=== PATIENT | male | born 1950 | race African-American/Black ===

== ENCOUNTER 2023-02-20 11:59 | Emergency (ER) | payer MEDICARE, OTHER, SELFPAY ==
--- NOTE | ~2023-02-20 | XR_ITS ---
Examination: Chest and thoracic spine. CLINICAL HISTORY: Upper back pain and chest pain. COMPARISON: None. TECHNIQUE: Dorsal spine 3 views. Chest 2 views. FINDINGS: There is maintained thoracic kyphosis with mild dextroscoliosis. The vertebral heights and alignment is normal. There is moderate right mid and lower dorsal spine spondylosis. No aggressive lytic or sclerotic process. The paravertebral soft tissues are normal. CHEST: The lungs are well-expanded with patchy atelectatic changes in both lung bases and likely lingular segments. There is increase interstitial markings in both lungs likely chronic changes. The heart size is normal. Pulmonary vascularity is normal There is moderate left apical pleural thickening. XR/XR chest 2V IMPRESSION: Moderate dextroscoliosis with moderate right lateral mid and lower dorsal spine spondylosis. Bilateral chronic interstitial lung changes most prominent in the lingula and both lung bases. There is likely bibasilar atelectasis as well.
--- NOTE | ~2023-02-20 | XR_ITS ---
Examination: Chest and thoracic spine. CLINICAL HISTORY: Upper back pain and chest pain. COMPARISON: None. TECHNIQUE: Dorsal spine 3 views. Chest 2 views. FINDINGS: There is maintained thoracic kyphosis with mild dextroscoliosis. The vertebral heights and alignment is normal. There is moderate right mid and lower dorsal spine spondylosis. No aggressive lytic or sclerotic process. The paravertebral soft tissues are normal. CHEST: The lungs are well-expanded with patchy atelectatic changes in both lung bases and likely lingular segments. There is increase interstitial markings in both lungs likely chronic changes. The heart size is normal. Pulmonary vascularity is normal There is moderate left apical pleural thickening. XR/XR thoracic spine 3V IMPRESSION: Moderate dextroscoliosis with moderate right lateral mid and lower dorsal spine spondylosis. Bilateral chronic interstitial lung changes most prominent in the lingula and both lung bases. There is likely bibasilar atelectasis as well.
--- NOTE | ~2023-02-20 | CT_ITS ---
EXAMINATION: CT ANGIOGRAM OF THE CHEST WITH AND WITHOUT CONTRAST (CT PULMONARY ANGIOGRAM FOR PE) CLINICAL INFORMATION: Reason for Exam back pain/chest pain pleuritic, elevated d dimer COMPARISON: None available. TECHNIQUE: Prior to contrast administration, noncontrast localization images were obtained. Subsequently, multidetector volumetric imaging was performed from the thoracic inlet to below the diaphragms following the administration of 80 mL Omnipaque 350 intravenous contrast. No contrast reaction reported Sagittal, coronal, and MIP oblique sagittal reformatted images were obtained on the CT workstation, uploaded to PACS, and reviewed. This CT examination was performed using dose optimization techniques as appropriate, variously including the following: *Automated exposure control *Adjustment of mA and/or kV according to patient size (this includes techniques or standardized protocols for targeted exams where dose is matched to indication/reason for exam; i.e. extremities or head) *Use of iterative reconstruction technique Total exam dose-length product 363 mGy-cm FINDINGS: QUALITY OF STUDY/CONTRAST BOLUS: Satisfactory. PULMONARY ARTERIES: No central or segmental pulmonary emboli. THORACIC AORTA: No aneurysm or dissection. LUNG: The lungs are well-expanded with patchy probably normal opacities in both lower lobes subpleural base likely chronic interstitial lung changes. Similar findings are seen in both upper lobes. There is an ill-defined pleural-based opacity left upper lobe measuring 1.7 x 1.3 cm, axial image 21/5. There is a subpleural groundglass opacity right upper lobe as well axial image 21/5. PLEURA: There is a small left pleural effusion. There is no right-sided pleural effusion. There is no pleural thickening or calcification. MEDIASTINUM: The thyroid lobes are symmetric and normal. The central trachea and the bronchi widely patent. The heart size and the great vessels are normal caliber. There are small shotty lymph nodes in the left anterior mediastinum measuring 1.5 cm likely inflammatory. There is a small hiatal hernia. No pericardial effusion. No evidence of septal bowing or right heart strain. CORONARY ARTERY CALCIFICATION: None visualized on this study. CHEST WALL/AXILLA: No axillary or internal mammary lymphadenopathy. OSSEOUS STRUCTURES: There is moderate mid thoracic spondylosis. No aggressive lytic or sclerotic process seen. UPPER ABDOMEN: Visualized liver, spleen, pancreas and bilateral adrenal glands unremarkable. No reflux of contrast into the hepatic veins to suggest elevated right heart pressures. CT/CT angio chest PE protocol IMPRESSION: There are chronic interstitial lung changes bilaterally. There is a pleural-based ill-defined opacity left upper lobe and a groundglass opacity in the right upper lobe as definable above. There is small left pleural effusion. Small hiatal hernia. VTE: negative
--- NOTE | 2023-02-20 12:04 | ED.GENADULT ---
HPI - General Adult General Chief complaint: Chest Pain <LAITH Oneal Last Filed: 02/21/23 11:45> Stated complaint: Upper back pain/pain when breathing <LAITH Oneal Last Filed: 02/21/23 11:45> Time Seen by Provider: 02/20/23 14:25 <LAITH Oneal - Last Filed: 02/21/23 11:45> Source: patient and family (Family denies need for vice president of talent management and they are interpreting for the patient) <Jessa Galicia NP - Last Filed: 02/20/23 16:37> Mode of arrival: ambulatory <DURGA Mejía Last Filed: 02/20/23 16:37> Limitations: no limitations <DURGA Mejía Last Filed: 02/20/23 16:37> History of Present Illness HPI narrative: This is a 72-year-old male with history of hypertension and diabetes presents the ER with complaints of 2 months of upper back pain which is worsened since yesterday with no known injury or trauma. Patient reports he lives in [place] and was doing physical therapy there for this back pain but was having continued symptoms. He is visiting here from [place] and reports since yesterday his back pain has worsened and is radiating to the front of his chest and worsened with deep breathing and movement. No associated shortness of breath, dizziness, palpitations, cough or fever. No leg swelling or leg pain No history DVT or PE No anticoagulation use <DURGA Mejía Last Filed: 02/20/23 16:37> Related Data Home medications: Previous Rx's Medication Instructions Recorded doxycycline monohydrate 100 mg 100 mg PO BID #20 tabs 02/20/23 tablet lidocaine 5 % topical patch 1 patch topical DAILY #15 ea 02/20/23 (Lidoderm) <LAITH Oneal Last Filed: 02/21/23 11:45> Allergies/adverse reactions: Allergies Allergy/AdvReac Type Severity Reaction Status Date / Time No Known Allergies Allergy Verified 02/20/23 12:09 <LAITH Oneal Last Filed: 02/21/23 11:45> Review of Systems Review of Systems: Yes all other systems are reviewed and are negative <Jessa Galicia REFINING EQUIPMENT OPERATOR - Last Filed: 02/20/23 16:37> Constitutional: Constitutional: Reports no additional constitutional complaints, Denies body ache(s), Denies chills, Denies fever(s), Denies headache(s) and Denies weakness <Jessa Galicia REFINING EQUIPMENT OPERATOR - Last Filed: 02/20/23 16:37> Eyes: Eyes: Reports no additional eye complaints and Denies change in vision <Jessa Galicia REFINING EQUIPMENT OPERATOR - Last Filed: 02/20/23 16:37> ENT: Reports system reviewed and no additional complaints, except as documented, Denies dizziness, Denies headache(s), Denies nasal congestion, Denies nasal discharge and Denies neck pain <Jessa Galicia REFINING EQUIPMENT OPERATOR - Last Filed: 02/20/23 16:37> Cardiovascular: Cardiovascular: Reports no additional cardiovascular complaints, Reports chest pain, Denies leg edema and Denies dyspnea <Jessa Galicia REFINING EQUIPMENT OPERATOR - Last Filed: 02/20/23 16:37> Respiratory: Respiratory: Reports no additional respiratory complaints, Denies cough and Denies dyspnea <Jessa Galicia, REFINING EQUIPMENT OPERATOR - Last Filed: 02/20/23 16:37> Gastrointestinal: Gastrointestinal: Reports no additional gastrointestinal complaints, Denies abdominal pain, Denies diarrhea, Denies nausea and Denies vomiting <Jessa Galicia, REFINING EQUIPMENT OPERATOR - Last Filed: 02/20/23 16:37> Genitourinary: Genitourinary: Denies urinary incontinence <Jessa Galicia, REFINING EQUIPMENT OPERATOR - Last Filed: 02/20/23 16:37> Musculoskeletal: Musculoskeletal: Reports no additional musculoskeletal complaints, Reports back pain, Denies arthralgias, Denies joint swelling, Denies neck pain, Denies numbness and Denies tingling <Jessa Galicia REFINING EQUIPMENT OPERATOR - Last Filed: 02/20/23 16:37> Integumentary/Breasts: Skin/Breast: Reports system reviewed and no additional complaints, except as docu and Denies rash <Jessa Galicia REFINING EQUIPMENT OPERATOR - Last Filed: 02/20/23 16:37> Neurologic: Reports system reviewed and no additional complaints, except as documented, Denies dizziness, Denies headache(s), Denies numbness, Denies tingling and Denies weakness <Jessa Galicia NP - Last Filed: 02/20/23 16:37> [facility] Past Medical History Attestation statement: The following information was validated with the patient. <Jessa Galicia NP - Last Filed: 02/20/23 16:37> Source: old records reviewed and nursing notes reviewed <Jessa Galicia NP - Last Filed: 02/20/23 16:37> Social History Social History: Social History Alcohol intake: never Smoked in Last 30 Days: No Use of substances other than those prescribed or required for medical reasons: No Advance Directives: No Advance Directives Information Provided: No <LAITH Oneal - Last Filed: 02/21/23 11:45> Physical Exam ED Vital Signs: Vital Signs - 24 hr 02/20/23 12:06 02/20/23 14:13 02/20/23 15:49 Temperature 97.7 F 97.8 F Pulse Rate 104 H 89 88 Respiratory Rate 18 12 17 Blood Pressure 159/89 H 166/93 H 147/87 H Pulse Oximetry 96 96 95 Oxygen Delivery Method Room Air Room Air Room Air BMI result Body Mass Index 27.4 <LAITH Oneal - Last Filed: 02/21/23 11:45> Vital Signs - 24 hr 02/20/23 12:06 02/20/23 14:13 02/20/23 15:49 Temperature 97.7 F 97.8 F Pulse Rate 104 H 89 88 Respiratory Rate 18 12 17 Blood Pressure 159/89 H 166/93 H 147/87 H Pulse Oximetry 96 96 95 Oxygen Delivery Method Room Air Room Air Room Air BMI result Body Mass Index 27.4 <Jessa Galicia NP - Last Filed: 02/20/23 16:37> Const General: cooperative, healthy appearing, comfortable and no acute distress <Jessa Galicia NP - Last Filed: 02/20/23 16:37> Orientation/consciousness: patient oriented x3 <Jessa Galicia NP - Last Filed: 02/20/23 16:37> Limitations: no limitations <Jessa Glaicia, REFINING EQUIPMENT OPERATOR - Last Filed: 02/20/23 16:37> HENMT Head: Yes normal to inspection <Jessa Galicia REFINING EQUIPMENT OPERATOR - Last Filed: 02/20/23 16:37> Ears: hearing grossly normal bilaterally <Jessa Galicia REFINING EQUIPMENT OPERATOR - Last Filed: 02/20/23 16:37> General nose exam: Normal external nose present <Jessa Galicia REFINING EQUIPMENT OPERATOR - Last Filed: 02/20/23 16:37> Face and sinus: Yes normal facial exam <Jessa Galicia, REFINING EQUIPMENT OPERATOR - Last Filed: 02/20/23 16:37> Mouth: Normal oral and palatal mucosa present <Jessa Galicia, REFINING EQUIPMENT OPERATOR - Last Filed: 02/20/23 16:37> Throat: Yes posterior oropharynx normal, Yes tonsils normal and Yes uvula midline <Jessa Galicia, REFINING EQUIPMENT OPERATOR - Last Filed: 02/20/23 16:37> Eyes General: appearance normal, both eyes and all related structures <Jessa Galicia, REFINING EQUIPMENT OPERATOR - Last Filed: 02/20/23 16:37> Pupils: Equal, round and reactive pupils present <Jessa Galicia REFINING EQUIPMENT OPERATOR - Last Filed: 02/20/23 16:37> Neck Neck: Yes normal visual inspection, Yes full ROM, Yes no lymphadenopathy and Yes no meningeal signs <Jessa Galicia REFINING EQUIPMENT OPERATOR - Last Filed: 02/20/23 16:37> Chest Chest palpation & inspection: normal inspection of the chest <Jessa Galicia REFINING EQUIPMENT OPERATOR - Last Filed: 02/20/23 16:37> Resp Effort & Inspection: normal respiratory effort <Jessa Galicia REFINING EQUIPMENT OPERATOR - Last Filed: 02/20/23 16:37> Auscultation: clear to auscultation bilaterally <Jessa Galicia REFINING EQUIPMENT OPERATOR - Last Filed: 02/20/23 16:37> Cardio Rate: regular rate <Jessa Galicia REFINING EQUIPMENT OPERATOR - Last Filed: 02/20/23 16:37> Rhythm: regular rhythm <Jessa Galicia REFINING EQUIPMENT OPERATOR - Last Filed: 02/20/23 16:37> Peripheral pulses: Peripheral pulses 2+ throughout <Jessa Fergusonbertin REFINING EQUIPMENT OPERATOR - Last Filed: 02/20/23 16:37> GI Inspection: Yes normal to inspection <Jessa Fergusonbertin REFINING EQUIPMENT OPERATOR - Last Filed: 02/20/23 16:37> Palpation (GI): Soft to palpation and nontender <Jessa Samirjourdan, REFINING EQUIPMENT OPERATOR - Last Filed: 02/20/23 16:37> Back/Spine/Pelvis Other: Tenderness to the thoracic spine and soft tissue areas bilaterally with no step-offs or deformities <Jessa Samirjourdan, REFINING EQUIPMENT OPERATOR - Last Filed: 02/20/23 16:37> Skin General skin exam: no rashes or lesions noted <Jessaliliana Galicia REFINING EQUIPMENT OPERATOR - Last Filed: 02/20/23 16:37> Neuro General: patient oriented x3, moves all extremities and no meningeal signs <Jessaliliana Galicia, REFINING EQUIPMENT OPERATOR - Last Filed: 02/20/23 16:37> Cranial nerves: Yes Equal, round and reactive pupils present <Jessa Samirjourdan, REFINING EQUIPMENT OPERATOR - Last Filed: 02/20/23 16:37> Cognition (Neuro): normal cognition <Jessa Samirjourdan, REFINING EQUIPMENT OPERATOR - Last Filed: 02/20/23 16:37> Gait exam (Neuro): Normal gait present <Jessa Martybertin REFINING EQUIPMENT OPERATOR - Last Filed: 02/20/23 16:37> Motor exam (neuro): 5/5 motor strength present throughout <Jessaliliana Galicia REFINING EQUIPMENT OPERATOR - Last Filed: 02/20/23 16:37> Sensory Exam: Normal double simultaneous stimulation for sensation <Jessa Samirjourdan, REFINING EQUIPMENT OPERATOR - Last Filed: 02/20/23 16:37> Extrem General: Yes normal to inspection, Yes no pedal edema and Yes no calf tenderness <Jessaliliana Galicia REFINING EQUIPMENT OPERATOR - Last Filed: 02/20/23 16:37> Course Course Course Narrative: RME: 72 yold male presents to the ED for upper left sided back pain radiating to lef chest with pleurisy. Patient recent traveled from [facility] yesterday 4 hour flight. Exam positive for left CVA. no legs swelling or calf pain. No spine tenderness on palpation. NO ripping chest pain going to the back. labs and EKG ordered. Chest xray ordered. radha states chronic back pain but has worsened since flight. <LAITH Oneal - Last Filed: 02/21/23 11:45> Reevaluation(s) Reevaluation #1: 1450-initial labs show indeterminate troponin, elevated D-dimer. X-rays of the chest and thoracic spine showed no acute finding. EKG is nonischemic. Patient with recent travel with pleuritic back and chest pain consider PE. Will obtain CTA to rule out and repeat troponin <Jessa Galicia NP - Last Filed: 02/20/23 16:37> Reevaluation #2: 1630-CT shows chronic lung disease. There does appear to be two areas of upper lobe infiltrates. Patient has longstanding history of smoking tobacco. He may have pneumonia which may be contributing to his pain. However consider malignancy. I discussed this with the patient and his family at length and the room with the public speaking instructor. I will start the patient on antibiotics and recommend he have follow-up imaging and [place] when he returns. Reviewed worrisome signs and symptoms of when to return to the emergency room. Comfortable plan for discharge home. <Jessa Galicia NP - Last Filed: 02/20/23 16:37> Medications Administered Discontinued Medications Generic Name Dose Route Start Last Admin Trade Name Freq PRN Reason Stop Dose Admin Iohexol 100 ml 02/20/23 15:13 02/20/23 15:13 Iohexol 350 Mg/Ml 100 Ml Infus..Btl IV 02/20/23 15:14 65 ml ONCE ONE Administration <LAITH Oneal - Last Filed: 02/21/23 11:45> Medications Administered Discontinued Medications Generic Name Dose Route Start Last Admin Trade Name Freq PRN Reason Stop Dose Admin Iohexol 100 ml 02/20/23 15:13 02/20/23 15:13 Iohexol 350 Mg/Ml 100 Ml Infus..Btl IV 02/20/23 15:14 65 ml ONCE ONE Administration <Jessa Galicia NP - Last Filed: 02/20/23 16:37> Medical Decision Making Medical Decision Making MDM Narrative: This is a 72-year-old male who presents to the ER with acute on chronic back pain with radiation to the chest which is worsened with movement and deep breathing. Patient recently traveled from [place] Will obtain labs, EKG, chest x-ray, thoracic x-ray, COVID screen <Jessa Galicia NP - Last Filed: 02/20/23 16:37> Differential Diagnosis Differential Diagnoses: The differential diagnosis associated with the presentation includes <Jessa Galicia NP - Last Filed: 02/20/23 16:37> Less likely dissection with gradual onset, ACS, PE Musculoskeletal <Jessa Galicia NP - Last Filed: 02/20/23 16:37> Lab Data MDM Lab Attestation statement: I reviewed the patient's lab results. <Jessa Galicia NP - Last Filed: 02/20/23 16:37> Result Diagrams: 02/20/23 12:18 02/20/23 12:18 <LAITH Oneal - Last Filed: 02/21/23 11:45> Labs: Lab Results 02/20/23 02/20/23 02/20/23 Range/Units 12:18 12:18 12:18 WBC 13.5 H (4.8-10.8) X10*3/uL RBC 5.37 (4.60-5.80) X10*6/uL Hgb 16.1 (14.0-18.0) g/dl Hct 49.6 (42.0-52.0) % MCV 92.4 (80.0-98.0) fL MCH 30.0 (27.0-33.0) pg MCHC 32.5 (31.0-36.0) g/dl RDW 13.1 (11.0-16.0) % Plt Count 257 (160-400) X10*3/uL MPV 10.4 (9.4-12.4) fL Immature Gran % (Auto) 0.3 (0.0-0.4) % Neut % (Auto) 70.5 (45-73) % Lymph % (Auto) 18.2 L (20-40) % Taylor % (Auto) 7.0 (2-11) % Eos % (Auto) 3.6 (0-4) % Baso % (Auto) 0.4 (0-2) % Lymph # (Auto) 2.5 (1.2-4.9) X10*3/uL Taylor # (Auto) 1.0 (0.1-1.2) X10*3/uL Eos # (Auto) 0.5 H (0.0-0.4) X10*3/uL Baso # (Auto) 0.1 (0.0-0.2) X10*3/uL Abs Immat Gran (auto) 0.04 H (0.00-0.03) X10*3/uL Absolute Neuts (auto) 9.5 H (2.0-8.3) x10*3/uL Absolute Nucleated RBC 0.000 (0.0-0.012) X10*3/uL Nucleated RBC % (auto) 0.0 (0.0-0.2) /100WBC PT 11.6 (10.0-13.1) SEC INR 1.0 (0.9-1.1) APTT 31.2 (26.0-36.4) SEC D-Dimer High Sensitivty 458 NG/ML Sodium 141 (135-145) mmol/L Potassium 4.4 (3.3-5.1) mmol/L Chloride 105 (96-108) mmol/L Carbon Dioxide 26 (22-29) mmol/L Anion Gap 14 (12-20) BUN 21 H (9-16) mg/dL Creatinine 0.95 (0.5-1.4) mg/dL Estim Creat Clear Calc 73.7 Estimated GFR > 60 Random Glucose 192 H (60-115) mg/dL Calcium 9.7 (8.4-10.2) mg/dL Total Bilirubin 0.5 (0.0-1.0) mg/dL AST 26 (5-37) U/L ALT 34 (0-40) U/L Alkaline Phosphatase 86 (39-117) U/L Troponin I High Sens (<3.5-35.0) ng/L Total Protein 7.4 (6.5-8.0) g/dL Albumin 4.2 (3.5-5.0) g/dL Urine Color Urine Appearance Urine pH (5.0-9.0) Ur Specific [place] (1.005-1.025) Urine Protein (Neg-Trace) mg/dL Urine Glucose (UA) (Negative) mg/dL Urine Ketones (Negative) mg/dL Urine Blood (Negative) Urine Nitrite (Negative) Ur Leukocyte Esterase (Negative) Urine RBC (0-2) /HPF Urine WBC (0-5) /HPF Ur Squamous Epith Cells (0-2) /HPF Urine Bacteria (None Seen) Hyaline Casts (0-2) /LPF Influenza Type A (PCR) (Negative) Influenza Type B (PCR) (Negative) RSV RNA Qual (PCR) (Negative) SARS-CoV-2 RNA (RT-PCR) (Negative) 02/20/23 02/20/23 02/20/23 Range/Units 12:18 12:19 14:04 WBC (4.8-10.8) X10*3/uL RBC (4.60-5.80) X10*6/uL Hgb (14.0-18.0) g/dl Hct (42.0-52.0) % MCV (80.0-98.0) fL MCH (27.0-33.0) pg MCHC (31.0-36.0) g/dl RDW (11.0-16.0) % Plt Count (160-400) X10*3/uL MPV (9.4-12.4) fL Immature Gran % (Auto) (0.0-0.4) % Neut % (Auto) (45-73) % Lymph % (Auto) (20-40) % Taylor % (Auto) (2-11) % Eos % (Auto) (0-4) % Baso % (Auto) (0-2) % Lymph # (Auto) (1.2-4.9) X10*3/uL Taylor # (Auto) (0.1-1.2) X10*3/uL Eos # (Auto) (0.0-0.4) X10*3/uL Baso # (Auto) (0.0-0.2) X10*3/uL Abs Immat Gran (auto) (0.00-0.03) X10*3/uL Absolute Neuts (auto) (2.0-8.3) x10*3/uL Absolute Nucleated RBC (0.0-0.012) X10*3/uL Nucleated RBC % (auto) (0.0-0.2) /100WBC PT (10.0-13.1) SEC INR (0.9-1.1) APTT (26.0-36.4) SEC D-Dimer High Sensitivty NG/ML Sodium (135-145) mmol/L Potassium (3.3-5.1) mmol/L Chloride (96-108) mmol/L Carbon Dioxide (22-29) mmol/L Anion Gap (12-20) BUN (9-16) mg/dL Creatinine (0.5-1.4) mg/dL Estim Creat Clear Calc Estimated GFR Random Glucose (60-115) mg/dL Calcium (8.4-10.2) mg/dL Total Bilirubin (0.0-1.0) mg/dL AST (5-37) U/L ALT (0-40) U/L Alkaline Phosphatase (39-117) U/L Troponin I High Sens 37.6 H (<3.5-35.0) ng/L Total Protein (6.5-8.0) g/dL Albumin (3.5-5.0) g/dL Urine Color Yellow Urine Appearance Clear Urine pH 6.5 (5.0-9.0) Ur Specific [place] 1.020 (1.005-1.025) Urine Protein Trace (Neg-Trace) mg/dL Urine Glucose (UA) 500 H (Negative) mg/dL Urine Ketones Negative (Negative) mg/dL Urine Blood Negative (Negative) Urine Nitrite Negative (Negative) Ur Leukocyte Esterase Small (1+) H (Negative) Urine RBC 0-2 (0-2) /HPF Urine WBC 11-20 H (0-5) /HPF Ur Squamous Epith Cells 0-2 (0-2) /HPF Urine Bacteria None Seen (None Seen) Hyaline Casts 0-2 (0-2) /LPF Influenza Type A (PCR) NEGATIVE (Negative) Influenza Type B (PCR) NEGATIVE (Negative) RSV RNA Qual (PCR) NEGATIVE (Negative) SARS-CoV-2 RNA (RT-PCR) NEGATIVE (Negative) 02/20/23 Range/Units 14:58 WBC (4.8-10.8) X10*3/uL RBC (4.60-5.80) X10*6/uL Hgb (14.0-18.0) g/dl Hct (42.0-52.0) % MCV (80.0-98.0) fL MCH (27.0-33.0) pg MCHC (31.0-36.0) g/dl RDW (11.0-16.0) % Plt Count (160-400) X10*3/uL MPV (9.4-12.4) fL Immature Gran % (Auto) (0.0-0.4) % Neut % (Auto) (45-73) % Lymph % (Auto) (20-40) % Taylor % (Auto) (2-11) % Eos % (Auto) (0-4) % Baso % (Auto) (0-2) % Lymph # (Auto) (1.2-4.9) X10*3/uL Taylor # (Auto) (0.1-1.2) X10*3/uL Eos # (Auto) (0.0-0.4) X10*3/uL Baso # (Auto) (0.0-0.2) X10*3/uL Abs Immat Gran (auto) (0.00-0.03) X10*3/uL Absolute Neuts (auto) (2.0-8.3) x10*3/uL Absolute Nucleated RBC (0.0-0.012) X10*3/uL Nucleated RBC % (auto) (0.0-0.2) /100WBC PT (10.0-13.1) SEC INR (0.9-1.1) APTT (26.0-36.4) SEC D-Dimer High Sensitivty NG/ML Sodium (135-145) mmol/L Potassium (3.3-5.1) mmol/L Chloride (96-108) mmol/L Carbon Dioxide (22-29) mmol/L Anion Gap (12-20) BUN (9-16) mg/dL Creatinine (0.5-1.4) mg/dL Estim Creat Clear Calc Estimated GFR Random Glucose (60-115) mg/dL Calcium (8.4-10.2) mg/dL Total Bilirubin (0.0-1.0) mg/dL AST (5-37) U/L ALT (0-40) U/L Alkaline Phosphatase (39-117) U/L Troponin I High Sens 35.9 H (<3.5-35.0) ng/L Total Protein (6.5-8.0) g/dL Albumin (3.5-5.0) g/dL Urine Color Urine Appearance Urine pH (5.0-9.0) Ur Specific [place] (1.005-1.025) Urine Protein (Neg-Trace) mg/dL Urine Glucose (UA) (Negative) mg/dL Urine Ketones (Negative) mg/dL Urine Blood (Negative) Urine Nitrite (Negative) Ur Leukocyte Esterase (Negative) Urine RBC (0-2) /HPF Urine WBC (0-5) /HPF Ur Squamous Epith Cells (0-2) /HPF Urine Bacteria (None Seen) Hyaline Casts (0-2) /LPF Influenza Type A (PCR) (Negative) Influenza Type B (PCR) (Negative) RSV RNA Qual (PCR) (Negative) SARS-CoV-2 RNA (RT-PCR) (Negative) <LAITH Oneal - Last Filed: 02/21/23 11:45> Lab Results 02/20/23 02/20/23 02/20/23 Range/Units 12:18 12:18 12:18 WBC 13.5 H (4.8-10.8) X10*3/uL RBC 5.37 (4.60-5.80) X10*6/uL Hgb 16.1 (14.0-18.0) g/dl Hct 49.6 (42.0-52.0) % MCV 92.4 (80.0-98.0) fL MCH 30.0 (27.0-33.0) pg MCHC 32.5 (31.0-36.0) g/dl RDW 13.1 (11.0-16.0) % Plt Count 257 (160-400) X10*3/uL MPV 10.4 (9.4-12.4) fL Immature Gran % (Auto) 0.3 (0.0-0.4) % Neut % (Auto) 70.5 (45-73) % Lymph % (Auto) 18.2 L (20-40) % Taylor % (Auto) 7.0 (2-11) % Eos % (Auto) 3.6 (0-4) % Baso % (Auto) 0.4 (0-2) % Lymph # (Auto) 2.5 (1.2-4.9) X10*3/uL Taylor # (Auto) 1.0 (0.1-1.2) X10*3/uL Eos # (Auto) 0.5 H (0.0-0.4) X10*3/uL Baso # (Auto) 0.1 (0.0-0.2) X10*3/uL Abs Immat Gran (auto) 0.04 H (0.00-0.03) X10*3/uL Absolute Neuts (auto) 9.5 H (2.0-8.3) x10*3/uL Absolute Nucleated RBC 0.000 (0.0-0.012) X10*3/uL Nucleated RBC % (auto) 0.0 (0.0-0.2) /100WBC PT 11.6 (10.0-13.1) SEC INR 1.0 (0.9-1.1) APTT 31.2 (26.0-36.4) SEC D-Dimer High Sensitivty 458 NG/ML Sodium 141 (135-145) mmol/L Potassium 4.4 (3.3-5.1) mmol/L Chloride 105 (96-108) mmol/L Carbon Dioxide 26 (22-29) mmol/L Anion Gap 14 (12-20) BUN 21 H (9-16) mg/dL Creatinine 0.95 (0.5-1.4) mg/dL Estim Creat Clear Calc 73.7 Estimated GFR > 60 Random Glucose 192 H (60-115) mg/dL Calcium 9.7 (8.4-10.2) mg/dL Total Bilirubin 0.5 (0.0-1.0) mg/dL AST 26 (5-37) U/L ALT 34 (0-40) U/L Alkaline Phosphatase 86 (39-117) U/L Troponin I High Sens (<3.5-35.0) ng/L Total Protein 7.4 (6.5-8.0) g/dL Albumin 4.2 (3.5-5.0) g/dL Urine Color Urine Appearance Urine pH (5.0-9.0) Ur Specific [place] (1.005-1.025) Urine Protein (Neg-Trace) mg/dL Urine Glucose (UA) (Negative) mg/dL Urine Ketones (Negative) mg/dL Urine Blood (Negative) Urine Nitrite (Negative) Ur Leukocyte Esterase (Negative) Urine RBC (0-2) /HPF Urine WBC (0-5) /HPF Ur Squamous Epith Cells (0-2) /HPF Urine Bacteria (None Seen) Hyaline Casts (0-2) /LPF Influenza Type A (PCR) (Negative) Influenza Type B (PCR) (Negative) RSV RNA Qual (PCR) (Negative) SARS-CoV-2 RNA (RT-PCR) (Negative) 02/20/23 02/20/23 02/20/23 Range/Units 12:18 12:19 14:04 WBC (4.8-10.8) X10*3/uL RBC (4.60-5.80) X10*6/uL Hgb (14.0-18.0) g/dl Hct (42.0-52.0) % MCV (80.0-98.0) fL MCH (27.0-33.0) pg MCHC (31.0-36.0) g/dl RDW (11.0-16.0) % Plt Count (160-400) X10*3/uL MPV (9.4-12.4) fL Immature Gran % (Auto) (0.0-0.4) % Neut % (Auto) (45-73) % Lymph % (Auto) (20-40) % Taylor % (Auto) (2-11) % Eos % (Auto) (0-4) % Baso % (Auto) (0-2) % Lymph # (Auto) (1.2-4.9) X10*3/uL Taylor # (Auto) (0.1-1.2) X10*3/uL Eos # (Auto) (0.0-0.4) X10*3/uL Baso # (Auto) (0.0-0.2) X10*3/uL Abs Immat Gran (auto) (0.00-0.03) X10*3/uL Absolute Neuts (auto) (2.0-8.3) x10*3/uL Absolute Nucleated RBC (0.0-0.012) X10*3/uL Nucleated RBC % (auto) (0.0-0.2) /100WBC PT (10.0-13.1) SEC INR (0.9-1.1) APTT (26.0-36.4) SEC D-Dimer High Sensitivty NG/ML Sodium (135-145) mmol/L Potassium (3.3-5.1) mmol/L Chloride (96-108) mmol/L Carbon Dioxide (22-29) mmol/L Anion Gap (12-20) BUN (9-16) mg/dL Creatinine (0.5-1.4) mg/dL Estim Creat Clear Calc Estimated GFR Random Glucose (60-115) mg/dL Calcium (8.4-10.2) mg/dL Total Bilirubin (0.0-1.0) mg/dL AST (5-37) U/L ALT (0-40) U/L Alkaline Phosphatase (39-117) U/L Troponin I High Sens 37.6 H (<3.5-35.0) ng/L Total Protein (6.5-8.0) g/dL Albumin (3.5-5.0) g/dL Urine Color Yellow Urine Appearance Clear Urine pH 6.5 (5.0-9.0) Ur Specific [place] 1.020 (1.005-1.025) Urine Protein Trace (Neg-Trace) mg/dL Urine Glucose (UA) 500 H (Negative) mg/dL Urine Ketones Negative (Negative) mg/dL Urine Blood Negative (Negative) Urine Nitrite Negative (Negative) Ur Leukocyte Esterase Small (1+) H (Negative) Urine RBC 0-2 (0-2) /HPF Urine WBC 11-20 H (0-5) /HPF Ur Squamous Epith Cells 0-2 (0-2) /HPF Urine Bacteria None Seen (None Seen) Hyaline Casts 0-2 (0-2) /LPF Influenza Type A (PCR) NEGATIVE (Negative) Influenza Type B (PCR) NEGATIVE (Negative) RSV RNA Qual (PCR) NEGATIVE (Negative) SARS-CoV-2 RNA (RT-PCR) NEGATIVE (Negative) 02/20/23 Range/Units 14:58 WBC (4.8-10.8) X10*3/uL RBC (4.60-5.80) X10*6/uL Hgb (14.0-18.0) g/dl Hct (42.0-52.0) % MCV (80.0-98.0) fL MCH (27.0-33.0) pg MCHC (31.0-36.0) g/dl RDW (11.0-16.0) % Plt Count (160-400) X10*3/uL MPV (9.4-12.4) fL Immature Gran % (Auto) (0.0-0.4) % Neut % (Auto) (45-73) % Lymph % (Auto) (20-40) % [place] % (Auto) (2-11) % Eos % (Auto) (0-4) % Baso % (Auto) (0-2) % Lymph # (Auto) (1.2-4.9) X10*3/uL [place] # (Auto) (0.1-1.2) X10*3/uL Eos # (Auto) (0.0-0.4) X10*3/uL Baso # (Auto) (0.0-0.2) X10*3/uL Abs Immat Gran (auto) (0.00-0.03) X10*3/uL Absolute Neuts (auto) (2.0-8.3) x10*3/uL Absolute Nucleated RBC (0.0-0.012) X10*3/uL Nucleated RBC % (auto) (0.0-0.2) /100WBC PT (10.0-13.1) SEC INR (0.9-1.1) APTT (26.0-36.4) SEC D-Dimer High Sensitivty NG/ML Sodium (135-145) mmol/L Potassium (3.3-5.1) mmol/L Chloride (96-108) mmol/L Carbon Dioxide (22-29) mmol/L Anion Gap (12-20) BUN (9-16) mg/dL Creatinine (0.5-1.4) mg/dL Estim Creat Clear Calc Estimated GFR Random Glucose (60-115) mg/dL Calcium (8.4-10.2) mg/dL Total Bilirubin (0.0-1.0) mg/dL AST (5-37) U/L ALT (0-40) U/L Alkaline Phosphatase (39-117) U/L Troponin I High Sens 35.9 H (<3.5-35.0) ng/L Total Protein (6.5-8.0) g/dL Albumin (3.5-5.0) g/dL Urine Color Urine Appearance Urine pH (5.0-9.0) Ur Specific [place] (1.005-1.025) Urine Protein (Neg-Trace) mg/dL Urine Glucose (UA) (Negative) mg/dL Urine Ketones (Negative) mg/dL Urine Blood (Negative) Urine Nitrite (Negative) Ur Leukocyte Esterase (Negative) Urine RBC (0-2) /HPF Urine WBC (0-5) /HPF Ur Squamous Epith Cells (0-2) /HPF Urine Bacteria (None Seen) Hyaline Casts (0-2) /LPF Influenza Type A (PCR) (Negative) Influenza Type B (PCR) (Negative) RSV RNA Qual (PCR) (Negative) SARS-CoV-2 RNA (RT-PCR) (Negative) <Jessa Galicia NP - Last Filed: 02/20/23 16:37> Independent Interpretation I performed an independent interpretation of an: EKG, Plain X-Ray and CT Scan <Jessa Galicia NP - Last Filed: 02/20/23 16:37> Interpretation: I independently reviewed the EKG which shows sinus tachycardia with a rate of 101, normal NE, normal QRS, normal QT I independently reviewed the x-ray of the chest and thoracic spine agree with radiologist's report I independetely reviewed the CT of the chest and agree with radiologist's report <Jessa Galicia NP - Last Filed: 02/20/23 16:37> Radiology Impression Discussion of test interpretation with radiology: I have reviewed the radiologist's reading. <Jessa Galicia NP - Last Filed: 02/20/23 16:37> Discharge Plan Discharge Clinical Impression: Atypical chest pain, Pneumonia <LAITH Oneal - Last Filed: 02/21/23 11:45> Patient Disposition: Home, Self-Care <LAITH Oneal - Last Filed: 02/21/23 11:45> Instructions: Chest Pain (DC), Pneumonia (ED) <LAITH Oneal - Last Filed: 02/21/23 11:45> Additional Instructions: your CT scan shows no blood clots.? It does show that you have chronic lung disease and you may have a small area of pneumonia.? We are giving you an antibiotic which she should take as prescribed.? Please follow-up with your doctors in [place] when you return there. levi tomograf?a computarizada no muestra co?gulos de angie. Muestra que tiene mikel enfermedad pulmonar cr?kathya y que puede tener mikel froilan?a ?harriet de [place]um[place]?a. Le estamos dando un antibi?nemo que debe jenn seg?n lo prescrito. Por favor, michelle un seguimiento con david m?dicos en [place] cuando regrese all <LAITH Oneal - Last Filed: 02/21/23 11:45> Prescriptions: New doxycycline monohydrate 100 mg tablet 100 mg PO BID Qty: 20 0RF lidocaine [Lidoderm] 5 % adhesive patch,medicated 1 patch topical DAILY Qty: 15 0RF Rx Instructions: leave on most painful area for up to 12 hrs <LAITH Oneal - Last Filed: 02/21/23 11:45> Referrals: Physician,None [Primary Care Provider] - 1 week <LAITH Oneal - Last Filed: 02/21/23 11:45> Interventions: ED Discharge Assessment Last Done: 02/20/23 16:55 <LAITH Oneal - Last Filed: 02/21/23 11:45> Discharge Date/Time: 02/20/23 16:55 <LAITH Oneal - Last Filed: 02/21/23 11:45> Print Language: Icelandic <LAITH Oneal - Last Filed: 02/21/23 11:45>
[2023-02-20 12:06] VITALS: BP 159/89; PULSE 104; RESP 18; TEMP 36.5; O2SAT 96; BMI 27.4
--- NOTE | 2023-02-20 12:09 | ECG_ITS ---
Test Reason : CP Blood Pressure : / mmHG Vent. Rate : 101 BPM Atrial Rate : 101 BPM P-R Int : 144 ms QRS Dur : 100 ms QT Int : 336 ms P-R-T Axes : 037 027 043 degrees QTc Int : 435 ms Sinus tachycardia Otherwise normal ECG No previous ECGs available Referred By: Blaise Lai Electronically Signed By:ALIVIA BOWLES
[2023-02-20 12:24] LABS: MANUAL DIFF FLAG NO
[2023-02-20 12:26] LABS: Basophils Absolute Auto 0.1 X10*3/uL (0.0-0.2); Basophils Percent Auto 0.4 % (0-2); Eosinophils Absolute Auto 0.5 X10*3/uL (0.0-0.4); Eosinophils Percent Auto 3.6 % (0-4); Hematocrit 49.6 % (42.0-52.0); Hemoglobin 16.1 g/dl (14.0-18.0); Imm Gran Abs Auto 0.04 X10*3/uL (0.00-0.03); Imm Gran Pct Auto 0.3 % (0.0-0.4); Lymphocytes Absolute Auto 2.5 X10*3/uL (1.2-4.9); Lymphocytes Percent Auto 18.2 % (20-40); Mean Corpuscular HGB Conc 32.5 g/dl (31.0-36.0); Mean Corpuscular Volume 92.4 fL (80.0-98.0); Mean Platelet Volume 10.4 fL (9.4-12.4); Neutrophils Absolute Auto 9.5 x10*3/uL (2.0-8.3); Neutrophils Percent Auto 70.5 % (45-73); Platelet Count 257 X10*3/uL (160-400); Red Blood Count 5.37 X10*6/uL (4.60-5.80); Red Cell Distribution Width 13.1 % (11.0-16.0); White Blood Count 13.5 X10*3/uL (4.8-10.8)
[2023-02-20 12:32] LABS: Prothrombin Time 11.6 SEC (10.0-13.1)
[2023-02-20 12:34] LABS: D Dimer High Sensitivity 458 NG/ML
[2023-02-20 12:35] LABS: Partial Thromboplastin Time 31.2 SEC (26.0-36.4)
[2023-02-20 12:45] LABS: Alanine Aminotransferase 34 U/L (0-40); Albumin Level 4.2 g/dL (3.5-5.0); Alkaline Phosphatase 86 U/L (39-117); Anion Gap 14 (12-20); Aspartate Amino Transferase 26 U/L (5-37); Bilirubin Total 0.5 mg/dL (0.0-1.0); Blood Urea Nitrogen 21 mg/dL (9-16); Calcium 9.7 mg/dL (8.4-10.2); Carbon Dioxide 26 mmol/L (22-29); Chloride 105 mmol/L (96-108); Creatinine Clr Calc Pharmacy 73.7; Estimated Glomerular Filt Rate > 60; Glucose Random 192 mg/dL (60-115); Potassium 4.4 mmol/L (3.3-5.1); Sodium 141 mmol/L (135-145); Total Protein 7.4 g/dL (6.5-8.0)
[2023-02-20 12:52] LABS: Troponin-I High Sensitivity 37.6 ng/L (<3.5-35.0)
[2023-02-20 13:04] LABS: Influenza A PCR NEGATIVE (Negative); Influenza B PCR NEGATIVE (Negative); Resp Syncy Virus RNA Qual PCR NEGATIVE (Negative); SARS COV2 PCR INHOUSE NEGATIVE (Negative)
[2023-02-20 14:11] LABS: Appearance Urine Clear; Color Urine Yellow; Glucose Urine UA 500 mg/dL (Negative); Leukocyte Esterase Urine Small (1+) (Negative); Nitrite Urine Negative (Negative); PH 6.5 (5.0-9.0); UMIC TRIGGER UACC YES; Urine Blood Negative (Negative); Urine Ketones Negative (Negative); Urine Protein Trace mg/dL (Neg-Trace)
[2023-02-20 14:13] VITALS: BP 166/93; PULSE 89; RESP 12; O2SAT 96
[2023-02-20 14:14] LABS: Bacteria Urine None Seen (None Seen); Hyaline Casts Urine 0-2 /LPF (0-2); RBC Urine 0-2 /HPF (0-2); Squamous Epithelial Cell Urine 0-2 /HPF (0-2); UACC Culture Trigger YES
--- NOTE | 2023-02-20 15:03 | PC.NURSE ---
pt alert/oriented. latvian speaking.reporting 8/10 back pain that has been going on for 2 months but increased yesterday. IV inserted, repeat trop drawn and sent to lab. Pt to CT scan now.
[2023-02-20] MEDS: iohexoL 350 MG/ML 100 ML INFUS..BTL IV (15:13)
--- NOTE | 2023-02-20 15:23 | PC.NURSE ---
pt returned from CT scan. shelter monitor on - NSR. will cont to monitor
[2023-02-20 15:33] LABS: Troponin-I High Sensitivity 35.9 ng/L (<3.5-35.0)
[2023-02-20 15:49] VITALS: BP 147/87; PULSE 88; RESP 17; TEMP 36.6; O2SAT 95
== END 2023-02-20 16:55 | disposition home or self-care (01) ==
PROVIDERS: Nurse Practitioner Family; Physician Assistant; Emergency Provider Emergency Medicine
DX: J18.9 Pneumonia, unspecified organism (principal); R07.89 Other chest pain; M54.6 Pain in thoracic spine; Z20.822 Contact with and (suspected) exposure to COVID-19; Z20.828 Contact with and (suspected) exposure to other viral communicable diseases; Z79.899 Other long term (current) drug therapy
CPT/HCPCS: 0241U; 36415; 71046; 71275; 72072; 80053; 81001; 84484; 85025; 85379; 85610; 85730; 87086; 93005; 99284; 99285; Q9967

== ENCOUNTER 2023-05-10 11:16 | Outpatient (REF) | payer OTHER, SELFPAY ==
--- NOTE | ~2023-05-10 | PE_ITS ---
EXAMINATION: Fluorine-18 FDG PET/CT Scan CLINICAL INDICATION: Initial treatment management. Pleural-based ill-defined opacity at left upper lobe of the lung and groundglass opacity at right upper lobe superimposed on underlying chronic interstitial lung changes seen on recent CT of the chest done on 02/20/2023. PROCEDURE: 55 minutes following the intravenous administration of 21.7 mCi of fluorine 18 FDG, images from the base of the skull to the mid thighs were obtained using a combined PET/CT scanner with CT scan based attenuation correction. No intravenous contrast was administered. Transverse, coronal, sagittal, and volume reconstruction projections were obtained. The patient's blood glucose as determined by a finger stick, was 96 mg/dl immediately prior to injection. The radiotracer was injected intravenously through left antecubital superficial vein, without any complications. Total CT exam dose-length product 626.22 mGy-cm * These CT images were obtained using dose optimization techniques as appropriate, variously including the following: Automated exposure control * Adjustment of mA and/or kV according to patient size (this includes techniques or standardized protocols for targeted exams where dose is matched to indication/reason for exam; i.e. extremities or head) * Use of iterative reconstruction technique COMPARISON: CT of the chest done on 02/20/2023 and 05/13/2023. FINDINGS: NECK AND VISUALIZED HEAD: FDG avid left supraclavicular and to a lesser extent right supraclavicular lymphadenopathy with the dominant lymph node seen at the medial aspect of the left supraclavicular fossa with maximum short axis dimension of 1.8 cm and SUV max of 7.4 (53/267). THORAX: Multiple FDG avid mediastinal lymphadenopathy present, the dominant lymph node is seen in the subcarinal region with maximum short axis dimension of 1.8 cm with SUV max of 12.2 (85/267). Possibility of this being primary esophageal malignancy cannot be absolutely excluded since this masslike FDG avid disease cannot be completely from the adjacent part of the thoracic esophagus. Note is also made of left perihilar FDG avid lymph node with SUV max of 10.5 (83/267). In addition, intense central FDG avidity is noted involving the right upper lobe of the lung abutting the left pulmonary artery with SUV max of 13.7, suspicious for primary lung malignancy. Direct visualization/bronchoscopic biopsy is recommended for further clarification. Nonspecific bilateral linear increased radiotracer activity is present along the peripheral subpleural region of the right upper lobe and within the superior to mid part of the left-sided pleural space associated with small left-sided pleural effusion which is probably slightly lobulated. Mild bilateral gynecomastia. ABDOMEN AND PELVIS: There are multiple FDG avid focal lesions identified within both lobes of the liver. The dominant lesion is seen posteroinferiorly, measures approximately 4.1 x 2.0 cm with SUV max of 15.4 (138/267). The findings are highly suspicious for metastatic disease. The spleen, the pancreas, the gallbladder, biliary tree appear unremarkable. The left adrenal gland shows mild nodular thickening without evidence of any FDG avid disease. The right adrenal gland is unremarkable. Physiologic radiotracer activities present within the kidneys and both renal pelvicalyceal system and the bladder. Extensive FDG uptake is noted throughout the entire large bowel including the rectum, likely physiologic. Small sliding hiatal hernia is noted. The stomach is decompressed. The small bowel loops are decompressed. There are no FDG avid retroperitoneal, mesenteric or pelvic and/or groin lymphadenopathy. The prostate is enlarged. MUSCULOSKELETAL: No suspicious FDG avid osseous disease. VASCULAR: Calcific atherosclerotic disease of the aorta including coronary artery calcifications. No evidence of aneurysm. SUV max OF MEDIASTINAL BLOOD POOL: 3.0 SUV max OF LIVER: 2.7 PET/PET CT fusion skull to thigh IMPRESSION: 1. Abnormal study. There are multiple FDG avid mediastinal, left hilar and bilateral supraclavicular (left greater than right) lymphadenopathy associated with intense FDG avid soft tissue mass at central part of partially collapsed left upper lobe of the lung at the level of the left main pulmonary artery (76/267) with SUV max of 13.7, suspicious for primary lung malignancy. Direct visualization/bronchoscopy and biopsy is recommended for further clarification. 2. Most intense FDG avid mediastinal lymph node is seen in the subcarinal region with SUV max of 12.2 (85/267). Possibility of this being primary esophageal malignancy cannot be absolutely excluded since this masslike FDG avid disease cannot be completely from the adjacent part of the thoracic esophagus. Please correlate clinically as well as follow-up direct visualization of the thoracic esophagus if clinically appropriate. 3. Multifocal FDG avid liver lesions, the dominant lesion is seen at segment 6, measures approximately 4.1 x 2.0 cm with SUV max of 15.4 (138/267), highly suspicious for hepatic metastatic disease from unknown primary. The dominant lesion can be biopsied using image guidance, if clinically appropriate for further clarification. This critical result was discussed with Trice Garcia RN at 1:07 PM on 05/13/2023 and it was ascertained that the content and urgency of the report was understood at the time of direct communication.
== END 2023-05-10 11:17 | disposition home or self-care (01) ==
LOC: HO.PET 11:16
PROVIDERS: Visit Provider Student in an Organized Health Care Education/Training Program
DX: Z13.89 Encounter for screening for other disorder (principal)

== ENCOUNTER 2023-05-12 18:13 | Inpatient (IN) | payer OTHER, MEDICAID, SELFPAY ==
[2023-05-12] VITALS (15 sets, daily range): BP systolic 98–168; BP diastolic 58–97; PULSE 116–135; RESP 26–45; TEMP 35.6–37.2; O2SAT 39–100; BMI 27.1
--- NOTE | ~2023-05-12 | XR_ITS ---
EXAMINATION: XR CHEST CLINICAL INFORMATION: Reason for Exam hypoxia COMPARISON: Chest radiograph 05/13/2023 TECHNIQUE: One view of the chest FINDINGS: Lines and tubes: Enteric tube tip tip overlies the region of the stomach. Right internal jugular central venous catheter tip terminates overlying the right atrium. Endotracheal tube tip terminates approximately 5.4 cm above the robb. EKG leads overlie the patient. Interval improvement in aeration in the right lung with decrease in multifocal parenchymal airspace opacities. Decreased small bilateral pleural effusions. No pneumothorax. Unchanged cardiomediastinal silhouette. XR/XR chest 1V IMPRESSION: 1. Endotracheal tube tip terminates approximately 5.4 cm above the robb. 2. Interval improvement in aeration in the right lung with decrease in multifocal parenchymal airspace opacities. 3. Decreased small bilateral pleural effusions.
--- NOTE | ~2023-05-12 | XR_ITS ---
EXAMINATION: XR CHEST CLINICAL INFORMATION: Chest tube to water seal. COMPARISON: Most recent chest radiograph done earlier the same day. TECHNIQUE: Frontal view of the chest was obtained. FINDINGS: Redemonstration of a left basilar chest tube in unchanged position. Previously seen trace left apical pneumothorax not appreciated, however, may still be present. Area is obscured by overlying osseous structures. This appears similar when compared to the prior examination. No new or increasing pneumothorax. Right-sided central venous catheter in unchanged position. Hypoinflation of the lungs with bilateral airspace opacities, most prominent within the lung bases, unchanged. Trace bilateral pleural effusions are unchanged. Stable cardiomediastinal silhouette. XR/XR chest 1V IMPRESSION: 1. Left basilar chest tube in unchanged position. Previously seen trace left apical pneumothorax not appreciated, however, may still be present. No new or increasing pneumothorax. 2. Hypoinflation of the lungs with bilateral airspace opacities, most prominent within the lung bases, unchanged. Trace bilateral pleural effusions are unchanged. 3. Right-sided central venous catheter in unchanged position.
--- NOTE | ~2023-05-12 | XR_ITS ---
EXAMINATION: XR CHEST CLINICAL INFORMATION: Chest tube placement. COMPARISON: Chest radiograph earlier today at 8:40 PM. TECHNIQUE: Frontal view of the chest was obtained. FINDINGS: Chest tube projecting over the left lower lung with significant decreased size of left-sided pleural effusion, now small. Stable diffuse interstitial thickening. Similar focal airspace opacity projecting over the right to lower lung. No pneumothorax. Stable prominence of the cardiomediastinal silhouette. Right IJ CVC catheter projects over the SVC/right atrial junction. No acute osseous abnormalities. XR/XR chest 1V IMPRESSION: Significant decrease in size of a left pleural effusion following placement of a chest tube.
--- NOTE | ~2023-05-12 | XR_ITS ---
EXAMINATION: XR CHEST CLINICAL INFORMATION: Central line placement COMPARISON: Previous x-ray from earlier the same day TECHNIQUE: Frontal view of the chest was obtained. FINDINGS: There is a new right jugular line with tip projecting over the cavoatrial junction. There is an endotracheal tube with tip 5.2 cm above the robb. There is a nasogastric tube with tip projecting over the stomach. The cardiac silhouette appears enlarged. There is increasing bilateral airspace disease and bilateral pleural effusions. No pneumothorax. Degenerative changes of the spine. XR/XR chest 1V IMPRESSION: Satisfactory position of right jugular line. No pneumothorax. Increasing bilateral airspace disease and pleural effusions.
--- NOTE | ~2023-05-12 | XR_ITS ---
EXAMINATION: XR CHEST CLINICAL INFORMATION: Chest tube evaluation COMPARISON: Chest x-ray on 05/21/2023 TECHNIQUE: Frontal view of the chest was obtained. FINDINGS: There is a left basilar pigtail catheter in position. Previously identified trace left apical pneumothorax is not well evaluated on this exam secondary to patient positioning. No large pneumothorax. No other change compared to the multiple prior exams. XR/XR chest 1V IMPRESSION: Previously identified trace left apical pneumothorax is not well evaluated on this exam secondary to patient positioning.
--- NOTE | ~2023-05-12 | CT_ITS ---
EXAMINATION: CT ANGIOGRAM OF THE CHEST WITH AND WITHOUT CONTRAST (CT PULMONARY ANGIOGRAM FOR PE) CLINICAL INFORMATION: Reason for Exam hypoxia, left sided mass effusion COMPARISON: 02/20/2023 TECHNIQUE: Prior to contrast administration, noncontrast localization images were obtained. Subsequently, multidetector volumetric imaging was performed from the thoracic inlet to below the diaphragms following the administration of 65 mL Omnipaque 350 intravenous contrast. No contrast reaction reported Sagittal, coronal, and MIP oblique sagittal reformatted images were obtained on the CT workstation, uploaded to PACS, and reviewed. This CT examination was performed using dose optimization techniques as appropriate, variously including the following: *Automated exposure control *Adjustment of mA and/or kV according to patient size (this includes techniques or standardized protocols for targeted exams where dose is matched to indication/reason for exam; i.e. extremities or head) *Use of iterative reconstruction technique Total exam dose-length product 356 mGy-cm FINDINGS: Study is degraded by extensive respiratory motion artifact. QUALITY OF STUDY/CONTRAST BOLUS: Satisfactory. PULMONARY ARTERIES: No pulmonary emboli. THORACIC AORTA: No aneurysm. LUNG: Diffuse bilateral interlobular and intralobular septal thickening with superimposed patchy and geographic groundglass opacities throughout the right lung. There are areas of peripherally and lower lobe predominant architectural distortion, traction bronchiectasis and honeycombing. PLEURA: Small moderate left pleural effusion has increased in size from prior with areas of loculation. No pneumothorax. MEDIASTINUM: Normal heart size. No pericardial effusion. Mild mediastinal lymphadenopathy is presumably reactive, slightly larger than on the prior exam. No evidence of septal bowing or right heart strain. CORONARY ARTERY CALCIFICATION: Present. CHEST WALL/AXILLA: No axillary or internal mammary lymphadenopathy. OSSEOUS STRUCTURES: No acute or suspicious osseous abnormality. UPPER ABDOMEN: Unremarkable. CT/CT angio chest PE protocol IMPRESSION: * No pulmonary embolism. * Chronic pulmonary fibrotic changes are similar in severity to the prior examination, however there is significantly worsened diffuse groundglass opacity throughout the right lung primarily which may represent asymmetric pulmonary edema, infection or alveolitis potentially related to the patient's underlying interstitial lung disease (eg acute interstitial pneumonitis) * Small to moderate left pleural effusion has increased in size from prior with areas of loculation. * Mild mediastinal lymphadenopathy presumably reactive. VTE: negative.
--- NOTE | ~2023-05-12 | XR_ITS ---
EXAMINATION: XR CHEST CLINICAL INFORMATION: Status post chest tube removal COMPARISON: 05/22/2023 TECHNIQUE: Frontal view of the chest was obtained. FINDINGS: Tube overlying the lower chest on previous exam is no longer visualized. There is no evidence for pneumothorax in the left lung. Persistent mid to lower lung opacities with no suspicious increase. Once again opacities seen in the right lung. Similar to previous. XR/XR chest 1V IMPRESSION: Tube no longer seen overlying lower chest on left. There is no pneumothorax. Residual densities in the right and left lung not significantly changed from previous. Attention to follow-up
--- NOTE | ~2023-05-12 | XR_ITS ---
EXAMINATION: XR CHEST CLINICAL INFORMATION: Chest tube COMPARISON: Previous chest x-ray most recent from yesterday TECHNIQUE: 1 view of the chest was obtained. FINDINGS: Left base pigtail chest tube unchanged. Right jugular line tip projects over cavoatrial junction. The cardiac and mediastinal contours are stable. There is bilateral diffuse airspace disease. Small left pleural effusion or thickening at the left lung apex. No pneumothorax. Scoliosis and degenerative changes of the spine.. XR/XR chest 1V IMPRESSION: Stable position of left chest tube. Small loculated pleural fluid or thickening at the left lung apex. No pneumothorax.
--- NOTE | ~2023-05-12 | CT_ITS ---
EXAMINATION: CT ANGIOGRAM OF THE CHEST WITH AND WITHOUT CONTRAST (CT PULMONARY ANGIOGRAM FOR PE) CLINICAL INFORMATION: Reason for Exam Hypoxia COMPARISON: 05/27/2023 chest radiograph, 05/20/[address] TECHNIQUE: Prior to contrast administration, noncontrast localization images were obtained. Subsequently, multidetector volumetric imaging was performed from the thoracic inlet to below the diaphragms following the administration of 80 mL Omnipaque 350 intravenous contrast. No contrast reaction reported Sagittal, coronal, and MIP oblique sagittal reformatted images were obtained on the CT workstation, uploaded to PACS, and reviewed. This CT examination was performed using dose optimization techniques as appropriate, variously including the following: *Automated exposure control *Adjustment of mA and/or kV according to patient size (this includes techniques or standardized protocols for targeted exams where dose is matched to indication/reason for exam; i.e. extremities or head) *Use of iterative reconstruction technique Total exam dose-length product 171.2 mGy-cm FINDINGS: QUALITY OF STUDY/CONTRAST BOLUS: Centrally, limited evaluation of the segmental and subsegmental branches. HEART AND GREAT VESSELS: Pulmonary arteries are not enlarged. There are small bilateral intra-arterial filling defects, on the right in lower lobe branches, coronal 8:76 through 79, in the left upper lobe, images 8:65 through 70. No ventricular bowing nor contrast reflux into the inferior vena cava. Heart size within normal limits. Aorta is nonaneurysmal with atherosclerotic calcifications. CORONARY ARTERY CALCIFICATION: None visualized on this study. LUNG: Paraseptal emphysema, scattered groundglass opacities, atelectasis, fibrotic changes/honeycombing again noted. Some improvement right lower lobe parenchymal opacities. Left upper lobe consolidation again seen. PLEURA: Small left pleural effusion has developed. Previous left base chest tube has been removed, no pneumothorax. MEDIASTINUM: Enlarged pretracheal, right paratracheal, prevascular and hilar lymph nodes again identified. Increasing confluent subcarinal lymphadenopathy previously measured 1.7 cm in AP dimension, now 2.4 cm. Dilated thickened esophagus and moderate sized hiatal hernia again identified. CHEST WALL/AXILLA: Gynecomastia. No axillary or internal mammary lymphadenopathy. OSSEOUS STRUCTURES: No acute or suspicious osseous abnormality. UPPER ABDOMEN: No definite abnormality. CT/CT angio chest PE protocol IMPRESSION: Small burden bilateral pulmonary emboli. No CT evidence of right heart strain. Redemonstration pathologic lymphadenopathy with increasing enlarged, confluent subcarinal lymph nodes from recent CT. Interval left chest tube removal, no residual pneumothorax. Interval development of small left pleural effusion. Overall stability multiple pulmonary parenchymal abnormalities, some improvement opacities right lower lobe. VTE: Small burden.
--- NOTE | ~2023-05-12 | XR_ITS ---
EXAMINATION: XR CHEST CLINICAL INFORMATION: Follow-up COMPARISON: 05/15/2023 TECHNIQUE: Frontal view of the chest was obtained. FINDINGS: The position of supporting tubes and lines is stable. Cardiomediastinal silhouette is normal. There is stable reticulonodular pattern seen bilaterally and there is blunting of left costophrenic angle likely due to pleural effusion. XR/XR chest 1V IMPRESSION: No interval change
--- NOTE | ~2023-05-12 | XR_ITS ---
EXAMINATION: XR CHEST CLINICAL INFORMATION: Shortness of breath. COMPARISON: CTA chest 02/20/2023. Chest radiograph 02/20/2023. TECHNIQUE: Frontal view of the chest was obtained. FINDINGS: Worsening pulmonary aeration with increased diffuse interstitial coarsening and bibasilar airspace opacities. Again noted asymmetric pleural-based density on the left lower lobe. Small bilateral pleural effusions. No pneumothorax. No significant change in the appearance of the cardiomediastinal silhouette. No acute osseous abnormalities. XR/XR chest 1V IMPRESSION: Worsening pulmonary aeration with increased diffuse interstitial coarsening and bibasilar airspace opacities. Findings are indeterminate and could be related with a combination of pulmonary edema and an atypical infectious/inflammatory process. Continued follow-up is recommended.
--- NOTE | ~2023-05-12 | CT_ITS ---
EXAMINATION: CT CHEST WITHOUT CONTRAST CLINICAL INFORMATION: Hypoxic respiratory failure. Postobstructive pneumonia. COMPARISON: Chest CTs dated May 13, 2023 and February 20, 2023. PET/CT dated May 10, 2023. TECHNIQUE: Multidetector volumetric CT imaging of the chest was done. Axial MIP volume rendering provided. Sagittal and coronal reformatted images were obtained. This CT examination was performed using dose optimization techniques as appropriate, variously including the following: *Automated exposure control *Adjustment of mA and/or kV according to patient size (this includes techniques or standardized protocols for targeted exams where dose is matched to indication/reason for exam; i.e. extremities or head) *Use of iterative reconstruction technique DLP: 353 mGy-cm FINDINGS: LUNGS/PLEURA: Carrier loop of left chest tube lies in the posteromedial costophrenic angle. Trace (less than 5%) left pneumothorax. Left pleural effusion seen one week earlier no longer appreciated. Coarse bilateral interstitial prominence with associated honeycombing and traction bronchiectasis appears similar compared with one week prior. Superimposed groundglass density on the right may be improved. The central bronchi appear patent. MEDIASTINUM: Mediastinal adenopathy including 1.7 cm subcarinal and 1.3 cm left hilar nodes appears unchanged compared with one week prior. These were hypermetabolic on PET/CT from May 10, 2023. Infiltrating, irregular mediastinal soft tissue density and/or nodes appear unchanged (for example, images 24 and 25, series 3). These were also hypermetabolic on PET/CT from May 10, 2023. Tip of right internal jugular central venous line at junction of superior vena cava and right atrium. CORONARY ARTERY CALCIFICATION: None visualized on this study. CHEST WALL/AXILLA: Mild bilateral gynecomastia. No lymphadenopathy by size criteria. UPPER ABDOMEN: Suspect approximately 2.5 cm or less, vague, hypodense, peripheral hepatic lesions which likely corresponds with hypermetabolic lesion seen on PET/CT dated May 10, 2023. These are suboptimally evaluated on the current noncontrast study. OSSEOUS STRUCTURES: No lytic or sclerotic bony lesion identified. Degenerative changes of the spine, with thoracic dextroscoliosis. CT/CT chest wo IV con IMPRESSION: Carrier loop of left chest tube lies in the posteromedial costophrenic angle. Trace (less than 5%) left pneumothorax. Left pleural effusion seen one week earlier no longer appreciated. Coarse bilateral interstitial prominence with associated honeycombing and traction bronchiectasis, similar compared with one week prior. Superimposed groundglass density on the right may be improved. Otherwise, no significant radiographic change compared with May 13, 2023, as detailed above.
--- NOTE | ~2023-05-12 | XR_ITS ---
EXAMINATION: XR CHEST CLINICAL INFORMATION: KELLEN and OGT placement COMPARISON: 05/12/2023 TECHNIQUE: Frontal view of the chest was obtained. FINDINGS: There is very placed endotracheal tube with the tip approximately 5.8 cm above the robb. There is newly placed nasogastric tube with the tip below the diaphragm. Lungs of low volumes with reticular nodular pattern bilaterally. Cardiomediastinal silhouette is unremarkable. There is no evidence of pleural effusion or pneumothorax. XR/XR chest 1V IMPRESSION: Well-positioned endotracheal tube and nasogastric tube. Reticular nodular pattern of lungs bilaterally.
--- NOTE | ~2023-05-12 | XR_ITS ---
EXAMINATION: XR CHEST CLINICAL INFORMATION: Shortness of breath COMPARISON: 05/23/2023 TECHNIQUE: Frontal view of the chest was obtained. FINDINGS: Multiple EKG wires overlie the chest. Lungs are hypoinflated. Again noted is diffuse interstitial disease and ill-defined patchy pulmonary opacities without appreciable change. It is difficult to exclude any trace pleural effusions on this limited anteroposterior chest radiograph. The smooth pleural thickening at the left apex has a stable appearance. No pneumothorax is seen. Cardiac silhouette is normal in size. Mild dextrocurvature of degenerated thoracic spine. XR/XR chest 1V IMPRESSION: No significant change in interstitial disease and patchy pulmonary opacities. Findings could represent noninfectious or infectious pneumonitis against a background of chronic interstitial disease. No new abnormalities since 05/23/2023.
--- NOTE | ~2023-05-12 | XR_ITS ---
EXAMINATION: XR CHEST CLINICAL INFORMATION: Hypoxia. COMPARISON: Chest radiograph 05/19/2023. TECHNIQUE: Frontal view of the chest was obtained. FINDINGS: Interval extubation. Right IJ CVC catheter with the tip projecting over the SVC/right atrial junction. Worsening pulmonary aeration with increased near complete opacification of the left lung. Stable reticular and patchy opacities in the right lower lobe. Evaluation of the cardiomediastinal silhouette is limited due to overlying left lung densities. No discrete pneumothorax. No acute osseous abnormalities. XR/XR chest 1V IMPRESSION: 1. Worsening pulmonary aeration with increased near complete opacification of the left lung, nonspecific but suggestive of pleural effusion, atelectasis from mucous plugging and/or aspiration given the rapid development. 2. Stable reticular and patchy opacities in the right lower lobe. 3. Endotracheal tube is not visualized.
--- NOTE | ~2023-05-12 | XR_ITS ---
EXAMINATION: XR CHEST CLINICAL INFORMATION: Chest tube. COMPARISON: CT chest dated 05/20/2023. Chest radiograph dated 05/20/2023. TECHNIQUE: Frontal view of the chest was obtained. FINDINGS: Redemonstration of a chest tube within the left lung base, unchanged. Right-sided central venous catheter in unchanged position. Previously seen trace left-sided pneumothorax not appreciated on plain radiographs. Trace bilateral pleural effusions, slightly more prominent when compared to the prior examination. Diffuse, patchy bilateral airspace opacities are redemonstrated, slightly increased within the lung bases. Stable cardiomediastinal silhouette. XR/XR chest 1V IMPRESSION: 1. Left-sided chest tube and right-sided central venous catheter in unchanged position. 2. Previously seen trace left-sided pneumothorax not appreciated on plain radiographs. 3. Trace bilateral pleural effusions, slightly more prominent when compared to the prior examination. 4. Diffuse, patchy bilateral airspace opacities are redemonstrated, slightly increased within the lung bases.
--- NOTE | 2023-05-12 18:16 | ED.SOB ---
HPI - SOB/Dyspnea General Chief Complaint: Chest Pain Stated Complaint: sob,fatigue Time Seen by Provider: 05/12/23 18:35 Source: patient and family Mode of arrival: ambulatory Limitations: language barrier (Dutch speaking) History of Present Illness HPI Narrative: 72-year-old male who presents emergency department for evaluation shortness of breath. According to the patient's he has been short of breath for 2 weeks but it has been worse over the past 5 days. The patient has also been experiencing left-sided chest pain. The patient was seen here in the emergency department on 02/20/2023 for back pain and chest pain worse with deep breathing. Patient had at CT angiogram PE protocol at that time which revealed chronic interstitial lung disease bilaterally with pleural-based ill-defined opacity in the left upper lobe and ground-glass opacity in the right upper lobe with small left pleural effusion. The patient was treated with antibiotics and is followed up with PCP was concerned about possible malignancy and she ordered a PET scan which was done on 05/10/2023 but I do not have the report back at this time. According to the the patient had no fever, chills, rhinorrhea, nausea, vomiting or diarrhea. Related Data Previous Rx's Medication Instructions Recorded doxycycline monohydrate 100 mg 100 mg PO BID #20 tabs 02/20/23 tablet lidocaine 5 % topical patch 1 patch topical DAILY #15 ea 02/20/23 (Lidoderm) Allergies Allergy/AdvReac Type Severity Reaction Status Date / Time No Known Allergies Allergy Verified 02/20/23 12:09 Review of Systems Review of Systems: Yes all other systems are reviewed and are negative [facility] Past Medical History [facility] Narrative: Past medical history: Diabetes mellitus. Social history: Patient is and his is here in the emergency department. He stop smoking 8 years prior. He smoked 1 pack of cigarettes per day times 50 years. Social History Social History Alcohol intake: former Smoked in Last 30 Days: No Use of substances other than those prescribed or required for medical reasons: No Any prior treatment program specific to substance use: No Advance Directives: No Advance Directives Information Provided: No Physical Exam Vital Signs: Vital Signs: Last Vital Signs Temp 98.9 F 05/12/23 21:10 Pulse 118 H 05/12/23 21:10 Resp 36 H 05/12/23 21:10 BP 128/77 05/12/23 21:10 Pulse Ox 96 05/12/23 21:10 O2 Del Method BiPAP 05/12/23 21:10 BMI result Body Mass Index 27.1 Const: Other: Awake, alert, male patient in severe respiratory distress, using accessory muscles to breathe, unable to talk. O2 saturation was 60% on room air HEENT: Head: Yes normal to inspection, Yes normocephalic and Yes atraumatic Ears: external ears normal General nose exam: Normal external nose present Face and sinus: Yes normal facial exam Mouth: Normal oral and palatal mucosa present Throat: Yes posterior oropharynx normal Eyes: General: appearance normal, both eyes and all related structures Pupils: Equal, round and reactive pupils present Neck: Neck: Yes normal visual inspection, Yes no lymphadenopathy, Yes trachea midline and Yes supple Chest: Chest palpation & inspection: normal inspection of the chest and normal palpation of entire chest wall Resp: Other: Diffuse rhonchi, no wheezing, rales at the bases, diminished breath sounds at the bases as well Cardio: Other: Tachycardia with normal S1-S2 no murmurs rubs or gallops GI: Inspection: Yes normal to inspection Palpation (GI): Soft to palpation, nontender and no guarding Auscultation: normal bowel sounds : General: Yes no CVA tenderness Back/Spine/Pelvis: Back: no CVA tenderness Skin: General skin exam: no rashes or lesions noted Neuro: Cranial nerves: Yes CN's II-XII intact bilaterally and Yes Equal, round and reactive pupils present Motor exam (neuro): 5/5 motor strength present throughout Extrem: Other: No pitting edema, legs are symmetric Course Course Course Narrative: This is a rapid medical exam. Deferred additional HPI, ROS, PE to primary provider 72 yo male with history of DM, HTN here with complaints of shortness of breath x 2 days Pulse ox 39% in triage Brought direct to room 5 in ER with report to Dr Tyson Medications Administered Generic Name Dose Route Start Last Admin Trade Name Freq PRN Reason Stop Dose Admin Nitroglycerin/Dextrose 100 mg in 250 mls @ 0 mls/hr 05/12/23 18:45 05/12/23 19:11 Nitroglycerin/D5w IVCONT 40 mcg/min .Q0M FELI 6 mls/hr Titration Protocol Per Protocol Discontinued Medications Generic Name Dose Route Start Last Admin Trade Name Estelle PRN Reason Stop Dose Admin Furosemide 60 mg 05/12/23 18:35 05/12/23 18:40 Furosemide 100 Mg/10 Ml Vial IVPUSH 05/12/23 18:36 60 mg ONCE ONE Administration Protocol Azithromycin 500 mg/ Sodium 250 mls @ 125 mls/hr 05/12/23 18:36 05/12/23 19:24 Chloride IV 05/12/23 20:35 125 mls/hr ONCE ONE Administration Ceftriaxone Sodium 1 gm/ 50 mls @ 100 mls/hr 05/12/23 18:45 05/12/23 19:30 Sodium Chloride IV 05/12/23 19:14 Infused ONCE ONE Infusion Medical Decision Making Medical Decision Making [facility] Narrative: 72-year-old male with a history of diabetes, diagnosed with an atypical pneumonia 02/20/2023 with possible ill-defined left upper lobe opacity who presents emergency department for evaluation of 2 weeks of shortness of breath worse over the past 5 days. On presentation the patient was severely hypoxic and in respiratory distress. Lung exam revealed diffuse rhonchi with no wheezing rales at the bases. Patient was placed on a BiPAP. He is concerned that the patient can be CHF versus pneumonia and he was given Lasix 60 mg IV and started on nitroglycerin drip. Patient was also ordered to get ceftriaxone 1 g IV and azithromycin 500 mg IV. 2015: Patient did improve with the above treatment but still is tachypneic using accessory muscles. His O2 saturations are 94% on his BiPAP settings. My interpretation of patient's laboratory evaluation is as follows: WBC elevated 18,700 with 80% neutrophils 9% lymphocytes. Venous blood gas revealed a pH of 7.33 and pCO2 of 47 which is reassuring. Patient's bicarb was low at 20, BUN elevated 21, lactic acid was elevated 5.7, repeat improved to 2.5-no fluid was given, this is most likely metabolic acidosis and not related to sepsis. My interpretation the patient's one-view chest x-ray is bilateral interstitial infiltrates right greater than left with bilateral pleural effusions. I am concerned the patient may have CHF verses atypical pneumonia. COVID-19 test is pending. I did discuss the patient's presentation with our covering railroad signal technician, Dr.Kait and at this time we do not have any intensive care unit beds. The patient does not require intubation and I do not think that he is stable to be transferred on BiPAP unless we can get a critical care transport team and excepting facility. I will call [facility] to see if transfer is possible. 2144: The patient's high sensitive troponin I went from 50.1 to 65.7 which is not greater than 50% delta suggested the patient has chronic elevation is high sensitive troponin I and no acute myocardial injury. I did contact [facility], [facility] and [facility] and there were no ICU beds available. [facility] does have an ICU bed available at [facility]. I did discuss the patient's presentation with the [facility] railroad signal technician, Dr. Willie Adams who did accept the patient in transfer. The patient will be transferred by critical care transport team. Differential Diagnosis Differential Diagnoses: The differential diagnosis associated with the presentation includes Differential diagnosis includes was not limited to pneumonia, congestive heart failure, malignancy Admission/Observation Consideration of admission/observation: Escalation of care including admission/observation considered Consult Healthcare Provider Management of the patient was discussed with: Addressing Machine Operator (Arts And Crafts Instructor) Lab Data [facility] Lab Attestation statement: I reviewed the patient's lab results. 05/12/23 18:37 05/12/23 18:36 Labs: Lab Results 05/12/23 05/12/23 05/12/23 Range/Units 18:36 18:36 18:36 WBC (4.8-10.8) X10*3/uL RBC (4.60-5.80) X10*6/uL Hgb (14.0-18.0) g/dl Hct (42.0-52.0) % MCV (80.0-98.0) fL MCH (27.0-33.0) pg MCHC (31.0-36.0) g/dl RDW (11.0-16.0) % Plt Count (160-400) X10*3/uL MPV (9.4-12.4) fL Immature Gran % (Auto) (0.0-0.4) % Neut % (Auto) (45-73) % Lymph % (Auto) (20-40) % [place] % (Auto) (2-11) % Eos % (Auto) (0-4) % Baso % (Auto) (0-2) % Lymph # (Auto) (1.2-4.9) X10*3/uL [place] # (Auto) (0.1-1.2) X10*3/uL Eos # (Auto) (0.0-0.4) X10*3/uL Baso # (Auto) (0.0-0.2) X10*3/uL Abs Immat Gran (auto) (0.00-0.03) X10*3/uL Absolute Neuts (auto) (2.0-8.3) x10*3/uL Absolute Nucleated RBC (0.0-0.012) X10*3/uL Nucleated RBC % (auto) (0.0-0.2) /100WBC Smear Tech's Comments PT (10.0-13.1) SEC INR (0.9-1.1) D-Dimer High Sensitivty NG/ML VBG pH (7.32-7.43) VBG pCO2 mmHg VBG pO2 mmHg VBG HCO3 (22-26) mmol/L VBG O2 Saturation % VBG Base Excess mmol/L Sodium 135 (135-145) mmol/L Potassium 3.9 (3.3-5.1) mmol/L Chloride 98 (96-108) mmol/L Carbon Dioxide 20 L (22-29) mmol/L Anion Gap 21 H (12-20) BUN 21 H (9-16) mg/dL Creatinine 1.06 (0.5-1.4) mg/dL Estim Creat Clear Calc 68.1 Estimated GFR > 60 Random Glucose 185 H (60-115) mg/dL Lactic Acid 5.7 H* (0.5-2.0) mmol/L Lactic Acid F/U @ 2Hr (0.5-2.0) mmol/L Calcium 10.7 H D (8.4-10.2) mg/dL Magnesium 1.7 (1.6-2.6) mg/dL Total Bilirubin 0.7 (0.0-1.0) mg/dL Direct Bilirubin 0.3 (0.0-0.5) mg/dL AST 26 (5-37) U/L ALT 24 (0-40) U/L Alkaline Phosphatase 113 (39-117) U/L Troponin I High Sens 50.1 H (<3.5-35.0) ng/L B-Natriuretic Peptide (<100) pg/mL Total Protein 8.4 H (6.5-8.0) g/dL Albumin 4.0 (3.5-5.0) g/dL Urine Color Urine Appearance Urine pH (5.0-9.0) Ur Specific Curran (1.005-1.025) Urine Protein (Neg-Trace) mg/dL Urine Glucose (UA) (Negative) mg/dL Urine Ketones (Negative) mg/dL Urine Blood (Negative) Urine Nitrite (Negative) Ur Leukocyte Esterase (Negative) Urine RBC (0-2) /HPF Urine WBC (0-5) /HPF Ur Squamous Epith Cells (0-2) /HPF Urine Bacteria (None Seen) Hyaline Casts (0-2) /LPF COVID-19 (ARACELI) (Negative) COVID-19 Clin Com 05/12/23 05/12/23 05/12/23 Range/Units 18:36 18:37 18:37 WBC 18.7 H (4.8-10.8) X10*3/uL RBC 5.12 (4.60-5.80) X10*6/uL Hgb 15.1 (14.0-18.0) g/dl Hct 47.1 (42.0-52.0) % MCV 92.0 (80.0-98.0) fL MCH 29.5 (27.0-33.0) pg MCHC 32.1 (31.0-36.0) g/dl RDW 13.4 (11.0-16.0) % Plt Count 374 D (160-400) X10*3/uL MPV 10.3 (9.4-12.4) fL Immature Gran % (Auto) 1.0 H (0.0-0.4) % Neut % (Auto) 80.7 H (45-73) % Lymph % (Auto) 9.0 L (20-40) % [place] % (Auto) 8.7 (2-11) % Eos % (Auto) 0.2 (0-4) % Baso % (Auto) 0.4 (0-2) % Lymph # (Auto) 1.7 (1.2-4.9) X10*3/uL [place] # (Auto) 1.6 H (0.1-1.2) X10*3/uL Eos # (Auto) 0.0 (0.0-0.4) X10*3/uL Baso # (Auto) 0.1 (0.0-0.2) X10*3/uL Abs Immat Gran (auto) 0.19 H (0.00-0.03) X10*3/uL Absolute Neuts (auto) 15.1 H (2.0-8.3) x10*3/uL Absolute Nucleated RBC 0.000 (0.0-0.012) X10*3/uL Nucleated RBC % (auto) 0.0 (0.0-0.2) /100WBC Smear Tech's Comments VERIFIED PT 14.4 H (10.0-13.1) SEC INR 1.2 H (0.9-1.1) D-Dimer High Sensitivty 5410 NG/ML VBG pH (7.32-7.43) VBG pCO2 mmHg VBG pO2 mmHg VBG HCO3 (22-26) mmol/L VBG O2 Saturation % VBG Base Excess mmol/L Sodium (135-145) mmol/L Potassium (3.3-5.1) mmol/L Chloride (96-108) mmol/L Carbon Dioxide (22-29) mmol/L Anion Gap (12-20) BUN (9-16) mg/dL Creatinine (0.5-1.4) mg/dL Estim Creat Clear Calc Estimated GFR Random Glucose (60-115) mg/dL Lactic Acid (0.5-2.0) mmol/L Lactic Acid F/U @ 2Hr (0.5-2.0) mmol/L Calcium (8.4-10.2) mg/dL Magnesium (1.6-2.6) mg/dL Total Bilirubin (0.0-1.0) mg/dL Direct Bilirubin (0.0-0.5) mg/dL AST (5-37) U/L ALT (0-40) U/L Alkaline Phosphatase (39-117) U/L Troponin I High Sens (<3.5-35.0) ng/L B-Natriuretic Peptide 68 (<100) pg/mL Total Protein (6.5-8.0) g/dL Albumin (3.5-5.0) g/dL Urine Color Urine Appearance Urine pH (5.0-9.0) Ur Specific Curran (1.005-1.025) Urine Protein (Neg-Trace) mg/dL Urine Glucose (UA) (Negative) mg/dL Urine Ketones (Negative) mg/dL Urine Blood (Negative) Urine Nitrite (Negative) Ur Leukocyte Esterase (Negative) Urine RBC (0-2) /HPF Urine WBC (0-5) /HPF Ur Squamous Epith Cells (0-2) /HPF Urine Bacteria (None Seen) Hyaline Casts (0-2) /LPF COVID-19 (ARACELI) (Negative) COVID-19 Clin Com 05/12/23 05/12/23 05/12/23 Range/Units 18:43 20:08 20:31 WBC (4.8-10.8) X10*3/uL RBC (4.60-5.80) X10*6/uL Hgb (14.0-18.0) g/dl Hct (42.0-52.0) % MCV (80.0-98.0) fL MCH (27.0-33.0) pg MCHC (31.0-36.0) g/dl RDW (11.0-16.0) % Plt Count (160-400) X10*3/uL MPV (9.4-12.4) fL Immature Gran % (Auto) (0.0-0.4) % Neut % (Auto) (45-73) % Lymph % (Auto) (20-40) % [place] % (Auto) (2-11) % Eos % (Auto) (0-4) % Baso % (Auto) (0-2) % Lymph # (Auto) (1.2-4.9) X10*3/uL [place] # (Auto) (0.1-1.2) X10*3/uL Eos # (Auto) (0.0-0.4) X10*3/uL Baso # (Auto) (0.0-0.2) X10*3/uL Abs Immat Gran (auto) (0.00-0.03) X10*3/uL Absolute Neuts (auto) (2.0-8.3) x10*3/uL Absolute Nucleated RBC (0.0-0.012) X10*3/uL Nucleated RBC % (auto) (0.0-0.2) /100WBC Smear Tech's Comments PT (10.0-13.1) SEC INR (0.9-1.1) D-Dimer High Sensitivty NG/ML VBG pH 7.33 (7.32-7.43) VBG pCO2 47 mmHg VBG pO2 33 mmHg VBG HCO3 25 (22-26) mmol/L VBG O2 Saturation 43.0 % VBG Base Excess -1.0 mmol/L Sodium (135-145) mmol/L Potassium (3.3-5.1) mmol/L Chloride (96-108) mmol/L Carbon Dioxide (22-29) mmol/L Anion Gap (12-20) BUN (9-16) mg/dL Creatinine (0.5-1.4) mg/dL Estim Creat Clear Calc Estimated GFR Random Glucose (60-115) mg/dL Lactic Acid (0.5-2.0) mmol/L Lactic Acid F/U @ 2Hr (0.5-2.0) mmol/L Calcium (8.4-10.2) mg/dL Magnesium (1.6-2.6) mg/dL Total Bilirubin (0.0-1.0) mg/dL Direct Bilirubin (0.0-0.5) mg/dL AST (5-37) U/L ALT (0-40) U/L Alkaline Phosphatase (39-117) U/L Troponin I High Sens (<3.5-35.0) ng/L B-Natriuretic Peptide (<100) pg/mL Total Protein (6.5-8.0) g/dL Albumin (3.5-5.0) g/dL Urine Color Yellow Urine Appearance Clear Urine pH 6.5 (5.0-9.0) Ur Specific Curran 1.010 (1.005-1.025) Urine Protein 30 (1+) H (Neg-Trace) mg/dL Urine Glucose (UA) Negative (Negative) mg/dL Urine Ketones Negative (Negative) mg/dL Urine Blood Negative (Negative) Urine Nitrite Negative (Negative) Ur Leukocyte Esterase Small (1+) H (Negative) Urine RBC 0-2 (0-2) /HPF Urine WBC 11-20 H (0-5) /HPF Ur Squamous Epith Cells 0-2 (0-2) /HPF Urine Bacteria None Seen (None Seen) Hyaline Casts 3-5 (0-2) /LPF COVID-19 (ARACELI) Negative (Negative) COVID-19 Clin Com See Note 05/12/23 05/12/23 Range/Units 20:52 20:52 WBC (4.8-10.8) X10*3/uL RBC (4.60-5.80) X10*6/uL Hgb (14.0-18.0) g/dl Hct (42.0-52.0) % MCV (80.0-98.0) fL MCH (27.0-33.0) pg MCHC (31.0-36.0) g/dl RDW (11.0-16.0) % Plt Count (160-400) X10*3/uL MPV (9.4-12.4) fL Immature Gran % (Auto) (0.0-0.4) % Neut % (Auto) (45-73) % Lymph % (Auto) (20-40) % [place] % (Auto) (2-11) % Eos % (Auto) (0-4) % Baso % (Auto) (0-2) % Lymph # (Auto) (1.2-4.9) X10*3/uL [place] # (Auto) (0.1-1.2) X10*3/uL Eos # (Auto) (0.0-0.4) X10*3/uL Baso # (Auto) (0.0-0.2) X10*3/uL Abs Immat Gran (auto) (0.00-0.03) X10*3/uL Absolute Neuts (auto) (2.0-8.3) x10*3/uL Absolute Nucleated RBC (0.0-0.012) X10*3/uL Nucleated RBC % (auto) (0.0-0.2) /100WBC Smear Tech's Comments PT (10.0-13.1) SEC INR (0.9-1.1) D-Dimer High Sensitivty NG/ML VBG pH (7.32-7.43) VBG pCO2 mmHg VBG pO2 mmHg VBG HCO3 (22-26) mmol/L VBG O2 Saturation % VBG Base Excess mmol/L Sodium (135-145) mmol/L Potassium (3.3-5.1) mmol/L Chloride (96-108) mmol/L Carbon Dioxide (22-29) mmol/L Anion Gap (12-20) BUN (9-16) mg/dL Creatinine (0.5-1.4) mg/dL Estim Creat Clear Calc Estimated GFR Random Glucose (60-115) mg/dL Lactic Acid (0.5-2.0) mmol/L Lactic Acid F/U @ 2Hr 2.5 H* (0.5-2.0) mmol/L Calcium (8.4-10.2) mg/dL Magnesium (1.6-2.6) mg/dL Total Bilirubin (0.0-1.0) mg/dL Direct Bilirubin (0.0-0.5) mg/dL AST (5-37) U/L ALT (0-40) U/L Alkaline Phosphatase (39-117) U/L Troponin I High Sens 65.7 H (<3.5-35.0) ng/L B-Natriuretic Peptide (<100) pg/mL Total Protein (6.5-8.0) g/dL Albumin (3.5-5.0) g/dL Urine Color Urine Appearance Urine pH (5.0-9.0) Ur Specific Curran (1.005-1.025) Urine Protein (Neg-Trace) mg/dL Urine Glucose (UA) (Negative) mg/dL Urine Ketones (Negative) mg/dL Urine Blood (Negative) Urine Nitrite (Negative) Ur Leukocyte Esterase (Negative) Urine RBC (0-2) /HPF Urine WBC (0-5) /HPF Ur Squamous Epith Cells (0-2) /HPF Urine Bacteria (None Seen) Hyaline Casts (0-2) /LPF COVID-19 (ARACELI) (Negative) COVID-19 Clin Com Independent Interpretation I performed an independent interpretation of an: EKG and Plain X-Ray Interpretation: My interpretation patient's 12 EKG done at 18:34 hours is as follows: Sinus tachycardia with a rate of 129, normal WI, QRS duration and QTC interval, no ST segment elevation, no ST segment depression, no significant T-wave abnormalities. Radiology Impression Discussion of test interpretation with radiology: I have reviewed the radiologist's reading. Radiologist Impression: XR CHEST CLINICAL INFORMATION: Shortness of breath. COMPARISON: CTA chest 02/20/2023. Chest radiograph 02/20/2023. TECHNIQUE: Frontal view of the chest was obtained. FINDINGS: Worsening pulmonary aeration with increased diffuse interstitial coarsening and bibasilar airspace opacities. Again noted asymmetric pleural-based density on the left lower lobe. Small bilateral pleural effusions. No pneumothorax. No significant change in the appearance of the cardiomediastinal silhouette. No acute osseous abnormalities. XR/XR chest 1V IMPRESSION: Worsening pulmonary aeration with increased diffuse interstitial coarsening and bibasilar airspace opacities. Findings are indeterminate and could be related with a combination of pulmonary edema and an atypical infectious/inflammatory process. Continued follow-up is recommended. Dictated By:Azucena Chairez Independent Historian Clinical information obtained from an independent historian. History obtained from or confirmed by: Spouse and Other (Patient's children) Chronic Conditions Patient?s care impacted by: Diabetes Critical Care Time Critical Care Time Total Critical Care Time: 90 Attestation: Critical Care: The patient was critically ill with a high probability of imminent or life threatening deterioration. I spent greater than 30 minutes of discontinuous time evaluating the patient,delivering critical care at the bedside, discussing and evaluating pertinent data with consultants. Critical care time does not include time spent performing separately billable procedures or teaching. Total time spent performing critical care was 90 minutes. Discharge Plan Discharge Clinical Impression: Atypical pneumonia, Respiratory failure Patient Disposition: General Acute Hospital Transfer Details: [facility] Prescriptions: No Action doxycycline monohydrate 100 mg tablet 100 mg PO BID Qty: 20 0RF lidocaine [Lidoderm] 5 % adhesive patch,medicated 1 patch topical DAILY Qty: 15 0RF Rx Instructions: leave on most painful area for up to 12 hrs
--- NOTE | 2023-05-12 18:26 | ECG_ITS ---
Test Reason : chest pain Blood Pressure : / mmHG Vent. Rate : 130 BPM Atrial Rate : 130 BPM P-R Int : 144 ms QRS Dur : 088 ms QT Int : 288 ms P-R-T Axes : 037 021 029 degrees QTc Int : 423 ms Sinus tachycardia Nonspecific ST abnormality Abnormal ECG When compared with ECG of 20-FEB-2023 12:11, No significant change was found Referred By: Jessa Galicia Electronically Signed By:
[2023-05-12] MEDS: Furosemide 100 MG/10 ML VIAL 60 MG IVPUSH (18:40)
[2023-05-12 18:50] LABS: VBG HCO3 25 mmol/L (22-26); VBG pCO2 47 mmHg; VBG pH 7.33 (7.32-7.43); VBG pO2 33 mmHg
[2023-05-12 18:51] LABS: Basophils Absolute Auto 0.1 X10*3/uL (0.0-0.2); Basophils Percent Auto 0.4 % (0-2); Eosinophils Percent Auto 0.2 % (0-4); Hematocrit 47.1 % (42.0-52.0); Hemoglobin 15.1 g/dl (14.0-18.0); Imm Gran Abs Auto 0.19 X10*3/uL (0.00-0.03); Lymphocytes Absolute Auto 1.7 X10*3/uL (1.2-4.9); MANUAL DIFF FLAG SCAN; Mean Corpuscular HGB Conc 32.1 g/dl (31.0-36.0); Mean Corpuscular Hemoglobin 29.5 pg (27.0-33.0); Mean Platelet Volume 10.3 fL (9.4-12.4); Monocytes Absolute Auto 1.6 X10*3/uL (0.1-1.2); Monocytes Percent Auto 8.7 % (2-11); Neutrophils Absolute Auto 15.1 x10*3/uL (2.0-8.3); Neutrophils Percent Auto 80.7 % (45-73); Platelet Count 374 X10*3/uL (160-400); Red Blood Count 5.12 X10*6/uL (4.60-5.80); Red Cell Distribution Width 13.4 % (11.0-16.0); SCAN SMEAR FLAG 1; White Blood Count 18.7 X10*3/uL (4.8-10.8)
[2023-05-12 18:53] LABS: Venous Blood Gas Refer to POC result
[2023-05-12] MEDS: Nitroglycerin/D5W 100 MG/250 ML INFUS..BTL IVCONT (18:54)
[2023-05-12] MEDS: cefTRIAXone sodium 1 GM in 0.9 % Sodium Chloride 50 ML IV (19:00)
--- NOTE | 2023-05-12 19:02 | PC.NURSE ---
Respiratory called for BiPAP alarms
[2023-05-12 19:04] LABS: INTERNATIONAL NORM RATIO 1.2 (0.9-1.1); Prothrombin Time 14.4 SEC (10.0-13.1)
[2023-05-12 19:05] LABS: Lactic Acid 5.7 mmol/L (0.5-2.0)
[2023-05-12 19:12] LABS: D Dimer High Sensitivity 5410 NG/ML
[2023-05-12 19:15] LABS: SLIDE REVIEW VERIFIED
[2023-05-12 19:15] LABS: Troponin-I High Sensitivity 50.1 ng/L (<3.5-35.0)
[2023-05-12 19:16] LABS: B Type Natriuretic Peptide 68 pg/mL (<100)
[2023-05-12] MEDS: Azithromycin 500 MG in 0.9 % Sodium Chloride 250 ML 125 MG IV (19:24)
[2023-05-12 19:25] LABS: Alanine Aminotransferase 24 U/L (0-40); Alkaline Phosphatase 113 U/L (39-117); Anion Gap 21 (12-20); Aspartate Amino Transferase 26 U/L (5-37); Bilirubin Direct 0.3 mg/dL (0.0-0.5); Bilirubin Total 0.7 mg/dL (0.0-1.0); Blood Urea Nitrogen 21 mg/dL (9-16); Calcium 10.7 mg/dL (8.4-10.2); Carbon Dioxide 20 mmol/L (22-29); Chloride 98 mmol/L (96-108); Creatinine Clr Calc Pharmacy 68.1; Estimated Glomerular Filt Rate > 60; Glucose Random 185 mg/dL (60-115); Magnesium 1.7 mg/dL (1.6-2.6); Potassium 3.9 mmol/L (3.3-5.1); Sodium 135 mmol/L (135-145); Total Protein 8.4 g/dL (6.5-8.0)
--- NOTE | 2023-05-12 19:30 | PC.NURSE ---
Pt to ED for C/o of SOB. Per family, pt has been short of breath for 2 weeks but has gotten worse over the past 5 days. The patient has also been experiencing left-sided chest pain. Pt was seen here in the emergency department on 02/20/2023 for back pain and chest pain especially with deep breathing. According to MD notes pt had a CT scan that showed some chronic interstitial lung disease bilaterally with pleural-based ill-defined opacity in the left upper lobe and ground-glass opacity in the right upper lobe with small left pleural effusion. Per family pt is being followed by an oncologist. Pt placed on Bipap, cardiac monitoring, Capnography and IV meds and a condom cath. (see Blain section) also please see V/s section for further eval. Pt at moment denies any CP, feeling of faint, N/V, diaphoretic feelings or numbness/tingling to extremities. Pt continues to have labored breathing RR 45-50 range, SO2 on Bipap is ranging 93-95%. Capillary refill less that 5 sec. skin color within normal for pt's baseline.
[2023-05-12 20:32] LABS: COVID-19 Test Negative (Negative); IDNOW Serial# 08D9AD1C
--- NOTE | 2023-05-12 20:32 | MHC.EDTECH ---
Pt placed on male external catheter. Pt void 350mL of urine.
[2023-05-12 20:39] LABS: Reflex Lactate? Lactic Acid Added
[2023-05-12 20:41] LABS: Appearance Urine Clear; Color Urine Yellow; Glucose Urine UA Negative (Negative); Leukocyte Esterase Urine Small (1+) (Negative); Nitrite Urine Negative (Negative); PH 6.5 (5.0-9.0); UMIC TRIGGER UACC YES; Urine Blood Negative (Negative); Urine Ketones Negative (Negative); Urine Protein 30 (1+) mg/dL (Neg-Trace)
[2023-05-12 20:48] LABS: Bacteria Urine None Seen (None Seen); RBC Urine 0-2 /HPF (0-2); Squamous Epithelial Cell Urine 0-2 /HPF (0-2); UACC Culture Trigger YES
[2023-05-12 21:18] LABS: Troponin-I High Sensitivity 65.7 ng/L (<3.5-35.0)
[2023-05-12 21:19] LABS: ~Lactic Acid-LAB USE ONLY 2.5 mmol/L (0.5-2.0)
--- NOTE | 2023-05-12 22:01 | MHC.EDTECH ---
@ 1950 Dr Tyson informed Property Administrator of pt needing transfer for ICU care. @ 1999 [facility] was called and declined transfer due to being at capacity. @ 2014 [facility] was called and declined transfer at both [facility] and [facility] due to being at capacity. @ 2017 [facility] was called and declined transfer due to being at capacity. @ 2024 [facility] was called and informed that they will call back with decision. @ 2031 [facility] was called and informed that they will call back with decision. @ 2037 [facility] was called and informed that they will call back with decision. @ 2107 [facility] called back and declined transfer due to being at capacity. @ 2130 [facility] called back to speak with provider. Transfered to Dr Tyson. [facility] accepted pt to [facility] ICU. Awaiting call back with bed assignment. @ 2141 [facility] called back and was informed that we found bed placement elsewhere. @ 2144 Transport was booked with Eva ESCAMILL[facility]. @ 2156 Charge Nurse informed Manufacturing Maintenance Manager to cancel transfer completely due to ICU space becoming available in house. @ 2199 [facility] was called and transfer was cancelled.
[2023-05-12 22:15] LABS: ABG HCO3 34 mmol/L (22-26); ABG pCO2 53 mmHg (32-45); ABG pH 7.41 (7.35-7.45); ABG pO2 92 mmHg (83-108)
--- NOTE | 2023-05-12 22:33 | PM.CCHP ---
History of Present Illness Date of Service: 05/12/23 Attending physician on admission: Stephan Carballo Chief Complaint: RESP DISTRESS POST OBSTRUCTIVE PNA LUNG CANCER HPI: ?Patient with underlying history of ? Patient had presented to the emergency room complaints of shortness of breath for the past 2-3 weeks which has gotten worse over the past 5 days to the point that he was with no get out of bed and he has not been eating well.? He has been experiencing left-sided chest discomfort around the lateral aspect of the chest rated 8/10 at its worst and worsened when trying to take a deep breath, relieved with shallow breathing, he did not take any medications to help with this.? He had been seen in the emergency room on 02/20/2023 with similar complaints and at the time he had a CT angiogram which was negative for PE but revealed chronic interstitial lung disease with bilateral pleural ill-defined in opacities of the left upper lobe and ground-glass opacities in the right upper lobe as well as small pleural effusion.? He had been given doxycycline and has to follow up with the primary care physician to rule out malignancy, he did have a PET scan done on the of this month but the results are not available yet. ? During the ER visit his vital signs were overall stable with section of tachycardia and tachypnea at 01:18 and 36 respectively but was not hypoxic however given the significant work of breathing the patient was placed on BiPAP.? His white count was 18.7, H&H of 15 and 47 respectively, platelets 374, sodium 135, potassium 3.9, chloride 98, carbon dioxide 20, anion gap 21, BUN 21, creatinine 1.06, random glucose 185, lactic acid 5.7 which has come down to 1.4, troponin was 65.7, BNP 68, albumin 4.? Calcium level 10.7.? D-dimer over 5000.? Respiratory panel negative and beta hydroxybutyrate acid 0.29, the patient did receive ?Rocephin and Zithromax, Lasix in the ER.? He did not receive any IV fluids as there was a concern that he was in flash pulmonary edema and or that he will go into CHF. ? At this point the patient only complains of 8/10 pain on the left chest when taking a deep breath otherwise denies any lightheadedness or dizziness, headache, cough or sputum production, fever chills, no prior history of coronary disease, denies any arm or jaw pain, nausea vomiting, other review systems where attempted but the patient is not able to answer due to his distress.? The patient will be transferred to the ICU. ? ROS:? Unable to obtain ? Past Medical History:? As above ? Past Surgical History: ? Family history:? Noncontributory ? Social History:? Patient lives at home with his , has a 40 pack-year history of tobacco consumption, quit 10 years ago.? No alcohol history, no drug use. ? CODE STATUS: FULL CODE ? Allergies: NKDA ? Home Medications: See Med Rec ? Sepsis PHYSICAL EXAM done at 23:00: VS: ?140/92, , 110 110, 30, 91% on BiPAP 12/ with FiO2 of 80% temperature 98.5 degrees General:? Alert oriented x3 appears to be in moderate respiratory distress.? Using accessory muscles to breathe. Skin:? Intact, no lesions, edema, erythema, clubbing or cyanosis.? No ulcers. HEENT:? Head is normocephalic, atraumatic, pupils equal round reactive to light accommodation bilaterally.? Extraocular movements appear intact.? Buccal mucosa is moist, Neck is supple without lymphadenopathy. Cardiac:? Clear S1-S2, no murmurs rubs or gallops. Pulmonary:? Diminished lung sounds bilaterally, prominent crackles at the left lower lobe area along with a subtle rhonchi.? No egophony changes. ? Abdomen:? Protuberant, positive bowel sounds in all 4 quadrants.? Soft, nontender, no rebound or guarding.? Musculoskeletal:? Moving all 4 extremities upon request a major joints, there is no crepitus or tenderness.? The strength is 5/5 bilaterally and throughout all 4 extremities.? There is no leg edema , no calf tenderness , no leg asymmetry.? Gait not assessed at this point. Neurologic:? As above, cranial nerves 2-12 are grossly intact.? No focal deficits noted. Vascular:? 2+ pulses upper and lower extremities distally. ?Less than 2nd capillary refill of the finger and toes bilaterally. ? SIGNIFICANT LABORATORY DATA:? As above ? REVIEW OF IMAGES: CHEST CTA IMPRESSION: *? No pulmonary embolism. *? Chronic pulmonary fibrotic changes are similar in severity to the prior examination, however there is significantly worsened diffuse groundglass opacity throughout the right lung primarily which may represent asymmetric pulmonary edema, infection or alveolitis potentially related to the patient's underlying interstitial lung disease (eg acute interstitial pneumonitis) *? Small to moderate left pleural effusion has increased in size from prior with areas of loculation. *? Mild mediastinal lymphadenopathy presumably reactive. ? EKG REVIEW: ?To my view disease sinus tachycardia 130 beats per minute there is no ST elevations, no ST depressions.? QTC 430.? No comparison. ? ASSESSMENT : 1. Acute respiratory distress syndrome due to underlying interstitial lung disease and possible malignancy of the left chest and large pleural effusion (possible exudate/malignant) 2. Early sepsis versus Systemic inflammatory response syndrome with questionable postobstructive pneumonia of the left lung 3. Lactic and metabolic acidosis due to above 4. Clinical dehydration 5. Acute hypercalcemia with corrected calcium level of 11.1 which may reflect underlying malignancy 6. Diabetes mellitus type 2 questionable early DKA 7. Pleuritic left chest discomfort related to underlying pleural effusion and possible malignancy, unlikely to be ACS. 8. Uncontrolled hypertension, I do not think this is causing flash pulmonary edema, I believe this is directly related to the patient's discomfort. ? PLAN OF CARE: Admit to ICU, vital signs, I's and O's, Dilaudid for work of breathing him pain, continue BiPAP support.? The patient will need a diagnostic and therapeutic thoracentesis with possible lung decortication, will consult thoracic surgery.? Given the concern of possible postobstructive pneumonia I have broaden his antibiotics and discontinue Rocephin and Zithromax, switch him to vancomycin and Zosyn. ? This patient did not receive 30 mL/kilos of IV fluids due to the high risk of going into CHF. I believe the patient is dehydrated and this will be even worse now that he got Lasix in the emergency room, will start him on LR and monitor his blood sugars. ? GI PROPHYLAXIS:? IV ppi DVT PROPHYLAXIS:? Pneumatic stockings while in bed for now as I do suspect the patient will need a thoracentesis ? Focus sepsis Clinical update 05:00 on 05/13/2023 Patient remains hemodynamically stable, blood pressure 109/75, 107, 22, 93% on BiPAP with the same settings. Alert to verbal stimuli, his stress appears to have improved significantly. Skin unchanged. Tachycardic 106 beats per minute, no murmurs, rubs, gallops Lungs remain coursed with crackles at the left base and minor rhonchi on the same side. Abdomen soft and nontender Patient is moving all 4 extremities upon request the major joints, no edema, no crepitus. 2+ pulses of the upper lower extremities bilaterally with less than 2nd capillary refill of the finger and toes. ? Will continue with the above-mentioned management.? Blood sugar was checked and he was 76, the patient is NPO, will switch IV fluids from LR to D5 /LR 100 cc an hour. Thoracic surgery consult has been placed. ? Critical care time used for critical evaluation of this patient, diagnosis, treatment and coordination of care, review her records and documentation TOTAL CRITICAL CARE TIME 120 MIN . discussion and coordination with consultants, completely separate from any procedures performed. Patient's care was discussed in detail with Dr. Carballo.? He is aware of all the above as well as the plan of care for this patient. [facility] Social History Social History Household Members: Family Housing: House Do you presently have visiting nurse or other home services: No Unable to assess alcohol history related to: Unable to respond Alcohol intake: former Patient Tobacco Use Status: Tobacco use Unknown Smoked in Last 30 Days: No Use of substances other than those prescribed or required for medical reasons: Unknown Currently Displaying Signs/Symptoms of Drug Intoxication Withdrawal: No Any prior treatment program specific to substance use: No Advance Directives: No Advance Directives Information Provided: No Do you have thoughts of harming others: None Do you have a plan to hurt others: No Plan Recently lost weight without trying: Unsure Nutrition Risks: No Nutritional Risk Poor oral hygiene: No service: No Meds Allergies Allergy/AdvReac Type Severity Reaction Status Date / Time No Known Allergies Allergy Verified 02/20/23 12:09 Active Medications: Current Medications Nitroglycerin/Dextrose (Nitroglycerin/D5w) 100 mg in 250 mls @ 0 mls/hr IVCONT .Q0M [facility]; Protocol Last Titration: 05/12/23 21:44 Dose: 0 mcg/min, 0 mls/hr Piperacillin Sod/Tazobactam (Sod 4.5 gm/ Sodium Chloride) 100 mls @ 200 mls/hr IV ONCE ONE Stop: 05/12/23 22:40 Vancomycin HCl (Vancomycin/Ns) 2,000 mg in 500 mls @ 250 mls/hr IV ONCE ONE Stop: 05/13/23 00:10 Piperacillin Sod/Tazobactam (Sod 3.375 gm/ Sodium Chloride) 50 mls @ 100 mls/hr IV ONCE ONE Stop: 05/13/23 06:29 Pharmacy Consult (Consult Rx Vancomycin Dosing) 1 each MISCELLANE DAILY PRN PRN Reason: Consult order Pharmacy Consult (Consult Rx Vancomycin Dosing) 1 each MISCELLANE DAILY PRN PRN Reason: Consult order Home Medications Medication Instructions Recorded Confirmed Last Taken Type amlodipine 5 mg tablet 5 mg PO DAILY 05/13/23 05/13/23 Unknown History insulin lispro protamine-lispro 15 unit subcut DAILY@0730,1130 05/13/23 05/13/23 Unknown History 100 unit/mL (75-25) subcutaneous pen (Humalog Mix 75-25 KwikPen) insulin lispro protamine-lispro 20 ml subcut DAILY@1630 05/13/23 05/13/23 Unknown History 100 unit/mL (75-25) subcutaneous pen (Humalog Mix 75-25 KwikPen) levothyroxine 100 mcg tablet 100 mcg PO DAILY 05/13/23 05/13/23 Unknown History (Synthroid) losartan 100 mg tablet 100 mg PO DAILY 05/13/23 05/13/23 Unknown History omeprazole 20 mg capsule,delayed 20 mg PO DAILY 05/13/23 05/13/23 Unknown History release sitagliptin phosphate 50 1 tab PO BID 05/13/23 05/13/23 Unknown History mg-metformin 1,000 mg tablet (Brettt) tamsulosin 0.4 mg capsule 0.4 mg PO QAM 05/13/23 05/13/23 Unknown History Physical Exam Vital Signs: Vital Signs: Last Vital Signs Temp 98.5 F 05/12/23 22:21 Pulse 116 H 05/12/23 22:21 Resp 44 H 05/12/23 22:21 BP 145/84 H 05/12/23 22:21 Pulse Ox 95 05/12/23 22:21 O2 Del Method BiPAP 05/12/23 22:21 BMI result Body Mass Index 27.1 Results Labs 05/12/23 18:37 05/12/23 18:36 Labs: Laboratory Results - last 24 hr 05/12/23 05/12/23 05/12/23 18:36 18:36 18:36 MCV MCH MCHC RDW Plt Count MPV Immature Gran % (Auto) Neut % (Auto) Lymph % (Auto) Bibb % (Auto) Eos % (Auto) Baso % (Auto) Lymph # (Auto) Bibb # (Auto) Eos # (Auto) Baso # (Auto) Abs Immat Gran (auto) Absolute Neuts (auto) Absolute Nucleated RBC Nucleated RBC % (auto) Smear Tech's Comments PT INR D-Dimer High Sensitivty O2 Saturation ABG pH at Pt Temp ABG pCO2 at Pt Temp ABG pO2 at Pt Temp ABG HCO3 ABG Base Excess (Actual) VBG pH VBG pCO2 VBG pO2 VBG HCO3 VBG O2 Saturation VBG Base Excess Anion Gap 21 H Estim Creat Clear Calc 68.1 Estimated GFR > 60 Random Glucose 185 H Lactic Acid 5.7 H* Lactic Acid F/U @ 2Hr Calcium 10.7 H D Magnesium 1.7 Total Bilirubin 0.7 Direct Bilirubin 0.3 AST 26 ALT 24 Alkaline Phosphatase 113 Troponin I High Sens 50.1 H B-Natriuretic Peptide Total Protein 8.4 H Albumin 4.0 Urine Color Urine Appearance Urine pH Ur Specific Dalton Urine Protein Urine Glucose (UA) Urine Ketones Urine Blood Urine Nitrite Ur Leukocyte Esterase Urine RBC Urine WBC Ur Squamous Epith Cells Urine Bacteria Hyaline Casts COVID-19 ([facility]ELI) COVID-19 Clin Com 05/12/23 05/12/23 05/12/23 18:36 18:37 18:37 MCV 92.0 MCH 29.5 MCHC 32.1 RDW 13.4 Plt Count 374 D MPV 10.3 Immature Gran % (Auto) 1.0 H Neut % (Auto) 80.7 H Lymph % (Auto) 9.0 L Bibb % (Auto) 8.7 Eos % (Auto) 0.2 Baso % (Auto) 0.4 Lymph # (Auto) 1.7 Bibb # (Auto) 1.6 H Eos # (Auto) 0.0 Baso # (Auto) 0.1 Abs Immat Gran (auto) 0.19 H Absolute Neuts (auto) 15.1 H Absolute Nucleated RBC 0.000 Nucleated RBC % (auto) 0.0 Smear Tech's Comments VERIFIED PT 14.4 H INR 1.2 H D-Dimer High Sensitivty 5410 O2 Saturation ABG pH at Pt Temp ABG pCO2 at Pt Temp ABG pO2 at Pt Temp ABG HCO3 ABG Base Excess (Actual) VBG pH VBG pCO2 VBG pO2 VBG HCO3 VBG O2 Saturation VBG Base Excess Anion Gap Estim Creat Clear Calc Estimated GFR Random Glucose Lactic Acid Lactic Acid F/U @ 2Hr Calcium Magnesium Total Bilirubin Direct Bilirubin AST ALT Alkaline Phosphatase Troponin I High Sens B-Natriuretic Peptide 68 Total Protein Albumin Urine Color Urine Appearance Urine pH Ur Specific Dalton Urine Protein Urine Glucose (UA) Urine Ketones Urine Blood Urine Nitrite Ur Leukocyte Esterase Urine RBC Urine WBC Ur Squamous Epith Cells Urine Bacteria Hyaline Casts COVID-19 (ARACELI) COVID-19 [facility] Com 05/12/23 05/12/23 05/12/23 18:43 20:08 20:31 MCV MCH MCHC RDW Plt Count MPV Immature Gran % (Auto) Neut % (Auto) Lymph % (Auto) Bibb % (Auto) Eos % (Auto) Baso % (Auto) Lymph # (Auto) Bibb # (Auto) Eos # (Auto) Baso # (Auto) Abs Immat Gran (auto) Absolute Neuts (auto) Absolute Nucleated RBC Nucleated RBC % (auto) Smear Tech's Comments PT INR D-Dimer High Sensitivty O2 Saturation ABG pH at Pt Temp ABG pCO2 at Pt Temp ABG pO2 at Pt Temp ABG HCO3 ABG Base Excess (Actual) VBG pH 7.33 VBG pCO2 47 VBG pO2 33 VBG HCO3 25 VBG O2 Saturation 43.0 VBG Base Excess -1.0 Anion Gap Estim Creat Clear Calc Estimated GFR Random Glucose Lactic Acid Lactic Acid F/U @ 2Hr Calcium Magnesium Total Bilirubin Direct Bilirubin AST ALT Alkaline Phosphatase Troponin I High Sens B-Natriuretic Peptide Total Protein Albumin Urine Color Yellow Urine Appearance Clear Urine pH 6.5 Ur Specific Dalton 1.010 Urine Protein 30 (1+) H Urine Glucose (UA) Negative Urine Ketones Negative Urine Blood Negative Urine Nitrite Negative Ur Leukocyte Esterase Small (1+) H Urine RBC 0-2 Urine WBC 11-20 H Ur Squamous Epith Cells 0-2 Urine Bacteria None Seen Hyaline Casts 3-5 COVID-19 (ARACELI) Negative COVID-19 Clin Com See Note 05/12/23 05/12/23 05/12/23 20:52 20:52 22:06 MCV MCH MCHC RDW Plt Count MPV Immature Gran % (Auto) Neut % (Auto) Lymph % (Auto) Bibb % (Auto) Eos % (Auto) Baso % (Auto) Lymph # (Auto) Bibb # (Auto) Eos # (Auto) Baso # (Auto) Abs Immat Gran (auto) Absolute Neuts (auto) Absolute Nucleated RBC Nucleated RBC % (auto) Smear Tech's Comments PT INR D-Dimer High Sensitivty O2 Saturation 96.0 ABG pH at Pt Temp 7.41 ABG pCO2 at Pt Temp 53 H ABG pO2 at Pt Temp 92 ABG HCO3 34 H ABG Base Excess (Actual) 8.0 VBG pH VBG pCO2 VBG pO2 VBG HCO3 VBG O2 Saturation VBG Base Excess Anion Gap Estim Creat Clear Calc Estimated GFR Random Glucose Lactic Acid Lactic Acid F/U @ 2Hr 2.5 H* Calcium Magnesium Total Bilirubin Direct Bilirubin AST ALT Alkaline Phosphatase Troponin I High Sens 65.7 H B-Natriuretic Peptide Total Protein Albumin Urine Color Urine Appearance Urine pH Ur Specific Dalton Urine Protein Urine Glucose (UA) Urine Ketones Urine Blood Urine Nitrite Ur Leukocyte Esterase Urine RBC Urine WBC Ur Squamous Epith Cells Urine Bacteria Hyaline Casts COVID-19 ([facility]ELI) COVID-19 Clin Com Imaging Radiologist's Impressions: Impressions Chest X-Ray 05/12/23 18:35 IMPRESSION: Worsening pulmonary aeration with increased diffuse interstitial coarsening and bibasilar airspace opacities. Findings are indeterminate and could be related with a combination of pulmonary edema and an atypical infectious/inflammatory process. Continued follow-up is recommended. Assessment and Plan Time Spent With Patient Time: Total time managing care of this patient today ____ minutes.
[2023-05-12] MEDS: Piperacillin Sodium/Tazobactam 4.5 GM in 0.9 % Sodium Chloride 100 ML IV (22:39)
[2023-05-12] MEDS: HYDROmorphone HCl 1 MG/ML SYRINGE IVPUSH (22:49)
[2023-05-12 22:56] LABS: Reflex Lactate? 2 Y
[2023-05-12] MEDS: Lactated Ringers 1,000 ML 100 ML IVCONT (22:58)
[2023-05-12 23:01] LABS: Glucose, Whole Blood 157 mg/dL (60-115)
[2023-05-12] MEDS: Insulin Lispro 100 UNIT/ML 3 ML VIAL SUBCUT (23:09)
[2023-05-12 23:13] LABS: Beta-Hydroxybutyrate 0.29 mmol/L (0.02-0.027)
[2023-05-12] MEDS: vancomycin/NS 2,000 MG/500 ML PLAST..BAG 250 MG IV (23:51)
[2023-05-13] VITALS (51 sets, daily range): BP systolic 75–140; BP diastolic 43–92; PULSE 92–128; RESP 15–40; TEMP 34.7–37.7; O2SAT 83–99; BMI 27.1
[2023-05-13] MEDS: iohexoL 350 MG/ML 100 ML INFUS..BTL 65 ML IV (00:37)
[2023-05-13 00:47] LABS: ABG Refer to POC result
[2023-05-13] MEDS: HYDROmorphone HCl 1 MG/ML SYRINGE IVPUSH ×5 (00:47→23:41)
[2023-05-13 01:32] LABS: ~Lactic Acid-LAB USE ONLY 1.4 mmol/L (0.5-2.0)
[2023-05-13 04:27] LABS: Glucose, Whole Blood 77 mg/dL (60-115)
[2023-05-13] MEDS: Dextrose 5 % and Lactated Ring 1,000 ML 100 ML IVCONT (04:36)
--- NOTE | 2023-05-13 05:08 | PM.SEPBOLA4 ---
Sepsis Bolus Exclusion Sepsis Bolus Exclusion Date of Occurrence: 05/12/23 This patient met severe sepsis criteria due to the following condition(s):: Lactate>=4mmol/L In my clinical judgement the administration of 30 ml/kg of crystalloid would be detrimental to this patient due to the patient's following conditions:: Concern for fluid overload and Other Other (must be specific):: large left pleural effusion / concern for CHF development Replace the 30 mls/kg with (*zero amount not acceptable): *Note: One of the reed must be documented
[2023-05-13 05:22] LABS: VBG Base Excess 7.8 mmol/L; VBG HCO3 34 mmol/L (22-26); VBG pCO2 59 mmHg; VBG pH 7.37 (7.32-7.43); VBG pO2 81 mmHg
[2023-05-13 05:25] LABS: Venous Blood Gas Refer to POC result
[2023-05-13 05:42] LABS: MANUAL DIFF FLAG NO
[2023-05-13 05:45] LABS: Basophils Percent Auto 0.2 % (0-2); Eosinophils Absolute Auto 0.1 X10*3/uL (0.0-0.4); Eosinophils Percent Auto 0.5 % (0-4); Hemoglobin 12.4 g/dl (14.0-18.0); Imm Gran Abs Auto 0.14 X10*3/uL (0.00-0.03); Imm Gran Pct Auto 0.8 % (0.0-0.4); Mean Corpuscular HGB Conc 32.6 g/dl (31.0-36.0); Mean Corpuscular Hemoglobin 30.2 pg (27.0-33.0); Mean Corpuscular Volume 92.7 fL (80.0-98.0); Mean Platelet Volume 10.2 fL (9.4-12.4); Monocytes Absolute Auto 1.2 X10*3/uL (0.1-1.2); Monocytes Percent Auto 7.1 % (2-11); Neutrophils Absolute Auto 14.4 x10*3/uL (2.0-8.3); Neutrophils Percent Auto 85.4 % (45-73); Platelet Count 233 X10*3/uL (160-400); Red Cell Distribution Width 13.4 % (11.0-16.0); White Blood Count 16.9 X10*3/uL (4.8-10.8)
[2023-05-13] MEDS: Pantoprazole Sodium 40 MG/10 ML VIAL IVPUSH (05:57)
[2023-05-13] MEDS: Piperacillin Sodium/Tazobactam 3.375 GM in 0.9 % Sodium Chloride 50 ML IV (05:57)
[2023-05-13 06:05] LABS: Alanine Aminotransferase 17 U/L (0-40); Albumin Level 3.2 g/dL (3.5-5.0); Alkaline Phosphatase 104 U/L (39-117); Anion Gap 14 (12-20); Aspartate Amino Transferase 26 U/L (5-37); Bilirubin Total 0.7 mg/dL (0.0-1.0); Blood Urea Nitrogen 19 mg/dL (9-16); Calcium 9.6 mg/dL (8.4-10.2); Carbon Dioxide 24 mmol/L (22-29); Chloride 103 mmol/L (96-108); Creatinine Clr Calc Pharmacy 91.4; Estimated Glomerular Filt Rate > 60; Glucose Random 89 mg/dL (60-115); Potassium 3.8 mmol/L (3.3-5.1); Sodium 137 mmol/L (135-145); Total Protein 6.8 g/dL (6.5-8.0)
--- NOTE | 2023-05-13 06:15 | PC.NURSE ---
Pt admitted to ICU at approx 0000 from ED. Mostly Indonesian speaking, interpreter and translator utilized for assessment. A&Ox4, calm/cooperative, DYSON. Afebrile. ST on tele, HR 100-110s. SBP > 90, MAP > 65. On BiPAP 12/5/80% on initial assessment, RR 30-40s, orthopneic, accessory muscle use, given PRN Dilaudid 1 mg IVP with good effect per pt, RR 20s. FiO2 titrated down as tolerated by RT. NPO at this time, POC 77, IVF switched and infusing per MAR. External catheter placed on pt. No BM. Skin intact. Pt/family aware of plan of care. Thoracic surgery consulted for potential thoracentesis. Call garcia in reach, bed locked in lowest position.
--- NOTE | 2023-05-13 06:50 | PHA.PROG ---
Admission Date/Time: May 12, 2023 22:28 Indication: RESP/ SEPSIS Weight in k.7 kg Adjusted body weight in K.8 [place] body weight in K.6 Obesity Dosing Indication % IBW: Not obese Serum Creatinine - Last 168 Hours 05/12/23 05/13/23 18:36 05:16 Creatinine 1.06 0.79 Estimated CrCl and GFR - Last 168 Hours 05/12/23 05/13/23 18:36 05:16 Estim Creat Clear Calc 68.1 91.4 Estimated GFR > 60 > 60 Vancomycin Loading Dose: 2000 mg Current Vancomycin Dosing Regimen: 750 mg Q12H Vancomycin Monitoring using AUC goal of 400 - 600 range with trough as surrogate marker: 459 mg/L/hr Date and Time for next Vancomycin Level to be drawn: Trough @ 1000 on 05/14 Pharmacist Comments on Vancomycin Plan: Vancomycin dosing will take advantage of [employer] ([employer]RX as a clinical decision support tool that uses Bayesian modeling to calculate individual patient's pharmacokinetic parameters and forecast the patient's drug concentration time course with the target goal AUC 24 range of 400 - 600 mg/L/hr.
--- NOTE | 2023-05-13 08:48 | PM.PNTS ---
Subjective Subjective Date of Service: 05/13/23 Interval history: Patient with effusion, chest pain, and elevated white count. Physical Exam Vital Signs: Vital Signs: Last Vital Signs Temp 98.5 F 05/13/23 08:00 Pulse 112 H 05/13/23 08:00 Resp 19 05/13/23 08:23 BP 116/79 05/13/23 08:00 Pulse Ox 90 L 05/13/23 08:00 O2 Del Method BiPAP 05/13/23 08:00 FiO2 65 05/13/23 08:00 BMI result Body Mass Index 27.1 Procedures Date of Service Date of Service: 05/13/23 Progress Note: A&P Assessment and plan (1) Atypical pneumonia: Status: Acute (2) Respiratory failure: Status: Acute (3) Pleural effusion: Status: Acute Assessment and Plan: Recommend left-sided pigtail catheter. Fluid studies for cytology, culture, fungus, and AFB. Full consult to follow. Time Spent With Patient Time: Total time managing care of this patient today ____ minutes. Quality Stroke Does the patient have a stroke diagnosis?: No VTE Prior VTE?: No VTE Risk Level:: Medical - moderate - high VTE Device Contraindication: N/A - Device Ordered VTE Drug Contraindication: N/A - Med Ordered
--- NOTE | 2023-05-13 09:41 | PM.CNGS ---
History of Present Illness Consult details Consult date: 05/13/23 Requesting physician: Isaac Lin Narrative: 72-year-old male former smoker with a 40 pack-year smoking history who initially presented in January of this year to the emergency department with back pain/chest pain and shortness of breath. At that time he had a CT angiogram which I reviewed showing significant interstitial lung disease, and apical pleural opacity in the left upper lobe and ground-glass opacity in the right upper lobe. He was given antibiotics and followed up with his primary care at that time who ultimately arrange for him to have a PET scan done which was done on 05/10/2023. This is not read yet but looking at it myself shows that to me there seems to be some supraclavicular uptake and increased uptake at the apex of the left upper lobe as well as significant subcarinal uptake and possibly areas of increased uptake within the liver. Would wait for final read on this. He presented again yesterday with mostly chest pain and shortness of breath and again a CTA was done today which shows increase of a left pleural effusion again pulmonary fibrotic changes and some mediastinal lymphadenopathy. His white blood cell count on 05/12/2023 was 18.7 and today is 17.9. He was since admitted to the intensive care unit and given broad-spectrum antibiotics. Other than above, 12 point review of systems was done and negative with detailed social and family history. [facility] Social History Social History Household Members: Family Housing: House Do you presently have visiting nurse or other home services: No Unable to assess alcohol history related to: Unable to respond Alcohol intake: former Patient Tobacco Use Status: Tobacco use Unknown Smoked in Last 30 Days: No Use of substances other than those prescribed or required for medical reasons: Unknown Any prior treatment program specific to substance use: No Advance Directives: No Advance Directives Information Provided: No Do you have thoughts of harming others: None Do you have a plan to hurt others: No Plan Recently lost weight without trying: Unsure Nutrition Risks: No Nutritional Risk Poor oral hygiene: No Meds Allergies Allergy/AdvReac Type Severity Reaction Status Date / Time No Known Allergies Allergy Verified 02/20/23 12:09 Active Medications: Current Medications Glucose (Glucose Gel 15 Gm Gel..Gram.) 15 gm PO Q15M PRN; Protocol PRN Reason: per Hypoglycemia Standing Ord. Hydromorphone HCl (Hydromorphone Hcl 1 Mg/Ml Syringe) 1 mg IVPUSH Q2H PRN; Protocol PRN Reason: DISTRESS Last Admin: 05/13/23 04:36 Dose: 1 mg Nitroglycerin/Dextrose (Nitroglycerin/D5w) 100 mg in 250 mls @ 0 mls/hr IVCONT .Q0M FELI; Protocol Last Titration: 05/13/23 01:47 Dose: Infused Lactated Ringer's (Lr) 1,000 mls @ 100 mls/hr IVCONT .Q10H FELI Last Infusion: 05/13/23 04:37 Dose: Infused Dextrose (D10) 250 mls @ 750 mls/hr IV Q15M PRN; Protocol PRN Reason: per Hypoglycemia Standing Ord. Vancomycin HCl 750 mg/ Sodium (Chloride) 265 mls @ 265 mls/hr IV Q12H FELI Dextrose/Lactated Ringer's (D5lr) 1,000 mls @ 100 mls/hr IVCONT .Q10H FELI Last Admin: 05/13/23 04:36 Dose: 100 mls/hr Insulin Human Lispro (Insulin Lispro 100 Unit/Ml 3 Ml Vial) 0 unit SUBCUT Q6H FELI; Protocol Last Admin: 05/13/23 04:24 Dose: Not Given Pantoprazole Sodium (Pantoprazole Sodium 40 Mg/10 Ml Vial) 40 mg IVPUSH DAILY@0630 FELI Last Admin: 05/13/23 05:57 Dose: 40 mg Pharmacy Consult (Consult Rx Vancomycin Dosing) 1 each MISCELLANE DAILY PRN PRN Reason: Consult order Home Medications Medication Instructions Recorded Confirmed Last Taken Type amlodipine 5 mg tablet 5 mg PO DAILY 05/13/23 05/13/23 Unknown History insulin lispro protamine-lispro 15 unit subcut DAILY@0730,1130 05/13/23 05/13/23 Unknown History 100 unit/mL (75-25) subcutaneous pen (Humalog Mix 75-25 KwikPen) insulin lispro protamine-lispro 20 ml subcut DAILY@1630 05/13/23 05/13/23 Unknown History 100 unit/mL (75-25) subcutaneous pen (Humalog Mix 75-25 KwikPen) levothyroxine 100 mcg tablet 100 mcg PO DAILY 05/13/23 05/13/23 Unknown History (Synthroid) losartan 100 mg tablet 100 mg PO DAILY 05/13/23 05/13/23 Unknown History omeprazole 20 mg capsule,delayed 20 mg PO DAILY 05/13/23 05/13/23 Unknown History release sitagliptin phosphate 50 1 tab PO BID 05/13/23 05/13/23 Unknown History mg-metformin 1,000 mg tablet (Novumet) tamsulosin 0.4 mg capsule 0.4 mg PO QAM 05/13/23 05/13/23 Unknown History Physical Exam Vital Signs: Vital Signs: Last Vital Signs Temp 98.5 F 05/13/23 08:00 Pulse 110 H 05/13/23 09:00 Resp 21 H 05/13/23 09:00 BP 123/87 05/13/23 09:00 Pulse Ox 91 L 05/13/23 09:00 O2 Del Method BiPAP 05/13/23 09:00 FiO2 65 05/13/23 09:00 BMI result Body Mass Index 27.1 General: No acute distress HEENT: Moist mucous membranes, normocephalic, pupils equal round and reactive to light. Neck: No thyromegaly, supple, no JVD Lymph: No cervical, supraclavicular, or other lymphadenopathy Chest: No chest wall abnormalities or deformities Heart: Regular rate and rhythm Lungs: Clear to auscultation bilaterally Abdomen: Soft, nontender, normal bowel sounds Extremities: No edema, cyanosis, or clubbing. Full range of motion Neuro: Grossly intact, alert and oriented x3, and nonfocal Skin: Warm and dry no rashes Affect: Normal Results Labs 05/13/23 05:16 05/13/23 05:16 Labs: Abnormal lab results 05/12/23 05/12/23 05/12/23 Range/Units 18:36 18:36 18:36 WBC (4.8-10.8) X10*3/uL RBC (4.60-5.80) X10*6/uL Hgb (14.0-18.0) g/dl Hct (42.0-52.0) % Immature Gran % (Auto) (0.0-0.4) % Neut % (Auto) (45-73) % Lymph % (Auto) (20-40) % Lymph # (Auto) (1.2-4.9) X10*3/uL [place] # (Auto) (0.1-1.2) X10*3/uL Abs Immat Gran (auto) (0.00-0.03) X10*3/uL Absolute Neuts (auto) (2.0-8.3) x10*3/uL PT (10.0-13.1) SEC INR (0.9-1.1) ABG pCO2 at Pt Temp (32-45) mmHg ABG HCO3 (22-26) mmol/L VBG HCO3 (22-26) mmol/L Carbon Dioxide 20 L (22-29) mmol/L Anion Gap 21 H (12-20) BUN 21 H (9-16) mg/dL POC Glucose (60-115) mg/dL Random Glucose 185 H (60-115) mg/dL Lactic Acid 5.7 H* (0.5-2.0) mmol/L Lactic Acid F/U @ 2Hr (0.5-2.0) mmol/L Calcium 10.7 H D (8.4-10.2) mg/dL Troponin I High Sens 50.1 H (<3.5-35.0) ng/L Total Protein 8.4 H (6.5-8.0) g/dL Albumin (3.5-5.0) g/dL Urine Protein (Neg-Trace) mg/dL Ur Leukocyte Esterase (Negative) Urine WBC (0-5) /HPF B-Hydroxybutyrate 0.29 H (0.02-0.027) mmol/L 05/12/23 05/12/23 05/12/23 Range/Units 18:36 18:37 20:31 WBC 18.7 H (4.8-10.8) X10*3/uL RBC (4.60-5.80) X10*6/uL Hgb (14.0-18.0) g/dl Hct (42.0-52.0) % Immature Gran % (Auto) 1.0 H (0.0-0.4) % Neut % (Auto) 80.7 H (45-73) % Lymph % (Auto) 9.0 L (20-40) % Lymph # (Auto) (1.2-4.9) X10*3/uL [place] # (Auto) 1.6 H (0.1-1.2) X10*3/uL Abs Immat Gran (auto) 0.19 H (0.00-0.03) X10*3/uL Absolute Neuts (auto) 15.1 H (2.0-8.3) x10*3/uL PT 14.4 H (10.0-13.1) SEC INR 1.2 H (0.9-1.1) ABG pCO2 at Pt Temp (32-45) mmHg ABG HCO3 (22-26) mmol/L VBG HCO3 (22-26) mmol/L Carbon Dioxide (22-29) mmol/L Anion Gap (12-20) BUN (9-16) mg/dL POC Glucose (60-115) mg/dL Random Glucose (60-115) mg/dL Lactic Acid (0.5-2.0) mmol/L Lactic Acid F/U @ 2Hr (0.5-2.0) mmol/L Calcium (8.4-10.2) mg/dL Troponin I High Sens (<3.5-35.0) ng/L Total Protein (6.5-8.0) g/dL Albumin (3.5-5.0) g/dL Urine Protein 30 (1+) H (Neg-Trace) mg/dL Ur Leukocyte Esterase Small (1+) H (Negative) Urine WBC 11-20 H (0-5) /HPF B-Hydroxybutyrate (0.02-0.027) mmol/L 05/12/23 05/12/23 05/12/23 Range/Units 20:52 20:52 22:06 WBC (4.8-10.8) X10*3/uL RBC (4.60-5.80) X10*6/uL Hgb (14.0-18.0) g/dl Hct (42.0-52.0) % Immature Gran % (Auto) (0.0-0.4) % Neut % (Auto) (45-73) % Lymph % (Auto) (20-40) % Lymph # (Auto) (1.2-4.9) X10*3/uL [place] # (Auto) (0.1-1.2) X10*3/uL Abs Immat Gran (auto) (0.00-0.03) X10*3/uL Absolute Neuts (auto) (2.0-8.3) x10*3/uL PT (10.0-13.1) SEC INR (0.9-1.1) ABG pCO2 at Pt Temp 53 H (32-45) mmHg ABG HCO3 34 H (22-26) mmol/L VBG HCO3 (22-26) mmol/L Carbon Dioxide (22-29) mmol/L Anion Gap (12-20) BUN (9-16) mg/dL POC Glucose (60-115) mg/dL Random Glucose (60-115) mg/dL Lactic Acid (0.5-2.0) mmol/L Lactic Acid F/U @ 2Hr 2.5 H* (0.5-2.0) mmol/L Calcium (8.4-10.2) mg/dL Troponin I High Sens 65.7 H (<3.5-35.0) ng/L Total Protein (6.5-8.0) g/dL Albumin (3.5-5.0) g/dL Urine Protein (Neg-Trace) mg/dL Ur Leukocyte Esterase (Negative) Urine WBC (0-5) /HPF B-Hydroxybutyrate (0.02-0.027) mmol/L 05/12/23 05/13/23 05/13/23 Range/Units 22:56 05:12 05:16 WBC 16.9 H (4.8-10.8) X10*3/uL RBC 4.10 L (4.60-5.80) X10*6/uL Hgb 12.4 L (14.0-18.0) g/dl Hct 38.0 L (42.0-52.0) % Immature Gran % (Auto) 0.8 H (0.0-0.4) % Neut % (Auto) 85.4 H (45-73) % Lymph % (Auto) 6.0 L (20-40) % Lymph # (Auto) 1.0 L (1.2-4.9) X10*3/uL [place] # (Auto) (0.1-1.2) X10*3/uL Abs Immat Gran (auto) 0.14 H (0.00-0.03) X10*3/uL Absolute Neuts (auto) 14.4 H (2.0-8.3) x10*3/uL PT (10.0-13.1) SEC INR (0.9-1.1) ABG pCO2 at Pt Temp (32-45) mmHg ABG HCO3 (22-26) mmol/L VBG HCO3 34 H (22-26) mmol/L Carbon Dioxide (22-29) mmol/L Anion Gap (12-20) BUN (9-16) mg/dL POC Glucose 157 H (60-115) mg/dL Random Glucose (60-115) mg/dL Lactic Acid (0.5-2.0) mmol/L Lactic Acid F/U @ 2Hr (0.5-2.0) mmol/L Calcium (8.4-10.2) mg/dL Troponin I High Sens (<3.5-35.0) ng/L Total Protein (6.5-8.0) g/dL Albumin (3.5-5.0) g/dL Urine Protein (Neg-Trace) mg/dL Ur Leukocyte Esterase (Negative) Urine WBC (0-5) /HPF B-Hydroxybutyrate (0.02-0.027) mmol/L /16/ Range/Units 05:16 WBC (4.8-10.8) X10*3/uL RBC (4.60-5.80) X10*6/uL Hgb (14.0-18.0) g/dl Hct (42.0-52.0) % Immature Gran % (Auto) (0.0-0.4) % Neut % (Auto) (45-73) % Lymph % (Auto) (20-40) % Lymph # (Auto) (1.2-4.9) X10*3/uL [place] # (Auto) (0.1-1.2) X10*3/uL Abs Immat Gran (auto) (0.00-0.03) X10*3/uL Absolute Neuts (auto) (2.0-8.3) x10*3/uL PT (10.0-13.1) SEC INR (0.9-1.1) ABG pCO2 at Pt Temp (32-45) mmHg ABG HCO3 (22-26) mmol/L VBG HCO3 (22-26) mmol/L Carbon Dioxide (22-29) mmol/L Anion Gap (12-20) BUN 19 H (9-16) mg/dL POC Glucose (60-115) mg/dL Random Glucose (60-115) mg/dL Lactic Acid (0.5-2.0) mmol/L Lactic Acid F/U @ 2Hr (0.5-2.0) mmol/L Calcium (8.4-10.2) mg/dL Troponin I High Sens (<3.5-35.0) ng/L Total Protein (6.5-8.0) g/dL Albumin 3.2 L (3.5-5.0) g/dL Urine Protein (Neg-Trace) mg/dL Ur Leukocyte Esterase (Negative) Urine WBC (0-5) /HPF B-Hydroxybutyrate (0.02-0.027) mmol/L Short CBC 05/12/23 05/13/23 Range/Units 18:37 05:16 WBC 18.7 H 16.9 H (4.8-10.8) X10*3/uL Hgb 15.1 12.4 L (14.0-18.0) g/dl Hct 47.1 38.0 L (42.0-52.0) % Plt Count 374 D 233 D (160-400) X10*3/uL BMP 05/12/23 05/13/23 18:36 05:16 Sodium 135 137 Potassium 3.9 3.8 Chloride 98 103 Carbon Dioxide 20 L 24 BUN 21 H 19 H Creatinine 1.06 0.79 Calcium 10.7 H D 9.6 D Liver Function 05/12/23 05/13/23 Range/Units 18:36 05:16 Total Bilirubin 0.7 0.7 (0.0-1.0) mg/dL Direct Bilirubin 0.3 (0.0-0.5) mg/dL AST 26 26 (5-37) U/L ALT 24 17 (0-40) U/L Alkaline Phosphatase 113 104 (39-117) U/L Albumin 4.0 3.2 L (3.5-5.0) g/dL Urine 05/12/23 Range/Units 20:31 Urine Color Yellow Urine Appearance Clear Urine pH 6.5 (5.0-9.0) Ur Specific [place] 1.010 (1.005-1.025) Urine Protein 30 (1+) H (Neg-Trace) mg/dL Urine Glucose (UA) Negative (Negative) mg/dL All other labs normal. Imaging Chest x-ray: report reviewed and image reviewed CT scan - chest: report reviewed and image reviewed EKG: report reviewed Assessment and Plan (1) Pleural effusion: Status: Acute 72-year-old male with significant left-sided pleural effusion in concert with left-sided chest pain/shortness of breath concerning for empyema also with possibility of background malignancy. In the short term, my recommendation would be for placement of a left-sided pigtail catheter in sending the fluid for fluid studies including cytology, culture, fungus, and AFB. Would also send cell counts and chemistries. If the fluid is not evacuated with this technique then will likely proceed with tPA/dornase given that with the picture of what seems to be significant interstitial lung disease may not be the best surgical candidate. Agree with broad-spectrum antibiotics and supportive care as per the ICU. In the longer term the PET scan needs to be sorted out as the findings that I was able to ascertain or just my findings and the concern for malignancy or reactive increased uptake is significant and currently not resolved at this point in time. Will plan on reaching out to the radiologist in seeing what they think. Once again is my pleasure to take part in the care of your patient and please feel free to call with any questions or concerns. I spent 65 minutes reviewing imaging, interpreting imaging, reviewing other diagnostics, coordinating care with other providers, and visiting and examining the patient. (2) Atypical pneumonia: Status: Acute (3) Respiratory failure: Status: Acute Time Spent With Patient Time: Total time managing care of this patient today __65__ minutes. Procedures Date of Service Date of Service: 05/13/23
--- NOTE | 2023-05-13 10:01 | MHC.CM.PN ---
IMM DELIVERED. CM EXPLAINED MEDICARE RIGHTS TO DAUGHTER, WHITE COPY TO BE MAILED, YELLOW COPY TO CHART. PT LIVES WITH DAUGHTER AND S/O. INDEPENDENT AT BASELINE. SHOULD VNA BE RECOMMENDED, DAUGHTER MARIO WOULD LIKE A REFERRAL TO [facility] HAS HAD IN PAST. NO HCP BUT WILL ASSIST PT TO COMPLETE WHEN ABLE, PT CURRENTLY ON BIPAP. +COVID VAX X3 WITH PFIZER. PCP STAN TONG AT [facility]. DP: HOME WITH SERVICES IF RECOMMENDED, REFERRAL SENT TO [facility] PER FAMILY REQUEST. FAMILY WILL TRANSPORT AT [place]. CM WILL CONTINUE TO FOLLOW FOR [place] NEEDS/PLAN AT [place].
[2023-05-13] MEDS: propofoL 200 MG/20 ML VIAL 30 MG IVPUSH ×3 (10:09→10:20)
[2023-05-13] MEDS: Rocuronium Bromide 50 MG/5 ML VIAL IVPUSH (10:17)
[2023-05-13] MEDS: Norepinephrine Bitartrate/D5W 8 MG/250 ML PLAST..BAG 17.01 MG IV (10:17)
[2023-05-13] MEDS: propofoL 200 MG/20 ML VIAL 40 MG IVPUSH (10:17)
[2023-05-13] MEDS: propofoL 1,000 MG/100 ML VIAL 16.33 MG IVCONT (10:28)
[2023-05-13 11:37] LABS: Glucose, Whole Blood 173 mg/dL (60-115)
[2023-05-13] MEDS: 0.9 % Sodium Chloride 1,000 ML 75 ML IVCONT (12:25)
[2023-05-13] MEDS: propofoL 1,000 MG/100 ML VIAL 27.21 MG IVCONT (13:24)
[2023-05-13] MEDS: vancomycin HCL 750 MG in 0.9 % Sodium Chloride 250 ML 265 MG IV ×2 (13:24→23:57)
[2023-05-13 15:33] LABS: Influenza A PCR NEGATIVE (Negative); Influenza B PCR NEGATIVE (Negative); Resp Syncy Virus RNA Qual PCR NEGATIVE (Negative); SARS COV2 PCR INHOUSE NEGATIVE (Negative)
[2023-05-13 15:36] LABS: Erythrocyte Sedimentation Rate 51 MM/HR (0-15)
[2023-05-13] MEDS: propofoL 1,000 MG/100 ML VIAL 21.77 MG IVCONT ×2 (16:20→21:29)
[2023-05-13] MEDS: dexAMETHasone sod phosphate 4 MG/ML VIAL 6 MG IVPUSH ×2 (16:22→21:28)
[2023-05-13] MEDS: Ampicillin Sodium/Sulbactam Na 3 GM in 0.9 % Sodium Chloride 100 ML IV ×2 (16:22→21:25)
--- NOTE | 2023-05-13 16:27 | P.PNCC_ITS ---
Subjective Subjective Date of Service: 05/13/23 Interval History: 72-year-old male with progressive dyspnea at home no description of fever chills but there was definitely a somewhat productive cough a presents with severe progressive subacute to acute 2 acute hypoxemic respiratory failure started on on a high FiO2 with noninvasive ventilation and he progressively worsened through the day requiring increased pressure to maintain tidal volume and increased FiO2 yet he had increased respiratory effort with accessory muscle use and then he finally bed for additional help was in complete agreement with with intubation and the 1st call the family before embarking on that route and explain to them the need when everybody was in concert and of course the in a with urgency he was given IV propofol for sedation 50 mg of rocuronium easily intubated using a number for a tongue blade with glide scope guidance easy visualization of the vocal cords and passage of the endotracheal tube beyond with good bilateral breath sounds good end-tidal CO2 response and excellent chest x-ray showing relief of some degree of atelectasis which was a component of the infiltrate pattern and good placement of the tip of the ET tube and the OG tube down in the stomach all done under glide scope guidance he also has an extensive concentric shall of of pleural fluid which a definitely looks complex probably lobulated and very very suspect for this whole process representing carcinoma and there is an outpatient and PET CT scan that is pending from the and will check into those results later this currently no report available sputum cultures and a PCR scan for respiratory viruses all performed this day and we initiated empiric antibiotics for the no severe pneumonia clearly and this is atypical with extensive ground-glass and and consolidation manifestations and we know that it is not pulmonary edema specially from the measured CVP of 3-4 and he does not have IVC distension although there is no collapse because of positive-pressure respiration and at this and no apparent hemorrhage so is probably not a diffuse alveolar hemorrhage syndrome but I see on his CT scan mediastinal and carinal lymphadenopathy so more suspicious than anything about possible metastatic carcinoma and we ask thoracic surgery to come by and they did not have time to do anything with this fluid but I think that the with a recommendation for putting in a pigtail catheter is not going to be any when is sufficient binge at least in to in terms of removing enough volume to help him come off the ventilator but at this point if this is still a full court press we definitely need the PET-CT scan to give us the imply diagnosis and then probably be bronchoscopy and biopsy or a thoracoscopic biopsy Critical Care Time (minutes): 90 Physical Exam Vital Signs: Vital Signs: Last Vital Signs Temp 99.5 F 05/13/23 16:00 Pulse 97 05/13/23 16:21 Resp 18 05/13/23 16:00 BP 129/75 05/13/23 16:21 Pulse Ox 96 05/13/23 16:00 O2 Del Method Mechanical Ventil ation 05/13/23 16:00 FiO2 100 05/13/23 16:00 BMI result Body Mass Index 27.1 initially he was neurologically nonfocal awake and responsive currently sedated intubated diminished bilateral breath sounds now bedside echo showing a [id number] degree of diffuse hypokinesis of the left ventricle of proximally 40 or 40-45% ejection fraction it is a global process no primary valve or pericardial disease abdomen soft no organomegaly no livedo no peripheral acrocyanosis Objective Data Labs 05/13/23 05:16 05/13/23 05:16 Labs: Laboratory Results - last 24 hr 05/12/23 05/12/23 05/12/23 18:36 18:36 18:36 WBC RBC Hgb Hct MCV MCH MCHC RDW Plt Count MPV Immature Gran % (Auto) Neut % (Auto) Lymph % (Auto) [place] % (Auto) Eos % (Auto) Baso % (Auto) Lymph # (Auto) [place] # (Auto) Eos # (Auto) Baso # (Auto) Abs Immat Gran (auto) Absolute Neuts (auto) Absolute Nucleated RBC Nucleated RBC % (auto) Smear Tech's Comments ESR PT INR D-Dimer High Sensitivty O2 Saturation ABG pH at Pt Temp ABG pCO2 at Pt Temp ABG pO2 at Pt Temp ABG HCO3 ABG Base Excess (Actual) VBG pH VBG pCO2 VBG pO2 VBG HCO3 VBG O2 Saturation VBG Base Excess Sodium 135 Potassium 3.9 Chloride 98 Carbon Dioxide 20 L Anion Gap 21 H BUN 21 H Creatinine 1.06 Estim Creat Clear Calc 68.1 Estimated GFR > 60 POC Glucose Random Glucose 185 H Lactic Acid 5.7 H* Lactic Acid F/U @ 2Hr Lactic Acid F/U @ 4Hr Calcium 10.7 H D Magnesium 1.7 Total Bilirubin 0.7 Direct Bilirubin 0.3 AST 26 ALT 24 Alkaline Phosphatase 113 Troponin I High Sens 50.1 H B-Natriuretic Peptide Total Protein 8.4 H Albumin 4.0 Urine Color Urine Appearance Urine pH Ur Specific [place] Urine Protein Urine Glucose (UA) Urine Ketones Urine Blood Urine Nitrite Ur Leukocyte Esterase Urine RBC Urine WBC Ur Squamous Epith Cells Urine Bacteria Hyaline Casts B-Hydroxybutyrate 0.29 H COVID-19 ([facility]) COVID-19 Clin Com Influenza Type A (PCR) Influenza Type B (PCR) RSV RNA Qual (PCR) SARS-CoV-2 RNA (RT-PCR) 05/12/23 05/12/23 05/12/23 18:36 18:37 18:37 WBC 18.7 H RBC 5.12 Hgb 15.1 Hct 47.1 MCV 92.0 MCH 29.5 MCHC 32.1 RDW 13.4 Plt Count 374 D MPV 10.3 Immature Gran % (Auto) 1.0 H Neut % (Auto) 80.7 H Lymph % (Auto) 9.0 L [place] % (Auto) 8.7 Eos % (Auto) 0.2 Baso % (Auto) 0.4 Lymph # (Auto) 1.7 [place] # (Auto) 1.6 H Eos # (Auto) 0.0 Baso # (Auto) 0.1 Abs Immat Gran (auto) 0.19 H Absolute Neuts (auto) 15.1 H Absolute Nucleated RBC 0.000 Nucleated RBC % (auto) 0.0 Smear Tech's Comments VERIFIED ESR PT 14.4 H INR 1.2 H D-Dimer High Sensitivty 5410 O2 Saturation ABG pH at Pt Temp ABG pCO2 at Pt Temp ABG pO2 at Pt Temp ABG HCO3 ABG Base Excess (Actual) VBG pH VBG pCO2 VBG pO2 VBG HCO3 VBG O2 Saturation VBG Base Excess Sodium Potassium Chloride Carbon Dioxide Anion Gap BUN Creatinine Estim Creat Clear Calc Estimated GFR POC Glucose Random Glucose Lactic Acid Lactic Acid F/U @ 2Hr Lactic Acid F/U @ 4Hr Calcium Magnesium Total Bilirubin Direct Bilirubin AST ALT Alkaline Phosphatase Troponin I High Sens B-Natriuretic Peptide 68 Total Protein Albumin Urine Color Urine Appearance Urine pH Ur Specific [place] Urine Protein Urine Glucose (UA) Urine Ketones Urine Blood Urine Nitrite Ur Leukocyte Esterase Urine RBC Urine WBC Ur Squamous Epith Cells Urine Bacteria Hyaline Casts B-Hydroxybutyrate COVID-19 ([facility]) COVID-19 Clin Com Influenza Type A (PCR) Influenza Type B (PCR) RSV RNA Qual (PCR) SARS-CoV-2 RNA (RT-PCR) 05/12/23 05/12/23 05/12/23 18:43 20:08 20:31 WBC RBC Hgb Hct MCV MCH MCHC RDW Plt Count MPV Immature Gran % (Auto) Neut % (Auto) Lymph % (Auto) [place] % (Auto) Eos % (Auto) Baso % (Auto) Lymph # (Auto) [place] # (Auto) Eos # (Auto) Baso # (Auto) Abs Immat Gran (auto) Absolute Neuts (auto) Absolute Nucleated RBC Nucleated RBC % (auto) Smear Tech's Comments ESR PT INR D-Dimer High Sensitivty O2 Saturation ABG pH at Pt Temp ABG pCO2 at Pt Temp ABG pO2 at Pt Temp ABG HCO3 ABG Base Excess (Actual) VBG pH 7.33 VBG pCO2 47 VBG pO2 33 VBG HCO3 25 VBG O2 Saturation 43.0 VBG Base Excess -1.0 Sodium Potassium Chloride Carbon Dioxide Anion Gap BUN Creatinine Estim Creat Clear Calc Estimated GFR POC Glucose Random Glucose Lactic Acid Lactic Acid F/U @ 2Hr Lactic Acid F/U @ 4Hr Calcium Magnesium Total Bilirubin Direct Bilirubin AST ALT Alkaline Phosphatase Troponin I High Sens B-Natriuretic Peptide Total Protein Albumin Urine Color Yellow Urine Appearance Clear Urine pH 6.5 Ur Specific [place] 1.010 Urine Protein 30 (1+) H Urine Glucose (UA) Negative Urine Ketones Negative Urine Blood Negative Urine Nitrite Negative Ur Leukocyte Esterase Small (1+) H Urine RBC 0-2 Urine WBC 11-20 H Ur Squamous Epith Cells 0-2 Urine Bacteria None Seen Hyaline Casts 3-5 B-Hydroxybutyrate COVID-19 ([facility]) Negative COVID-19 Clin Com See Note Influenza Type A (PCR) Influenza Type B (PCR) RSV RNA Qual (PCR) SARS-CoV-2 RNA (RT-PCR) 05/12/23 05/12/23 05/12/23 20:52 20:52 22:06 WBC RBC Hgb Hct MCV MCH MCHC RDW Plt Count MPV Immature Gran % (Auto) Neut % (Auto) Lymph % (Auto) [place] % (Auto) Eos % (Auto) Baso % (Auto) Lymph # (Auto) [place] # (Auto) Eos # (Auto) Baso # (Auto) Abs Immat Gran (auto) Absolute Neuts (auto) Absolute Nucleated RBC Nucleated RBC % (auto) Smear Tech's Comments ESR PT INR D-Dimer High Sensitivty O2 Saturation 96.0 ABG pH at Pt Temp 7.41 ABG pCO2 at Pt Temp 53 H ABG pO2 at Pt Temp 92 ABG HCO3 34 H ABG Base Excess (Actual) 8.0 VBG pH VBG pCO2 VBG pO2 VBG HCO3 VBG O2 Saturation VBG Base Excess Sodium Potassium Chloride Carbon Dioxide Anion Gap BUN Creatinine Estim Creat Clear Calc Estimated GFR POC Glucose Random Glucose Lactic Acid Lactic Acid F/U @ 2Hr 2.5 H* Lactic Acid F/U @ 4Hr Calcium Magnesium Total Bilirubin Direct Bilirubin AST ALT Alkaline Phosphatase Troponin I High Sens 65.7 H B-Natriuretic Peptide Total Protein Albumin Urine Color Urine Appearance Urine pH Ur Specific [place] Urine Protein Urine Glucose (UA) Urine Ketones Urine Blood Urine Nitrite Ur Leukocyte Esterase Urine RBC Urine WBC Ur Squamous Epith Cells Urine Bacteria Hyaline Casts B-Hydroxybutyrate COVID-19 ([facility]) COVID-19 Clin Com Influenza Type A (PCR) Influenza Type B (PCR) RSV RNA Qual (PCR) SARS-CoV-2 RNA (RT-PCR) 05/12/23 05/13/23 05/13/23 22:56 00:56 04:22 WBC RBC Hgb Hct MCV MCH MCHC RDW Plt Count MPV Immature Gran % (Auto) Neut % (Auto) Lymph % (Auto) [place] % (Auto) Eos % (Auto) Baso % (Auto) Lymph # (Auto) [place] # (Auto) Eos # (Auto) Baso # (Auto) Abs Immat Gran (auto) Absolute Neuts (auto) Absolute Nucleated RBC Nucleated RBC % (auto) Smear Tech's Comments ESR PT INR D-Dimer High Sensitivty O2 Saturation ABG pH at Pt Temp ABG pCO2 at Pt Temp ABG pO2 at Pt Temp ABG HCO3 ABG Base Excess (Actual) VBG pH VBG pCO2 VBG pO2 VBG HCO3 VBG O2 Saturation VBG Base Excess Sodium Potassium Chloride Carbon Dioxide Anion Gap BUN Creatinine Estim Creat Clear Calc Estimated GFR POC Glucose 157 H 77 Random Glucose Lactic Acid Lactic Acid F/U @ 2Hr Lactic Acid F/U @ 4Hr 1.4 Calcium Magnesium Total Bilirubin Direct Bilirubin AST ALT Alkaline Phosphatase Troponin I High Sens B-Natriuretic Peptide Total Protein Albumin Urine Color Urine Appearance Urine pH Ur Specific [place] Urine Protein Urine Glucose (UA) Urine Ketones Urine Blood Urine Nitrite Ur Leukocyte Esterase Urine RBC Urine WBC Ur Squamous Epith Cells Urine Bacteria Hyaline Casts B-Hydroxybutyrate COVID-19 ([facility]) COVID-19 Clin Com Influenza Type A (PCR) Influenza Type B (PCR) RSV RNA Qual (PCR) SARS-CoV-2 RNA (RT-PCR) 05/13/23 05/13/23 05/13/23 05:12 05:16 05:16 WBC 16.9 H RBC 4.10 L Hgb 12.4 L Hct 38.0 L MCV 92.7 MCH 30.2 MCHC 32.6 RDW 13.4 Plt Count 233 D MPV 10.2 Immature Gran % (Auto) 0.8 H Neut % (Auto) 85.4 H Lymph % (Auto) 6.0 L [place] % (Auto) 7.1 Eos % (Auto) 0.5 Baso % (Auto) 0.2 Lymph # (Auto) 1.0 L [place] # (Auto) 1.2 Eos # (Auto) 0.1 Baso # (Auto) 0.0 Abs Immat Gran (auto) 0.14 H Absolute Neuts (auto) 14.4 H Absolute Nucleated RBC 0.000 Nucleated RBC % (auto) 0.0 Smear Tech's Comments ESR PT INR D-Dimer High Sensitivty O2 Saturation ABG pH at Pt Temp ABG pCO2 at Pt Temp ABG pO2 at Pt Temp ABG HCO3 ABG Base Excess (Actual) VBG pH 7.37 VBG pCO2 59 VBG pO2 81 VBG HCO3 34 H VBG O2 Saturation 94.0 VBG Base Excess 7.8 Sodium 137 Potassium 3.8 Chloride 103 Carbon Dioxide 24 Anion Gap 14 BUN 19 H Creatinine 0.79 Estim Creat Clear Calc 91.4 Estimated GFR > 60 POC Glucose Random Glucose 89 Lactic Acid Lactic Acid F/U @ 2Hr Lactic Acid F/U @ 4Hr Calcium 9.6 D Magnesium Total Bilirubin 0.7 Direct Bilirubin AST 26 ALT 17 Alkaline Phosphatase 104 Troponin I High Sens B-Natriuretic Peptide Total Protein 6.8 Albumin 3.2 L Urine Color Urine Appearance Urine pH Ur Specific [place] Urine Protein Urine Glucose (UA) Urine Ketones Urine Blood Urine Nitrite Ur Leukocyte Esterase Urine RBC Urine WBC Ur Squamous Epith Cells Urine Bacteria Hyaline Casts B-Hydroxybutyrate COVID-19 ([facility]) COVID-19 Clin Com Influenza Type A (PCR) Influenza Type B (PCR) RSV RNA Qual (PCR) SARS-CoV-2 RNA (RT-PCR) 05/13/23 05/13/23 05/13/23 11:33 13:50 14:50 WBC RBC Hgb Hct MCV MCH MCHC RDW Plt Count MPV Immature Gran % (Auto) Neut % (Auto) Lymph % (Auto) [place] % (Auto) Eos % (Auto) Baso % (Auto) Lymph # (Auto) [place] # (Auto) Eos # (Auto) Baso # (Auto) Abs Immat Gran (auto) Absolute Neuts (auto) Absolute Nucleated RBC Nucleated RBC % (auto) Smear Tech's Comments ESR 51 H PT INR D-Dimer High Sensitivty O2 Saturation ABG pH at Pt Temp ABG pCO2 at Pt Temp ABG pO2 at Pt Temp ABG HCO3 ABG Base Excess (Actual) VBG pH VBG pCO2 VBG pO2 VBG HCO3 VBG O2 Saturation VBG Base Excess Sodium Potassium Chloride Carbon Dioxide Anion Gap BUN Creatinine Estim Creat Clear Calc Estimated GFR POC Glucose 173 H Random Glucose Lactic Acid Lactic Acid F/U @ 2Hr Lactic Acid F/U @ 4Hr Calcium Magnesium Total Bilirubin Direct Bilirubin AST ALT Alkaline Phosphatase Troponin I High Sens B-Natriuretic Peptide Total Protein Albumin Urine Color Urine Appearance Urine pH Ur Specific [place] Urine Protein Urine Glucose (UA) Urine Ketones Urine Blood Urine Nitrite Ur Leukocyte Esterase Urine RBC Urine WBC Ur Squamous Epith Cells Urine Bacteria Hyaline Casts B-Hydroxybutyrate COVID-19 ([facility]) COVID-19 Clin Com Influenza Type A (PCR) NEGATIVE Influenza Type B (PCR) NEGATIVE RSV RNA Qual (PCR) NEGATIVE SARS-CoV-2 RNA (RT-PCR) NEGATIVE Microbiology Microbiology Results: Microbiology 05/12/23 20:49 Urine clean catch - Urine guillaume top Urine Culture - Preliminary No growth to date. Progress Note: A&P Assessment and plan (1) Pleural effusion: Status: Acute (2) Atypical pneumonia: Status: Acute (3) Respiratory failure: Status: Acute (4) Acute hypoxemic respiratory failure: Status: Acute Plan possible pulmonary consult to for bronchoscopy and biopsy either of lymph nodes or of the no some of the mass effect noted in the lung possible thoracic surgery consultation consider possibility of a thoracoscopic biopsy and drainage of his much effusion is possible along with continued antibiotic and steroid use and attempt to wean the ventilator in the interim Quality Stroke Does the patient have a stroke diagnosis?: No VTE Prior VTE?: No VTE Risk Level:: Medical - moderate - high VTE Device Contraindication: N/A - Device Ordered VTE Drug Contraindication: N/A - Med Ordered
--- NOTE | 2023-05-13 16:27 | W.PM.CCHP ---
Procedures Date of Service Date of Service: 05/13/23 Central Line Placement Right IJ: Central Line Comments: due to dependence on Levophed and multiple other medications for acute hypoxemic respiratory failure and the need to measure central venous pressures after explanation to the family and sterile preparation and draping utilizing ultrasound guidance and sterile preparation gained easy entry into the right internal jugular vein without complication passing retrograde with Seldinger technique a J tipped guidewire over which an introducer and then a triple-lumen central venous pressure catheter 20 cm length measured CVP was 3-4 and that was after an initial fluid load in the face of hypotension so clearly relatively hypovolemic chest x-ray showing placement with the tip in the right atrium which was excellent no evidence of pneumothorax it was an uncomplicated procedure sterilely dressed and draped Consent for Procedure: Elective - informed consent obtained Time out performed: Yes Sterile Technique Used: Yes Patient placed on monitor/pulse ox: Yes prep: mask, gown and gloves Central line prep: Chlorhexidine scrub Local anesthesia used: lidocaine 1% Ultrasound used for placement: Yes Central line lumen inserted: triple Post procedure: sutured in place, good blood return, all ports aspirated, flushed, capped and sterile dressing applied Post procedure x-ray: tip of catheter in good position and no pneumothorax seen Patient tolerated procedure: well and no complications Complications: none Intubation Intubation Comments: patient had progressively increasing work of breathing with marked tachypnea using accessory muscles and diaphragmatic effort despite increasing to the maximum on the noninvasive ventilator and cried out for help and we call the family to explain the need for intubation and intubation was performed with a 8. Endotracheal tube and utilizing the glide scope with excellent visualization of the vocal cords and very easy non complicated placement of the endotracheal tube with excellent bilateral breath sounds no barotrauma excellent end-tidal CO2 response and at 26 cm at the lip this was several cm above the robb and then I placed the OG tube utilizing the glide scope again to gain access to the esophagus without complication with good placement in the stomach Consent for Procedure: Elective - informed consent obtained Time out performed: Yes Sedative: propofol Paralytic: rocuronium Laryngoscope: fiber optic video scope ET tube size: 8 ET tube uncuffed: No Tube secured depth (cm): 26 Tube secured location: lips Tube placement confirmation: visualized tube passing through cords, equal breath sounds bilaterally, no breath sounds over epigastrium and confirmation by capnometry Patient tolerated procedure: well and no complications Intubation complications: none
[2023-05-13] MEDS: Norepinephrine Bitartrate/D5W 8 MG/250 ML PLAST..BAG 34.01 MG IV (16:33)
[2023-05-13] MEDS: levoFLOXacin/D5W 750 MG/150 ML PIGGYBACK 100 MG IV (17:33)
[2023-05-13] MEDS: Doxycycline Hyclate 100 MG in 0.9 % Sodium Chloride 250 ML 166.67 MG IV (17:36)
[2023-05-13 17:50] LABS: Glucose, Whole Blood 210 mg/dL (60-115)
[2023-05-13] MEDS: Insulin Lispro 100 UNIT/ML 3 ML VIAL SUBCUT (17:51)
--- NOTE | 2023-05-13 18:35 | PC.NURSE ---
Assumed care at 07:00. Patient was alert and oriented, Bengali speaking mostly and spoken with in Chinese as well as utilizing interpretter, Sabine. 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 Bipap settings were 12/5 65%, Patient had no leak. Patient was calm and without other complaint except for one brief episode of disconnecting from bipap with resolution shortly after reconnectting bipap and increasing FiO2 to 75%. About 1010, patient developed respiratory distress, was also seen to have clear-whitish frothy sputum, was briefly taken off mask for quick suctioning, and mask replaced, was still short of breath and developed respiratory distress. Reported feeling like he was drowning or asphyxiating. MD and RT called to room to assess. Patient had finecrackles thoughout lung reed, accesssory muscle use, anxious and short of breath. Was consoled and relaxation techniques encouraged, PRN dilauid 2 mg given. Patient was explained risks and benefits of intubation briefly given emergency and interpretter was utilized to enhance clarity, and patient endorsed choosing intubation. Patient was treated with a total of 130 mcg IVP propofol, beginning at 10:09, 50 mg Rocuronium, #8 ETT at 26 cm placed by MD using glidescope. Patient was started on AC settings rate 18; TV 460; peep 5 was later uptitrated to 8; and FiO2 was titrated from 65% to 100% and back down to 80%. Patient Te about 9. Patient continues to have finecrackles in all lung reed to auscultation. Generally synchronous now except slight agitation with nursing care and oral care. Patient started on Propofol at 30 mcg/kg/min, uptitrated to 50 due to agitation, and down to 40. Patient also required blood pressure support with levophed, which was uptitrated as high as 0.26 and back down to 0.16. Central line placed to [facility] around 12:00, this was well tolerated, and placement confirmed of this as well as the OGT and ETT with two bedside CXRs today. Patient continued to have patchy opacities on CXR. Patient with no BM, and OGT clamped today. Patient started day with [place] catheter, which had no output overnight, was encouraged to try to void this morning with good result, but given need to take urine samples and for I&O careful monitoring, Ramos catheter was ordered and 16 Fr Ramos catheter was placed, and 750 ccs of urine immediatly released. UOP generally about 100 cc/hour. Urine sample for strep pneumonia sent, as well as swab for covid/flu/rsv which was negative. Skin is intact. Family is aware of patient's condition and were in, with interpretter facilitating description of patient status by MD.
[2023-05-13] MEDS: Chlorhexidine Gluc Oral Rinse 15 ML MOUTHWASH BUCCAL (21:28)
[2023-05-14] VITALS (39 sets, daily range): BP systolic 101–141; BP diastolic 62–88; PULSE 63–101; RESP 14–18; TEMP 34.6–37.8; O2SAT 94–100; BMI 27.0
[2023-05-14] MEDS: Norepinephrine Bitartrate/D5W 8 MG/250 ML PLAST..BAG 20.41 MG IV (00:05)
[2023-05-14] MEDS: propofoL 1,000 MG/100 ML VIAL 21.77 MG IVCONT ×5 (00:08→17:25)
[2023-05-14] MEDS: Insulin Lispro 100 UNIT/ML 3 ML VIAL SUBCUT ×2 (00:36→06:16)
[2023-05-14 00:41] LABS: Glucose, Whole Blood 190 mg/dL (60-115)
[2023-05-14] MEDS: Doxycycline Hyclate 100 MG in 0.9 % Sodium Chloride 250 ML 166.67 MG IV ×2 (02:13→14:45)
[2023-05-14] MEDS: Ampicillin Sodium/Sulbactam Na 3 GM in 0.9 % Sodium Chloride 100 ML IV ×4 (02:15→19:35)
[2023-05-14 05:24] LABS: VBG Base Excess 9.6 mmol/L; VBG HCO3 35 mmol/L (22-26); VBG pCO2 54 mmHg; VBG pH 7.42 (7.32-7.43); VBG pO2 58 mmHg
[2023-05-14 05:35] LABS: Basophils Percent Auto 0.1 % (0-2); Hemoglobin 11.3 g/dl (14.0-18.0); Imm Gran Abs Auto 0.12 X10*3/uL (0.00-0.03); Imm Gran Pct Auto 0.9 % (0.0-0.4); Lymphocytes Absolute Auto 0.5 X10*3/uL (1.2-4.9); Lymphocytes Percent Auto 3.6 % (20-40); MANUAL DIFF FLAG SCAN; Mean Corpuscular HGB Conc 32.3 g/dl (31.0-36.0); Mean Corpuscular Hemoglobin 30.5 pg (27.0-33.0); Mean Corpuscular Volume 94.6 fL (80.0-98.0); Mean Platelet Volume 10.7 fL (9.4-12.4); Monocytes Absolute Auto 0.5 X10*3/uL (0.1-1.2); Monocytes Percent Auto 3.9 % (2-11); Neutrophils Absolute Auto 12.4 x10*3/uL (2.0-8.3); Neutrophils Percent Auto 91.5 % (45-73); Platelet Count 174 X10*3/uL (160-400); Red Cell Distribution Width 13.4 % (11.0-16.0); SCAN SMEAR FLAG 1; White Blood Count 13.5 X10*3/uL (4.8-10.8)
[2023-05-14 05:36] LABS: Venous Blood Gas Refer to POC result
[2023-05-14 05:50] LABS: Alanine Aminotransferase 17 U/L (0-40); Albumin Level 2.9 g/dL (3.5-5.0); Alkaline Phosphatase 106 U/L (39-117); Anion Gap 14 (12-20); Aspartate Amino Transferase 22 U/L (5-37); Bilirubin Total 0.5 mg/dL (0.0-1.0); Blood Urea Nitrogen 15 mg/dL (9-16); Calcium 9.6 mg/dL (8.4-10.2); Carbon Dioxide 24 mmol/L (22-29); Chloride 106 mmol/L (96-108); Creatinine Clr Calc Pharmacy 98.9; Estimated Glomerular Filt Rate > 60; Glucose Random 177 mg/dL (60-115); Potassium 4.1 mmol/L (3.3-5.1); Sodium 140 mmol/L (135-145); Total Protein 6.3 g/dL (6.5-8.0)
[2023-05-14 05:51] LABS: Glucose, Whole Blood 176 mg/dL (60-115)
[2023-05-14 05:57] LABS: SLIDE REVIEW VERIFIED
[2023-05-14] MEDS: Pantoprazole Sodium 40 MG/10 ML VIAL IVPUSH (06:16)
[2023-05-14] MEDS: Chlorhexidine Gluc Oral Rinse 15 ML MOUTHWASH BUCCAL ×3 (07:46→20:11)
[2023-05-14] MEDS: dexAMETHasone sod phosphate 4 MG/ML VIAL 6 MG IVPUSH ×2 (07:46→20:40)
[2023-05-14] MEDS: Albumin Human 25 % 100 ML IV ×2 (07:46→08:55)
--- NOTE | 2023-05-14 10:08 | P.PNCC_ITS ---
Subjective Subjective Date of Service: 05/14/23 Interval History: 72-year-old male now intubated 1 full day with slow but progressive weaning of the FiO2 no further complications sputum thus far not implying bacterial infection but the results of the PET-CT scan strong implication of of a lung primary with metastatic stage IV disease including bilateral lung involvement mediastinal and lymphadenopathy and Ext extensive involvement of the liver and clearly need to obtain tissue of we have to treat this process bedside echo with a modest cardiomyopathy in 40% ejection fraction CVP still in the range of 3-5 with good urine output preserved renal function and preserved vital signs Critical Care Time (minutes): 45 Physical Exam Vital Signs: Vital Signs: Last Vital Signs Temp 98.1 F 05/14/23 10:00 Pulse 92 05/14/23 10:05 Resp 18 05/14/23 10:00 BP 126/75 05/14/23 10:05 Pulse Ox 100 05/14/23 10:00 O2 Del Method Mechanical Ventil ation 05/14/23 10:00 FiO2 60 05/14/23 10:00 BMI result Body Mass Index 27.0 sedated intubated with bedside echo stating the 40% ejection fraction as a diffuse process but no IVC distension all compensated and scattered bilateral adventitious sounds but no diaphragmatic or accessory muscle effort comfortable minute ventilatory requirement and FiO2 now weaned to 60% with a saturation of 98% abdomen skin and periphery all benign Objective Data Labs 05/14/23 05:11 05/14/23 05:11 Labs: Laboratory Results - last 24 hr 05/13/23 05/13/23 05/13/23 11:33 13:50 14:50 WBC RBC Hgb Hct MCV MCH MCHC RDW Plt Count MPV Immature Gran % (Auto) Neut % (Auto) Lymph % (Auto) [place] % (Auto) Eos % (Auto) Baso % (Auto) Lymph # (Auto) [place] # (Auto) Eos # (Auto) Baso # (Auto) Abs Immat Gran (auto) Absolute Neuts (auto) Absolute Nucleated RBC Nucleated RBC % (auto) Smear Tech's Comments ESR 51 H VBG pH VBG pCO2 VBG pO2 VBG HCO3 VBG O2 Saturation VBG Base Excess Sodium Potassium Chloride Carbon Dioxide Anion Gap BUN Creatinine Estim Creat Clear Calc Estimated GFR POC Glucose 173 H Random Glucose Calcium Total Bilirubin AST ALT Alkaline Phosphatase Total Protein Albumin Influenza Type A (PCR) NEGATIVE Influenza Type B (PCR) NEGATIVE RSV RNA Qual (PCR) NEGATIVE SARS-CoV-2 RNA (RT-PCR) NEGATIVE 05/13/23 05/14/23 05/14/23 17:47 00:33 05:11 WBC RBC Hgb Hct MCV MCH MCHC RDW Plt Count MPV Immature Gran % (Auto) Neut % (Auto) Lymph % (Auto) [place] % (Auto) Eos % (Auto) Baso % (Auto) Lymph # (Auto) [place] # (Auto) Eos # (Auto) Baso # (Auto) Abs Immat Gran (auto) Absolute Neuts (auto) Absolute Nucleated RBC Nucleated RBC % (auto) Smear Tech's Comments ESR VBG pH VBG pCO2 VBG pO2 VBG HCO3 VBG O2 Saturation VBG Base Excess Sodium Potassium Chloride Carbon Dioxide Anion Gap BUN Creatinine Cancelled Estim Creat Clear Calc Cancelled Estimated GFR Cancelled POC Glucose 210 H 190 H Random Glucose Calcium Total Bilirubin AST ALT Alkaline Phosphatase Total Protein Albumin Influenza Type A (PCR) Influenza Type B (PCR) RSV RNA Qual (PCR) SARS-CoV-2 RNA (RT-PCR) 05/14/23 05/14/23 05/14/23 05:11 05:11 05:14 WBC 13.5 H RBC 3.70 L Hgb 11.3 L Hct 35.0 L MCV 94.6 MCH 30.5 MCHC 32.3 RDW 13.4 Plt Count 174 D MPV 10.7 Immature Gran % (Auto) 0.9 H Neut % (Auto) 91.5 H Lymph % (Auto) 3.6 L [place] % (Auto) 3.9 Eos % (Auto) 0.0 Baso % (Auto) 0.1 Lymph # (Auto) 0.5 L [place] # (Auto) 0.5 Eos # (Auto) 0.0 Baso # (Auto) 0.0 Abs Immat Gran (auto) 0.12 H Absolute Neuts (auto) 12.4 H Absolute Nucleated RBC 0.000 Nucleated RBC % (auto) 0.0 Smear Tech's Comments VERIFIED ESR VBG pH 7.42 VBG pCO2 54 VBG pO2 58 VBG HCO3 35 H VBG O2 Saturation 86.0 VBG Base Excess 9.6 Sodium 140 Potassium 4.1 Chloride 106 Carbon Dioxide 24 Anion Gap 14 BUN 15 Creatinine 0.73 Estim Creat Clear Calc 98.9 Estimated GFR > 60 POC Glucose Random Glucose 177 H Calcium 9.6 Total Bilirubin 0.5 AST 22 ALT 17 Alkaline Phosphatase 106 Total Protein 6.3 L Albumin 2.9 L Influenza Type A (PCR) Influenza Type B (PCR) RSV RNA Qual (PCR) SARS-CoV-2 RNA (RT-PCR) 05/14/23 05:47 WBC RBC Hgb Hct MCV MCH MCHC RDW Plt Count MPV Immature Gran % (Auto) Neut % (Auto) Lymph % (Auto) [place] % (Auto) Eos % (Auto) Baso % (Auto) Lymph # (Auto) [place] # (Auto) Eos # (Auto) Baso # (Auto) Abs Immat Gran (auto) Absolute Neuts (auto) Absolute Nucleated RBC Nucleated RBC % (auto) Smear Tech's Comments ESR VBG pH VBG pCO2 VBG pO2 VBG HCO3 VBG O2 Saturation VBG Base Excess Sodium Potassium Chloride Carbon Dioxide Anion Gap BUN Creatinine Estim Creat Clear Calc Estimated GFR POC Glucose 176 H Random Glucose Calcium Total Bilirubin AST ALT Alkaline Phosphatase Total Protein Albumin Influenza Type A (PCR) Influenza Type B (PCR) RSV RNA Qual (PCR) SARS-CoV-2 RNA (RT-PCR) Microbiology Microbiology Results: Microbiology 05/12/23 18:36 Blood - Venous Blood Culture - Preliminary No growth after 24 hours. 05/12/23 18:36 Blood - Venous Blood Culture - Preliminary No growth after 24 hours. 05/12/23 20:49 Urine clean catch - Urine guillaume top Urine Culture - Preliminary No growth to date. Progress Note: A&P Assessment and plan (1) Acute hypoxemic respiratory failure: Status: Acute (2) Pleural effusion: Status: Acute (3) Atypical pneumonia: Status: Acute (4) Respiratory failure: Status: Acute Plan a plan is pulmonary for probable lymph node biopsy via bronchoscopy and will recall thoracic surgery possibility of thoracoscopic approach to the pleural effusion Quality Stroke Does the patient have a stroke diagnosis?: No VTE Prior VTE?: No VTE Risk Level:: Medical - moderate - high VTE Device Contraindication: N/A - Device Ordered VTE Drug Contraindication: N/A - Med Ordered
[2023-05-14 10:41] LABS: Vancomycin Random 6.6 mcg/mL (15-20)
[2023-05-14] MEDS: vancomycin HCL 1,000 MG in 0.9 % Sodium Chloride 250 ML 270 MG IV ×2 (11:10→19:35)
[2023-05-14 12:14] LABS: Glucose, Whole Blood 134 mg/dL (60-115)
--- NOTE | 2023-05-14 13:56 | MHC.CM.PN ---
Pt continues on vent support in ICU: will need bx to determine malignancy origin/staging/etc: unknown if this will occur over the weekend. CM to follow for d/c planning needs
[2023-05-14 17:49] LABS: Glucose, Whole Blood 146 mg/dL (60-115)
[2023-05-14] MEDS: propofoL 1,000 MG/100 ML VIAL 27.21 MG IVCONT (21:12)
[2023-05-14 23:48] LABS: Glucose, Whole Blood 150 mg/dL (60-115)
[2023-05-15] VITALS (34 sets, daily range): BP systolic 112–151; BP diastolic 63–89; PULSE 59–100; RESP 18–20; TEMP 35.2–37.6; O2SAT 92–98; BMI 28.9
[2023-05-15] MEDS: propofoL 1,000 MG/100 ML VIAL 27.21 MG IVCONT ×6 (00:08→23:10)
[2023-05-15] MEDS: Doxycycline Hyclate 100 MG in 0.9 % Sodium Chloride 250 ML 166.67 MG IV ×2 (01:47→13:31)
[2023-05-15] MEDS: Ampicillin Sodium/Sulbactam Na 3 GM in 0.9 % Sodium Chloride 100 ML IV ×4 (01:47→20:27)
[2023-05-15] MEDS: vancomycin HCL 1,000 MG in 0.9 % Sodium Chloride 250 ML 270 MG IV ×3 (02:06→19:06)
[2023-05-15] MEDS: HYDROmorphone HCl 1 MG/ML SYRINGE IVPUSH (05:02)
[2023-05-15 05:33] LABS: VBG Base Excess 9.8 mmol/L; VBG HCO3 35 mmol/L (22-26); VBG pCO2 51 mmHg; VBG pH 7.44 (7.32-7.43); VBG pO2 51 mmHg
[2023-05-15 05:35] LABS: Venous Blood Gas Refer to POC result
[2023-05-15 05:46] LABS: MANUAL DIFF FLAG NO
[2023-05-15 05:49] LABS: Glucose, Whole Blood 156 mg/dL (60-115)
[2023-05-15 05:52] LABS: Basophils Percent Auto 0.1 % (0-2); Eosinophils Percent Auto 0.1 % (0-4); Hematocrit 32.6 % (42.0-52.0); Hemoglobin 10.5 g/dl (14.0-18.0); Imm Gran Abs Auto 0.08 X10*3/uL (0.00-0.03); Imm Gran Pct Auto 0.6 % (0.0-0.4); Lymphocytes Absolute Auto 0.8 X10*3/uL (1.2-4.9); Lymphocytes Percent Auto 5.8 % (20-40); Mean Corpuscular HGB Conc 32.2 g/dl (31.0-36.0); Mean Corpuscular Hemoglobin 30.2 pg (27.0-33.0); Mean Corpuscular Volume 93.7 fL (80.0-98.0); Monocytes Absolute Auto 0.8 X10*3/uL (0.1-1.2); Monocytes Percent Auto 5.6 % (2-11); Neutrophils Absolute Auto 12.2 x10*3/uL (2.0-8.3); Neutrophils Percent Auto 87.8 % (45-73); Platelet Count 152 X10*3/uL (160-400); Red Blood Count 3.48 X10*6/uL (4.60-5.80); Red Cell Distribution Width 13.6 % (11.0-16.0); White Blood Count 13.9 X10*3/uL (4.8-10.8)
[2023-05-15 06:06] LABS: Alanine Aminotransferase 40 U/L (0-40); Alkaline Phosphatase 84 U/L (39-117); Anion Gap 12 (12-20); Aspartate Amino Transferase 38 U/L (5-37); Bilirubin Total 0.5 mg/dL (0.0-1.0); Blood Urea Nitrogen 24 mg/dL (9-16); Calcium 9.6 mg/dL (8.4-10.2); Carbon Dioxide 26 mmol/L (22-29); Chloride 108 mmol/L (96-108); Estimated Glomerular Filt Rate > 60; Glucose Random 164 mg/dL (60-115); Sodium 142 mmol/L (135-145); Total Protein 5.9 g/dL (6.5-8.0)
[2023-05-15] MEDS: Pantoprazole Sodium 40 MG/10 ML VIAL IVPUSH (06:11)
[2023-05-15] MEDS: Chlorhexidine Gluc Oral Rinse 15 ML MOUTHWASH BUCCAL ×3 (08:12→20:26)
[2023-05-15] MEDS: dexAMETHasone sod phosphate 4 MG/ML VIAL 6 MG IVPUSH ×2 (08:12→20:26)
[2023-05-15] MEDS: propofoL 1,000 MG/100 ML VIAL 21.77 MG IVCONT ×2 (09:16→13:31)
[2023-05-15 10:39] LABS: Vancomycin Trough 12.8 mcg/mL (10.0-20.0)
[2023-05-15 11:09] LABS: Glucose, Whole Blood 139 mg/dL (60-115)
--- NOTE | 2023-05-15 13:53 | P.PNCC_ITS ---
Subjective Subjective Date of Service: 05/15/23 Interval History: 72-year-old male presented with progressive dyspnea and failed after 5 days of outpatient oral antibiotic therapy presents with acute hypoxemic respiratory failure who progressively worsened requiring increasing support from noninvasive ventilation and when out of reserve we had to intubate as explained to the family and all were reluctantly accepting of this and then we got subsequently the results of an outpatient PET CT scan which indicated the likelihood of a primary lung carcinoma with metastatic disease bilateral lungs which did demonstrate extensive consolidation and and diffuse ground-glass and infiltrates bilaterally along with PET positive nodules throughout the liver indicating in all likelihood stage IV disease and thus far we do have and a sputum sample polys but no evidence of organisms and is being empirically treated for severe community-acquired pneumonia and in speaking with the family it looks like they would want a pulmonary consult with the possibility of bronchoscopy and biopsy so at least we could see whether not there was some form of therapy that may help us in the in the process at the very very least of coming off the ventilator Critical Care Time (minutes): 45 Physical Exam Vital Signs: Vital Signs: Last Vital Signs Temp 98.4 F 05/15/23 13:00 Pulse 67 05/15/23 13:00 Resp 18 05/15/23 13:00 BP 138/76 05/15/23 13:00 Pulse Ox 95 05/15/23 13:00 O2 Del Method Mechanical Ventil ation 05/15/23 13:00 FiO2 30 05/15/23 13:00 BMI result Body Mass Index 28.9 sedated and intubated bedside echo with diffuse mild hypokinesis of the left ventricle approximately 40-45% ejection fraction lungs with diffuse bilateral rales but no accessory muscle use he is down to an FiO2 of 40% so his a to a gradient is definitely improving and is minutes ventilatory requirements of better but he will remain intubated for the possibility of bronchoscopy abdomen is soft with no organomegaly and nontender and he is tolerating his tube feedings Objective Data Labs 05/15/23 05:24 05/15/23 05:24 Labs: Laboratory Results - last 24 hr 05/14/23 05/14/23 05/15/23 17:46 23:44 05:24 WBC RBC Hgb Hct MCV MCH MCHC RDW Plt Count MPV Immature Gran % (Auto) Neut % (Auto) Lymph % (Auto) [place] % (Auto) Eos % (Auto) Baso % (Auto) Lymph # (Auto) [place] # (Auto) Eos # (Auto) Baso # (Auto) Abs Immat Gran (auto) Absolute Neuts (auto) Absolute Nucleated RBC Nucleated RBC % (auto) VBG pH VBG pCO2 VBG pO2 VBG HCO3 VBG O2 Saturation VBG Base Excess Sodium Potassium Chloride Carbon Dioxide Anion Gap BUN Creatinine Cancelled Estim Creat Clear Calc Cancelled Estimated GFR Cancelled POC Glucose 146 H 150 H Random Glucose Calcium Total Bilirubin AST ALT Alkaline Phosphatase Total Protein Albumin Vancomycin Trough 05/15/23 05/15/23 05/15/23 05:24 05:24 05:24 WBC 13.9 H RBC 3.48 L Hgb 10.5 L Hct 32.6 L MCV 93.7 MCH 30.2 MCHC 32.2 RDW 13.6 Plt Count 152 L MPV 11.0 Immature Gran % (Auto) 0.6 H Neut % (Auto) 87.8 H Lymph % (Auto) 5.8 L [place] % (Auto) 5.6 Eos % (Auto) 0.1 Baso % (Auto) 0.1 Lymph # (Auto) 0.8 L [place] # (Auto) 0.8 Eos # (Auto) 0.0 Baso # (Auto) 0.0 Abs Immat Gran (auto) 0.08 H Absolute Neuts (auto) 12.2 H Absolute Nucleated RBC 0.000 Nucleated RBC % (auto) 0.0 VBG pH 7.44 H VBG pCO2 51 VBG pO2 51 VBG HCO3 35 H VBG O2 Saturation 80.0 VBG Base Excess 9.8 Sodium 142 Potassium 4.0 Chloride 108 Carbon Dioxide 26 Anion Gap 12 BUN 24 H Creatinine 0.77 Estim Creat Clear Calc 103.0 Estimated GFR > 60 POC Glucose Random Glucose 164 H Calcium 9.6 Total Bilirubin 0.5 AST 38 H ALT 40 Alkaline Phosphatase 84 Total Protein 5.9 L Albumin 3.0 L Vancomycin Trough 05/15/23 05/15/23 05/15/23 05:45 10:05 11:05 WBC RBC Hgb Hct MCV MCH MCHC RDW Plt Count MPV Immature Gran % (Auto) Neut % (Auto) Lymph % (Auto) [place] % (Auto) Eos % (Auto) Baso % (Auto) Lymph # (Auto) [place] # (Auto) Eos # (Auto) Baso # (Auto) Abs Immat Gran (auto) Absolute Neuts (auto) Absolute Nucleated RBC Nucleated RBC % (auto) VBG pH VBG pCO2 VBG pO2 VBG HCO3 VBG O2 Saturation VBG Base Excess Sodium Potassium Chloride Carbon Dioxide Anion Gap BUN Creatinine Estim Creat Clear Calc Estimated GFR POC Glucose 156 H 139 H Random Glucose Calcium Total Bilirubin AST ALT Alkaline Phosphatase Total Protein Albumin Vancomycin Trough 12.8 Microbiology Microbiology Results: Microbiology 05/13/23 13:50 Sputum - Suctioned Gram Stain - Final 05/13/23 13:50 Sputum - Suctioned Sputum Culture - Final 05/12/23 18:36 Blood - Venous Blood Culture - Preliminary No growth after 48 hours. 05/12/23 18:36 Blood - Venous Blood Culture - Preliminary No growth after 48 hours. 05/12/23 20:49 Urine clean catch - Urine guillaume top Urine Culture - Final Progress Note: A&P Assessment and plan (1) Acute hypoxemic respiratory failure: Status: Acute (2) Pleural effusion: Status: Acute (3) Atypical pneumonia: Status: Acute (4) Respiratory failure: Status: Acute Plan so the plan is to keep antibiotics and sedation as above with anticipation of Pulmonary consult and bronchoscopy and biopsy potentially tomorrow Quality Stroke Does the patient have a stroke diagnosis?: No VTE Prior VTE?: No VTE Risk Level:: Medical - moderate - high VTE Device Contraindication: N/A - Device Ordered VTE Drug Contraindication: N/A - Med Ordered
[2023-05-15 17:19] LABS: Glucose, Whole Blood 180 mg/dL (60-115)
[2023-05-15] MEDS: Insulin Lispro 100 UNIT/ML 3 ML VIAL SUBCUT (17:19)
[2023-05-16] VITALS (30 sets, daily range): BP systolic 121–155; BP diastolic 67–88; PULSE 52–94; RESP 18–22; TEMP 35.2–37.7; O2SAT 94–98; BMI 29.0
[2023-05-16 00:32] LABS: Glucose, Whole Blood 213 mg/dL (60-115)
[2023-05-16] MEDS: Insulin Lispro 100 UNIT/ML 3 ML VIAL SUBCUT ×4 (00:33→18:14)
[2023-05-16] MEDS: Ampicillin Sodium/Sulbactam Na 3 GM in 0.9 % Sodium Chloride 100 ML IV ×4 (02:13→20:22)
[2023-05-16] MEDS: Doxycycline Hyclate 100 MG in 0.9 % Sodium Chloride 250 ML 166.67 MG IV ×2 (02:19→14:25)
[2023-05-16] MEDS: propofoL 1,000 MG/100 ML VIAL 27.21 MG IVCONT ×3 (02:21→09:40)
[2023-05-16 03:50] LABS: Vancomycin Random 14.8 mcg/mL (15-20)
[2023-05-16] MEDS: vancomycin HCL 1,000 MG in 0.9 % Sodium Chloride 250 ML 270 MG IV ×3 (03:54→18:13)
[2023-05-16 04:58] LABS: VBG HCO3 32 mmol/L (22-26); VBG pCO2 46 mmHg; VBG pH 7.44 (7.32-7.43); VBG pO2 57 mmHg
[2023-05-16 05:02] LABS: MANUAL DIFF FLAG NO
[2023-05-16 05:04] LABS: Venous Blood Gas Refer to POC result
[2023-05-16 05:06] LABS: Basophils Percent Auto 0.2 % (0-2); Hematocrit 32.8 % (42.0-52.0); Hemoglobin 10.8 g/dl (14.0-18.0); Lymphocytes Absolute Auto 0.7 X10*3/uL (1.2-4.9); Mean Corpuscular HGB Conc 32.9 g/dl (31.0-36.0); Mean Corpuscular Hemoglobin 30.7 pg (27.0-33.0); Mean Corpuscular Volume 93.2 fL (80.0-98.0); Mean Platelet Volume 10.9 fL (9.4-12.4); Monocytes Absolute Auto 0.8 X10*3/uL (0.1-1.2); Monocytes Percent Auto 7.4 % (2-11); Neutrophils Absolute Auto 8.9 x10*3/uL (2.0-8.3); Neutrophils Percent Auto 84.4 % (45-73); Platelet Count 137 X10*3/uL (160-400); Red Blood Count 3.52 X10*6/uL (4.60-5.80); Red Cell Distribution Width 13.7 % (11.0-16.0); White Blood Count 10.5 X10*3/uL (4.8-10.8)
[2023-05-16 05:24] LABS: Alanine Aminotransferase 139 U/L (0-40); Albumin Level 2.7 g/dL (3.5-5.0); Alkaline Phosphatase 101 U/L (39-117); Anion Gap 13 (12-20); Aspartate Amino Transferase 119 U/L (5-37); Bilirubin Total 0.5 mg/dL (0.0-1.0); Blood Urea Nitrogen 28 mg/dL (9-16); Calcium 8.9 mg/dL (8.4-10.2); Carbon Dioxide 23 mmol/L (22-29); Chloride 110 mmol/L (96-108); Creatinine Clr Calc Pharmacy 97.9; Estimated Glomerular Filt Rate > 60; Glucose Random 206 mg/dL (60-115); Potassium 3.9 mmol/L (3.3-5.1); Sodium 142 mmol/L (135-145); Total Protein 5.4 g/dL (6.5-8.0)
[2023-05-16] MEDS: Pantoprazole Sodium 40 MG/10 ML VIAL IVPUSH (05:30)
--- NOTE | 2023-05-16 06:04 | HE.PHANOTE ---
Vancomycin Dosing Addendum Patient had a random come back lastnight at 14.8.Will continue with current dose of 1000 mg Q8H and will get another level 05/17 @0900. Predicted AUC 508 mg/L/hr
[2023-05-16] MEDS: dexAMETHasone sod phosphate 4 MG/ML VIAL 6 MG IVPUSH ×2 (08:55→20:22)
[2023-05-16] MEDS: Chlorhexidine Gluc Oral Rinse 15 ML MOUTHWASH BUCCAL ×3 (08:55→20:22)
--- NOTE | 2023-05-16 11:43 | MHC.CLN ---
PT IS INTUBATED AND SEDATED PT RECEIVING GLUCERNA AT MAX GOAL RATE 50ML/HR WITH 120ML FREE WATER FLUSHES Q 4 HRS TO PROVIDE 1200KCALS (1918KCALS WITH SEDATION; 22KCALS/KG), 50G PROTEIN, 1743ML TOTAL WATER (20ML/KG) RECOMMEND ADDING 30ML PROSOURCE TID TO INCREASE PO PROTEIN PROSOUCE PROVIDES AN ADDITIONAL 180KCALS, 45G PROTEIN MONITOR TOLERANCE, RESIDUALS AND LYTES SEE ALSO FULL CLINICAL NUTRITION ASSESSMENT
[2023-05-16 12:13] LABS: Glucose, Whole Blood 167 mg/dL (60-115)
[2023-05-16] MEDS: propofoL 1,000 MG/100 ML VIAL 21.77 MG IVCONT ×3 (13:04→21:10)
--- NOTE | 2023-05-16 15:35 | PM.CCPN ---
Subjective Subjective Date of Service: 05/16/23 Interval History: 72-year-old male with positive PET CT scan indicating probable primary lung carcinoma metastatic presented with bilateral extensive ground-glass and infiltrates his as well as consolidation and diffuse nodular involvement of liver probably representing therefore stage IV disease but has a positive left supraclavicular lymph node which is easily accessible possible general surgical biopsy approach in the morning but until then he is doing comfortably well on the ventilator remains afebrile with a very modest minute ventilatory requirement and FiO2 at 40% Critical Care Time (minutes): 45 Physical Exam Vital Signs: Vital Signs: Last Vital Signs Temp 98.8 F 05/16/23 15:00 Pulse 67 05/16/23 15:00 Resp 18 05/16/23 15:00 BP 139/77 05/16/23 15:00 Pulse Ox 97 05/16/23 15:00 O2 Del Method Mechanical Ventil ation 05/16/23 15:00 O2 Flow Rate 35 05/16/23 00:00 FiO2 35 05/16/23 15:00 BMI result Body Mass Index 29.0 sedated and intubated and stable vital signs bedside echo with mild diffuse hypokinesis of the left ventricle ejection fraction 45% abdomen soft no organomegaly lungs with scattered bilateral rales but no wheezing no diaphragmatic effort Objective Data Labs 05/16/23 04:45 05/16/23 04:45 Labs: Laboratory Results - last 24 hr 05/15/23 05/16/23 05/16/23 17:16 00:29 02:08 WBC RBC Hgb Hct MCV MCH MCHC RDW Plt Count MPV Immature Gran % (Auto) Neut % (Auto) Lymph % (Auto) [place] % (Auto) Eos % (Auto) Baso % (Auto) Lymph # (Auto) [place] # (Auto) Eos # (Auto) Baso # (Auto) Abs Immat Gran (auto) Absolute Neuts (auto) Absolute Nucleated RBC Nucleated RBC % (auto) VBG pH VBG pCO2 VBG pO2 VBG HCO3 VBG O2 Saturation VBG Base Excess Sodium Potassium Chloride Carbon Dioxide Anion Gap BUN Creatinine Estim Creat Clear Calc Estimated GFR POC Glucose 180 H 213 H Random Glucose Calcium Total Bilirubin AST ALT Alkaline Phosphatase Total Protein Albumin Random Vancomycin 14.8 L 05/16/23 05/16/23 05/16/23 04:45 04:45 04:45 WBC 10.5 RBC 3.52 L Hgb 10.8 L Hct 32.8 L MCV 93.2 MCH 30.7 MCHC 32.9 RDW 13.7 Plt Count 137 L MPV 10.9 Immature Gran % (Auto) 1.0 H Neut % (Auto) 84.4 H Lymph % (Auto) 7.0 L [place] % (Auto) 7.4 Eos % (Auto) 0.0 Baso % (Auto) 0.2 Lymph # (Auto) 0.7 L [place] # (Auto) 0.8 Eos # (Auto) 0.0 Baso # (Auto) 0.0 Abs Immat Gran (auto) 0.10 H Absolute Neuts (auto) 8.9 H Absolute Nucleated RBC 0.000 Nucleated RBC % (auto) 0.0 VBG pH VBG pCO2 VBG pO2 VBG HCO3 VBG O2 Saturation VBG Base Excess Sodium 142 Potassium 3.9 Chloride 110 H Carbon Dioxide 23 Anion Gap 13 BUN 28 H Creatinine Cancelled 0.81 Estim Creat Clear Calc Cancelled 97.9 Estimated GFR Cancelled > 60 POC Glucose Random Glucose 206 H Calcium 8.9 D Total Bilirubin 0.5 AST 119 H ALT 139 H Alkaline Phosphatase 101 Total Protein 5.4 L Albumin 2.7 L Random Vancomycin 05/16/23 05/16/23 04:49 12:10 WBC RBC Hgb Hct MCV MCH MCHC RDW Plt Count MPV Immature Gran % (Auto) Neut % (Auto) Lymph % (Auto) [place] % (Auto) Eos % (Auto) Baso % (Auto) Lymph # (Auto) [place] # (Auto) Eos # (Auto) Baso # (Auto) Abs Immat Gran (auto) Absolute Neuts (auto) Absolute Nucleated RBC Nucleated RBC % (auto) VBG pH 7.44 H VBG pCO2 46 VBG pO2 57 VBG HCO3 32 H VBG O2 Saturation 86.0 VBG Base Excess 7.0 Sodium Potassium Chloride Carbon Dioxide Anion Gap BUN Creatinine Estim Creat Clear Calc Estimated GFR POC Glucose 167 H Random Glucose Calcium Total Bilirubin AST ALT Alkaline Phosphatase Total Protein Albumin Random Vancomycin Microbiology Microbiology Results: Microbiology 05/13/23 13:50 Sputum - Suctioned Gram Stain - Final 05/13/23 13:50 Sputum - Suctioned Sputum Culture - Final 05/12/23 18:36 Blood - Venous Blood Culture - Preliminary No growth after 48 hours. 05/12/23 18:36 Blood - Venous Blood Culture - Preliminary No growth after 48 hours. 05/12/23 20:49 Urine clean catch - Urine guillaume top Urine Culture - Final Progress Note: A&P Assessment and plan (1) Acute hypoxemic respiratory failure: Status: Acute (2) Pleural effusion: Status: Acute (3) Atypical pneumonia: Status: Acute (4) Respiratory failure: Status: Acute (5) Congestive cardiomyopathy: Status: Acute Plan plan is for Alejandra Olivia clavicular node biopsy in the morning otherwise just bent maintenance as above and continued antibiotic therapy Quality Stroke Does the patient have a stroke diagnosis?: No VTE Prior VTE?: No VTE Risk Level:: Medical - moderate - high VTE Device Contraindication: N/A - Device Ordered VTE Drug Contraindication: N/A - Med Ordered
--- NOTE | 2023-05-16 15:45 | MHC.CM.PN ---
EMR REVIEWED PT REMAINS SEDATED AND ON VENT IN ICU. PT MAY HAVE A BIOPSY IN AM OF LEFT SUPRACLAVICULAR LYMPH NODE. CM WILL CONTINUE TO FOLLOW FOR DC NEEDS/PLAN.
[2023-05-16 17:42] LABS: Glucose, Whole Blood 171 mg/dL (60-115)
[2023-05-16 19:48] LABS: Strep Pneumo Ag urine Not Detected (Not Detected)
[2023-05-17] VITALS (30 sets, daily range): BP systolic 138–168; BP diastolic 70–87; PULSE 54–76; RESP 17–27; TEMP 35.2–37.7; O2SAT 94–100; BMI 29.2
[2023-05-17 00:04] LABS: Glucose, Whole Blood 191 mg/dL (60-115)
[2023-05-17] MEDS: propofoL 1,000 MG/100 ML VIAL 21.77 MG IVCONT ×3 (00:10→08:27)
[2023-05-17] MEDS: Ampicillin Sodium/Sulbactam Na 3 GM in 0.9 % Sodium Chloride 100 ML IV ×4 (02:06→20:01)
[2023-05-17] MEDS: Doxycycline Hyclate 100 MG in 0.9 % Sodium Chloride 250 ML 166.67 MG IV ×2 (02:08→14:53)
[2023-05-17] MEDS: vancomycin HCL 1,000 MG in 0.9 % Sodium Chloride 250 ML 270 MG IV ×3 (03:11→18:00)
[2023-05-17 04:32] LABS: VBG Base Excess 2.3 mmol/L; VBG HCO3 26 mmol/L (22-26); VBG pCO2 38 mmHg; VBG pH 7.43 (7.32-7.43); VBG pO2 59 mmHg
[2023-05-17 04:35] LABS: MANUAL DIFF FLAG NO
[2023-05-17 04:37] LABS: Basophils Percent Auto 0.1 % (0-2); Eosinophils Percent Auto 0.1 % (0-4); Hematocrit 35.3 % (42.0-52.0); Hemoglobin 11.3 g/dl (14.0-18.0); Imm Gran Abs Auto 0.19 X10*3/uL (0.00-0.03); Lymphocytes Absolute Auto 0.9 X10*3/uL (1.2-4.9); Lymphocytes Percent Auto 9.4 % (20-40); Mean Corpuscular Hemoglobin 29.4 pg (27.0-33.0); Mean Corpuscular Volume 91.7 fL (80.0-98.0); Mean Platelet Volume 10.6 fL (9.4-12.4); Monocytes Absolute Auto 0.8 X10*3/uL (0.1-1.2); Monocytes Percent Auto 8.9 % (2-11); Neutrophils Absolute Auto 7.4 x10*3/uL (2.0-8.3); Neutrophils Percent Auto 79.5 % (45-73); Platelet Count 135 X10*3/uL (160-400); Red Blood Count 3.85 X10*6/uL (4.60-5.80); Red Cell Distribution Width 13.5 % (11.0-16.0); White Blood Count 9.3 X10*3/uL (4.8-10.8)
[2023-05-17 04:43] LABS: Venous Blood Gas Refer to POC result
[2023-05-17 04:51] LABS: Alanine Aminotransferase 131 U/L (0-40); Albumin Level 2.7 g/dL (3.5-5.0); Alkaline Phosphatase 95 U/L (39-117); Anion Gap 14 (12-20); Aspartate Amino Transferase 54 U/L (5-37); Bilirubin Total 0.5 mg/dL (0.0-1.0); Blood Urea Nitrogen 21 mg/dL (9-16); Calcium 8.8 mg/dL (8.4-10.2); Carbon Dioxide 23 mmol/L (22-29); Chloride 109 mmol/L (96-108); Creatinine Clr Calc Pharmacy 118.6; Estimated Glomerular Filt Rate > 60; Glucose Random 176 mg/dL (60-115); Magnesium 1.9 mg/dL (1.6-2.6); Phosphorus 3.2 mg/dL (2.7-4.5); Potassium 4.1 mmol/L (3.3-5.1); Sodium 142 mmol/L (135-145); Total Protein 5.4 g/dL (6.5-8.0)
[2023-05-17] MEDS: Albumin Human 25 % 100 ML IV (05:20)
[2023-05-17] MEDS: dexAMETHasone sod phosphate 4 MG/ML VIAL 6 MG IVPUSH ×2 (07:45→20:01)
[2023-05-17] MEDS: Chlorhexidine Gluc Oral Rinse 15 ML MOUTHWASH BUCCAL ×3 (07:46→20:01)
--- NOTE | 2023-05-17 08:08 | HO.THORCON_ITS ---
History of Present Illness Consult details Consult date: 05/17/23 Narrative: Patient is to present emergency department because of progressive worsening dyspnea. The patient has a longstanding history of cigarette smoking. Was found among other things to have a left pleural effusion which was to be drained by IR if it progressed. Workup which has been quite extensive including CT PET scan demonstrated findings highly suggestive of metastatic disease most likely secondary to a lung primary. 1 of the findings on PET-CT was bilateral ,left greater than right, supraclavicular adenopathy. [facility] Social History Social History Household Members: Family Housing: House Do you presently have visiting nurse or other home services: No Unable to assess alcohol history related to: Unable to respond Alcohol intake: former Patient Tobacco Use Status: Tobacco use Unknown Smoked in Last 30 Days: No Use of substances other than those prescribed or required for medical reasons: Unknown Currently Displaying Signs/Symptoms of Drug Intoxication Withdrawal: No Any prior treatment program specific to substance use: No Advance Directives: No Advance Directives Information Provided: No Do you have thoughts of harming others: None Do you have a plan to hurt others: No Plan Recently lost weight without trying: Unsure Nutrition Risks: No Nutritional Risk Poor oral hygiene: No service: No Meds Allergies Allergy/AdvReac Type Severity Reaction Status Date / Time No Known Allergies Allergy Verified 02/20/23 12:09 Active Medications: Current Medications Chlorhexidine Gluconate (Chlorhexidine Gluc Oral Rinse 15 Ml Mouthwash) 15 ml BUCCAL TID [facility] Last Admin: 05/17/23 07:46 Dose: 15 ml Dexamethasone Sodium Phosphate (Dexamethasone Sod Phosphate 4 Mg/Ml Vial) 6 mg IVPUSH BID [facility] Last Admin: 05/17/23 07:45 Dose: 6 mg Glucose (Glucose Gel 15 Gm Gel..Gram.) 15 gm PO Q15M PRN; Protocol PRN Reason: per Hypoglycemia Standing Ord. Hydromorphone HCl (Hydromorphone Hcl 1 Mg/Ml Syringe) 1 mg IVPUSH Q2H PRN; Protocol PRN Reason: DISTRESS Last Admin: 05/15/23 05:02 Dose: 1 mg Dextrose (D10) 250 mls @ 750 mls/hr IV Q15M PRN; Protocol PRN Reason: per Hypoglycemia Standing Ord. Propofol (Diprivan) 1,000 mg in 100 mls @ 0 mls/hr IVCONT .Q0M FELI; Protocol Last Admin: 05/17/23 04:05 Dose: 40 mcg/kg/min, 21.77 mls/hr Norepinephrine Bitartrate (Levophed) 8 mg in 250 mls @ 0 mls/hr IV .Q0M FELI; Protocol Last Titration: 05/15/23 08:02 Dose: Infused Doxycycline Hyclate 100 mg/ (Sodium Chloride) 250 mls @ 166.67 mls/hr IV Q12H FELI Last Infusion: 05/17/23 03:40 Dose: Infused Ampicillin Sodium/Sulbactam (Sodium 3 gm/ Sodium Chloride) 100 mls @ 200 mls/hr IV Q6H [facility]ELI Last Admin: 05/17/23 07:39 Dose: 200 mls/hr Vancomycin HCl 1,000 mg/ (Sodium Chloride) 270 mls @ 270 mls/hr IV Q8H FELI Last Infusion: 05/17/23 04:14 Dose: Infused Insulin Human Lispro (Insulin Lispro 100 Unit/Ml 3 Ml Vial) 0 unit SUBCUT Q6H [facility]; Protocol Last Admin: 05/17/23 05:09 Dose: Not Given Pharmacy Consult (Consult Rx Vancomycin Dosing) 1 each MISCELLANE DAILY PRN PRN Reason: Consult order Home Medications Medication Instructions Recorded Confirmed Last Taken Type amlodipine 5 mg tablet 5 mg PO DAILY 05/13/23 05/13/23 Unknown History insulin lispro protamine-lispro 15 unit subcut DAILY@0730,1130 05/13/23 05/13/23 Unknown History 100 unit/mL (75-25) subcutaneous pen (Humalog Mix 75-25 KwikPen) insulin lispro protamine-lispro 20 ml subcut DAILY@1630 05/13/23 05/13/23 Unknown History 100 unit/mL (75-25) subcutaneous pen (Humalog Mix 75-25 KwikPen) levothyroxine 100 mcg tablet 100 mcg PO DAILY 05/13/23 05/13/23 Unknown History (Synthroid) losartan 100 mg tablet 100 mg PO DAILY 05/13/23 05/13/23 Unknown History omeprazole 20 mg capsule,delayed 20 mg PO DAILY 05/13/23 05/13/23 Unknown History release sitagliptin phosphate 50 1 tab PO BID 05/13/23 05/13/23 Unknown History mg-metformin 1,000 mg tablet (Janumet) tamsulosin 0.4 mg capsule 0.4 mg PO QAM 05/13/23 05/13/23 Unknown History Physical Exam Vital Signs: Vital Signs: Last Vital Signs Temp 98.2 F 05/17/23 07:00 Pulse 57 05/17/23 07:00 Resp 18 05/17/23 07:00 BP 159/84 H 05/17/23 07:00 Pulse Ox 97 05/17/23 07:00 O2 Del Method Mechanical Ventil ation 05/17/23 07:00 O2 Flow Rate 35 05/16/23 00:00 FiO2 30 05/17/23 07:30 BMI result Body Mass Index 29.2 Const: Other: Patient on ventilator, sedated. Neck: Other: Approximately 1 x 1 cm left cervical lymph node palpable. With superficial and deep deep palpation and cooborated by Dr. Lin, no supraclavicular left or right lymph nodes corresponding with the PET/CT scan were demonstrated. Chest: Other: Chest breath sounds bilaterally, HS 1 and 2. On ventilator GI: Other: soft benign abdomen Results Labs 05/17/23 04:20 05/17/23 04:20 Labs: Abnormal lab results 05/16/23 05/16/23 05/17/23 Range/Units 12:10 17:39 00:00 RBC (4.60-5.80) X10*6/uL Hgb (14.0-18.0) g/dl Hct (42.0-52.0) % Plt Count (160-400) X10*3/uL Immature Gran % (Auto) (0.0-0.4) % Neut % (Auto) (45-73) % Lymph % (Auto) (20-40) % Lymph # (Auto) (1.2-4.9) X10*3/uL Abs Immat Gran (auto) (0.00-0.03) X10*3/uL Chloride (96-108) mmol/L BUN (9-16) mg/dL POC Glucose 167 H 171 H 191 H (60-115) mg/dL Random Glucose (60-115) mg/dL AST (5-37) U/L ALT (0-40) U/L Total Protein (6.5-8.0) g/dL Albumin (3.5-5.0) g/dL 05/17/23 05/17/23 Range/Units 04:20 04:20 RBC 3.85 L (4.60-5.80) X10*6/uL Hgb 11.3 L (14.0-18.0) g/dl Hct 35.3 L (42.0-52.0) % Plt Count 135 L (160-400) X10*3/uL Immature Gran % (Auto) 2.0 H (0.0-0.4) % Neut % (Auto) 79.5 H (45-73) % Lymph % (Auto) 9.4 L (20-40) % Lymph # (Auto) 0.9 L (1.2-4.9) X10*3/uL Abs Immat Gran (auto) 0.19 H (0.00-0.03) X10*3/uL Chloride 109 H (96-108) mmol/L BUN 21 H (9-16) mg/dL POC Glucose (60-115) mg/dL Random Glucose 176 H (60-115) mg/dL AST 54 H (5-37) U/L ALT 131 H (0-40) U/L Total Protein 5.4 L (6.5-8.0) g/dL Albumin 2.7 L (3.5-5.0) g/dL Short CBC 05/17/23 Range/Units 04:20 WBC 9.3 (4.8-10.8) X10*3/uL Hgb 11.3 L (14.0-18.0) g/dl Hct 35.3 L (42.0-52.0) % Plt Count 135 L (160-400) X10*3/uL BMP 05/17/23 05/17/23 04:20 04:20 Sodium 142 Potassium 4.1 Chloride 109 H Carbon Dioxide 23 BUN 21 H Creatinine Cancelled 0.67 Calcium 8.8 Liver Function 05/17/23 Range/Units 04:20 Total Bilirubin 0.5 (0.0-1.0) mg/dL AST 54 H (5-37) U/L ALT 131 H (0-40) U/L Alkaline Phosphatase 95 (39-117) U/L Albumin 2.7 L (3.5-5.0) g/dL Urine 05/12/23 Range/Units 20:31 Urine Color Yellow Urine Appearance Clear Urine pH 6.5 (5.0-9.0) Ur Specific Lyons 1.010 (1.005-1.025) Urine Protein 30 (1+) H (Neg-Trace) mg/dL Urine Glucose (UA) Negative (Negative) mg/dL All other labs normal. Assessment and Plan (1) Cervical adenopathy: Status: Acute At present, there are no supraclavicular lymph nodes to be excised /Biopsied. The small left cervical lymph node does not palpate as something suspicious. With the patient's family present, a discussion was made with Dr. iLn and with me reviewing these findings and that the patient might best be served with bronchoscopic EBUS in an attempt to biopsy the mediastinal adenopathy. If this is unsuccessful, the patient can have a mediastinoscopy. Time Spent With Patient Time: Total time managing care of this patient today ____ minutes. Procedures Date of Service Date of Service: 05/17/23
[2023-05-17 09:30] LABS: Vancomycin Random 16.8 mcg/mL (15-20)
[2023-05-17 11:42] LABS: Glucose, Whole Blood 156 mg/dL (60-115)
[2023-05-17] MEDS: HYDROmorphone HCl 1 MG/ML SYRINGE IVPUSH (13:26)
--- NOTE | 2023-05-17 13:26 | MHC.CM.PN ---
Pt continues care in ICU on ventilatory support. Pt w/extensive metastatic disease: thoracic to discuss ? bronchoscopy w/family for assistance w/goals of care plans. Pt originally from home w/family but will likely need additional services - referred to [facility] per family request. CM to follow.
--- NOTE | 2023-05-17 15:07 | P.PNCC_ITS ---
Subjective Subjective Date of Service: 05/17/23 Interval History: 72-year-old male with hypoxic respiratory failure and on the basis of several pieces of data including a PET CT scan seems to have a primary lung carcinoma with stage IV spread involving both lungs pleura including and encasing pleural effusion on that left side as well as mediastinal lymphadenopathy and some nodular replacement of the liver as well who has been intubated now for 4-5 days awaiting a bronchoscopy and biopsy and over that time the minute ventilatory requirements have diminished to less than 10 liters/minute and the FiO2 has diminished to 40% and we gave him a sedation holiday and he did awaken very a ppropriately no delirium he was excellent all day ultimately keeping him intubated overnight for the anticipated bronchoscopy and were just going to maintain him on dexmedetomidine because after the biopsy if all goes smoothly we might even start pressure support weaning trial the following day. To date no underlying infection has been proven Critical Care Time (minutes): 45 Physical Exam Vital Signs: Vital Signs: Last Vital Signs Temp 99.5 F 05/17/23 14:00 Pulse 70 05/17/23 14:00 Resp 18 05/17/23 14:00 BP 152/81 H 05/17/23 14:00 Pulse Ox 95 05/17/23 14:00 O2 Del Method Mechanical Ventil ation 05/17/23 14:00 O2 Flow Rate 35 05/16/23 00:00 FiO2 35 05/17/23 14:00 BMI result Body Mass Index 29.2 he did awaken from the propofol with appropriate cognitive function and nonfocal neurologically lungs with coarse bilateral rales cardiac exam by bedside echo again mild reduction of global contractility 45% ejection fraction no changes CVP is 8-10 abdomen benign no organomegaly Objective Data Labs 05/17/23 04:20 05/17/23 04:20 Labs: Laboratory Results - last 24 hr 05/13/23 05/16/23 05/17/23 13:50 17:39 00:00 WBC RBC Hgb Hct MCV MCH MCHC RDW Plt Count MPV Immature Gran % (Auto) Neut % (Auto) Lymph % (Auto) Winston % (Auto) Eos % (Auto) Baso % (Auto) Lymph # (Auto) Winston # (Auto) Eos # (Auto) Baso # (Auto) Abs Immat Gran (auto) Absolute Neuts (auto) Absolute Nucleated RBC Nucleated RBC % (auto) VBG pH VBG pCO2 VBG pO2 VBG HCO3 VBG O2 Saturation VBG Base Excess Sodium Potassium Chloride Carbon Dioxide Anion Gap BUN Creatinine Estim Creat Clear Calc Estimated GFR POC Glucose 171 H 191 H Random Glucose Calcium Phosphorus Magnesium Total Bilirubin AST ALT Alkaline Phosphatase Total Protein Albumin Random Vancomycin Ur Strep pneumoniae Ag Not Detected 05/17/23 05/17/23 05/17/23 04:20 04:20 04:20 WBC 9.3 RBC 3.85 L Hgb 11.3 L Hct 35.3 L MCV 91.7 MCH 29.4 MCHC 32.0 RDW 13.5 Plt Count 135 L MPV 10.6 Immature Gran % (Auto) 2.0 H Neut % (Auto) 79.5 H Lymph % (Auto) 9.4 L Winston % (Auto) 8.9 Eos % (Auto) 0.1 Baso % (Auto) 0.1 Lymph # (Auto) 0.9 L Winston # (Auto) 0.8 Eos # (Auto) 0.0 Baso # (Auto) 0.0 Abs Immat Gran (auto) 0.19 H Absolute Neuts (auto) 7.4 Absolute Nucleated RBC 0.000 Nucleated RBC % (auto) 0.0 VBG pH VBG pCO2 VBG pO2 VBG HCO3 VBG O2 Saturation VBG Base Excess Sodium 142 Potassium 4.1 Chloride 109 H Carbon Dioxide 23 Anion Gap 14 BUN 21 H Creatinine Cancelled 0.67 Estim Creat Clear Calc Cancelled 118.6 Estimated GFR Cancelled > 60 POC Glucose Random Glucose 176 H Calcium 8.8 Phosphorus 3.2 Magnesium 1.9 Total Bilirubin 0.5 AST 54 H ALT 131 H Alkaline Phosphatase 95 Total Protein 5.4 L Albumin 2.7 L Random Vancomycin Ur Strep pneumoniae Ag 05/17/23 05/17/23 05/17/23 04:24 08:55 11:39 WBC RBC Hgb Hct MCV MCH MCHC RDW Plt Count MPV Immature Gran % (Auto) Neut % (Auto) Lymph % (Auto) Winston % (Auto) Eos % (Auto) Baso % (Auto) Lymph # (Auto) Winston # (Auto) Eos # (Auto) Baso # (Auto) Abs Immat Gran (auto) Absolute Neuts (auto) Absolute Nucleated RBC Nucleated RBC % (auto) VBG pH 7.43 VBG pCO2 38 VBG pO2 59 VBG HCO3 26 VBG O2 Saturation 85.0 VBG Base Excess 2.3 Sodium Potassium Chloride Carbon Dioxide Anion Gap BUN Creatinine Estim Creat Clear Calc Estimated GFR POC Glucose 156 H Random Glucose Calcium Phosphorus Magnesium Total Bilirubin AST ALT Alkaline Phosphatase Total Protein Albumin Random Vancomycin 16.8 Ur Strep pneumoniae Ag Microbiology Microbiology Results: Microbiology 05/13/23 13:50 Sputum - Suctioned Gram Stain - Final 05/13/23 13:50 Sputum - Suctioned Sputum Culture - Final 05/12/23 18:36 Blood - Venous Blood Culture - Preliminary No growth after 48 hours. 05/12/23 18:36 Blood - Venous Blood Culture - Preliminary No growth after 48 hours. 05/12/23 20:49 Urine clean catch - Urine guillaume top Urine Culture - Final Progress Note: A&P Assessment and plan (1) Cervical adenopathy: Status: Acute (2) Congestive cardiomyopathy: Status: Acute (3) Acute hypoxemic respiratory failure: Status: Acute (4) Pleural effusion: Status: Acute (5) Atypical pneumonia: Status: Acute (6) Respiratory failure: Status: Acute Plan the plan is to keep him overnight on dexmedetomidine and then bronchoscopy and biopsy tomorrow Quality Stroke Does the patient have a stroke diagnosis?: No VTE Prior VTE?: No VTE Risk Level:: Medical - moderate - high VTE Device Contraindication: N/A - Device Ordered VTE Drug Contraindication: N/A - Med Ordered
[2023-05-17] MEDS: dexmedeTOMIDidine HCL/NS 400 MCG/100 ML INFUS..BTL IVCONT (15:27)
[2023-05-17 15:50] LABS: Glucose, Whole Blood 157 mg/dL (60-115)
[2023-05-17 17:24] LABS: Glucose, Whole Blood 149 mg/dL (60-115)
[2023-05-17 23:54] LABS: Glucose, Whole Blood 159 mg/dL (60-115)
[2023-05-18] VITALS (28 sets, daily range): BP systolic 100–161; BP diastolic 60–94; PULSE 60–82; RESP 18–28; TEMP 35.2–38; O2SAT 90–96; BMI 28.8
[2023-05-18] MEDS: HYDROmorphone HCl 1 MG/ML SYRINGE IVPUSH ×2 (00:16→20:51)
[2023-05-18] MEDS: Doxycycline Hyclate 100 MG in 0.9 % Sodium Chloride 250 ML 166.67 MG IV (03:23)
[2023-05-18] MEDS: Ampicillin Sodium/Sulbactam Na 3 GM in 0.9 % Sodium Chloride 100 ML IV ×4 (03:24→20:06)
[2023-05-18] MEDS: dexmedeTOMIDidine HCL/NS 400 MCG/100 ML INFUS..BTL IVCONT ×2 (03:43→20:31)
[2023-05-18] MEDS: vancomycin HCL 1,000 MG in 0.9 % Sodium Chloride 250 ML 270 MG IV (04:05)
[2023-05-18 05:20] LABS: VBG Base Excess 6.9 mmol/L; VBG HCO3 30 mmol/L (22-26); VBG pCO2 40 mmHg; VBG pH 7.48 (7.32-7.43); VBG pO2 87 mmHg
[2023-05-18 05:24] LABS: MANUAL DIFF FLAG NO
[2023-05-18 05:27] LABS: Basophils Percent Auto 0.2 % (0-2); Eosinophils Absolute Auto 0.1 X10*3/uL (0.0-0.4); Eosinophils Percent Auto 0.5 % (0-4); Hematocrit 35.8 % (42.0-52.0); Hemoglobin 11.8 g/dl (14.0-18.0); Imm Gran Abs Auto 0.19 X10*3/uL (0.00-0.03); Imm Gran Pct Auto 1.7 % (0.0-0.4); Lymphocytes Absolute Auto 1.4 X10*3/uL (1.2-4.9); Lymphocytes Percent Auto 12.5 % (20-40); Mean Corpuscular Hemoglobin 30.3 pg (27.0-33.0); Mean Platelet Volume 11.1 fL (9.4-12.4); Monocytes Absolute Auto 1.1 X10*3/uL (0.1-1.2); Monocytes Percent Auto 9.7 % (2-11); Neutrophils Absolute Auto 8.5 x10*3/uL (2.0-8.3); Neutrophils Percent Auto 75.4 % (45-73); Platelet Count 153 X10*3/uL (160-400); Red Blood Count 3.89 X10*6/uL (4.60-5.80); Red Cell Distribution Width 13.3 % (11.0-16.0); White Blood Count 11.3 X10*3/uL (4.8-10.8)
[2023-05-18 05:28] LABS: Venous Blood Gas Refer to POC result
[2023-05-18 05:49] LABS: Alanine Aminotransferase 91 U/L (0-40); Alkaline Phosphatase 89 U/L (39-117); Anion Gap 13 (12-20); Aspartate Amino Transferase 28 U/L (5-37); Blood Urea Nitrogen 22 mg/dL (9-16); Calcium 9.1 mg/dL (8.4-10.2); Carbon Dioxide 25 mmol/L (22-29); Chloride 106 mmol/L (96-108); Creatinine Clr Calc Pharmacy 113.8; Estimated Glomerular Filt Rate > 60; Glucose Random 146 mg/dL (60-115); Magnesium 1.9 mg/dL (1.6-2.6); Phosphorus 2.8 mg/dL (2.7-4.5); Potassium 3.9 mmol/L (3.3-5.1); Sodium 140 mmol/L (135-145); Total Protein 5.8 g/dL (6.5-8.0)
--- NOTE | 2023-05-18 09:30 | MHC.SHP ---
Pre-Procedural Eval Section A Date of Service: 05/18/23 The patient is an INPATIENT: Yes The History & Physical has been completed within 30 days and I have reviewed it.: Yes Section B Chief Complaint: Hypoxic resp failure post obstructive pna Allergies: Allergies Allergy/AdvReac Type Severity Reaction Status Date / Time No Known Allergies Allergy Verified 02/20/23 12:09 Plan Diagnosis/Plan: Unchanged I have reviewed the history and physical and performed a pertinent physical examination on my patient. No changes have occurred unless specified.
[2023-05-18] MEDS: dexAMETHasone sod phosphate 4 MG/ML VIAL 6 MG IVPUSH ×2 (09:37→20:04)
[2023-05-18] MEDS: Chlorhexidine Gluc Oral Rinse 15 ML MOUTHWASH BUCCAL ×3 (09:38→20:04)
[2023-05-18 09:43] LABS: Vancomycin Random 17.2 mcg/mL (15-20)
[2023-05-18] MEDS: vancomycin HCL 750 MG in 0.9 % Sodium Chloride 250 ML 265 MG IV ×2 (11:07→17:51)
[2023-05-18 11:09] LABS: Glucose, Whole Blood 133 mg/dL (60-115)
--- NOTE | 2023-05-18 11:14 | P.CONAN_ITS ---
HPI - Anesthesia Eval Consult details Narrative: for bronchoscopy PMFSH Active Problems Active Problems: All Active Problems (Updated 05/17/23 @ 08:13 by Fercho Urbina MD) Cervical adenopathy (Acute) Congestive cardiomyopathy (Acute) Acute hypoxemic respiratory failure (Acute) Pleural effusion (Acute) Atypical pneumonia (Acute) Respiratory failure (Acute) Family History Family history of problems with anesthesia: No Surgical History History of Problems with Anesthesia: No Social History Social History Household Members: Family Housing: House Do you presently have visiting nurse or other home services: No Unable to assess alcohol history related to: Unable to respond Alcohol intake: former Patient Tobacco Use Status: Tobacco use Unknown Smoked in Last 30 Days: No Use of substances other than those prescribed or required for medical reasons: Unknown Currently Displaying Signs/Symptoms of Drug Intoxication Withdrawal: No Any prior treatment program specific to substance use: No Advance Directives: No Advance Directives Information Provided: No Do you have thoughts of harming others: None Do you have a plan to hurt others: No Plan Recently lost weight without trying: Unsure Nutrition Risks: No Nutritional Risk Poor oral hygiene: No service: No Meds Allergies Allergy/AdvReac Type Severity Reaction Status Date / Time No Known Allergies Allergy Verified 02/20/23 12:09 Active Medications: Current Medications Chlorhexidine Gluconate (Chlorhexidine Gluc Oral Rinse 15 Ml Mouthwash) 15 ml BUCCAL TID [facility] Last Admin: 05/18/23 09:38 Dose: 15 ml Dexamethasone Sodium Phosphate (Dexamethasone Sod Phosphate 4 Mg/Ml Vial) 6 mg IVPUSH BID [facility] Last Admin: 05/18/23 09:37 Dose: 6 mg Glucose (Glucose Gel 15 Gm Gel..Gram.) 15 gm PO Q15M PRN; Protocol PRN Reason: per Hypoglycemia Standing Ord. Dextrose (D10) 250 mls @ 750 mls/hr IV Q15M PRN; Protocol PRN Reason: per Hypoglycemia Standing Ord. Norepinephrine Bitartrate (Levophed) 8 mg in 250 mls @ 0 mls/hr IV .Q0M [facility]; Protocol Last Titration: 05/15/23 08:02 Dose: Infused Doxycycline Hyclate 100 mg/ (Sodium Chloride) 250 mls @ 166.67 mls/hr IV Q12H [facility] Last Infusion: 05/18/23 06:36 Dose: Infused Ampicillin Sodium/Sulbactam (Sodium 3 gm/ Sodium Chloride) 100 mls @ 200 mls/hr IV Q6H [facility] Last Infusion: 05/18/23 10:18 Dose: Infused Dexmedetomidine HCl (Precedex) 400 mcg in 100 mls @ 4.885 mls/hr IVCONT .[id number] [facility]; Protocol Last Admin: 05/18/23 03:43 Dose: 0.2 mcg/kg/hr, 4.89 mls/hr Vancomycin HCl 750 mg/ Sodium (Chloride) 265 mls @ 265 mls/hr IV Q8H [facility] Last Admin: 05/18/23 11:07 Dose: 265 mls/hr Insulin Human Lispro (Insulin Lispro 100 Unit/Ml 3 Ml Vial) 0 unit SUBCUT Q6H [facility]; Protocol Last Admin: 05/18/23 11:05 Dose: Not Given Pharmacy Consult (Consult Rx Vancomycin Dosing) 1 each MISCELLANE DAILY PRN PRN Reason: Consult order Home Medications Medication Instructions Recorded Confirmed Last Taken Type amlodipine 5 mg tablet 5 mg PO DAILY 05/13/23 05/13/23 Unknown History insulin lispro protamine-lispro 15 unit subcut DAILY@0730,1130 05/13/23 05/13/23 Unknown History 100 unit/mL (75-25) subcutaneous pen (Humalog Mix 75-25 KwikPen) insulin lispro protamine-lispro 20 ml subcut DAILY@1630 05/13/23 05/13/23 Unknown History 100 unit/mL (75-25) subcutaneous pen (Humalog Mix 75-25 KwikPen) levothyroxine 100 mcg tablet 100 mcg PO DAILY 05/13/23 05/13/23 Unknown History (Synthroid) losartan 100 mg tablet 100 mg PO DAILY 05/13/23 05/13/23 Unknown History omeprazole 20 mg capsule,delayed 20 mg PO DAILY 05/13/23 05/13/23 Unknown History release sitagliptin phosphate 50 1 tab PO BID 05/13/23 05/13/23 Unknown History mg-metformin 1,000 mg tablet (Kyle) tamsulosin 0.4 mg capsule 0.4 mg PO QAM 05/13/23 05/13/23 Unknown History Exam Exam Date and Time: May 18, 2023 1114 Height,Weight and Vital Signs: Height 6 ft Weight 96.4 kg Last Vital Signs Temp 99.5 F 05/18/23 11:00 Pulse 68 05/18/23 11:00 Resp 26 H 05/18/23 11:00 BP 149/77 H 05/18/23 11:00 Pulse Ox 95 05/18/23 11:00 O2 Del Method Mechanical Ventilation 05/18/23 11:00 O2 Flow Rate 35 05/16/23 00:00 FiO2 30 05/18/23 11:00 Pertinent Lab Results Pertinent Lab Results: Laboratory Tests 05/12/23 05/12/23 05/12/23 18:36 18:36 18:36 WBC RBC Hgb Hct MCV MCH MCHC RDW Plt Count MPV Immature Gran % (Auto) Neut % (Auto) Lymph % (Auto) [place] % (Auto) Eos % (Auto) Baso % (Auto) Lymph # (Auto) [place] # (Auto) Eos # (Auto) Baso # (Auto) Abs Immat Gran (auto) Absolute Neuts (auto) Absolute Nucleated RBC Nucleated RBC % (auto) Smear Tech's Comments ESR PT INR D-Dimer High Sensitivty O2 Saturation ABG pH at Pt Temp ABG pCO2 at Pt Temp ABG pO2 at Pt Temp ABG HCO3 ABG Base Excess (Actual) VBG pH VBG pCO2 VBG pO2 VBG HCO3 VBG O2 Saturation VBG Base Excess Sodium 135 Potassium 3.9 Chloride 98 Carbon Dioxide 20 L Anion Gap 21 H BUN 21 H Creatinine 1.06 Estim Creat Clear Calc 68.1 Estimated GFR > 60 POC Glucose Random Glucose 185 H Lactic Acid 5.7 H* Lactic Acid F/U @ 2Hr Lactic Acid F/U @ 4Hr Calcium 10.7 H D Phosphorus Magnesium 1.7 Total Bilirubin 0.7 Direct Bilirubin 0.3 AST 26 ALT 24 Alkaline Phosphatase 113 Troponin I High Sens 50.1 H B-Natriuretic Peptide Total Protein 8.4 H Albumin 4.0 Urine Color Urine Appearance Urine pH Ur Specific [place] Urine Protein Urine Glucose (UA) Urine Ketones Urine Blood Urine Nitrite Ur Leukocyte Esterase Urine RBC Urine WBC Ur Squamous Epith Cells Urine Bacteria Hyaline Casts Vancomycin Trough Random Vancomycin B-Hydroxybutyrate 0.29 H COVID-19 ([facility]) COVID-19 Clin Com Influenza Type A (PCR) Influenza Type B (PCR) RSV RNA Qual (PCR) SARS-CoV-2 RNA (RT-PCR) Ur Strep pneumoniae Ag 05/12/23 05/12/23 05/12/23 18:36 18:37 18:37 WBC 18.7 H RBC 5.12 Hgb 15.1 Hct 47.1 MCV 92.0 MCH 29.5 MCHC 32.1 RDW 13.4 Plt Count 374 D MPV 10.3 Immature Gran % (Auto) 1.0 H Neut % (Auto) 80.7 H Lymph % (Auto) 9.0 L [place] % (Auto) 8.7 Eos % (Auto) 0.2 Baso % (Auto) 0.4 Lymph # (Auto) 1.7 [place] # (Auto) 1.6 H Eos # (Auto) 0.0 Baso # (Auto) 0.1 Abs Immat Gran (auto) 0.19 H Absolute Neuts (auto) 15.1 H Absolute Nucleated RBC 0.000 Nucleated RBC % (auto) 0.0 Smear Tech's Comments VERIFIED ESR PT 14.4 H INR 1.2 H D-Dimer High Sensitivty 5410 O2 Saturation ABG pH at Pt Temp ABG pCO2 at Pt Temp ABG pO2 at Pt Temp ABG HCO3 ABG Base Excess (Actual) VBG pH VBG pCO2 VBG pO2 VBG HCO3 VBG O2 Saturation VBG Base Excess Sodium Potassium Chloride Carbon Dioxide Anion Gap BUN Creatinine Estim Creat Clear Calc Estimated GFR POC Glucose Random Glucose Lactic Acid Lactic Acid F/U @ 2Hr Lactic Acid F/U @ 4Hr Calcium Phosphorus Magnesium Total Bilirubin Direct Bilirubin AST ALT Alkaline Phosphatase Troponin I High Sens B-Natriuretic Peptide 68 Total Protein Albumin Urine Color Urine Appearance Urine pH Ur Specific [place] Urine Protein Urine Glucose (UA) Urine Ketones Urine Blood Urine Nitrite Ur Leukocyte Esterase Urine RBC Urine WBC Ur Squamous Epith Cells Urine Bacteria Hyaline Casts Vancomycin Trough Random Vancomycin B-Hydroxybutyrate COVID-19 ([facility]) COVID-19 Clin Com Influenza Type A (PCR) Influenza Type B (PCR) RSV RNA Qual (PCR) SARS-CoV-2 RNA (RT-PCR) Ur Strep pneumoniae Ag 05/12/23 05/12/23 05/12/23 18:43 20:08 20:31 WBC RBC Hgb Hct MCV MCH MCHC RDW Plt Count MPV Immature Gran % (Auto) Neut % (Auto) Lymph % (Auto) [place] % (Auto) Eos % (Auto) Baso % (Auto) Lymph # (Auto) [place] # (Auto) Eos # (Auto) Baso # (Auto) Abs Immat Gran (auto) Absolute Neuts (auto) Absolute Nucleated RBC Nucleated RBC % (auto) Smear Tech's Comments ESR PT INR D-Dimer High Sensitivty O2 Saturation ABG pH at Pt Temp ABG pCO2 at Pt Temp ABG pO2 at Pt Temp ABG HCO3 ABG Base Excess (Actual) VBG pH 7.33 VBG pCO2 47 VBG pO2 33 VBG HCO3 25 VBG O2 Saturation 43.0 VBG Base Excess -1.0 Sodium Potassium Chloride Carbon Dioxide Anion Gap BUN Creatinine Estim Creat Clear Calc Estimated GFR POC Glucose Random Glucose Lactic Acid Lactic Acid F/U @ 2Hr Lactic Acid F/U @ 4Hr Calcium Phosphorus Magnesium Total Bilirubin Direct Bilirubin AST ALT Alkaline Phosphatase Troponin I High Sens B-Natriuretic Peptide Total Protein Albumin Urine Color Yellow Urine Appearance Clear Urine pH 6.5 Ur Specific [place] 1.010 Urine Protein 30 (1+) H Urine Glucose (UA) Negative Urine Ketones Negative Urine Blood Negative Urine Nitrite Negative Ur Leukocyte Esterase Small (1+) H Urine RBC 0-2 Urine WBC 11-20 H Ur Squamous Epith Cells 0-2 Urine Bacteria None Seen Hyaline Casts 3-5 Vancomycin Trough Random Vancomycin B-Hydroxybutyrate COVID-19 ([facility]) Negative COVID-19 Clin Com See Note Influenza Type A (PCR) Influenza Type B (PCR) RSV RNA Qual (PCR) SARS-CoV-2 RNA (RT-PCR) Ur Strep pneumoniae Ag 05/12/23 05/12/23 05/12/23 20:52 20:52 22:06 WBC RBC Hgb Hct MCV MCH MCHC RDW Plt Count MPV Immature Gran % (Auto) Neut % (Auto) Lymph % (Auto) [place] % (Auto) Eos % (Auto) Baso % (Auto) Lymph # (Auto) [place] # (Auto) Eos # (Auto) Baso # (Auto) Abs Immat Gran (auto) Absolute Neuts (auto) Absolute Nucleated RBC Nucleated RBC % (auto) Smear Tech's Comments ESR PT INR D-Dimer High Sensitivty O2 Saturation 96.0 ABG pH at Pt Temp 7.41 ABG pCO2 at Pt Temp 53 H ABG pO2 at Pt Temp 92 ABG HCO3 34 H ABG Base Excess (Actual) 8.0 VBG pH VBG pCO2 VBG pO2 VBG HCO3 VBG O2 Saturation VBG Base Excess Sodium Potassium Chloride Carbon Dioxide Anion Gap BUN Creatinine Estim Creat Clear Calc Estimated GFR POC Glucose Random Glucose Lactic Acid Lactic Acid F/U @ 2Hr 2.5 H* Lactic Acid F/U @ 4Hr Calcium Phosphorus Magnesium Total Bilirubin Direct Bilirubin AST ALT Alkaline Phosphatase Troponin I High Sens 65.7 H B-Natriuretic Peptide Total Protein Albumin Urine Color Urine Appearance Urine pH Ur Specific [place] Urine Protein Urine Glucose (UA) Urine Ketones Urine Blood Urine Nitrite Ur Leukocyte Esterase Urine RBC Urine WBC Ur Squamous Epith Cells Urine Bacteria Hyaline Casts Vancomycin Trough Random Vancomycin B-Hydroxybutyrate COVID-19 ([facility]) COVID-19 Clin Com Influenza Type A (PCR) Influenza Type B (PCR) RSV RNA Qual (PCR) SARS-CoV-2 RNA (RT-PCR) Ur Strep pneumoniae Ag 05/12/23 05/13/23 05/13/23 22:56 00:56 04:22 WBC RBC Hgb Hct MCV MCH MCHC RDW Plt Count MPV Immature Gran % (Auto) Neut % (Auto) Lymph % (Auto) [place] % (Auto) Eos % (Auto) Baso % (Auto) Lymph # (Auto) [place] # (Auto) Eos # (Auto) Baso # (Auto) Abs Immat Gran (auto) Absolute Neuts (auto) Absolute Nucleated RBC Nucleated RBC % (auto) Smear Tech's Comments ESR PT INR D-Dimer High Sensitivty O2 Saturation ABG pH at Pt Temp ABG pCO2 at Pt Temp ABG pO2 at Pt Temp ABG HCO3 ABG Base Excess (Actual) VBG pH VBG pCO2 VBG pO2 VBG HCO3 VBG O2 Saturation VBG Base Excess Sodium Potassium Chloride Carbon Dioxide Anion Gap BUN Creatinine Estim Creat Clear Calc Estimated GFR POC Glucose 157 H 77 Random Glucose Lactic Acid Lactic Acid F/U @ 2Hr Lactic Acid F/U @ 4Hr 1.4 Calcium Phosphorus Magnesium Total Bilirubin Direct Bilirubin AST ALT Alkaline Phosphatase Troponin I High Sens B-Natriuretic Peptide Total Protein Albumin Urine Color Urine Appearance Urine pH Ur Specific [place] Urine Protein Urine Glucose (UA) Urine Ketones Urine Blood Urine Nitrite Ur Leukocyte Esterase Urine RBC Urine WBC Ur Squamous Epith Cells Urine Bacteria Hyaline Casts Vancomycin Trough Random Vancomycin B-Hydroxybutyrate COVID-19 ([facility]) COVID-19 Clin Com Influenza Type A (PCR) Influenza Type B (PCR) RSV RNA Qual (PCR) SARS-CoV-2 RNA (RT-PCR) Ur Strep pneumoniae Ag 05/13/23 05/13/23 05/13/23 05:12 05:16 05:16 WBC 16.9 H RBC 4.10 L Hgb 12.4 L Hct 38.0 L MCV 92.7 MCH 30.2 MCHC 32.6 RDW 13.4 Plt Count 233 D MPV 10.2 Immature Gran % (Auto) 0.8 H Neut % (Auto) 85.4 H Lymph % (Auto) 6.0 L [place] % (Auto) 7.1 Eos % (Auto) 0.5 Baso % (Auto) 0.2 Lymph # (Auto) 1.0 L [place] # (Auto) 1.2 Eos # (Auto) 0.1 Baso # (Auto) 0.0 Abs Immat Gran (auto) 0.14 H Absolute Neuts (auto) 14.4 H Absolute Nucleated RBC 0.000 Nucleated RBC % (auto) 0.0 Smear Tech's Comments ESR PT INR D-Dimer High Sensitivty O2 Saturation ABG pH at Pt Temp ABG pCO2 at Pt Temp ABG pO2 at Pt Temp ABG HCO3 ABG Base Excess (Actual) VBG pH 7.37 VBG pCO2 59 VBG pO2 81 VBG HCO3 34 H VBG O2 Saturation 94.0 VBG Base Excess 7.8 Sodium 137 Potassium 3.8 Chloride 103 Carbon Dioxide 24 Anion Gap 14 BUN 19 H Creatinine 0.79 Estim Creat Clear Calc 91.4 Estimated GFR > 60 POC Glucose Random Glucose 89 Lactic Acid Lactic Acid F/U @ 2Hr Lactic Acid F/U @ 4Hr Calcium 9.6 D Phosphorus Magnesium Total Bilirubin 0.7 Direct Bilirubin AST 26 ALT 17 Alkaline Phosphatase 104 Troponin I High Sens B-Natriuretic Peptide Total Protein 6.8 Albumin 3.2 L Urine Color Urine Appearance Urine pH Ur Specific [place] Urine Protein Urine Glucose (UA) Urine Ketones Urine Blood Urine Nitrite Ur Leukocyte Esterase Urine RBC Urine WBC Ur Squamous Epith Cells Urine Bacteria Hyaline Casts Vancomycin Trough Random Vancomycin B-Hydroxybutyrate COVID-19 ([facility]) COVID-19 Clin Com Influenza Type A (PCR) Influenza Type B (PCR) RSV RNA Qual (PCR) SARS-CoV-2 RNA (RT-PCR) Ur Strep pneumoniae Ag 06/05/13/23 05/13/23 11:33 13:50 13:50 WBC RBC Hgb Hct MCV MCH MCHC RDW Plt Count MPV Immature Gran % (Auto) Neut % (Auto) Lymph % (Auto) [place] % (Auto) Eos % (Auto) Baso % (Auto) Lymph # (Auto) [place] # (Auto) Eos # (Auto) Baso # (Auto) Abs Immat Gran (auto) Absolute Neuts (auto) Absolute Nucleated RBC Nucleated RBC % (auto) Smear Tech's Comments ESR PT INR D-Dimer High Sensitivty O2 Saturation ABG pH at Pt Temp ABG pCO2 at Pt Temp ABG pO2 at Pt Temp ABG HCO3 ABG Base Excess (Actual) VBG pH VBG pCO2 VBG pO2 VBG HCO3 VBG O2 Saturation VBG Base Excess Sodium Potassium Chloride Carbon Dioxide Anion Gap BUN Creatinine Estim Creat Clear Calc Estimated GFR POC Glucose 173 H Random Glucose Lactic Acid Lactic Acid F/U @ 2Hr Lactic Acid F/U @ 4Hr Calcium Phosphorus Magnesium Total Bilirubin Direct Bilirubin AST ALT Alkaline Phosphatase Troponin I High Sens B-Natriuretic Peptide Total Protein Albumin Urine Color Urine Appearance Urine pH Ur Specific [place] Urine Protein Urine Glucose (UA) Urine Ketones Urine Blood Urine Nitrite Ur Leukocyte Esterase Urine RBC Urine WBC Ur Squamous Epith Cells Urine Bacteria Hyaline Casts Vancomycin Trough Random Vancomycin B-Hydroxybutyrate COVID-19 ([facility]) COVID-19 Clin Com Influenza Type A (PCR) NEGATIVE Influenza Type B (PCR) NEGATIVE RSV RNA Qual (PCR) NEGATIVE SARS-CoV-2 RNA (RT-PCR) NEGATIVE Ur Strep pneumoniae Ag Not Detected 05/13/23 05/13/23 05/14/23 14:50 17:47 00:33 WBC RBC Hgb Hct MCV MCH MCHC RDW Plt Count MPV Immature Gran % (Auto) Neut % (Auto) Lymph % (Auto) [place] % (Auto) Eos % (Auto) Baso % (Auto) Lymph # (Auto) [place] # (Auto) Eos # (Auto) Baso # (Auto) Abs Immat Gran (auto) Absolute Neuts (auto) Absolute Nucleated RBC Nucleated RBC % (auto) Smear Tech's Comments ESR 51 H PT INR D-Dimer High Sensitivty O2 Saturation ABG pH at Pt Temp ABG pCO2 at Pt Temp ABG pO2 at Pt Temp ABG HCO3 ABG Base Excess (Actual) VBG pH VBG pCO2 VBG pO2 VBG HCO3 VBG O2 Saturation VBG Base Excess Sodium Potassium Chloride Carbon Dioxide Anion Gap BUN Creatinine Estim Creat Clear Calc Estimated GFR POC Glucose 210 H 190 H Random Glucose Lactic Acid Lactic Acid F/U @ 2Hr Lactic Acid F/U @ 4Hr Calcium Phosphorus Magnesium Total Bilirubin Direct Bilirubin AST ALT Alkaline Phosphatase Troponin I High Sens B-Natriuretic Peptide Total Protein Albumin Urine Color Urine Appearance Urine pH Ur Specific [place] Urine Protein Urine Glucose (UA) Urine Ketones Urine Blood Urine Nitrite Ur Leukocyte Esterase Urine RBC Urine WBC Ur Squamous Epith Cells Urine Bacteria Hyaline Casts Vancomycin Trough Random Vancomycin B-Hydroxybutyrate COVID-19 ([facility]) COVID-19 Clin Com Influenza Type A (PCR) Influenza Type B (PCR) RSV RNA Qual (PCR) SARS-CoV-2 RNA (RT-PCR) Ur Strep pneumoniae Ag 05/14/23 05/14/23 05/14/23 05:11 05:11 05:11 WBC 13.5 H RBC 3.70 L Hgb 11.3 L Hct 35.0 L MCV 94.6 MCH 30.5 MCHC 32.3 RDW 13.4 Plt Count 174 D MPV 10.7 Immature Gran % (Auto) 0.9 H Neut % (Auto) 91.5 H Lymph % (Auto) 3.6 L [place] % (Auto) 3.9 Eos % (Auto) 0.0 Baso % (Auto) 0.1 Lymph # (Auto) 0.5 L [place] # (Auto) 0.5 Eos # (Auto) 0.0 Baso # (Auto) 0.0 Abs Immat Gran (auto) 0.12 H Absolute Neuts (auto) 12.4 H Absolute Nucleated RBC 0.000 Nucleated RBC % (auto) 0.0 Smear Tech's Comments VERIFIED ESR PT INR D-Dimer High Sensitivty O2 Saturation ABG pH at Pt Temp ABG pCO2 at Pt Temp ABG pO2 at Pt Temp ABG HCO3 ABG Base Excess (Actual) VBG pH VBG pCO2 VBG pO2 VBG HCO3 VBG O2 Saturation VBG Base Excess Sodium 140 Potassium 4.1 Chloride 106 Carbon Dioxide 24 Anion Gap 14 BUN 15 Creatinine Cancelled 0.73 Estim Creat Clear Calc Cancelled 98.9 Estimated GFR Cancelled > 60 POC Glucose Random Glucose 177 H Lactic Acid Lactic Acid F/U @ 2Hr Lactic Acid F/U @ 4Hr Calcium 9.6 Phosphorus Magnesium Total Bilirubin 0.5 Direct Bilirubin AST 22 ALT 17 Alkaline Phosphatase 106 Troponin I High Sens B-Natriuretic Peptide Total Protein 6.3 L Albumin 2.9 L Urine Color Urine Appearance Urine pH Ur Specific [place] Urine Protein Urine Glucose (UA) Urine Ketones Urine Blood Urine Nitrite Ur Leukocyte Esterase Urine RBC Urine WBC Ur Squamous Epith Cells Urine Bacteria Hyaline Casts Vancomycin Trough Random Vancomycin B-Hydroxybutyrate COVID-19 ([facility]) COVID-19 Clin Com Influenza Type A (PCR) Influenza Type B (PCR) RSV RNA Qual (PCR) SARS-CoV-2 RNA (RT-PCR) Ur Strep pneumoniae Ag 05/14/23 05/14/23 05/14/23 05:14 05:47 10:04 WBC RBC Hgb Hct MCV MCH MCHC RDW Plt Count MPV Immature Gran % (Auto) Neut % (Auto) Lymph % (Auto) [place] % (Auto) Eos % (Auto) Baso % (Auto) Lymph # (Auto) [place] # (Auto) Eos # (Auto) Baso # (Auto) Abs Immat Gran (auto) Absolute Neuts (auto) Absolute Nucleated RBC Nucleated RBC % (auto) Smear Tech's Comments ESR PT INR D-Dimer High Sensitivty O2 Saturation ABG pH at Pt Temp ABG pCO2 at Pt Temp ABG pO2 at Pt Temp ABG HCO3 ABG Base Excess (Actual) VBG pH 7.42 VBG pCO2 54 VBG pO2 58 VBG HCO3 35 H VBG O2 Saturation 86.0 VBG Base Excess 9.6 Sodium Potassium Chloride Carbon Dioxide Anion Gap BUN Creatinine Estim Creat Clear Calc Estimated GFR POC Glucose 176 H Random Glucose Lactic Acid Lactic Acid F/U @ 2Hr Lactic Acid F/U @ 4Hr Calcium Phosphorus Magnesium Total Bilirubin Direct Bilirubin AST ALT Alkaline Phosphatase Troponin I High Sens B-Natriuretic Peptide Total Protein Albumin Urine Color Urine Appearance Urine pH Ur Specific [place] Urine Protein Urine Glucose (UA) Urine Ketones Urine Blood Urine Nitrite Ur Leukocyte Esterase Urine RBC Urine WBC Ur Squamous Epith Cells Urine Bacteria Hyaline Casts Vancomycin Trough Random Vancomycin 6.6 L B-Hydroxybutyrate COVID-19 ([facility]) COVID-19 Clin Com Influenza Type A (PCR) Influenza Type B (PCR) RSV RNA Qual (PCR) SARS-CoV-2 RNA (RT-PCR) Ur Strep pneumoniae Ag 06/05/14/23 05/14/23 11:46 17:46 23:44 WBC RBC Hgb Hct MCV MCH MCHC RDW Plt Count MPV Immature Gran % (Auto) Neut % (Auto) Lymph % (Auto) [place] % (Auto) Eos % (Auto) Baso % (Auto) Lymph # (Auto) [place] # (Auto) Eos # (Auto) Baso # (Auto) Abs Immat Gran (auto) Absolute Neuts (auto) Absolute Nucleated RBC Nucleated RBC % (auto) Smear Tech's Comments ESR PT INR D-Dimer High Sensitivty O2 Saturation ABG pH at Pt Temp ABG pCO2 at Pt Temp ABG pO2 at Pt Temp ABG HCO3 ABG Base Excess (Actual) VBG pH VBG pCO2 VBG pO2 VBG HCO3 VBG O2 Saturation VBG Base Excess Sodium Potassium Chloride Carbon Dioxide Anion Gap BUN Creatinine Estim Creat Clear Calc Estimated GFR POC Glucose 134 H 146 H 150 H Random Glucose Lactic Acid Lactic Acid F/U @ 2Hr Lactic Acid F/U @ 4Hr Calcium Phosphorus Magnesium Total Bilirubin Direct Bilirubin AST ALT Alkaline Phosphatase Troponin I High Sens B-Natriuretic Peptide Total Protein Albumin Urine Color Urine Appearance Urine pH Ur Specific [place] Urine Protein Urine Glucose (UA) Urine Ketones Urine Blood Urine Nitrite Ur Leukocyte Esterase Urine RBC Urine WBC Ur Squamous Epith Cells Urine Bacteria Hyaline Casts Vancomycin Trough Random Vancomycin B-Hydroxybutyrate COVID-19 ([facility]) COVID-19 Clin Com Influenza Type A (PCR) Influenza Type B (PCR) RSV RNA Qual (PCR) SARS-CoV-2 RNA (RT-PCR) Ur Strep pneumoniae Ag 05/15/23 05/15/23 05/15/23 05:24 05:24 05:24 WBC 13.9 H RBC 3.48 L Hgb 10.5 L Hct 32.6 L MCV 93.7 MCH 30.2 MCHC 32.2 RDW 13.6 Plt Count 152 L MPV 11.0 Immature Gran % (Auto) 0.6 H Neut % (Auto) 87.8 H Lymph % (Auto) 5.8 L [place] % (Auto) 5.6 Eos % (Auto) 0.1 Baso % (Auto) 0.1 Lymph # (Auto) 0.8 L [place] # (Auto) 0.8 Eos # (Auto) 0.0 Baso # (Auto) 0.0 Abs Immat Gran (auto) 0.08 H Absolute Neuts (auto) 12.2 H Absolute Nucleated RBC 0.000 Nucleated RBC % (auto) 0.0 Smear Tech's Comments ESR PT INR D-Dimer High Sensitivty O2 Saturation ABG pH at Pt Temp ABG pCO2 at Pt Temp ABG pO2 at Pt Temp ABG HCO3 ABG Base Excess (Actual) VBG pH VBG pCO2 VBG pO2 VBG HCO3 VBG O2 Saturation VBG Base Excess Sodium 142 Potassium 4.0 Chloride 108 Carbon Dioxide 26 Anion Gap 12 BUN 24 H Creatinine Cancelled 0.77 Estim Creat Clear Calc Cancelled 103.0 Estimated GFR Cancelled > 60 POC Glucose Random Glucose 164 H Lactic Acid Lactic Acid F/U @ 2Hr Lactic Acid F/U @ 4Hr Calcium 9.6 Phosphorus Magnesium Total Bilirubin 0.5 Direct Bilirubin AST 38 H ALT 40 Alkaline Phosphatase 84 Troponin I High Sens B-Natriuretic Peptide Total Protein 5.9 L Albumin 3.0 L Urine Color Urine Appearance Urine pH Ur Specific [place] Urine Protein Urine Glucose (UA) Urine Ketones Urine Blood Urine Nitrite Ur Leukocyte Esterase Urine RBC Urine WBC Ur Squamous Epith Cells Urine Bacteria Hyaline Casts Vancomycin Trough Random Vancomycin B-Hydroxybutyrate COVID-19 ([facility]) COVID-19 Clin Com Influenza Type A (PCR) Influenza Type B (PCR) RSV RNA Qual (PCR) SARS-CoV-2 RNA (RT-PCR) Ur Strep pneumoniae Ag 05/15/23 05/15/23 05/15/23 05:24 05:45 10:05 WBC RBC Hgb Hct MCV MCH MCHC RDW Plt Count MPV Immature Gran % (Auto) Neut % (Auto) Lymph % (Auto) [place] % (Auto) Eos % (Auto) Baso % (Auto) Lymph # (Auto) [place] # (Auto) Eos # (Auto) Baso # (Auto) Abs Immat Gran (auto) Absolute Neuts (auto) Absolute Nucleated RBC Nucleated RBC % (auto) Smear Tech's Comments ESR PT INR D-Dimer High Sensitivty O2 Saturation ABG pH at Pt Temp ABG pCO2 at Pt Temp ABG pO2 at Pt Temp ABG HCO3 ABG Base Excess (Actual) VBG pH 7.44 H VBG pCO2 51 VBG pO2 51 VBG HCO3 35 H VBG O2 Saturation 80.0 VBG Base Excess 9.8 Sodium Potassium Chloride Carbon Dioxide Anion Gap BUN Creatinine Estim Creat Clear Calc Estimated GFR POC Glucose 156 H Random Glucose Lactic Acid Lactic Acid F/U @ 2Hr Lactic Acid F/U @ 4Hr Calcium Phosphorus Magnesium Total Bilirubin Direct Bilirubin AST ALT Alkaline Phosphatase Troponin I High Sens B-Natriuretic Peptide Total Protein Albumin Urine Color Urine Appearance Urine pH Ur Specific [place] Urine Protein Urine Glucose (UA) Urine Ketones Urine Blood Urine Nitrite Ur Leukocyte Esterase Urine RBC Urine WBC Ur Squamous Epith Cells Urine Bacteria Hyaline Casts Vancomycin Trough 12.8 Random Vancomycin B-Hydroxybutyrate COVID-19 ([facility]) COVID-19 Clin Com Influenza Type A (PCR) Influenza Type B (PCR) RSV RNA Qual (PCR) SARS-CoV-2 RNA (RT-PCR) Ur Strep pneumoniae Ag 05/15/23 05/15/23 05/16/23 11:05 17:16 00:29 WBC RBC Hgb Hct MCV MCH MCHC RDW Plt Count MPV Immature Gran % (Auto) Neut % (Auto) Lymph % (Auto) [place] % (Auto) Eos % (Auto) Baso % (Auto) Lymph # (Auto) [place] # (Auto) Eos # (Auto) Baso # (Auto) Abs Immat Gran (auto) Absolute Neuts (auto) Absolute Nucleated RBC Nucleated RBC % (auto) Smear Tech's Comments ESR PT INR D-Dimer High Sensitivty O2 Saturation ABG pH at Pt Temp ABG pCO2 at Pt Temp ABG pO2 at Pt Temp ABG HCO3 ABG Base Excess (Actual) VBG pH VBG pCO2 VBG pO2 VBG HCO3 VBG O2 Saturation VBG Base Excess Sodium Potassium Chloride Carbon Dioxide Anion Gap BUN Creatinine Estim Creat Clear Calc Estimated GFR POC Glucose 139 H 180 H 213 H Random Glucose Lactic Acid Lactic Acid F/U @ 2Hr Lactic Acid F/U @ 4Hr Calcium Phosphorus Magnesium Total Bilirubin Direct Bilirubin AST ALT Alkaline Phosphatase Troponin I High Sens B-Natriuretic Peptide Total Protein Albumin Urine Color Urine Appearance Urine pH Ur Specific [place] Urine Protein Urine Glucose (UA) Urine Ketones Urine Blood Urine Nitrite Ur Leukocyte Esterase Urine RBC Urine WBC Ur Squamous Epith Cells Urine Bacteria Hyaline Casts Vancomycin Trough Random Vancomycin B-Hydroxybutyrate COVID-19 ([facility]) COVID-19 Clin Com Influenza Type A (PCR) Influenza Type B (PCR) RSV RNA Qual (PCR) SARS-CoV-2 RNA (RT-PCR) Ur Strep pneumoniae Ag 05/16/23 05/16/2305/16/23 02:08 04:45 04:45 WBC 10.5 RBC 3.52 L Hgb 10.8 L Hct 32.8 L MCV 93.2 MCH 30.7 MCHC 32.9 RDW 13.7 Plt Count 137 L MPV 10.9 Immature Gran % (Auto) 1.0 H Neut % (Auto) 84.4 H Lymph % (Auto) 7.0 L [place] % (Auto) 7.4 Eos % (Auto) 0.0 Baso % (Auto) 0.2 Lymph # (Auto) 0.7 L [place] # (Auto) 0.8 Eos # (Auto) 0.0 Baso # (Auto) 0.0 Abs Immat Gran (auto) 0.10 H Absolute Neuts (auto) 8.9 H Absolute Nucleated RBC 0.000 Nucleated RBC % (auto) 0.0 Smear Tech's Comments ESR PT INR D-Dimer High Sensitivty O2 Saturation ABG pH at Pt Temp ABG pCO2 at Pt Temp ABG pO2 at Pt Temp ABG HCO3 ABG Base Excess (Actual) VBG pH VBG pCO2 VBG pO2 VBG HCO3 VBG O2 Saturation VBG Base Excess Sodium Potassium Chloride Carbon Dioxide Anion Gap BUN Creatinine Cancelled Estim Creat Clear Calc Cancelled Estimated GFR Cancelled POC Glucose Random Glucose Lactic Acid Lactic Acid F/U @ 2Hr Lactic Acid F/U @ 4Hr Calcium Phosphorus Magnesium Total Bilirubin Direct Bilirubin AST ALT Alkaline Phosphatase Troponin I High Sens B-Natriuretic Peptide Total Protein Albumin Urine Color Urine Appearance Urine pH Ur Specific [place] Urine Protein Urine Glucose (UA) Urine Ketones Urine Blood Urine Nitrite Ur Leukocyte Esterase Urine RBC Urine WBC Ur Squamous Epith Cells Urine Bacteria Hyaline Casts Vancomycin Trough Random Vancomycin 14.8 L B-Hydroxybutyrate COVID-19 ([facility]) COVID-19 Clin Com Influenza Type A (PCR) Influenza Type B (PCR) RSV RNA Qual (PCR) SARS-CoV-2 RNA (RT-PCR) Ur Strep pneumoniae Ag 05/16/23 05/16/23 05/16/23 04:45 04:49 12:10 WBC RBC Hgb Hct MCV MCH MCHC RDW Plt Count MPV Immature Gran % (Auto) Neut % (Auto) Lymph % (Auto) [place] % (Auto) Eos % (Auto) Baso % (Auto) Lymph # (Auto) [place] # (Auto) Eos # (Auto) Baso # (Auto) Abs Immat Gran (auto) Absolute Neuts (auto) Absolute Nucleated RBC Nucleated RBC % (auto) Smear Tech's Comments ESR PT INR D-Dimer High Sensitivty O2 Saturation ABG pH at Pt Temp ABG pCO2 at Pt Temp ABG pO2 at Pt Temp ABG HCO3 ABG Base Excess (Actual) VBG pH 7.44 H VBG pCO2 46 VBG pO2 57 VBG HCO3 32 H VBG O2 Saturation 86.0 VBG Base Excess 7.0 Sodium 142 Potassium 3.9 Chloride 110 H Carbon Dioxide 23 Anion Gap 13 BUN 28 H Creatinine 0.81 Estim Creat Clear Calc 97.9 Estimated GFR > 60 POC Glucose 167 H Random Glucose 206 H Lactic Acid Lactic Acid F/U @ 2Hr Lactic Acid F/U @ 4Hr Calcium 8.9 D Phosphorus Magnesium Total Bilirubin 0.5 Direct Bilirubin AST 119 H ALT 139 H Alkaline Phosphatase 101 Troponin I High Sens B-Natriuretic Peptide Total Protein 5.4 L Albumin 2.7 L Urine Color Urine Appearance Urine pH Ur Specific [place] Urine Protein Urine Glucose (UA) Urine Ketones Urine Blood Urine Nitrite Ur Leukocyte Esterase Urine RBC Urine WBC Ur Squamous Epith Cells Urine Bacteria Hyaline Casts Vancomycin Trough Random Vancomycin B-Hydroxybutyrate COVID-19 ([facility]) COVID-19 Clin Com Influenza Type A (PCR) Influenza Type B (PCR) RSV RNA Qual (PCR) SARS-CoV-2 RNA (RT-PCR) Ur Strep pneumoniae Ag 05/16/23 05/17/23 05/17/23 17:39 00:00 04:20 WBC RBC Hgb Hct MCV MCH MCHC RDW Plt Count MPV Immature Gran % (Auto) Neut % (Auto) Lymph % (Auto) [place] % (Auto) Eos % (Auto) Baso % (Auto) Lymph # (Auto) [place] # (Auto) Eos # (Auto) Baso # (Auto) Abs Immat Gran (auto) Absolute Neuts (auto) Absolute Nucleated RBC Nucleated RBC % (auto) Smear Tech's Comments ESR PT INR D-Dimer High Sensitivty O2 Saturation ABG pH at Pt Temp ABG pCO2 at Pt Temp ABG pO2 at Pt Temp ABG HCO3 ABG Base Excess (Actual) VBG pH VBG pCO2 VBG pO2 VBG HCO3 VBG O2 Saturation VBG Base Excess Sodium Potassium Chloride Carbon Dioxide Anion Gap BUN Creatinine Cancelled Estim Creat Clear Calc Cancelled Estimated GFR Cancelled POC Glucose 171 H 191 H Random Glucose Lactic Acid Lactic Acid F/U @ 2Hr Lactic Acid F/U @ 4Hr Calcium Phosphorus Magnesium Total Bilirubin Direct Bilirubin AST ALT Alkaline Phosphatase Troponin I High Sens B-Natriuretic Peptide Total Protein Albumin Urine Color Urine Appearance Urine pH Ur Specific [place] Urine Protein Urine Glucose (UA) Urine Ketones Urine Blood Urine Nitrite Ur Leukocyte Esterase Urine RBC Urine WBC Ur Squamous Epith Cells Urine Bacteria Hyaline Casts Vancomycin Trough Random Vancomycin B-Hydroxybutyrate COVID-19 ([facility]) COVID-19 Clin Com Influenza Type A (PCR) Influenza Type B (PCR) RSV RNA Qual (PCR) SARS-CoV-2 RNA (RT-PCR) Ur Strep pneumoniae Ag 05/17/23 05/17/23 05/17/23 04:20 04:20 04:24 WBC 9.3 RBC 3.85 L Hgb 11.3 L Hct 35.3 L MCV 91.7 MCH 29.4 MCHC 32.0 RDW 13.5 Plt Count 135 L MPV 10.6 Immature Gran % (Auto) 2.0 H Neut % (Auto) 79.5 H Lymph % (Auto) 9.4 L [place] % (Auto) 8.9 Eos % (Auto) 0.1 Baso % (Auto) 0.1 Lymph # (Auto) 0.9 L [place] # (Auto) 0.8 Eos # (Auto) 0.0 Baso # (Auto) 0.0 Abs Immat Gran (auto) 0.19 H Absolute Neuts (auto) 7.4 Absolute Nucleated RBC 0.000 Nucleated RBC % (auto) 0.0 Smear Tech's Comments ESR PT INR D-Dimer High Sensitivty O2 Saturation ABG pH at Pt Temp ABG pCO2 at Pt Temp ABG pO2 at Pt Temp ABG HCO3 ABG Base Excess (Actual) VBG pH 7.43 VBG pCO2 38 VBG pO2 59 VBG HCO3 26 VBG O2 Saturation 85.0 VBG Base Excess 2.3 Sodium 142 Potassium 4.1 Chloride 109 H Carbon Dioxide 23 Anion Gap 14 BUN 21 H Creatinine 0.67 Estim Creat Clear Calc 118.6 Estimated GFR > 60 POC Glucose Random Glucose 176 H Lactic Acid Lactic Acid F/U @ 2Hr Lactic Acid F/U @ 4Hr Calcium 8.8 Phosphorus 3.2 Magnesium 1.9 Total Bilirubin 0.5 Direct Bilirubin AST 54 H ALT 131 H Alkaline Phosphatase 95 Troponin I High Sens B-Natriuretic Peptide Total Protein 5.4 L Albumin 2.7 L Urine Color Urine Appearance Urine pH Ur Specific [place] Urine Protein Urine Glucose (UA) Urine Ketones Urine Blood Urine Nitrite Ur Leukocyte Esterase Urine RBC Urine WBC Ur Squamous Epith Cells Urine Bacteria Hyaline Casts Vancomycin Trough Random Vancomycin B-Hydroxybutyrate COVID-19 ([facility]) COVID-19 Clin Com Influenza Type A (PCR) Influenza Type B (PCR) RSV RNA Qual (PCR) SARS-CoV-2 RNA (RT-PCR) Ur Strep pneumoniae Ag 05/17/23 05/17/23 05/17/23 08:55 11:39 15:11 WBC RBC Hgb Hct MCV MCH MCHC RDW Plt Count MPV Immature Gran % (Auto) Neut % (Auto) Lymph % (Auto) [place] % (Auto) Eos % (Auto) Baso % (Auto) Lymph # (Auto) [place] # (Auto) Eos # (Auto) Baso # (Auto) Abs Immat Gran (auto) Absolute Neuts (auto) Absolute Nucleated RBC Nucleated RBC % (auto) Smear Tech's Comments ESR PT INR D-Dimer High Sensitivty O2 Saturation ABG pH at Pt Temp ABG pCO2 at Pt Temp ABG pO2 at Pt Temp ABG HCO3 ABG Base Excess (Actual) VBG pH VBG pCO2 VBG pO2 VBG HCO3 VBG O2 Saturation VBG Base Excess Sodium Potassium Chloride Carbon Dioxide Anion Gap BUN Creatinine Estim Creat Clear Calc Estimated GFR POC Glucose 156 H 157 H Random Glucose Lactic Acid Lactic Acid F/U @ 2Hr Lactic Acid F/U @ 4Hr Calcium Phosphorus Magnesium Total Bilirubin Direct Bilirubin AST ALT Alkaline Phosphatase Troponin I High Sens B-Natriuretic Peptide Total Protein Albumin Urine Color Urine Appearance Urine pH Ur Specific [place] Urine Protein Urine Glucose (UA) Urine Ketones Urine Blood Urine Nitrite Ur Leukocyte Esterase Urine RBC Urine WBC Ur Squamous Epith Cells Urine Bacteria Hyaline Casts Vancomycin Trough Random Vancomycin 16.8 B-Hydroxybutyrate COVID-19 ([facility]) COVID-19 Clin Com Influenza Type A (PCR) Influenza Type B (PCR) RSV RNA Qual (PCR) SARS-CoV-2 RNA (RT-PCR) Ur Strep pneumoniae Ag 05/17/23 05/17/23 05/18/23 17:20 23:44 05:05 WBC RBC Hgb Hct MCV MCH MCHC RDW Plt Count MPV Immature Gran % (Auto) Neut % (Auto) Lymph % (Auto) [place] % (Auto) Eos % (Auto) Baso % (Auto) Lymph # (Auto) [place] # (Auto) Eos # (Auto) Baso # (Auto) Abs Immat Gran (auto) Absolute Neuts (auto) Absolute Nucleated RBC Nucleated RBC % (auto) Smear Tech's Comments ESR PT INR D-Dimer High Sensitivty O2 Saturation ABG pH at Pt Temp ABG pCO2 at Pt Temp ABG pO2 at Pt Temp ABG HCO3 ABG Base Excess (Actual) VBG pH VBG pCO2 VBG pO2 VBG HCO3 VBG O2 Saturation VBG Base Excess Sodium Potassium Chloride Carbon Dioxide Anion Gap BUN Creatinine Cancelled Estim Creat Clear Calc Cancelled Estimated GFR Cancelled POC Glucose 149 H 159 H Random Glucose Lactic Acid Lactic Acid F/U @ 2Hr Lactic Acid F/U @ 4Hr Calcium Phosphorus Magnesium Total Bilirubin Direct Bilirubin AST ALT Alkaline Phosphatase Troponin I High Sens B-Natriuretic Peptide Total Protein Albumin Urine Color Urine Appearance Urine pH Ur Specific [place] Urine Protein Urine Glucose (UA) Urine Ketones Urine Blood Urine Nitrite Ur Leukocyte Esterase Urine RBC Urine WBC Ur Squamous Epith Cells Urine Bacteria Hyaline Casts Vancomycin Trough Random Vancomycin B-Hydroxybutyrate COVID-19 ([facility]) COVID-19 Clin Com Influenza Type A (PCR) Influenza Type B (PCR) RSV RNA Qual (PCR) SARS-CoV-2 RNA (RT-PCR) Ur Strep pneumoniae Ag 05/18/23 05/18/23 05/18/23 05:05 05:05 05:13 WBC 11.3 H RBC 3.89 L Hgb 11.8 L Hct 35.8 L MCV 92.0 MCH 30.3 MCHC 33.0 RDW 13.3 Plt Count 153 L MPV 11.1 Immature Gran % (Auto) 1.7 H Neut % (Auto) 75.4 H Lymph % (Auto) 12.5 L [place] % (Auto) 9.7 Eos % (Auto) 0.5 Baso % (Auto) 0.2 Lymph # (Auto) 1.4 [place] # (Auto) 1.1 Eos # (Auto) 0.1 Baso # (Auto) 0.0 Abs Immat Gran (auto) 0.19 H Absolute Neuts (auto) 8.5 H Absolute Nucleated RBC 0.000 Nucleated RBC % (auto) 0.0 Smear Tech's Comments ESR PT INR D-Dimer High Sensitivty O2 Saturation ABG pH at Pt Temp ABG pCO2 at Pt Temp ABG pO2 at Pt Temp ABG HCO3 ABG Base Excess (Actual) VBG pH 7.48 H VBG pCO2 40 VBG pO2 87 VBG HCO3 30 H VBG O2 Saturation 96.0 VBG Base Excess 6.9 Sodium 140 Potassium 3.9 Chloride 106 Carbon Dioxide 25 Anion Gap 13 BUN 22 H Creatinine 0.70 Estim Creat Clear Calc 113.8 Estimated GFR > 60 POC Glucose Random Glucose 146 H Lactic Acid Lactic Acid F/U @ 2Hr Lactic Acid F/U @ 4Hr Calcium 9.1 Phosphorus 2.8 Magnesium 1.9 Total Bilirubin 1.0 Direct Bilirubin AST 28 ALT 91 H Alkaline Phosphatase 89 Troponin I High Sens B-Natriuretic Peptide Total Protein 5.8 L Albumin 3.0 L Urine Color Urine Appearance Urine pH Ur Specific [place] Urine Protein Urine Glucose (UA) Urine Ketones Urine Blood Urine Nitrite Ur Leukocyte Esterase Urine RBC Urine WBC Ur Squamous Epith Cells Urine Bacteria Hyaline Casts Vancomycin Trough Random Vancomycin B-Hydroxybutyrate COVID-19 ([facility]) COVID-19 Clin Com Influenza Type A (PCR) Influenza Type B (PCR) RSV RNA Qual (PCR) SARS-CoV-2 RNA (RT-PCR) Ur Strep pneumoniae Ag 05/18/23 05/18/23 09:12 11:02 WBC RBC Hgb Hct MCV MCH MCHC RDW Plt Count MPV Immature Gran % (Auto) Neut % (Auto) Lymph % (Auto) [place] % (Auto) Eos % (Auto) Baso % (Auto) Lymph # (Auto) [place] # (Auto) Eos # (Auto) Baso # (Auto) Abs Immat Gran (auto) Absolute Neuts (auto) Absolute Nucleated RBC Nucleated RBC % (auto) Smear Tech's Comments ESR PT INR D-Dimer High Sensitivty O2 Saturation ABG pH at Pt Temp ABG pCO2 at Pt Temp ABG pO2 at Pt Temp ABG HCO3 ABG Base Excess (Actual) VBG pH VBG pCO2 VBG pO2 VBG HCO3 VBG O2 Saturation VBG Base Excess Sodium Potassium Chloride Carbon Dioxide Anion Gap BUN Creatinine Estim Creat Clear Calc Estimated GFR POC Glucose 133 H Random Glucose Lactic Acid Lactic Acid F/U @ 2Hr Lactic Acid F/U @ 4Hr Calcium Phosphorus Magnesium Total Bilirubin Direct Bilirubin AST ALT Alkaline Phosphatase Troponin I High Sens B-Natriuretic Peptide Total Protein Albumin Urine Color Urine Appearance Urine pH Ur Specific [place] Urine Protein Urine Glucose (UA) Urine Ketones Urine Blood Urine Nitrite Ur Leukocyte Esterase Urine RBC Urine WBC Ur Squamous Epith Cells Urine Bacteria Hyaline Casts Vancomycin Trough Random Vancomycin 17.2 B-Hydroxybutyrate COVID-19 ([facility]) COVID-19 Clin Com Influenza Type A (PCR) Influenza Type B (PCR) RSV RNA Qual (PCR) SARS-CoV-2 RNA (RT-PCR) Ur Strep pneumoniae Ag Airway Mallampati Class: Patient Non-Cooperative (Patient is intubated in ICU) Heart: ok Lungs: ok Other: On 40% O2/5cm PEEP, SpO2 mid-90s. Assessment and Plan Assessment Anesthesia Assessment: Anesthesia Plan Discussed Final Anesthetic Review Family History of Problems with Anesthesia: No History of Problems with Anesthesia: No NPO: Yes ASA Class: IV Final Preanesthetic Review: No Changes in Pt Med Stat, Meds/Allgs Chart Reviewed, Consent Obtained/Reviewed and Anes Risks/Benef Reviewed Patient Risk: High Procedure Risk: Intermediate Anesthetic Plan Anesthetic Plan: GA and Agree w/ Assess. and Plan Disposition: Standard PACU
--- NOTE | 2023-05-18 11:43 | P.PNCC_ITS ---
Subjective Subjective Date of Service: 05/18/23 Interval History: 74-year-old male who presented with hypoxemic respiratory failure been on the ventilator now day 6 and today underwent bronchoscopy with transbronchial biopsy and has done well since then I initially had him on dexmedetomidine and he did beautifully with a beautifully maintain cognitive function nonfocal neurologically and the plan as he recovers from the bronchoscopy procedure may be to initiate pressure support trial Critical Care Time (minutes): 45 Physical Exam Vital Signs: Vital Signs: Last Vital Signs Temp 99.5 F 05/18/23 11:00 Pulse 68 05/18/23 11:00 Resp 26 H 05/18/23 11:00 BP 149/77 H 05/18/23 11:00 Pulse Ox 95 05/18/23 11:00 O2 Del Method Mechanical Ventil ation 05/18/23 11:00 O2 Flow Rate 35 05/16/23 00:00 FiO2 30 05/18/23 11:00 BMI result Body Mass Index 28.8 vital signs stable status post bronchoscopy bedside echo demonstrating mild diffuse LV hypokinesis with 45% ejection fraction but stable CVP and euvolemic lungs with coarse bilateral rales but no other adventitious sounds abdomen soft with no organomegaly Objective Data Labs 05/18/23 05:05 05/18/23 05:05 Labs: Laboratory Results - last 24 hr 05/17/23 05/17/23 05/17/23 11:39 15:11 17:20 WBC RBC Hgb Hct MCV MCH MCHC RDW Plt Count MPV Immature Gran % (Auto) Neut % (Auto) Lymph % (Auto) [place] % (Auto) Eos % (Auto) Baso % (Auto) Lymph # (Auto) [place] # (Auto) Eos # (Auto) Baso # (Auto) Abs Immat Gran (auto) Absolute Neuts (auto) Absolute Nucleated RBC Nucleated RBC % (auto) VBG pH VBG pCO2 VBG pO2 VBG HCO3 VBG O2 Saturation VBG Base Excess Sodium Potassium Chloride Carbon Dioxide Anion Gap BUN Creatinine Estim Creat Clear Calc Estimated GFR POC Glucose 156 H 157 H 149 H Random Glucose Calcium Phosphorus Magnesium Total Bilirubin AST ALT Alkaline Phosphatase Total Protein Albumin Random Vancomycin 05/17/23 05/18/23 05/18/23 23:44 05:05 05:05 WBC 11.3 H RBC 3.89 L Hgb 11.8 L Hct 35.8 L MCV 92.0 MCH 30.3 MCHC 33.0 RDW 13.3 Plt Count 153 L MPV 11.1 Immature Gran % (Auto) 1.7 H Neut % (Auto) 75.4 H Lymph % (Auto) 12.5 L [place] % (Auto) 9.7 Eos % (Auto) 0.5 Baso % (Auto) 0.2 Lymph # (Auto) 1.4 [place] # (Auto) 1.1 Eos # (Auto) 0.1 Baso # (Auto) 0.0 Abs Immat Gran (auto) 0.19 H Absolute Neuts (auto) 8.5 H Absolute Nucleated RBC 0.000 Nucleated RBC % (auto) 0.0 VBG pH VBG pCO2 VBG pO2 VBG HCO3 VBG O2 Saturation VBG Base Excess Sodium Potassium Chloride Carbon Dioxide Anion Gap BUN Creatinine Cancelled Estim Creat Clear Calc Cancelled Estimated GFR Cancelled POC Glucose 159 H Random Glucose Calcium Phosphorus Magnesium Total Bilirubin AST ALT Alkaline Phosphatase Total Protein Albumin Random Vancomycin 05/18/23 05/18/23 05/18/23 05:05 05:13 09:12 WBC RBC Hgb Hct MCV MCH MCHC RDW Plt Count MPV Immature Gran % (Auto) Neut % (Auto) Lymph % (Auto) [place] % (Auto) Eos % (Auto) Baso % (Auto) Lymph # (Auto) [place] # (Auto) Eos # (Auto) Baso # (Auto) Abs Immat Gran (auto) Absolute Neuts (auto) Absolute Nucleated RBC Nucleated RBC % (auto) VBG pH 7.48 H VBG pCO2 40 VBG pO2 87 VBG HCO3 30 H VBG O2 Saturation 96.0 VBG Base Excess 6.9 Sodium 140 Potassium 3.9 Chloride 106 Carbon Dioxide 25 Anion Gap 13 BUN 22 H Creatinine 0.70 Estim Creat Clear Calc 113.8 Estimated GFR > 60 POC Glucose Random Glucose 146 H Calcium 9.1 Phosphorus 2.8 Magnesium 1.9 Total Bilirubin 1.0 AST 28 ALT 91 H Alkaline Phosphatase 89 Total Protein 5.8 L Albumin 3.0 L Random Vancomycin 17.2 05/18/23 11:02 WBC RBC Hgb Hct MCV MCH MCHC RDW Plt Count MPV Immature Gran % (Auto) Neut % (Auto) Lymph % (Auto) [place] % (Auto) Eos % (Auto) Baso % (Auto) Lymph # (Auto) [place] # (Auto) Eos # (Auto) Baso # (Auto) Abs Immat Gran (auto) Absolute Neuts (auto) Absolute Nucleated RBC Nucleated RBC % (auto) VBG pH VBG pCO2 VBG pO2 VBG HCO3 VBG O2 Saturation VBG Base Excess Sodium Potassium Chloride Carbon Dioxide Anion Gap BUN Creatinine Estim Creat Clear Calc Estimated GFR POC Glucose 133 H Random Glucose Calcium Phosphorus Magnesium Total Bilirubin AST ALT Alkaline Phosphatase Total Protein Albumin Random Vancomycin Microbiology Microbiology Results: Microbiology 05/12/23 18:36 Blood - Venous Blood Culture - Final No growth after 5 days. 05/12/23 18:36 Blood - Venous Blood Culture - Final No growth after 5 days. 05/13/23 13:50 Sputum - Suctioned Gram Stain - Final 05/13/23 13:50 Sputum - Suctioned Sputum Culture - Final 05/12/23 20:49 Urine clean catch - Urine guillaume top Urine Culture - Final Progress Note: A&P Assessment and plan (1) Cervical adenopathy: Status: Acute (2) Congestive cardiomyopathy: Status: Acute (3) Acute hypoxemic respiratory failure: Status: Acute (4) Pleural effusion: Status: Acute (5) Atypical pneumonia: Status: Acute (6) Respiratory failure: Status: Acute Plan plan is with little lock when he had fully awaken and otherwise remaining on dexmedetomidine alone or on nothing is to attempt pressure support weaning trial and then we await the biopsy results to make treatment suggestions Quality Stroke Does the patient have a stroke diagnosis?: No VTE Prior VTE?: No VTE Risk Level:: Medical - moderate - high VTE Device Contraindication: N/A - Device Ordered VTE Drug Contraindication: N/A - Med Ordered
--- NOTE | 2023-05-18 12:51 | MHC.CLN ---
F/U PT'S TF ON HOLD R/T BRONCHOSCOPY TODAY WHEN TF TO RE-START; RECOMMEND GLUCERNA AT MAX GOAL RATE 50ML/HR AND 30ML PROSOURCE TID WITH 120ML FREE WATER FLUSHES Q 4 HRS TO PROVIDE 1380KCALS (2098KCALS WITH SEDATION; 23KCALS/KG), 95G PROTEIN, 1743ML TOTAL WATER (20ML/KG) MONITOR TOLERANCE, RESIDUALS AND LYTES
--- NOTE | 2023-05-18 13:00 | PM.OP ---
Brief Operative Note Date of Service: 05/18/23 Pre-op diagnosis: Lung cancer. Post-op diagnosis: same Procedure: Patient brought in intubated from the intensive care unit to the operating under anesthesia care. Flexible bronchoscope advanced through the ET tube through tracheobronchial tree with visualization of copious amount of thick clear mucus that was suctioned and underlying mucosa visualized. Overall, mucosa grossly abnormal, erythematous and friable, particularly in the left upper lobe with submucosal bulging. At that site )left upper lobe bronchus) multiple forceps biopsies were obtained and sent for pathological examination. Biopsy site was observed until blood osing was stopped, washed with saline, and no further blood oozing observed. Patient tolerated the procedure well and was returned to the intensive care unit intubated in stable condition. Surgeon: Stephan Carballo MD Anesthesia: GETA Was an Oxygen Therapist used for this Procedure?: No Estimated blood loss (mL): 0 Pathology: other (Left upper lobe bronchus forceps biopsies) Condition: stable Disposition: ICU
[2023-05-18] MEDS: Doxycycline Hyclate 100 MG in 0.9 % Sodium Chloride 250 ML 166.6 MG IV (13:37)
[2023-05-18 17:10] LABS: Glucose, Whole Blood 201 mg/dL (60-115)
[2023-05-18] MEDS: Insulin Lispro 100 UNIT/ML 3 ML VIAL SUBCUT (17:43)
[2023-05-19] VITALS (32 sets, daily range): BP systolic 97–151; BP diastolic 58–97; PULSE 61–118; RESP 16–41; TEMP 35–38; O2SAT 69–96; BMI 28.5
[2023-05-19 00:05] LABS: Glucose, Whole Blood 170 mg/dL (60-115)
[2023-05-19] MEDS: Insulin Lispro 100 UNIT/ML 3 ML VIAL SUBCUT ×2 (00:17→12:04)
[2023-05-19] MEDS: Doxycycline Hyclate 100 MG in 0.9 % Sodium Chloride 250 ML 166.6 MG IV ×2 (01:50→14:45)
[2023-05-19] MEDS: Ampicillin Sodium/Sulbactam Na 3 GM in 0.9 % Sodium Chloride 100 ML IV ×4 (01:55→20:10)
[2023-05-19] MEDS: vancomycin HCL 750 MG in 0.9 % Sodium Chloride 250 ML 265 MG IV (02:31)
[2023-05-19 05:06] LABS: VBG Base Excess 2.4 mmol/L; VBG HCO3 25 mmol/L (22-26); VBG pCO2 35 mmHg; VBG pH 7.47 (7.32-7.43); VBG pO2 56 mmHg
[2023-05-19 05:07] LABS: Venous Blood Gas Refer to POC result
[2023-05-19 05:26] LABS: MANUAL DIFF FLAG NO
[2023-05-19 05:31] LABS: Basophils Percent Auto 0.2 % (0-2); Eosinophils Absolute Auto 0.1 X10*3/uL (0.0-0.4); Eosinophils Percent Auto 0.5 % (0-4); Hematocrit 36.5 % (42.0-52.0); Hemoglobin 12.1 g/dl (14.0-18.0); Imm Gran Abs Auto 0.28 X10*3/uL (0.00-0.03); Imm Gran Pct Auto 2.2 % (0.0-0.4); Lymphocytes Absolute Auto 1.3 X10*3/uL (1.2-4.9); Lymphocytes Percent Auto 10.2 % (20-40); Mean Corpuscular HGB Conc 33.2 g/dl (31.0-36.0); Mean Corpuscular Hemoglobin 30.4 pg (27.0-33.0); Mean Corpuscular Volume 91.7 fL (80.0-98.0); Monocytes Absolute Auto 1.1 X10*3/uL (0.1-1.2); Monocytes Percent Auto 8.5 % (2-11); NRBC Pct Auto 0.2 /100WBC (0.0-0.2); Neutrophils Percent Auto 78.4 % (45-73); Platelet Count 180 X10*3/uL (160-400); Red Blood Count 3.98 X10*6/uL (4.60-5.80); Red Cell Distribution Width 13.2 % (11.0-16.0); White Blood Count 12.8 X10*3/uL (4.8-10.8)
[2023-05-19 05:52] LABS: Alanine Aminotransferase 95 U/L (0-40); Albumin Level 2.9 g/dL (3.5-5.0); Alkaline Phosphatase 96 U/L (39-117); Anion Gap 13 (12-20); Aspartate Amino Transferase 46 U/L (5-37); Blood Urea Nitrogen 23 mg/dL (9-16); Calcium 9.1 mg/dL (8.4-10.2); Carbon Dioxide 24 mmol/L (22-29); Chloride 105 mmol/L (96-108); Creatinine Clr Calc Pharmacy 116.4; Estimated Glomerular Filt Rate > 60; Glucose Random 153 mg/dL (60-115); Phosphorus 2.9 mg/dL (2.7-4.5); Potassium 4.1 mmol/L (3.3-5.1); Sodium 138 mmol/L (135-145); Total Protein 5.6 g/dL (6.5-8.0)
[2023-05-19] MEDS: HYDROmorphone HCl 1 MG/ML SYRINGE IVPUSH ×3 (06:01→22:05)
[2023-05-19] MEDS: Pantoprazole Sodium 40 MG/10 ML VIAL IVPUSH (06:02)
[2023-05-19] MEDS: Chlorhexidine Gluc Oral Rinse 15 ML MOUTHWASH BUCCAL ×2 (07:46→14:45)
[2023-05-19] MEDS: dexAMETHasone sod phosphate 4 MG/ML VIAL 6 MG IVPUSH ×2 (07:46→20:11)
--- NOTE | 2023-05-19 08:50 | PM.CCPN ---
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 carcinoma with extensive bilateral Mets include and then also liver came in with acute hypoxic respiratory failure There may have been an underlying pneumonia it was in a severe diffuse infiltration bilaterally and he has empirically been on antibiotics but he had a bronchoscopy and biopsy with results pending and at this point has been all day on pressure support but his respiratory rate is very close to 30 his volumes are too small Critical Care Time (minutes): 45 Physical Exam Vital Signs: Vital Signs: Last Vital Signs Temp 99.5 F 05/19/23 08:00 Pulse 85 05/19/23 08:00 Resp 20 05/19/23 08:00 BP 124/79 05/19/23 08:00 Pulse Ox 95 05/19/23 08:00 O2 Del Method Mechanical Ventil ation 05/19/23 08:00 O2 Flow Rate 35 05/16/23 00:00 FiO2 30 05/19/23 08:21 BMI result Body Mass Index 28.5 He is awake he is appropriate but still lethargic no significant respiratory effort but the volume is a 2 marginal and and his L his reserve is not good nor says cardiovascular reserve good He has got an underlying cardiomyopathy with 40% ejection fraction by bedside echo Lungs with bilateral infiltration and left-sided almost encasing pleural effusion Abdomen is benign Objective Data Labs 05/19/23 04:50 05/19/23 04:50 Labs: Laboratory Results - last 24 hr 05/18/23 05/18/23 05/18/23 09:12 11:02 17:02 WBC RBC Hgb Hct MCV MCH MCHC RDW Plt Count MPV Immature Gran % (Auto) Neut % (Auto) Lymph % (Auto) [place] % (Auto) Eos % (Auto) Baso % (Auto) Lymph # (Auto) [place] # (Auto) Eos # (Auto) Baso # (Auto) Abs Immat Gran (auto) Absolute Neuts (auto) Absolute Nucleated RBC Nucleated RBC % (auto) VBG pH VBG pCO2 VBG pO2 VBG HCO3 VBG O2 Saturation VBG Base Excess Sodium Potassium Chloride Carbon Dioxide Anion Gap BUN Creatinine Estim Creat Clear Calc Estimated GFR POC Glucose 133 H 201 H Random Glucose Calcium Phosphorus Magnesium Total Bilirubin AST ALT Alkaline Phosphatase Total Protein Albumin Random Vancomycin 17.2 05/19/23 05/19/23 05/19/23 00:01 04:50 04:50 WBC 12.8 H RBC 3.98 L Hgb 12.1 L Hct 36.5 L MCV 91.7 MCH 30.4 MCHC 33.2 RDW 13.2 Plt Count 180 MPV 11.0 Immature Gran % (Auto) 2.2 H Neut % (Auto) 78.4 H Lymph % (Auto) 10.2 L [place] % (Auto) 8.5 Eos % (Auto) 0.5 Baso % (Auto) 0.2 Lymph # (Auto) 1.3 [place] # (Auto) 1.1 Eos # (Auto) 0.1 Baso # (Auto) 0.0 Abs Immat Gran (auto) 0.28 H Absolute Neuts (auto) 10.0 H Absolute Nucleated RBC 0.020 H Nucleated RBC % (auto) 0.2 VBG pH VBG pCO2 VBG pO2 VBG HCO3 VBG O2 Saturation VBG Base Excess Sodium Potassium Chloride Carbon Dioxide Anion Gap BUN Creatinine Cancelled Estim Creat Clear Calc Cancelled Estimated GFR Cancelled POC Glucose 170 H Random Glucose Calcium Phosphorus Magnesium Total Bilirubin AST ALT Alkaline Phosphatase Total Protein Albumin Random Vancomycin 05/19/23 05/19/23 04:50 04:56 WBC RBC Hgb Hct MCV MCH MCHC RDW Plt Count MPV Immature Gran % (Auto) Neut % (Auto) Lymph % (Auto) [place] % (Auto) Eos % (Auto) Baso % (Auto) Lymph # (Auto) [place] # (Auto) Eos # (Auto) Baso # (Auto) Abs Immat Gran (auto) Absolute Neuts (auto) Absolute Nucleated RBC Nucleated RBC % (auto) VBG pH 7.47 H VBG pCO2 35 VBG pO2 56 VBG HCO3 25 VBG O2 Saturation 83.0 VBG Base Excess 2.4 Sodium 138 Potassium 4.1 Chloride 105 Carbon Dioxide 24 Anion Gap 13 BUN 23 H Creatinine 0.68 Estim Creat Clear Calc 116.4 Estimated GFR > 60 POC Glucose Random Glucose 153 H Calcium 9.1 Phosphorus 2.9 Magnesium 2.0 Total Bilirubin 1.0 AST 46 H ALT 95 H Alkaline Phosphatase 96 Total Protein 5.6 L Albumin 2.9 L Random Vancomycin Microbiology Microbiology Results: Microbiology 05/12/23 18:36 Blood - Venous Blood Culture - Final No growth after 5 days. 05/12/23 18:36 Blood - Venous Blood Culture - Final No growth after 5 days. 05/13/23 13:50 Sputum - Suctioned Gram Stain - Final 05/13/23 13:50 Sputum - Suctioned Sputum Culture - Final 05/12/23 20:49 Urine clean catch - Urine guillaume top Urine Culture - Final Progress Note: A&P Assessment and plan (1) Cervical adenopathy: Status: Acute (2) Congestive cardiomyopathy: Status: Acute (3) Acute hypoxemic respiratory failure: Status: Acute (4) Pleural effusion: Status: Acute (5) Atypical pneumonia: Status: Acute (6) Respiratory failure: Status: Acute Plan Plan I think today is to rescind 8 1 more night and try to accomplish this again in the morning if early in the morning he looks like he is having difficulties I may repeat the CT scan of his chest and consider the possibility of removing some of that left lung pleural volume Quality Stroke Does the patient have a stroke diagnosis?: No VTE Prior VTE?: No VTE Risk Level:: Medical - moderate - high VTE Device Contraindication: N/A - Device Ordered VTE Drug Contraindication: N/A - Med Ordered
[2023-05-19] MEDS: Spironolactone 25 MG TABLET PO (10:31)
[2023-05-19] MEDS: Losartan Potassium 25 MG TABLET PO (10:32)
[2023-05-19] MEDS: Empagliflozin 10 MG TABLET PO (10:32)
[2023-05-19 11:58] LABS: Glucose, Whole Blood 161 mg/dL (60-115)
--- NOTE | 2023-05-19 13:57 | HO.POSTANES ---
Post Anesthesia Evaluation Post Anesthesia Evaluation Date of Service: 05/19/23 Vital Signs: Vital Signs Temp Pulse Resp BP Pulse Ox O2 Del Method FiO2 05/19/23 13:00 100.0 F 89 20 122/71 93 Mechanical Ventilation 35 05/19/23 12:00 99.9 F 89 29 H 121/65 95 Mechanical Ventilation 30 05/19/23 11:29 30 05/19/23 08:20 30 05/19/23 08:21 30 05/19/23 12:00 30 05/19/23 07:46 30 05/19/23 11:00 99.9 F 88 28 H 141/81 H 96 Mechanical Ventilation 30 05/19/23 10:00 99.5 F 77 24 H 143/76 H 94 Mechanical Ventilation 30 05/19/23 09:00 99.5 F 68 16 125/70 95 Mechanical Ventilation 30 05/19/23 08:00 99.5 F 85 20 124/79 95 Mechanical Ventilation 30 05/19/23 07:00 99.7 F 61 20 125/70 95 Mechanical Ventilation 30 05/19/23 05:39 30 05/19/23 06:00 100.0 F 63 17 97/58 L 92 Mechanical Ventilation 30 05/19/23 05:00 99.7 F 67 18 112/61 69 L Mechanical Ventilation 30 05/19/23 04:00 30 05/19/23 04:00 99.7 F 82 26 H 115/62 95 Mechanical Ventilation 30 05/19/23 03:00 99.7 F 81 22 H 141/65 H 95 Mechanical Ventilation 30 05/19/23 02:00 99.7 F 86 25 H 116/60 95 Mechanical Ventilation 30 Anesthesia: General Endotracheal-GETA Mental Status: Awake Pain Control: Satisfactory Nausea/Vomiting: None Hydration: Adequate Anesthesia-Related Issues: No Anes. Related Issues
[2023-05-19 18:23] LABS: Legionella Pneumophila Ab IgM <1:256 TITER
[2023-05-19 18:23] LABS: Glucose, Whole Blood 102 mg/dL (60-115)
[2023-05-19] MEDS: Midazolam HCl/PF 2 MG/2 ML VIAL 1 MG IVPUSH (21:33)
[2023-05-19 22:01] LABS: VBG Base Excess 2.9 mmol/L; VBG HCO3 27 mmol/L (22-26); VBG pCO2 41 mmHg; VBG pH 7.42 (7.32-7.43); VBG pO2 71 mmHg
[2023-05-19 22:03] LABS: Venous Blood Gas Refer to POC result
--- NOTE | 2023-05-19 22:25 | PM.CCN ---
Critical Care Event Note Summary Date of Service: 05/19/23 Code activated: No Narrative: 72-year-old male with probable metastatic lung carcinoma with extensive bilateral mets underwent bronchoscopy and biopsy yesterday and was subsequently extubated this afternoon. He had been maintaining his sats on an OxyMask at about 8 L. This evening he was noted to be tachypneic with respiratory rate in the 40s, tachycardic in the 120s,? O2 sat mid to high 80s, using accessory muscles and pursed lip breathing. Stat chest x-ray showed worsening pulmonary aeration with increased near complete opacification of the left lung, nonspecific but suggestive of pleural effusion, atelectasis from mucus plugging and/or aspiration given the rapid development. VBG was unremarkable. The patient was placed on BiPAP with slight improvement to the O2 sat but still with considerable tachypnea.? Dr. Lin was notified and arrived at the bedside shortly thereafter.? Bedside ultrasound revealed a substantial volume. Chest tube was placed yielding approximately 1400 mL serosanguineous fluid and improvement in respiratory status.? The patient was taken off BiPAP and put on high-flow oxygen. The patient?s daughter and were notified of clinical status and brought to the bedside per patient request.? This case had a high probability of a clinically significant, sudden, or life threatening deterioration of this patient's condition which required my full and direct attention, intervention and personal management. Critical Care Time (minutes): 90
[2023-05-19] MEDS: fentaNYL citrate/PF 100 MCG/2 ML VIAL 50 MCG IVPUSH ×2 (22:53→23:25)
[2023-05-19] MEDS: Lidocaine HCl 2 % 20 ML VIAL 5 ML SUBCUT (23:21)
[2023-05-20] VITALS (31 sets, daily range): BP systolic 106–163; BP diastolic 60–101; PULSE 76–127; RESP 18–44; TEMP 37.4–38.2; O2SAT 88–98; BMI 28.1
[2023-05-20] MEDS: Ketorolac Tromethamine 15 MG/ML VIAL IVPUSH ×3 (00:17→14:37)
[2023-05-20 00:53] LABS: Glucose, Whole Blood 139 mg/dL (60-115)
[2023-05-20] MEDS: Lidocaine HCl 2 % 20 ML VIAL 5 ML SUBCUT (01:02)
[2023-05-20] MEDS: Doxycycline Hyclate 100 MG in 0.9 % Sodium Chloride 250 ML 166.67 MG IV ×2 (02:50→14:36)
[2023-05-20] MEDS: Ampicillin Sodium/Sulbactam Na 3 GM in 0.9 % Sodium Chloride 100 ML IV ×4 (02:50→20:41)
[2023-05-20 05:04] LABS: VBG Base Excess 2.2 mmol/L; VBG HCO3 26 mmol/L (22-26); VBG pCO2 37 mmHg; VBG pH 7.45 (7.32-7.43); VBG pO2 57 mmHg
[2023-05-20 05:17] LABS: Basophils Percent Auto 0.2 % (0-2); Eosinophils Absolute Auto 0.1 X10*3/uL (0.0-0.4); Eosinophils Percent Auto 0.3 % (0-4); Hematocrit 40.4 % (42.0-52.0); Hemoglobin 13.2 g/dl (14.0-18.0); Imm Gran Abs Auto 0.68 X10*3/uL (0.00-0.03); Imm Gran Pct Auto 3.6 % (0.0-0.4); Lymphocytes Absolute Auto 1.4 X10*3/uL (1.2-4.9); Lymphocytes Percent Auto 7.6 % (20-40); MANUAL DIFF FLAG SCAN; Mean Corpuscular HGB Conc 32.7 g/dl (31.0-36.0); Mean Corpuscular Hemoglobin 29.5 pg (27.0-33.0); Mean Corpuscular Volume 90.2 fL (80.0-98.0); Monocytes Absolute Auto 1.7 X10*3/uL (0.1-1.2); Monocytes Percent Auto 8.9 % (2-11); Neutrophils Absolute Auto 15.1 x10*3/uL (2.0-8.3); Neutrophils Percent Auto 79.4 % (45-73); Platelet Count 228 X10*3/uL (160-400); Red Blood Count 4.48 X10*6/uL (4.60-5.80); Red Cell Distribution Width 13.2 % (11.0-16.0); SCAN SMEAR FLAG 1
--- NOTE | 2023-05-20 05:26 | PC.NURSE ---
pt c/o chest pain, FISH HEADER made aware Pt on oxy mask 8l taking shallow breaths increased RR sating 87% heart rate 130s . FISH HEADER made aware new order for dilaudid and CXR. Intintensivist to bedside for chest ube placement based on CXR results. pt medicated for procedure per emar preprint analyst to bedside to explain. . family updated and to bedside to see pt. Chest tube drained 1300 serosanguous drainage right away. Pt placed on high flow. 02 sats improved heart rate improved. positioned for comfort eyes closed resting in bed
[2023-05-20 05:31] LABS: SLIDE REVIEW VERIFIED
[2023-05-20 05:35] LABS: Alanine Aminotransferase 93 U/L (0-40); Albumin Level 3.3 g/dL (3.5-5.0); Alkaline Phosphatase 104 U/L (39-117); Anion Gap 14 (12-20); Aspartate Amino Transferase 42 U/L (5-37); Bilirubin Total 1.2 mg/dL (0.0-1.0); Blood Urea Nitrogen 22 mg/dL (9-16); Calcium 9.4 mg/dL (8.4-10.2); Carbon Dioxide 25 mmol/L (22-29); Chloride 105 mmol/L (96-108); Creatinine Clr Calc Pharmacy 115.8; Estimated Glomerular Filt Rate > 60; Glucose Random 102 mg/dL (60-115); Magnesium 2.1 mg/dL (1.6-2.6); Phosphorus 3.2 mg/dL (2.7-4.5); Potassium 4.1 mmol/L (3.3-5.1); Sodium 140 mmol/L (135-145); Total Protein 6.4 g/dL (6.5-8.0)
[2023-05-20] MEDS: Pantoprazole Sodium 40 MG/10 ML VIAL IVPUSH (06:04)
[2023-05-20 06:17] LABS: MN% 14.7 %; PMN% 85.3 %; RBC Pleural Fluid 0.084 X10*6/uL; WBC Pleural Fluid 2.628 X10*3/uL
[2023-05-20 06:41] LABS: BF Shift QC OK YES; Lymphocytes Pleural Fluid 5 %; Monocytes Pleural Fluid 5 %; Neutrophils Pleural Fluid 90 %
[2023-05-20 06:45] LABS: Venous Blood Gas Refer to POC result
[2023-05-20] MEDS: Spironolactone 25 MG TABLET PO (08:34)
[2023-05-20] MEDS: dexAMETHasone sod phosphate 4 MG/ML VIAL 6 MG IVPUSH ×2 (08:34→20:42)
[2023-05-20] MEDS: Chlorhexidine Gluc Oral Rinse 15 ML MOUTHWASH BUCCAL ×2 (08:34→20:42)
[2023-05-20] MEDS: Losartan Potassium 25 MG TABLET PO (08:34)
[2023-05-20] MEDS: Empagliflozin 10 MG TABLET PO (08:34)
--- NOTE | 2023-05-20 09:23 | MHC.CLN ---
F/U PT EXTUBATED YESTERDAY TF D/C NOW NPO WHEN DIET TO ADVANCE, RECOMMEND 2000DM DIET FOLLOWING WITH TEAM
[2023-05-20 11:58] LABS: Glucose, Whole Blood 99 mg/dL (60-115)
[2023-05-20 12:59] LABS: Glucose Pleural Fluid 86 MG/DL; LDH Pleural Fluid 927 U/L; Total Protein Pleural Fluid 3.3 GM/DL
--- NOTE | 2023-05-20 15:53 | MHC.CM.PN ---
EMR REVIEWED. PT IS NOW WITH CHEST TUBE AND HF02. PT REMAINS IN ICU LEVEL OF CARE. CM WILL CONTINUE TO FOLLOW FOR DC PLAN/NEEDS. COMFORT CARE PLUS HC UPDATED VIA [employer].
--- NOTE | 2023-05-20 17:10 | W.PM.CCHP ---
Procedures Date of Service Date of Service: 05/19/23 Chest Tube Chest Tube 1: Chest tube location: Mid-Axillary Chest Size of tube: 14 Chest tube procedure: Yes betadine prep and sterile drapes applied Tube sutured to skin: Yes Sterile dressing applied: Yes Anesthesia: 1% Lidocaine Incision made with: #11 blade Post procedure: sutured to skin and sterile dressing applied Hernandez of air heard: No (Chest tube placed for rapidly accumulating pleural effusion) Tube Drainage: Serosangui Amount of initial drainage (ml): 1,500 Progress: Patient developed sudden acute respiratory distress with with trapping oxygen saturations and chest x-ray demonstrated new large volume accumulation of left chest effusion and after sterile preparation and draping and under sterile ultrasound guidance in the left 6th intercostal space in the mid axillary line a 14 [place] pigtail chest tube was placed over guidewire guidance along the diaphragmatic pleura completely draining on the postoperative chest x-ray all the effusion on the left side without complication and clinical improvement was demonstrated
--- NOTE | 2023-05-20 17:13 | P.PNCC_ITS ---
Subjective Subjective Date of Service: 05/20/23 Interval History: 72-year-old male with hypoxemic respiratory failure that required intubation any remains so had extensive bilateral parenchymal disease as well as mediastinal lymphadenopathy and evidence of a nodular filling defects in the in the liver and according to the PET scan it really had the appearance potentially of metastatic disease with lung primary I had him on Unasyn and doxycycline and he got clinically better over time was extubated successfully but developed a very rapidly evolving left-sided pleural effusion with with increased respiratory distress and it is a real in it most to as to where this came from but we have a glucose of 86 but an elevated LDH of over 900 and that fluid and according to the total protein a looks like it certainly is exudate of any is a 2900 white count so so it raises questions as to whether not this could be parapneumonic or whether not it is actually is an empyema even though not frankly Passy but he received 8-9 days of the Unasyn that antibiotic was stopped we never had a positive sputum culture but we had polys in the sputum he had a transbronchial biopsy which just demonstrated benign mucosa I emergently placed a chest tube in on the night of when he was in respirato ry distress which drained 1500 cc of serosanguineous fluid with 3 leaf of his progressing hypoxemia relief of his severe tachycardia and tachypnea although he had considerable re-expansion chest pain that gradually subsided on Toradol Critical Care Time (minutes): 45 Physical Exam Vital Signs: Vital Signs: Last Vital Signs Temp 99.9 F 05/20/23 16:00 Pulse 92 05/20/23 16:00 Resp 25 H 05/20/23 16:00 BP 143/80 H 05/20/23 16:00 Pulse Ox 98 05/20/23 16:00 O2 Del Method Room Air 05/20/23 16:00 O2 Flow Rate 45 05/20/23 15:00 FiO2 45 05/20/23 15:00 BMI result Body Mass Index 28.1 Much more comfortable giving me the 2 thumbs up with no evidence of accessory muscle or diaphragm effort Good bilateral carotid upstrokes bedside echo actually with at least a 50% ejection fraction no segmental abnormality Abdomen benign Coarse bilateral rhonchi Objective Data Labs 05/20/23 05:00 05/20/23 05:00 Labs: Laboratory Results - last 24 hr 05/13/23 05/19/23 05/19/23 14:50 18:14 21:54 WBC RBC Hgb Hct MCV MCH MCHC RDW Plt Count MPV Immature Gran % (Auto) Neut % (Auto) Lymph % (Auto) [place] % (Auto) Eos % (Auto) Baso % (Auto) Lymph # (Auto) [place] # (Auto) Eos # (Auto) Baso # (Auto) Abs Immat Gran (auto) Absolute Neuts (auto) Absolute Nucleated RBC Nucleated RBC % (auto) Smear Tech's Comments VBG pH 7.42 VBG pCO2 41 VBG pO2 71 VBG HCO3 27 H VBG O2 Saturation 91.0 VBG Base Excess 2.9 Sodium Potassium Chloride Carbon Dioxide Anion Gap BUN Creatinine Estim Creat Clear Calc Estimated GFR POC Glucose 102 Random Glucose Calcium Phosphorus Magnesium Total Bilirubin AST ALT Alkaline Phosphatase Total Protein Albumin Pleural WBC Pleural RBC Pleural Neutrophils Pleural Lymphocytes Pleural Monocytes Pleural Total Protein Pleural LDH Pleural Glucose L.pneumophila IgM Ab <1:256 05/20/23 05/20/23 05/20/23 00:49 04:54 05:00 WBC RBC Hgb Hct MCV MCH MCHC RDW Plt Count MPV Immature Gran % (Auto) Neut % (Auto) Lymph % (Auto) [place] % (Auto) Eos % (Auto) Baso % (Auto) Lymph # (Auto) [place] # (Auto) Eos # (Auto) Baso # (Auto) Abs Immat Gran (auto) Absolute Neuts (auto) Absolute Nucleated RBC Nucleated RBC % (auto) Smear Tech's Comments VBG pH 7.45 H VBG pCO2 37 VBG pO2 57 VBG HCO3 26 VBG O2 Saturation 84.0 VBG Base Excess 2.2 Sodium Potassium Chloride Carbon Dioxide Anion Gap BUN Creatinine Cancelled Estim Creat Clear Calc Cancelled Estimated GFR Cancelled POC Glucose 139 H Random Glucose Calcium Phosphorus Magnesium Total Bilirubin AST ALT Alkaline Phosphatase Total Protein Albumin Pleural WBC Pleural RBC Pleural Neutrophils Pleural Lymphocytes Pleural Monocytes Pleural Total Protein Pleural LDH Pleural Glucose L.pneumophila IgM Ab 05/20/23 05/20/23 05/20/23 05:00 05:00 05:45 WBC 19.0 H RBC 4.48 L Hgb 13.2 L Hct 40.4 L MCV 90.2 MCH 29.5 MCHC 32.7 RDW 13.2 Plt Count 228 D MPV 11.0 Immature Gran % (Auto) 3.6 H Neut % (Auto) 79.4 H Lymph % (Auto) 7.6 L [place] % (Auto) 8.9 Eos % (Auto) 0.3 Baso % (Auto) 0.2 Lymph # (Auto) 1.4 [place] # (Auto) 1.7 H Eos # (Auto) 0.1 Baso # (Auto) 0.0 Abs Immat Gran (auto) 0.68 H Absolute Neuts (auto) 15.1 H Absolute Nucleated RBC 0.000 Nucleated RBC % (auto) 0.0 Smear Tech's Comments VERIFIED VBG pH VBG pCO2 VBG pO2 VBG HCO3 VBG O2 Saturation VBG Base Excess Sodium 140 Potassium 4.1 Chloride 105 Carbon Dioxide 25 Anion Gap 14 BUN 22 H Creatinine 0.68 Estim Creat Clear Calc 115.8 Estimated GFR > 60 POC Glucose Random Glucose 102 Calcium 9.4 Phosphorus 3.2 Magnesium 2.1 Total Bilirubin 1.2 H AST 42 H ALT 93 H Alkaline Phosphatase 104 Total Protein 6.4 L Albumin 3.3 L Pleural WBC Pleural RBC Pleural Neutrophils Pleural Lymphocytes Pleural Monocytes Pleural Total Protein 3.3 Pleural LDH 927 Pleural Glucose 86 L.pneumophila IgM Ab 05/20/23 05/20/23 05/20/23 05:45 05:45 06:00 WBC RBC Hgb Hct MCV MCH MCHC RDW Plt Count MPV Immature Gran % (Auto) Neut % (Auto) Lymph % (Auto) [place] % (Auto) Eos % (Auto) Baso % (Auto) Lymph # (Auto) [place] # (Auto) Eos # (Auto) Baso # (Auto) Abs Immat Gran (auto) Absolute Neuts (auto) Absolute Nucleated RBC Nucleated RBC % (auto) Smear Tech's Comments VBG pH VBG pCO2 VBG pO2 VBG HCO3 VBG O2 Saturation VBG Base Excess Sodium Potassium Chloride Carbon Dioxide Anion Gap BUN Creatinine Estim Creat Clear Calc Estimated GFR POC Glucose Random Glucose Calcium Phosphorus Magnesium Total Bilirubin AST ALT Alkaline Phosphatase Total Protein Albumin Pleural WBC 2.628 Pleural RBC 0.084 Pleural Neutrophils 90 Pleural Lymphocytes 5 Pleural Monocytes 5 Pleural Total Protein Cancelled Pleural LDH Cancelled Pleural Glucose L.pneumophila IgM Ab 05/20/23 11:51 WBC RBC Hgb Hct MCV MCH MCHC RDW Plt Count MPV Immature Gran % (Auto) Neut % (Auto) Lymph % (Auto) [place] % (Auto) Eos % (Auto) Baso % (Auto) Lymph # (Auto) [place] # (Auto) Eos # (Auto) Baso # (Auto) Abs Immat Gran (auto) Absolute Neuts (auto) Absolute Nucleated RBC Nucleated RBC % (auto) Smear Tech's Comments VBG pH VBG pCO2 VBG pO2 VBG HCO3 VBG O2 Saturation VBG Base Excess Sodium Potassium Chloride Carbon Dioxide Anion Gap BUN Creatinine Estim Creat Clear Calc Estimated GFR POC Glucose 99 Random Glucose Calcium Phosphorus Magnesium Total Bilirubin AST ALT Alkaline Phosphatase Total Protein Albumin Pleural WBC Pleural RBC Pleural Neutrophils Pleural Lymphocytes Pleural Monocytes Pleural Total Protein Pleural LDH Pleural Glucose L.pneumophila IgM Ab Microbiology Microbiology Results: Microbiology 05/12/23 18:36 Blood - Venous Blood Culture - Final No growth after 5 days. 05/12/23 18:36 Blood - Venous Blood Culture - Final No growth after 5 days. 05/13/23 13:50 Sputum - Suctioned Gram Stain - Final 05/13/23 13:50 Sputum - Suctioned Sputum Culture - Final 05/12/23 20:49 Urine clean catch - Urine guillaume top Urine Culture - Final Progress Note: A&P Assessment and plan (1) Cervical adenopathy: Status: Acute (2) Congestive cardiomyopathy: Status: Acute (3) Acute hypoxemic respiratory failure: Status: Acute (4) Pleural effusion: Status: Acute (5) Atypical pneumonia: Status: Acute (6) Respiratory failure: Status: Acute Plan This so at this point I will continue at least into the weekend with the Unasyn and doxycycline as he is clinically improving and start and maybe slowly weaning the Decadron at this point wait for the final on the pathology and we may yet still have to consider another approach a finding pathology and and that would entail possibly and endoscopic ultrasound approach for carinal lymph node or mediastinoscopy might be the route to go Quality Stroke Does the patient have a stroke diagnosis?: No VTE Prior VTE?: No VTE Risk Level:: Medical - moderate - high VTE Device Contraindication: N/A - Device Ordered VTE Drug Contraindication: N/A - Med Ordered
[2023-05-20 17:49] LABS: Glucose, Whole Blood 127 mg/dL (60-115)
[2023-05-20] MEDS: oxyCODONE HCl Immed Release 5 MG TABLET 10 MG PO (19:38)
[2023-05-20 21:08] LABS: Glucose, Whole Blood 128 mg/dL (60-115)
[2023-05-20] MEDS: traZODone HCL 25 MG HALFTAB PO (21:18)
[2023-05-21] VITALS (25 sets, daily range): BP systolic 101–158; BP diastolic 51–111; PULSE 80–104; RESP 15–29; TEMP 37.1–37.7; O2SAT 91–99; BMI 25.8
[2023-05-21] MEDS: oxyCODONE HCl Immed Release 5 MG TABLET 10 MG PO ×4 (00:09→21:13)
[2023-05-21] MEDS: Ampicillin Sodium/Sulbactam Na 3 GM in 0.9 % Sodium Chloride 100 ML IV ×4 (02:51→20:39)
[2023-05-21] MEDS: Doxycycline Hyclate 100 MG in 0.9 % Sodium Chloride 250 ML 166.67 MG IV ×2 (02:56→14:43)
[2023-05-21 05:42] LABS: VBG Base Excess 3.7 mmol/L; VBG HCO3 27 mmol/L (22-26); VBG pCO2 40 mmHg; VBG pH 7.44 (7.32-7.43); VBG pO2 48 mmHg
[2023-05-21 05:42] LABS: Venous Blood Gas Refer to POC result
[2023-05-21 05:49] LABS: MANUAL DIFF FLAG NO
[2023-05-21 05:50] LABS: Basophils Percent Auto 0.2 % (0-2); Eosinophils Percent Auto 0.2 % (0-4); Hematocrit 39.4 % (42.0-52.0); Hemoglobin 12.9 g/dl (14.0-18.0); Imm Gran Abs Auto 0.48 X10*3/uL (0.00-0.03); Imm Gran Pct Auto 2.7 % (0.0-0.4); Lymphocytes Percent Auto 5.8 % (20-40); Mean Corpuscular HGB Conc 32.7 g/dl (31.0-36.0); Mean Corpuscular Hemoglobin 29.9 pg (27.0-33.0); Mean Corpuscular Volume 91.4 fL (80.0-98.0); Mean Platelet Volume 10.7 fL (9.4-12.4); Monocytes Absolute Auto 1.3 X10*3/uL (0.1-1.2); Monocytes Percent Auto 7.3 % (2-11); Neutrophils Absolute Auto 14.7 x10*3/uL (2.0-8.3); Neutrophils Percent Auto 83.8 % (45-73); Platelet Count 251 X10*3/uL (160-400); Red Blood Count 4.31 X10*6/uL (4.60-5.80); Red Cell Distribution Width 12.9 % (11.0-16.0); White Blood Count 17.6 X10*3/uL (4.8-10.8)
[2023-05-21 06:11] LABS: Alanine Aminotransferase 67 U/L (0-40); Albumin Level 3.4 g/dL (3.5-5.0); Alkaline Phosphatase 97 U/L (39-117); Anion Gap 15 (12-20); Aspartate Amino Transferase 28 U/L (5-37); Bilirubin Total 1.2 mg/dL (0.0-1.0); Blood Urea Nitrogen 23 mg/dL (9-16); Calcium 9.5 mg/dL (8.4-10.2); Carbon Dioxide 26 mmol/L (22-29); Chloride 103 mmol/L (96-108); Creatinine Clr Calc Pharmacy 112.8; Estimated Glomerular Filt Rate > 60; Glucose Random 118 mg/dL (60-115); Magnesium 2.2 mg/dL (1.6-2.6); Phosphorus 2.7 mg/dL (2.7-4.5); Potassium 4.5 mmol/L (3.3-5.1); Sodium 139 mmol/L (135-145); Total Protein 6.4 g/dL (6.5-8.0)
[2023-05-21] MEDS: Pantoprazole Sodium 40 MG/10 ML VIAL IVPUSH (06:13)
[2023-05-21 07:34] LABS: Glucose, Whole Blood 113 mg/dL (60-115)
[2023-05-21] MEDS: Losartan Potassium 25 MG TABLET PO (08:20)
[2023-05-21] MEDS: Spironolactone 25 MG TABLET PO (08:21)
[2023-05-21] MEDS: Empagliflozin 10 MG TABLET PO (08:21)
[2023-05-21] MEDS: Chlorhexidine Gluc Oral Rinse 15 ML MOUTHWASH BUCCAL ×3 (08:22→20:39)
[2023-05-21] MEDS: dexAMETHasone sod phosphate 4 MG/ML VIAL 6 MG IVPUSH (08:22)
[2023-05-21 11:40] LABS: Glucose, Whole Blood 149 mg/dL (60-115)
--- NOTE | 2023-05-21 16:03 | PM.CCPN ---
Subjective Subjective Date of Service: 05/21/23 Interval History: 72-year-old male who came in with a hypoxemic respiratory failure intubated now extubated remaining on Unasyn and doxycycline improving has extensive bilateral parenchymal disease some of which seems to have cleared clinically certainly restoring respiratory sufficiency enough to come off the ventilator and a transbronchial biopsy which failed to yield any pathologic tissue and had a rapidly evolving left pleural effusion was with severe acute respiratory distress which still remains in a neck much but there is indication that it is in the know that it is an exudate with a significant white count and left shift implying parapneumonic versus empyema for which it like I said he has been drained dry of 1500 cc of a serosanguineous fluid with minimal hourly volume at this point probably getting near qualification to have the tube removed and and AFB is pending and cell cytology is pending etc. but I think he is going to need more aggressive adeno biopsy approach possibly via mediastinoscopy or endoscopic ultrasound Critical Care Time (minutes): 45 Physical Exam Vital Signs: Vital Signs: Last Vital Signs Temp 99.5 F 05/21/23 15:00 Pulse 89 05/21/23 15:00 Resp 18 05/21/23 15:00 BP 126/80 05/21/23 15:00 Pulse Ox 96 05/21/23 15:00 O2 Del Method Oxymask 05/21/23 15:00 O2 Flow Rate 4 05/21/23 15:00 FiO2 35 05/21/23 06:36 BMI result Body Mass Index 25.8 Stable vital signs stable oxygen saturation without a complaint Now draining less than 10 cc an hour and just going to watch overnight place him on water seal in if it is consistent in its minimal drainage will probably discontinue the chest tube in the morning Bedside echo with 50% ejection fraction Abdomen soft tolerating his p.o. feedings no aspiration no organomegaly No skin breakdown Objective Data Labs 05/21/23 05:34 05/21/23 05:34 Labs: Laboratory Results - last 24 hr 05/20/23 05/20/23 05/21/23 17:43 21:04 05:30 WBC RBC Hgb Hct MCV MCH MCHC RDW Plt Count MPV Immature Gran % (Auto) Neut % (Auto) Lymph % (Auto) [place] % (Auto) Eos % (Auto) Baso % (Auto) Lymph # (Auto) [place] # (Auto) Eos # (Auto) Baso # (Auto) Abs Immat Gran (auto) Absolute Neuts (auto) Absolute Nucleated RBC Nucleated RBC % (auto) VBG pH 7.44 H VBG pCO2 40 VBG pO2 48 VBG HCO3 27 H VBG O2 Saturation 76.0 VBG Base Excess 3.7 Sodium Potassium Chloride Carbon Dioxide Anion Gap BUN Creatinine Estim Creat Clear Calc Estimated GFR POC Glucose 127 H 128 H Random Glucose Calcium Phosphorus Magnesium Total Bilirubin AST ALT Alkaline Phosphatase Total Protein Albumin 05/21/23 05/21/23 05/21/23 05:34 05:34 07:30 WBC 17.6 H RBC 4.31 L Hgb 12.9 L Hct 39.4 L MCV 91.4 MCH 29.9 MCHC 32.7 RDW 12.9 Plt Count 251 MPV 10.7 Immature Gran % (Auto) 2.7 H Neut % (Auto) 83.8 H Lymph % (Auto) 5.8 L [place] % (Auto) 7.3 Eos % (Auto) 0.2 Baso % (Auto) 0.2 Lymph # (Auto) 1.0 L [place] # (Auto) 1.3 H Eos # (Auto) 0.0 Baso # (Auto) 0.0 Abs Immat Gran (auto) 0.48 H Absolute Neuts (auto) 14.7 H Absolute Nucleated RBC 0.000 Nucleated RBC % (auto) 0.0 VBG pH VBG pCO2 VBG pO2 VBG HCO3 VBG O2 Saturation VBG Base Excess Sodium 139 Potassium 4.5 Chloride 103 Carbon Dioxide 26 Anion Gap 15 BUN 23 H Creatinine 0.64 Estim Creat Clear Calc 112.8 Estimated GFR > 60 POC Glucose 113 Random Glucose 118 H Calcium 9.5 Phosphorus 2.7 Magnesium 2.2 Total Bilirubin 1.2 H AST 28 ALT 67 H Alkaline Phosphatase 97 Total Protein 6.4 L Albumin 3.4 L 05/21/23 11:36 WBC RBC Hgb Hct MCV MCH MCHC RDW Plt Count MPV Immature Gran % (Auto) Neut % (Auto) Lymph % (Auto) [place] % (Auto) Eos % (Auto) Baso % (Auto) Lymph # (Auto) [place] # (Auto) Eos # (Auto) Baso # (Auto) Abs Immat Gran (auto) Absolute Neuts (auto) Absolute Nucleated RBC Nucleated RBC % (auto) VBG pH VBG pCO2 VBG pO2 VBG HCO3 VBG O2 Saturation VBG Base Excess Sodium Potassium Chloride Carbon Dioxide Anion Gap BUN Creatinine Estim Creat Clear Calc Estimated GFR POC Glucose 149 H Random Glucose Calcium Phosphorus Magnesium Total Bilirubin AST ALT Alkaline Phosphatase Total Protein Albumin Microbiology Microbiology Results: Microbiology 05/12/23 18:36 Blood - Venous Blood Culture - Final No growth after 5 days. 05/12/23 18:36 Blood - Venous Blood Culture - Final No growth after 5 days. 05/13/23 13:50 Sputum - Suctioned Gram Stain - Final 05/13/23 13:50 Sputum - Suctioned Sputum Culture - Final 05/12/23 20:49 Urine clean catch - Urine guillaume top Urine Culture - Final Progress Note: A&P Assessment and plan (1) Cervical adenopathy: Status: Acute (2) Congestive cardiomyopathy: Status: Acute (3) Acute hypoxemic respiratory failure: Status: Acute (4) Pleural effusion: Status: Acute (5) Atypical pneumonia: Status: Acute (6) Respiratory failure: Status: Acute Plan So we have a primary lung process which could the mycobacterial or some other form of atypical pneumonitis or could represent a metastatic carcinoma or even sarcoid but we lack the the appropriate pathology One more day of the above antibiotics and I will discontinue and possibly discontinue the chest tube as well and watched serially but at that point he might be transferable to the floor and and from there I think a a diagnostic plan needs to be made Quality Stroke Does the patient have a stroke diagnosis?: No VTE Prior VTE?: No VTE Risk Level:: Medical - moderate - high VTE Device Contraindication: N/A - Device Ordered VTE Drug Contraindication: N/A - Med Ordered
[2023-05-21 16:20] LABS: Glucose, Whole Blood 189 mg/dL (60-115)
[2023-05-21] MEDS: Insulin Lispro 100 UNIT/ML 3 ML VIAL SUBCUT ×2 (16:25→21:40)
[2023-05-21] MEDS: dexAMETHasone sod phosphate 4 MG/ML VIAL IVPUSH (20:39)
[2023-05-21] MEDS: traZODone HCL 25 MG HALFTAB PO (21:13)
[2023-05-21 21:34] LABS: Glucose, Whole Blood 160 mg/dL (60-115)
[2023-05-22] VITALS (20 sets, daily range): BP systolic 101–159; BP diastolic 8–96; PULSE 90–121; RESP 15–38; TEMP 35.8–37.8; O2SAT 91–96; BMI 25.7
[2023-05-22] MEDS: oxyCODONE HCl Immed Release 5 MG TABLET 10 MG PO ×3 (01:03→15:58)
[2023-05-22] MEDS: Ampicillin Sodium/Sulbactam Na 3 GM in 0.9 % Sodium Chloride 100 ML IV (02:39)
[2023-05-22] MEDS: Doxycycline Hyclate 100 MG in 0.9 % Sodium Chloride 250 ML 166.67 MG IV (02:40)
[2023-05-22] MEDS: Pantoprazole Sodium 40 MG/10 ML VIAL IVPUSH (05:31)
[2023-05-22 06:07] LABS: Basophils Percent Auto 0.1 % (0-2); Eosinophils Absolute Auto 0.1 X10*3/uL (0.0-0.4); Eosinophils Percent Auto 0.3 % (0-4); Hematocrit 39.7 % (42.0-52.0); Hemoglobin 12.8 g/dl (14.0-18.0); Imm Gran Abs Auto 0.28 X10*3/uL (0.00-0.03); Imm Gran Pct Auto 1.4 % (0.0-0.4); Lymphocytes Absolute Auto 1.2 X10*3/uL (1.2-4.9); Lymphocytes Percent Auto 5.7 % (20-40); MANUAL DIFF FLAG SCAN; Mean Corpuscular HGB Conc 32.2 g/dl (31.0-36.0); Mean Corpuscular Hemoglobin 29.4 pg (27.0-33.0); Mean Corpuscular Volume 91.1 fL (80.0-98.0); Mean Platelet Volume 11.1 fL (9.4-12.4); Monocytes Absolute Auto 1.7 X10*3/uL (0.1-1.2); Monocytes Percent Auto 8.3 % (2-11); Neutrophils Absolute Auto 17.1 x10*3/uL (2.0-8.3); Neutrophils Percent Auto 84.2 % (45-73); Platelet Count 270 X10*3/uL (160-400); Red Blood Count 4.36 X10*6/uL (4.60-5.80); SCAN SMEAR FLAG 1; White Blood Count 20.3 X10*3/uL (4.8-10.8)
[2023-05-22 06:13] LABS: Alanine Aminotransferase 67 U/L (0-40); Albumin Level 3.4 g/dL (3.5-5.0); Alkaline Phosphatase 90 U/L (39-117); Anion Gap 11 (12-20); Aspartate Amino Transferase 33 U/L (5-37); Blood Urea Nitrogen 24 mg/dL (9-16); Calcium 9.6 mg/dL (8.4-10.2); Carbon Dioxide 29 mmol/L (22-29); Chloride 103 mmol/L (96-108); Creatinine Clr Calc Pharmacy 112.8; Estimated Glomerular Filt Rate > 60; Glucose Random 122 mg/dL (60-115); Magnesium 2.1 mg/dL (1.6-2.6); Phosphorus 2.8 mg/dL (2.7-4.5); Potassium 4.4 mmol/L (3.3-5.1); Sodium 139 mmol/L (135-145); Total Protein 6.4 g/dL (6.5-8.0)
[2023-05-22 06:21] LABS: VBG Base Excess 4.9 mmol/L; VBG HCO3 29 mmol/L (22-26); VBG pCO2 43 mmHg; VBG pH 7.43 (7.32-7.43); VBG pO2 47 mmHg
[2023-05-22 06:26] LABS: Venous Blood Gas Refer to POC result
[2023-05-22 06:32] LABS: SLIDE REVIEW VERIFIED
[2023-05-22 07:31] LABS: Glucose, Whole Blood 121 mg/dL (60-115)
[2023-05-22] MEDS: Empagliflozin 10 MG TABLET PO (08:10)
[2023-05-22] MEDS: Spironolactone 25 MG TABLET PO (08:10)
[2023-05-22] MEDS: Chlorhexidine Gluc Oral Rinse 15 ML MOUTHWASH BUCCAL (08:10)
[2023-05-22] MEDS: dexAMETHasone sod phosphate 4 MG/ML VIAL IVPUSH ×2 (08:10→20:53)
[2023-05-22] MEDS: Losartan Potassium 25 MG TABLET PO (08:10)
--- NOTE | 2023-05-22 10:32 | PM.CCPN ---
Subjective Subjective Date of Service: 05/22/23 Interval History: 72-year-old male who presented with hypoxemic respiratory failure with acute contributions potentially from pulmonary edema given what appeared to be initially about a 40% ejection fraction with mild diffuse hypokinesis of his left ventricle which has since improved to about 50% or it could have been acutely encumbered by an infectious issue but we have no positivity to any cultures including sputum but we do have a pleural effusion 1500 cc of serosanguineous effusion that had a white count of 2600 with a left shift 90% polys and an elevated LDH and what appears to be success in restoring respiratory reserve after 8-9 days of antibiotics mainly including doxycycline and Unasyn but given the the pattern of lymphadenopathy and and the nodular liver involvement we still are concerned about metastatic carcinoma and we still need a plan to biopsy either via endoscopic ultrasound or mediastinoscopy but this still is a missing piece to this possible at this point we are and have been successful with the removal of the chest tube on the left side and will just watch make sure there is no accumulation but he is consistently under 10 cc/hour Critical Care Time (minutes): 35 Physical Exam Vital Signs: Vital Signs: Last Vital Signs Temp 100.0 F 05/22/23 10:00 Pulse 109 H 05/22/23 10:00 Resp 24 H 05/22/23 10:00 BP 114/78 05/22/23 10:00 Pulse Ox 93 05/22/23 10:00 O2 Del Method Nasal Cannula 05/22/23 10:00 O2 Flow Rate 4 05/22/23 10:00 FiO2 35 05/21/23 06:36 BMI result Body Mass Index 25.7 He is awake alert nonfocal neurologically Comfortable without significant respiratory effort still has coarse bilateral rales Abdomen is benign no organomegaly Cardiac exam showing 50% ejection fraction no segmental wall motion abnormality by bedside echo Objective Data Labs 05/22/23 05:38 05/22/23 05:38 Labs: Laboratory Results - last 24 hr 05/21/23 05/21/23 05/21/23 11:36 16:17 21:30 WBC RBC Hgb Hct MCV MCH MCHC RDW Plt Count MPV Immature Gran % (Auto) Neut % (Auto) Lymph % (Auto) [place] % (Auto) Eos % (Auto) Baso % (Auto) Lymph # (Auto) [place] # (Auto) Eos # (Auto) Baso # (Auto) Abs Immat Gran (auto) Absolute Neuts (auto) Absolute Nucleated RBC Nucleated RBC % (auto) Smear Tech's Comments VBG pH VBG pCO2 VBG pO2 VBG HCO3 VBG O2 Saturation VBG Base Excess Sodium Potassium Chloride Carbon Dioxide Anion Gap BUN Creatinine Estim Creat Clear Calc Estimated GFR POC Glucose 149 H 189 H 160 H Random Glucose Calcium Phosphorus Magnesium Total Bilirubin AST ALT Alkaline Phosphatase Total Protein Albumin 05/22/23 05/22/23 05/22/23 05:38 05:38 06:12 WBC 20.3 H RBC 4.36 L Hgb 12.8 L Hct 39.7 L MCV 91.1 MCH 29.4 MCHC 32.2 RDW 13.0 Plt Count 270 MPV 11.1 Immature Gran % (Auto) 1.4 H Neut % (Auto) 84.2 H Lymph % (Auto) 5.7 L [place] % (Auto) 8.3 Eos % (Auto) 0.3 Baso % (Auto) 0.1 Lymph # (Auto) 1.2 [place] # (Auto) 1.7 H Eos # (Auto) 0.1 Baso # (Auto) 0.0 Abs Immat Gran (auto) 0.28 H Absolute Neuts (auto) 17.1 H Absolute Nucleated RBC 0.000 Nucleated RBC % (auto) 0.0 Smear Tech's Comments VERIFIED VBG pH 7.43 VBG pCO2 43 VBG pO2 47 VBG HCO3 29 H VBG O2 Saturation 74.0 VBG Base Excess 4.9 Sodium 139 Potassium 4.4 Chloride 103 Carbon Dioxide 29 Anion Gap 11 L BUN 24 H Creatinine 0.64 Estim Creat Clear Calc 112.8 Estimated GFR > 60 POC Glucose Random Glucose 122 H Calcium 9.6 Phosphorus 2.8 Magnesium 2.1 Total Bilirubin 1.0 AST 33 ALT 67 H Alkaline Phosphatase 90 Total Protein 6.4 L Albumin 3.4 L 05/22/23 07:27 WBC RBC Hgb Hct MCV MCH MCHC RDW Plt Count MPV Immature Gran % (Auto) Neut % (Auto) Lymph % (Auto) [place] % (Auto) Eos % (Auto) Baso % (Auto) Lymph # (Auto) [place] # (Auto) Eos # (Auto) Baso # (Auto) Abs Immat Gran (auto) Absolute Neuts (auto) Absolute Nucleated RBC Nucleated RBC % (auto) Smear Tech's Comments VBG pH VBG pCO2 VBG pO2 VBG HCO3 VBG O2 Saturation VBG Base Excess Sodium Potassium Chloride Carbon Dioxide Anion Gap BUN Creatinine Estim Creat Clear Calc Estimated GFR POC Glucose 121 H Random Glucose Calcium Phosphorus Magnesium Total Bilirubin AST ALT Alkaline Phosphatase Total Protein Albumin Microbiology Microbiology Results: Microbiology 05/12/23 18:36 Blood - Venous Blood Culture - Final No growth after 5 days. 05/12/23 18:36 Blood - Venous Blood Culture - Final No growth after 5 days. 05/13/23 13:50 Sputum - Suctioned Gram Stain - Final 05/13/23 13:50 Sputum - Suctioned Sputum Culture - Final 05/12/23 20:49 Urine clean catch - Urine guillaume top Urine Culture - Final Progress Note: A&P Assessment and plan (1) Cervical adenopathy: Status: Acute (2) Congestive cardiomyopathy: Status: Acute (3) Acute hypoxemic respiratory failure: Status: Acute (4) Pleural effusion: Status: Acute (5) Atypical pneumonia: Status: Acute (6) Respiratory failure: Status: Acute Plan So the plan will be probable transfer to the intermediate care unit and continued follow-up by both thoracic surgery as well as pulmonary to obtain tissue Quality Stroke Does the patient have a stroke diagnosis?: No VTE Prior VTE?: No VTE Risk Level:: Medical - moderate - high VTE Device Contraindication: N/A - Device Ordered VTE Drug Contraindication: N/A - Med Ordered
[2023-05-22 11:26] LABS: Glucose, Whole Blood 201 mg/dL (60-115)
[2023-05-22] MEDS: Insulin Lispro 100 UNIT/ML 3 ML VIAL SUBCUT (11:28)
[2023-05-22] MEDS: Ketorolac Tromethamine 15 MG/ML VIAL IVPUSH (11:34)
[2023-05-22] MEDS: Lactulose 20 GM/30 ML SOLUTION 30 GM PO (14:25)
[2023-05-22 16:08] LABS: Glucose, Whole Blood 144 mg/dL (60-115)
[2023-05-22 20:16] LABS: Glucose, Whole Blood 146 mg/dL (60-115)
[2023-05-23 04:04] VITALS: BP 143/81; PULSE 109; RESP 18; TEMP 36.4; O2SAT 98
[2023-05-23] MEDS: oxyCODONE HCl Immed Release 5 MG TABLET 10 MG PO ×2 (04:22→17:59)
[2023-05-23 06:00] VITALS: BMI 23.5
[2023-05-23 07:16] VITALS: BP 137/85; PULSE 91; RESP 20; TEMP 36.1; O2SAT 95
[2023-05-23 07:28] LABS: Glucose, Whole Blood 122 mg/dL (60-115)
[2023-05-23 07:46] LABS: Creatinine Clr Calc Pharmacy 124.5; Estimated Glomerular Filt Rate > 60
[2023-05-23] MEDS: Spironolactone 25 MG TABLET PO (08:59)
[2023-05-23] MEDS: Empagliflozin 10 MG TABLET PO (08:59)
[2023-05-23] MEDS: Losartan Potassium 25 MG TABLET PO (08:59)
[2023-05-23] MEDS: dexAMETHasone sod phosphate 4 MG/ML VIAL IVPUSH ×2 (09:00→20:32)
[2023-05-23 11:13] VITALS: BP 141/80; PULSE 89; RESP 20; TEMP 36.4; O2SAT 96
--- NOTE | 2023-05-23 11:24 | P.PNIM_ITS ---
Subjective Subjective Date of Service: 05/24/23 Review of Systems Follow up respiratory failure doing better oob to chair Physical Exam Vital Signs: Vital Signs: Last Vital Signs Temp 97.6 F 05/23/23 11:13 Pulse 89 05/23/23 11:13 Resp 20 05/23/23 11:13 BP 141/80 H 05/23/23 11:13 Pulse Ox 96 05/23/23 11:13 O2 Del Method Nasal Cannula 05/23/23 11:13 O2 Flow Rate 4 05/23/23 11:13 FiO2 35 05/21/23 06:36 BMI result Body Mass Index 23.5 Appearing in no acute distress lung sounds are clear to auscultation heart regular rate rhythm, clear S1, S2 positive bowel sounds, abdomen is soft, nontender neuro patient is alert x3, no focal deficits Objective Data Active Medications Dexamethasone Sodium Phosphate (Dexamethasone Sod Phosphate 4 Mg/Ml Vial) 4 mg IVPUSH BID [facility] Last Admin: 05/23/23 09:00 Dose: 4 mg Documented By: JADON Empagliflozin (Empagliflozin 10 Mg Tablet) 10 mg PO DAILY [facility] Last Admin: 05/23/23 08:59 Dose: 10 mg Documented By: JADON Glucose (Glucose Gel 15 Gm Gel..Gram.) 15 gm PO Q15M PRN; Protocol PRN Reason: per Hypoglycemia Standing Ord. Dextrose (D10) 250 mls @ 750 mls/hr IV Q15M PRN; Protocol PRN Reason: per Hypoglycemia Standing Ord. Insulin Human Lispro (Insulin Lispro 100 Unit/Ml 3 Ml Vial) 0 unit SUBCUT QIDA [facility]; Protocol Last Admin: 05/23/23 07:30 Dose: Not Given Documented By: JADON Non-Admin Reason: No Insulin Coverage Losartan Potassium (Losartan Potassium 25 Mg Tablet) 25 mg PO DAILY [facility]; Protocol Last Admin: 05/23/23 08:59 Dose: 25 mg Documented By: JADON Oxycodone HCl (Oxycodone Hcl Immed Release 5 Mg Tablet) 10 mg PO Q4H PRN PRN Reason: Pain, Severe (Pain Scale 7-10) Last Admin: 05/23/23 04:22 Dose: 10 mg Documented By: CURT Spironolactone (Spironolactone 25 Mg Tablet) 25 mg PO DAILY [facility]; Protocol Last Admin: 05/23/23 08:59 Dose: 25 mg Documented By: JADON Trazodone HCl (Trazodone Hcl 25 Mg Halftab) 25 mg PO BEDTIME PRN PRN Reason: Insomnia Last Admin: 05/21/23 21:13 Dose: 25 mg Documented By: ARSEN Labs 05/22/23 05:38 05/23/23 07:01 Labs: Laboratory Results - last 24 hr 05/22/23 05/22/23 05/22/23 11:20 16:04 20:10 Estim Creat Clear Calc Estimated GFR POC Glucose 201 H 144 H 146 H 05/23/23 05/23/23 07:01 07:18 Estim Creat Clear Calc 124.5 Estimated GFR > 60 POC Glucose 122 H Assessment and Plan (1) Acute hypoxemic respiratory failure: Status: Acute Plan 72-year-old male who presented with hypoxemic respiratory failure with pleural effusion and collection of 1500 cc of serosanguineous fluid via chest tube that has since been removed. 8-9 days of antibiotics mainly including doxycycline and Unasyn but given the the pattern of lymphadenopathy and and the nodular liver i nvolvement we still are concerned about metastatic carcinoma and we still need a plan to do needle biopsy as bronchoscopy tissue biopsy was appeared to have gathered the wrong tissue. He and his moved from [place] in January of 2023 and symptoms of sob started soon after. His PCP ordered the PET scan that was done on 05/10/23 which showed soft tissue mass at central part of partially collapsed left upper lobe of the lung the level of the left main pulmonary artery suspicious for primary lung cancer. Also showed possibility of an esophageal malignancy as well as liver lesions highly suspicious for hepatic metastasectomy disease. Hypoxemic respiratory failure required intubation in ICU status post extubated Now on 4 L of oxygen Stable oxygen saturation Out of bed to chair Repeat chest x-ray pending postobstructive pneumonia secondary to lung cancer patient initially admitted to ICU on Bipap Status post antibiotics There is a question of mass/malignancy Needs IR needle biopsy as it appears that the tissue from the bronchoscopy was from the wrong area pleural effusion s/p chest tube removed Hypercalcemia Resolved DM2 ss, ada diet HTN Losartan Stable blood pressure DVT prophylaxis with pneumatic compression boots Attending Dr. Rubio Full code Continue hospitalization for treatment of acute hypoxic respiratory failure still requiring 4-5 L oxygen Time Spent With Patient Time: Total time managing care of this patient today ____ minutes. Quality Stroke Does the patient have a stroke diagnosis?: No VTE Prior VTE?: No VTE Risk Level:: Medical - moderate - high VTE Device Contraindication: N/A - Device Ordered VTE Drug Contraindication: N/A - Med Ordered
[2023-05-23 11:30] LABS: Glucose, Whole Blood 140 mg/dL (60-115)
[2023-05-23 13:09] LABS: TS Negative Control Passed; TS Panel A 0; TS Panel B 0; TS Positive Control Passed; TSpotTB Negative (Negative)
[2023-05-23 15:09] VITALS: BP 123/80; PULSE 93; RESP 18; TEMP 36.3; O2SAT 95
--- NOTE | 2023-05-23 15:36 | MHC.CM.PN ---
EMR REVIEWED, PT STEPDOWN FROM ICU, PT W/OBSTRUCTIVE PNA/ LUNG CA, PT IMPROVING HOWEVER REMAINS ON 4L OC NC, NO PLAN FOR D/C ATTHIS TIME, CM WILL CONT TO FOLLOW D/C NEEDS.
[2023-05-23 16:00] LABS: Glucose, Whole Blood 133 mg/dL (60-115)
[2023-05-23 19:12] VITALS: BP 142/78; PULSE 94; RESP 18; TEMP 36.7; O2SAT 95
[2023-05-23 20:20] LABS: Glucose, Whole Blood 176 mg/dL (60-115)
[2023-05-23] MEDS: Mirtazapine 7.5 MG TABLET PO (20:32)
[2023-05-23] MEDS: Insulin Lispro 100 UNIT/ML 3 ML VIAL SUBCUT (20:33)
[2023-05-23] MEDS: traZODone HCL 25 MG HALFTAB PO (22:47)
[2023-05-23] MEDS: LORazepam 0.5 MG TABLET PO (22:47)
[2023-05-24] VITALS (7 sets, daily range): BP systolic 111–142; BP diastolic 64–97; PULSE 95–115; RESP 17–20; TEMP 35.8–36.6; O2SAT 96–97; BMI 23.3
[2023-05-24] MEDS: oxyCODONE HCl Immed Release 5 MG TABLET 10 MG PO (04:02)
[2023-05-24 06:17] LABS: Basophils Percent Auto 0.1 % (0-2); Hematocrit 44.5 % (42.0-52.0); Hemoglobin 14.5 g/dl (14.0-18.0); Imm Gran Abs Auto 0.27 X10*3/uL (0.00-0.03); Imm Gran Pct Auto 1.3 % (0.0-0.4); Lymphocytes Percent Auto 4.6 % (20-40); MANUAL DIFF FLAG SCAN; Mean Corpuscular HGB Conc 32.6 g/dl (31.0-36.0); Mean Corpuscular Hemoglobin 29.3 pg (27.0-33.0); Mean Corpuscular Volume 89.9 fL (80.0-98.0); Mean Platelet Volume 11.1 fL (9.4-12.4); Monocytes Absolute Auto 1.5 X10*3/uL (0.1-1.2); Monocytes Percent Auto 7.2 % (2-11); Neutrophils Absolute Auto 18.7 x10*3/uL (2.0-8.3); Neutrophils Percent Auto 86.8 % (45-73); Platelet Count 347 X10*3/uL (160-400); Red Blood Count 4.95 X10*6/uL (4.60-5.80); Red Cell Distribution Width 13.1 % (11.0-16.0); SCAN SMEAR FLAG 1; White Blood Count 21.5 X10*3/uL (4.8-10.8)
[2023-05-24 06:23] LABS: INTERNATIONAL NORM RATIO 1.3 (0.9-1.1); Prothrombin Time 15.2 SEC (10.0-13.1)
[2023-05-24 06:32] LABS: Anion Gap 16 (12-20); Blood Urea Nitrogen 21 mg/dL (9-16); Calcium 9.9 mg/dL (8.4-10.2); Carbon Dioxide 25 mmol/L (22-29); Chloride 102 mmol/L (96-108); Creatinine Clr Calc Pharmacy 109.4; Estimated Glomerular Filt Rate > 60; Glucose Random 140 mg/dL (60-115); Potassium 4.7 mmol/L (3.3-5.1); Sodium 138 mmol/L (135-145)
[2023-05-24 06:44] LABS: SLIDE REVIEW VERIFIED
[2023-05-24 07:40] LABS: Glucose, Whole Blood 125 mg/dL (60-115)
[2023-05-24] MEDS: dexAMETHasone sod phosphate 4 MG/ML VIAL IVPUSH ×2 (08:20→21:10)
[2023-05-24] MEDS: Spironolactone 25 MG TABLET PO (08:20)
[2023-05-24] MEDS: Empagliflozin 10 MG TABLET PO (08:20)
[2023-05-24] MEDS: Losartan Potassium 25 MG TABLET PO (08:20)
--- NOTE | 2023-05-24 09:07 | P.PNIM_ITS ---
Subjective Subjective Date of Service: 05/24/23 Review of Systems Follow up respiratory failure doing better oob to chair Physical Exam Vital Signs: Vital Signs: Last Vital Signs Temp 97.8 F 05/24/23 07:43 Pulse 115 H 05/24/23 07:43 Resp 20 05/24/23 07:43 BP 142/97 H 05/24/23 07:43 Pulse Ox 96 05/24/23 07:43 O2 Del Method Nasal Cannula 05/24/23 07:43 O2 Flow Rate 3 05/24/23 07:43 FiO2 35 05/21/23 06:36 BMI result Body Mass Index 23.3 Appearing in no acute distress lung sounds are clear to auscultation, rhonchi heart regular rate rhythm, clear S1, S2 positive bowel sounds, abdomen is soft, nontender neuro patient is alert x3, no focal deficits Objective Data Active Medications Dexamethasone Sodium Phosphate (Dexamethasone Sod Phosphate 4 Mg/Ml Vial) 4 mg IVPUSH BID [facility] Last Admin: 05/24/23 08:20 Dose: 4 mg Documented By: SKYLAR Empagliflozin (Empagliflozin 10 Mg Tablet) 10 mg PO DAILY [facility] Last Admin: 05/24/23 08:20 Dose: 10 mg Documented By: SKYLAR Glucose (Glucose Gel 15 Gm Gel..Gram.) 15 gm PO Q15M PRN; Protocol PRN Reason: per Hypoglycemia Standing Ord. Dextrose (D10) 250 mls @ 750 mls/hr IV Q15M PRN; Protocol PRN Reason: per Hypoglycemia Standing Ord. Insulin Human Lispro (Insulin Lispro 100 Unit/Ml 3 Ml Vial) 0 unit SUBCUT QIDACHS [facility]; Protocol Last Admin: 05/24/23 07:55 Dose: Not Given Documented By: SKYLAR Non-Admin Reason: No Insulin Coverage Lorazepam (Lorazepam 0.5 Mg Tablet) 0.5 mg PO BEDTIME PRN PRN Reason: insomnia Last Admin: 05/23/23 22:47 Dose: 0.5 mg Documented By: SOUTH Losartan Potassium (Losartan Potassium 25 Mg Tablet) 25 mg PO DAILY [facility]; Protocol Last Admin: 05/24/23 08:20 Dose: 25 mg Documented By: SKYLAR Mirtazapine (Mirtazapine 7.5 Mg Tablet) 7.5 mg PO BEDTIME [facility] Last Admin: 05/23/23 20:32 Dose: 7.5 mg Documented By: SOUTH Oxycodone HCl (Oxycodone Hcl Immed Release 5 Mg Tablet) 10 mg PO Q4H PRN PRN Reason: Pain, Severe (Pain Scale 7-10) Last Admin: 05/24/23 04:02 Dose: 10 mg Documented By: DAREK Spironolactone (Spironolactone 25 Mg Tablet) 25 mg PO DAILY [facility]; Protocol Last Admin: 05/24/23 08:20 Dose: 25 mg Documented By: SKYLAR Trazodone HCl (Trazodone Hcl 25 Mg Halftab) 25 mg PO BEDTIME PRN PRN Reason: Insomnia Last Admin: 05/23/23 22:47 Dose: 25 mg Documented By: SOUTH Labs 05/24/23 05:43 05/24/23 05:43 Labs: Laboratory Results - last 24 hr 05/20/23 05/23/23 05/23/23 08:04 11:18 15:55 MCV MCH MCHC RDW Plt Count MPV Immature Gran % (Auto) Neut % (Auto) Lymph % (Auto) [place] % (Auto) Eos % (Auto) Baso % (Auto) Lymph # (Auto) [place] # (Auto) Eos # (Auto) Baso # (Auto) Abs Immat Gran (auto) Absolute Neuts (auto) Absolute Nucleated RBC Nucleated RBC % (auto) Smear Tech's Comments PT INR Anion Gap Estim Creat Clear Calc Estimated GFR POC Glucose 140 H 133 H Random Glucose Calcium TB Test (T-Spot) Com Negative TB Test Nil Control Passed TB Test Panel A 0 TB Test Panel B 0 TB Test Positive Cntrl Passed 05/23/23 05/24/23 05/24/23 20:05 05:43 05:43 MCV 89.9 MCH 29.3 MCHC 32.6 RDW 13.1 Plt Count 347 D MPV 11.1 Immature Gran % (Auto) 1.3 H Neut % (Auto) 86.8 H Lymph % (Auto) 4.6 L [place] % (Auto) 7.2 Eos % (Auto) 0.0 Baso % (Auto) 0.1 Lymph # (Auto) 1.0 L [place] # (Auto) 1.5 H Eos # (Auto) 0.0 Baso # (Auto) 0.0 Abs Immat Gran (auto) 0.27 H Absolute Neuts (auto) 18.7 H Absolute Nucleated RBC 0.000 Nucleated RBC % (auto) 0.0 Smear Tech's Comments VERIFIED PT 15.2 H INR 1.3 H Anion Gap Estim Creat Clear Calc Estimated GFR POC Glucose 176 H Random Glucose Calcium TB Test (T-Spot) Com TB Test Nil Control TB Test Panel A TB Test Panel B TB Test Positive Cntrl 05/24/23 05/24/23 05:43 07:35 MCV MCH MCHC RDW Plt Count MPV Immature Gran % (Auto) Neut % (Auto) Lymph % (Auto) [place] % (Auto) Eos % (Auto) Baso % (Auto) Lymph # (Auto) [place] # (Auto) Eos # (Auto) Baso # (Auto) Abs Immat Gran (auto) Absolute Neuts (auto) Absolute Nucleated RBC Nucleated RBC % (auto) Smear Tech's Comments PT INR Anion Gap 16 Estim Creat Clear Calc 109.4 Estimated GFR > 60 POC Glucose 125 H Random Glucose 140 H Calcium 9.9 TB Test (T-Spot) Com TB Test Nil Control TB Test Panel A TB Test Panel B TB Test Positive Cntrl Assessment and Plan (1) Acute hypoxemic respiratory failure: Status: Acute Plan 72-year-old male who presented with hypoxemic respiratory failure with pleural effusion and collection of 1500 cc of serosanguineous fluid via chest tube that has since been removed. 8-9 days of antibiotics mainly including doxycycline and Unasyn but given the the pattern of lymphadenopathy and and the nodular liver involvement we still are concerned about metastatic carcinoma and we still need a plan to do needle biopsy as bronchoscopy tissue biopsy was appeared to have gathered the wrong tissue. He and his moved from [place] in January of 2023 and symptoms of sob started soon after. His PCP ordered the PET scan that was done on 05/10/23 which showed soft tissue mass at central part of partially collapsed left upper lobe of the lung the level of the left main pulmonary artery suspicious for primary lung cancer. Also showed possibility of an esophageal malignancy as well as liver lesions highly suspicious for hepatic metastasectomy disease. Hypoxemic respiratory failure required intubation in ICU status post extubation Now on 4 L of oxygen Stable oxygen saturation Out of bed to chair Repeat chest x-ray showing no pneumothorax, residual densities in right and left lung not changed from previous postobstructive pneumonia secondary to lung cancer patient initially admitted to ICU on Bipap Status post antibiotics There is a question of mass/malignancy Needs IR needle biopsy as it appears that the tissue from the bronchoscopy was from the wrong area pleural effusion s/p chest tube removal Hypercalcemia Resolved DM2 ss, ada diet HTN Losartan Stable blood pressure DVT prophylaxis with pneumatic compression boots Attending Dr. Rubio Full code DISPO Plan for dc home after needle biopsy Continue hospitalization for treatment of acute hypoxic respiratory failure still requiring 4-5 L oxygen Time Spent With Patient Time: Total time managing care of this patient today ____ minutes. Quality Stroke Does the patient have a stroke diagnosis?: No VTE Prior VTE?: No VTE Risk Level:: Medical - moderate - high VTE Device Contraindication: N/A - Device Ordered VTE Drug Contraindication: N/A - Med Ordered
[2023-05-24 11:12] LABS: Glucose, Whole Blood 155 mg/dL (60-115)
[2023-05-24 11:29] LABS: pH Pleural Fluid 7.78
--- NOTE | 2023-05-24 13:49 | P.CNHO_ITS ---
Subjective - Subjective Chief complaint: SOB Patient: new to practice Consult date: 05/24/23 Requesting Physician: Ana Fonseca NP Primary Care Provider: Adilia Tomas MD Medical Summary: Diagnosis: Probable metastatic lung cancer HPI - Consult Narrative Reason for consult: Metastatic malignancy Narrative: Selvin Franz is a 72 year old male was admitted to [facility] on 05/12/2023 for respiratory distress due to postobstructive pneumonia. He presented with shortness of breath that was ongoing for 2-3 weeks along with left-sided chest discomfort. Workup in the emergency department revealed chronic interstitial lung disease with bilateral ill-defined opacities in left upper lobe and ground- glass opacities in the right upper lobe. Patient was quite tachypneic as well as tachycardic, CT angiogram was negative for pulmonary embolism. Due to progressive respiratory distress patient was admitted to the ICU. He had a PET-CT on 05/10/2023 ordered by his PCP which revealed multiple FDG avid mediastinal lymphadenopathy with max SUV of 12.2. Dominance subcarinal lymph n ode measuring 1.8 cm. FDG avid left supraclavicular and right supraclavicular lymphadenopathy SUV max 7.4. Intense FDG avid right upper lobe lesion with SUV 13.7 suspicious for primary lung malignancy. Multiple FDG avid lesions in both lobes of liver max SUV 15.4 in the dominant lesion suspicious for metastatic disease. Patient is unable to provide any history. His was at the bedside. She says he has been declining progressively for the last several months. Review of Systems - Constitutional Reports as per [facility] Medical History: Medical History (Last Updated 05/24/23 @ 13:53 by Amanda Denise MD) Interstitial lung disease Social History: Social History (Last Updated 05/24/23 @ 14:10 by Amanda Denise MD) Living Situation History: Household Members: Family Housing: House Do you presently have visiting nurse or other home services: No Alcohol History: Unable to assess alcohol history related to: Unable to respond Alcohol History Details: Last drink: Unknown Currently Displaying Signs/Symptoms of Alcohol Withdrawal: No Tobacco History: Patient Tobacco Use Status: Current everyday Tobacco Smoked in Last 30 Days: No Substance Use History: Use of substances other than those prescribed or required for medical reasons : Unknown Currently Displaying Signs/Symptoms of Drug Intoxication Withdrawal: No Any prior treatment program specific to substance use: No Advance Directives: Advance Directives: No Advance Directives Information Provided: No Homicidal Assessment: Do you have thoughts of harming others: None Do you have a plan to hurt others: No Plan Nutrition Assessment: Recently lost weight without trying: Unsure Nutrition Risks: No Nutritional Risk Poor oral hygiene: No Occupation Assessmet: service: No Home Medications and Allergies Current Medications: Current Medications Dexamethasone Sodium Phosphate (Dexamethasone Sod Phosphate 4 Mg/Ml Vial) 4 mg IVPUSH BID [facility] Last Admin: 05/24/23 08:20 Dose: 4 mg Empagliflozin (Empagliflozin 10 Mg Tablet) 10 mg PO DAILY [facility] Last Admin: 05/24/23 08:20 Dose: 10 mg Glucose (Glucose Gel 15 Gm Gel..Gram.) 15 gm PO Q15M PRN; Protocol PRN Reason: per Hypoglycemia Standing Ord. Dextrose (D10) 250 mls @ 750 mls/hr IV Q15M PRN; Protocol PRN Reason: per Hypoglycemia Standing Ord. Insulin Human Lispro (Insulin Lispro 100 Unit/Ml 3 Ml Vial) 0 unit SUBCUT QIDACHS [facility]; Protocol Last Admin: 05/24/23 11:28 Dose: Not Given Lorazepam (Lorazepam 0.5 Mg Tablet) 0.5 mg PO BEDTIME PRN PRN Reason: insomnia Last Admin: 05/23/23 22:47 Dose: 0.5 mg Losartan Potassium (Losartan Potassium 25 Mg Tablet) 25 mg PO DAILY [facility]; Protocol Last Admin: 05/24/23 08:20 Dose: 25 mg Mirtazapine (Mirtazapine 7.5 Mg Tablet) 7.5 mg PO BEDTIME [facility] Last Admin: 05/23/23 20:32 Dose: 7.5 mg Oxycodone HCl (Oxycodone Hcl Immed Release 5 Mg Tablet) 10 mg PO Q4H PRN PRN Reason: Pain, Severe (Pain Scale 7-10) Last Admin: 05/24/23 04:02 Dose: 10 mg Spironolactone (Spironolactone 25 Mg Tablet) 25 mg PO DAILY [facility]; Protocol Last Admin: 05/24/23 08:20 Dose: 25 mg Trazodone HCl (Trazodone Hcl 25 Mg Halftab) 25 mg PO BEDTIME PRN PRN Reason: Insomnia Last Admin: 05/23/23 22:47 Dose: 25 mg Home Medications Medication Instructions Recorded Confirmed Type amlodipine 5 mg tablet 5 mg PO DAILY 05/13/23 05/13/23 History insulin lispro protamine-lispro 15 unit subcut DAILY@0730,1130 05/13/23 05/13/23 History 100 unit/mL (75-25) subcutaneous pen (Humalog Mix 75-25 KwikPen) insulin lispro protamine-lispro 20 ml subcut DAILY@1630 05/13/23 05/13/23 History 100 unit/mL (75-25) subcutaneous pen (Humalog Mix 75-25 KwikPen) levothyroxine 100 mcg tablet 100 mcg PO DAILY 05/13/23 05/13/23 History (Synthroid) losartan 100 mg tablet 100 mg PO DAILY 05/13/23 05/13/23 History omeprazole 20 mg capsule,delayed 20 mg PO DAILY 05/13/23 05/13/23 History release sitagliptin phosphate 50 1 tab PO BID 05/13/23 05/13/23 History mg-metformin 1,000 mg tablet (Kyle) tamsulosin 0.4 mg capsule 0.4 mg PO QAM 05/13/23 05/13/23 History Allergies Allergy/AdvReac Type Severity Reaction Status Date / Time No Known Allergies Allergy Verified 02/20/23 12:09 Physical Exam Vital signs: Vital Signs Temp 98 F 05/24/23 11:15 Pulse 99 05/24/23 11:15 Resp 20 05/24/23 11:15 BP 117/71 05/24/23 11:15 Pulse Ox 97 05/24/23 11:15 O2 Del Method Nasal Cannula 05/24/23 11:15 O2 Flow Rate 4 05/24/23 11:15 FiO2 35 05/21/23 06:36 Intake & Output 05/23/23 05/24/23 05/24/23 18:59 06:59 18:59 Intake Total 480 / 480 Output Total 600 / 2700 2100 / 2700 500 / 500 Balance -120 / -2220 -2100 / -2220 -500 / -500 Urine Output (Average ml/kg/hr) 0.64 2.24 0.53 Intake: Intake, Oral Amount 480 / 480 Output: Output, Urine Amount 600 / 2100 1500 / 2100 500 / 500 Output, Urine Amount (Catheter) 600 / 600 Condom 600 / 600 Other: Breakfast % Eaten 100% Lunch % Eaten 100% Number of Incontinent Voids 1 1 Urine Urinal Urinal Urine Color Yellow Yellow Last Bowel Movement 05/22/23 05/22/23 Weight 78.1 kg [place] Weight in Grams 04138 Weight 78.1 kg - Constitutional Present: no acute distress, average body habitus - Routine HEENT Exam Head: Present: normal inspection Eye: Present: normal appearance - Routine Neck Exam Present: supple - Routine Respiratory Exam Absent: accessory muscle use - Routine Cardiovascular Exam Cardiovascular: Present: S1 - Routine Abdominal Exam Present: soft Hem/Onc Consult Result - Labs CBC & Chem 7: 05/25/23 05:59 05/24/23 05:43 Labs: Short CBC 05/24/23 Range/Units 05:43 WBC 21.5 H (4.8-10.8) X10*3/uL Hgb 14.5 (14.0-18.0) g/dl Hct 44.5 (42.0-52.0) % Plt Count 347 D (160-400) X10*3/uL BMP 05/24/23 05:43 Sodium 138 Potassium 4.7 Chloride 102 Carbon Dioxide 25 BUN 21 H Creatinine 0.66 Calcium 9.9 Assessment and Plan Patient Active problem list reviewed?: Yes (1) Metastatic cancer Status: Acute Assessment and plan: 1. This is a 72-year-old male, chronic smoker with evidence of interstitial lung disease and recently performed PET-CT with extensive metastatic disease who was hospitalized for acute hypoxemic respiratory failure. He had 1500 cc of pleural fluid drained and was treated for pneumonia, he is on 4 L oxygen. He had bronchoscopy and biopsy of left upper lobe bronchus which was benign, performed 05/18/2023. Pleural fluid cytology appears to be pending. Based on PET-CT he has PET avid right lung mass, mediastinal and cervical lymphadenopathy as well as PET avid liver lesions. I reviewed scans with intervention radiologist, CT-guided biopsy of 1 of the liver lesions can be performed. I discussed with his that he most likely has metastatic lung cancer. Biopsy would be necessary to establish diagnosis and plan treatment. She will discuss with her family members and make decision about further management. She is however interested in biopsy. 2. Leukocytosis. Probably related to dexamethasone. Patient has been afebrile. I thank you for this referral. - Time Spent With Patient Time Spent with Patient (in minutes): 25
[2023-05-24 15:40] LABS: Glucose, Whole Blood 127 mg/dL (60-115)
[2023-05-24 20:15] LABS: Glucose, Whole Blood 239 mg/dL (60-115)
[2023-05-24] MEDS: Mirtazapine 7.5 MG TABLET PO (21:10)
[2023-05-24] MEDS: Insulin Lispro 100 UNIT/ML 3 ML VIAL SUBCUT (21:10)
[2023-05-25] VITALS (7 sets, daily range): BP systolic 92–122; BP diastolic 58–74; PULSE 96–114; RESP 17–20; TEMP 36.4–36.9; O2SAT 92–96; BMI 23.7
[2023-05-25 06:45] LABS: Hematocrit 47.1 % (42.0-52.0); Hemoglobin 15.1 g/dl (14.0-18.0); Mean Corpuscular HGB Conc 32.1 g/dl (31.0-36.0); Mean Corpuscular Hemoglobin 29.8 pg (27.0-33.0); Mean Corpuscular Volume 93.1 fL (80.0-98.0); Mean Platelet Volume 11.3 fL (9.4-12.4); Platelet Count 333 X10*3/uL (160-400); Red Blood Count 5.06 X10*6/uL (4.60-5.80); Red Cell Distribution Width 13.4 % (11.0-16.0); White Blood Count 27.7 X10*3/uL (4.8-10.8)
[2023-05-25 07:36] LABS: Glucose, Whole Blood 165 mg/dL (60-115)
[2023-05-25] MEDS: dexAMETHasone sod phosphate 4 MG/ML VIAL IVPUSH ×2 (08:06→20:41)
[2023-05-25] MEDS: Losartan Potassium 25 MG TABLET PO (08:06)
[2023-05-25] MEDS: Empagliflozin 10 MG TABLET PO (08:07)
[2023-05-25] MEDS: Insulin Lispro 100 UNIT/ML 3 ML VIAL SUBCUT ×3 (08:07→20:41)
[2023-05-25] MEDS: Spironolactone 25 MG TABLET PO (08:07)
--- NOTE | 2023-05-25 10:36 | HO.PM.IMPN ---
Subjective Subjective Date of Service: 05/25/23 Interval History: f/u o respiratory failure p effusion, lung and liver lesion clinically doing much better Physical Exam Vital Signs: Vital Signs: Last Vital Signs Temp 97.5 F 05/25/23 07:31 Pulse 102 H 05/25/23 10:21 Resp 20 05/25/23 07:31 BP 112/73 05/25/23 10:21 Pulse Ox 92 05/25/23 10:21 O2 Del Method Nasal Cannula 05/25/23 07:31 O2 Flow Rate 4 05/25/23 07:31 FiO2 35 05/21/23 06:36 BMI result Body Mass Index 23.7 Const: Other: General: AO X 3, no acute distress Resp: CTA bilateral CVS: S1,S2,RRR GI: +BS, NT, no distention Skin: No rash Neuro: motor grossly intact Psych: appropriate affect Objective Data Active Medications Dexamethasone Sodium Phosphate (Dexamethasone Sod Phosphate 4 Mg/Ml Vial) 4 mg IVPUSH BID [facility] Last Admin: 05/25/23 08:06 Dose: 4 mg Documented By: SKYLAR Empagliflozin (Empagliflozin 10 Mg Tablet) 10 mg PO DAILY [facility] Last Admin: 05/25/23 08:07 Dose: 10 mg Documented By: SKYLAR Glucose (Glucose Gel 15 Gm Gel..Gram.) 15 gm PO Q15M PRN; Protocol PRN Reason: per Hypoglycemia Standing Ord. Dextrose (D10) 250 mls @ 750 mls/hr IV Q15M PRN; Protocol PRN Reason: per Hypoglycemia Standing Ord. Insulin Human Lispro (Insulin Lispro 100 Unit/Ml 3 Ml Vial) 0 unit SUBCUT QIDACHS [facility]; Protocol Last Admin: 05/25/23 08:07 Dose: 2 unit Documented By: SKYLAR Lorazepam (Lorazepam 0.5 Mg Tablet) 0.5 mg PO BEDTIME PRN PRN Reason: insomnia Last Admin: 05/23/23 22:47 Dose: 0.5 mg Documented By: SOUTH Losartan Potassium (Losartan Potassium 25 Mg Tablet) 25 mg PO DAILY [facility]; Protocol Last Admin: 05/25/23 08:06 Dose: 25 mg Documented By: SKYLAR Mirtazapine (Mirtazapine 7.5 Mg Tablet) 7.5 mg PO BEDTIME [facility] Last Admin: 05/24/23 21:10 Dose: 7.5 mg Documented By: CONCEPCION-JOZEJj Oxycodone HCl (Oxycodone Hcl Immed Release 5 Mg Tablet) 10 mg PO Q4H PRN PRN Reason: Pain, Severe (Pain Scale 7-10) Last Admin: 05/24/23 04:02 Dose: 10 mg Documented By: DAREK Spironolactone (Spironolactone 25 Mg Tablet) 25 mg PO DAILY [facility]; Protocol Last Admin: 05/25/23 08:07 Dose: 25 mg Documented By: SKYLAR Trazodone HCl (Trazodone Hcl 25 Mg Halftab) 25 mg PO BEDTIME PRN PRN Reason: Insomnia Last Admin: 05/23/23 22:47 Dose: 25 mg Documented By: SOUTH Labs 05/25/23 05:59 05/25/23 05:59 Labs: Laboratory Results - last 24 hr 05/20/23 05/24/23 05/24/23 05:45 10:57 15:24 MCV MCH MCHC RDW Plt Count MPV Absolute Nucleated RBC Nucleated RBC % (auto) Estim Creat Clear Calc Estimated GFR POC Glucose 155 H 127 H Pleural pH 7.78 05/24/23 05/25/23 05/25/23 19:31 05:59 05:59 MCV 93.1 MCH 29.8 MCHC 32.1 RDW 13.4 Plt Count 333 MPV 11.3 Absolute Nucleated RBC 0.000 Nucleated RBC % (auto) 0.0 Estim Creat Clear Calc 100.2 Estimated GFR > 60 POC Glucose 239 H Pleural pH 05/25/23 07:11 MCV MCH MCHC RDW Plt Count MPV Absolute Nucleated RBC Nucleated RBC % (auto) Estim Creat Clear Calc Estimated GFR POC Glucose 165 H Pleural pH Assessment and Plan (1) Acute hypoxemic respiratory failure: Status: Acute Plan 72-year-old male who presented with hypoxemic respiratory failure with pleural effusion and collection of 1500 cc of serosanguineous fluid via chest tube that has since been removed. 8-9 days of antibiotics mainly including doxycycline and Unasyn but given the the pattern of lymphadenopathy and and the nodular liver involvement we still are concerned about metastatic carcinoma and we still need a plan to do needle biopsy as bronchoscopy tissue biopsy was appeared to have gathered the wrong tissue. He and his moved from [place] in January of 2023 and symptoms of sob started soon after. His PCP ordered the PET scan that was done on 05/10/23 which showed soft tissue mass at central part of partially collapsed left upper lobe of the lung the level of the left main pulmonary artery suspicious for primary lung cancer. Also showed possibility of an esophageal malignancy as well as liver lesions highly suspicious for hepatic metastasectomy disease. Hypoxemic respiratory failure required intubation in ICU status post extubation Now on 4 L of oxygen Stable oxygen saturation Out of bed to chair Repeat chest x-ray showing no pneumothorax, residual densities in right and left lung not changed from previous postobstructive pneumonia secondary to lung cancer patient initially admitted to ICU on Bipap Status post antibiotics There is a question of mass/malignancy Needs IR needle biopsy as it appears that the tissue from the bronchoscopy was from the wrong area, will request IR to do it tomorrow pleural effusion s/p chest tube removal Hypercalcemia Resolved Worsening leukocytosis--likely due to decadron, no evidence of acute infection DM2 ss, ada diet HTN Losartan Stable blood pressure DVT prophylaxis with pneumatic compression boots Attending Dr. Rubio Full code DISPO Plan for dc home after needle biopsy Continue hospitalization for treatment of acute hypoxic respiratory failure still requiring 4-5 L oxygen Time Spent With Patient Time: Total time managing care of this patient today ____ minutes. Quality Stroke Does the patient have a stroke diagnosis?: No VTE Prior VTE?: No VTE Risk Level:: Medical - moderate - high VTE Device Contraindication: N/A - Device Ordered VTE Drug Contraindication: N/A - Med Ordered
[2023-05-25 11:28] LABS: Glucose, Whole Blood 300 mg/dL (60-115)
[2023-05-25 16:46] LABS: Glucose, Whole Blood 136 mg/dL (60-115)
[2023-05-25 19:34] LABS: Glucose, Whole Blood 306 mg/dL (60-115)
[2023-05-26 03:34] VITALS: BP 130/71; PULSE 111; RESP 18; TEMP 36.1; O2SAT 97
[2023-05-26 06:00] VITALS: BMI 23.0
[2023-05-26 07:27] LABS: Estimated Glomerular Filt Rate > 60
[2023-05-26 07:35] LABS: Glucose, Whole Blood 131 mg/dL (60-115)
[2023-05-26 07:53] VITALS: BP 117/78; PULSE 104; RESP 20; TEMP 36.7; O2SAT 96
[2023-05-26 08:33] LABS: Legionella Ag Urine Not Detected (Not Detected)
--- NOTE | 2023-05-26 08:33 | HO.PM.IMPN ---
Subjective Subjective Date of Service: 05/26/23 Interval History: f/u o respiratory failure p effusion, lung and liver lesion clinically doing much better, no new issues Physical Exam Vital Signs: Vital Signs: Last Vital Signs Temp 98.1 F 05/26/23 07:53 Pulse 104 H 05/26/23 07:53 Resp 20 05/26/23 07:53 BP 117/78 05/26/23 07:53 Pulse Ox 96 05/26/23 07:53 O2 Del Method Nasal Cannula 05/26/23 07:53 O2 Flow Rate 4 05/26/23 07:53 FiO2 35 05/21/23 06:36 BMI result Body Mass Index 23.0 Const: Other: General: AO X 3, no acute distress Resp: CTA bilateral CVS: S1,S2,RRR GI: +BS, NT, no distention Skin: No rash Neuro: motor grossly intact Psych: appropriate affect Objective Data Active Medications Dexamethasone Sodium Phosphate (Dexamethasone Sod Phosphate 4 Mg/Ml Vial) 4 mg IVPUSH BID [facility] Last Admin: 05/25/23 20:41 Dose: 4 mg Documented By: ARSEN Empagliflozin (Empagliflozin 10 Mg Tablet) 10 mg PO DAILY [facility] Last Admin: 05/25/23 08:07 Dose: 10 mg Documented By: SKYLAR Glucose (Glucose Gel 15 Gm Gel..Gram.) 15 gm PO Q15M PRN; Protocol PRN Reason: per Hypoglycemia Standing Ord. Dextrose (D10) 250 mls @ 750 mls/hr IV Q15M PRN; Protocol PRN Reason: per Hypoglycemia Standing Ord. Insulin Human Lispro (Insulin Lispro 100 Unit/Ml 3 Ml Vial) 0 unit SUBCUT QIDACHS [facility]; Protocol Last Admin: 05/26/23 08:25 Dose: Not Given Documented By: KWAME Non-Admin Reason: No Insulin Coverage Lorazepam (Lorazepam 0.5 Mg Tablet) 0.5 mg PO BEDTIME PRN PRN Reason: insomnia Last Admin: 05/23/23 22:47 Dose: 0.5 mg Documented By: SOUTH Losartan Potassium (Losartan Potassium 25 Mg Tablet) 25 mg PO DAILY [facility]; Protocol Last Admin: 05/25/23 08:06 Dose: 25 mg Documented By: SKYLAR Mirtazapine (Mirtazapine 7.5 Mg Tablet) 7.5 mg PO BEDTIME [facility] Last Admin: 05/25/23 21:52 Dose: Not Given Documented By: ARSEN Non-Admin Reason: sleepy to take meds Spironolactone (Spironolactone 25 Mg Tablet) 25 mg PO DAILY [facility]; Protocol Last Admin: 05/25/23 08:07 Dose: 25 mg Documented By: CEDRICKORRRodolfo Trazodone HCl (Trazodone Hcl 25 Mg Halftab) 25 mg PO BEDTIME PRN PRN Reason: Insomnia Last Admin: 05/23/23 22:47 Dose: 25 mg Documented By: SOUTH Labs 05/25/23 05:59 05/26/23 06:15 Labs: Laboratory Results - last 24 hr 05/13/23 05/25/23 05/25/23 13:50 05:59 11:22 Estim Creat Clear Calc Cancelled Estimated GFR Cancelled POC Glucose 300 H Ur L.pneumophila Ag Not Detected 05/25/23 05/25/23 05/26/23 16:42 19:13 06:15 Estim Creat Clear Calc 105.0 Estimated GFR > 60 POC Glucose 136 H 306 H Ur L.pneumophila Ag 05/26/23 07:31 Estim Creat Clear Calc Estimated GFR POC Glucose 131 H Ur L.pneumophila Ag Assessment and Plan (1) Acute hypoxemic respiratory failure: Status: Acute Plan 72-year-old male who presented with hypoxemic respiratory failure with pleural effusion and collection of 1500 cc of serosanguineous fluid via chest tube that has since been removed. 8-9 days of antibiotics mainly including doxycycline and Unasyn but given the the pattern of lymphadenopathy and and the nodular liver involvement we still are concerned about metastatic carcinoma and we still need a plan to do needle biopsy as bronchoscopy tissue biopsy was appeared to have gathered the wrong tissue. He and his moved from [place] in January of 2023 and symptoms of sob started soon after. His PCP ordered the PET scan that was done on 05/10/23 which showed soft tissue mass at central part of partially collapsed left upper lobe of the lung the level of the left main pulmonary artery suspicious for primary lung cancer. Also showed possibility of an esophageal malignancy as well as liver lesions highly suspicious for hepatic metastasectomy disease. Hypoxemic respiratory failure required intubation in ICU and on nasal canula 4, wean as jermain Out of bed to chair Repeat chest x-ray showing no pneumothorax, residual densities in right and left lung not changed from previous postobstructive pneumonia secondary to lung cancer has completed course of antibiotics Needs IR needle biopsy as it appears that the tissue from the bronchoscopy was from the wrong area, will need anothe bx which maybe done on outpatient basis pleural effusion s/p chest tube removal Hypercalcemia Resolved Worsening leukocytosis--likely due to decadron, no evidence of acute infection, decadrone stopped on 05/25, repeat cbc DM2 ss, ada diet HTN Losartan Stable blood pressure DVT prophylaxis with pneumatic compression boots Attending Dr. Rubio Full code DISPO Plan for dc home after needle biopsy Continue hospitalization for treatment of acute hypoxic respiratory failure still requiring 4-5 L oxygen Time Spent With Patient Time: Total time managing care of this patient today ____ minutes. Quality Stroke Does the patient have a stroke diagnosis?: No VTE Prior VTE?: No VTE Risk Level:: Medical - moderate - high VTE Device Contraindication: N/A - Device Ordered VTE Drug Contraindication: N/A - Med Ordered
[2023-05-26] MEDS: Spironolactone 25 MG TABLET PO (08:43)
[2023-05-26] MEDS: dexAMETHasone sod phosphate 4 MG/ML VIAL IVPUSH (08:43)
[2023-05-26] MEDS: Losartan Potassium 25 MG TABLET PO (08:43)
[2023-05-26] MEDS: Empagliflozin 10 MG TABLET PO (08:43)
--- NOTE | 2023-05-26 09:52 | MHC.CM.PN ---
Addendum entered by Iwona Bhakta RN 05/26/23 11:56: PT RECEIVED BED OFFER FROM [facility], CM MET W/PT/ AND DTR AT BEDSIDE AND REPORTED THEY PREFER [facility], SNF UPDATED AND WILL GO FOR AUTH. Original Note: CM MET W/PT AND AT BEDSIDE VIA PIPE AND TANK FABRICATOR, PT'S CONFIRMED SHE DOES NOT HAVE A PREFERRED SNF HOWEVER WOULD LIKE [facility], AGREEABLE TO CM REVIEWING BED OFFERS IF ADDITIONAL OFFERS OTHER THAN [facility] COME IN, CM WILL CONT TO FOLLOW D/C NEEDS.
[2023-05-26 11:21] VITALS: BP 110/61; PULSE 104; RESP 20; TEMP 36.9; O2SAT 96
[2023-05-26 11:30] LABS: Glucose, Whole Blood 187 mg/dL (60-115)
[2023-05-26 15:12] LABS: Glucose, Whole Blood 349 mg/dL (60-115)
[2023-05-26 15:25] VITALS: BP 122/75; PULSE 99; RESP 18; TEMP 35.1; O2SAT 96
--- NOTE | 2023-05-26 16:10 | MHC.CM.PN ---
CM MET W/PT VIA ELECTION WATCHER. PT EDUCATED ON AND HAS COMPLETED A HCP NAMING HIS [facility] SIGALA [phone], PT DECLINING TO CHOSE ALTERNATE HCP, PT PROVIDED W/EDUCATIONAL HANDOUT, ORIGINAL AND 2 COPIES, CM WILL CONT TO FOLLOW D/C NEEDS.
[2023-05-26 16:21] VITALS: TEMP 36.6
[2023-05-26] MEDS: Insulin Lispro 100 UNIT/ML 3 ML VIAL SUBCUT ×2 (16:46→21:00)
[2023-05-26 19:27] VITALS: BP 113/70; PULSE 98; RESP 18; TEMP 36.6; O2SAT 95
[2023-05-26 20:40] LABS: Glucose, Whole Blood 226 mg/dL (60-115)
[2023-05-26] MEDS: Mirtazapine 7.5 MG TABLET PO (20:59)
[2023-05-26] MEDS: Docusate Sodium 100 MG CAPSULE PO (20:59)
[2023-05-27] VITALS (13 sets, daily range): BP systolic 100–141; BP diastolic 56–84; PULSE 92–110; RESP 16–24; TEMP 36–36.4; O2SAT 87–99; BMI 23.5
--- NOTE | 2023-05-27 | ECG_ITS ---
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 Rate : 104 BPM Atrial Rate : 104 BPM P-R Int : 122 ms QRS Dur : 086 ms QT Int : 340 ms P-R-T Axes : 045 015 064 degrees QTc Int : 447 ms Sinus tachycardia Otherwise normal ECG When compared with ECG of 12-MAY-2023 18:34, No significant change was found Referred By: Kofi Denson Electronically Signed By:Berhane Summers
--- NOTE | 2023-05-27 07:03 | P.EN_ITS ---
Event Note Date of Service: 05/27/23 Event Note: a rapid response was called around 06:50 on this patient secondary to hypoxia. Patient is awake, Turkmen-speaking, satting 85% on 4 L of oxygen via nasal cannula. Patient's vitals otherwise stable. Patient was placed on face mask with oxygen common up to 91%. No evidence of aspiration overnight. At this time will obtain chest x-ray, BNP, BMP, CBC, troponin and lactic acid. Time Spent With Patient Time: Total time managing care of this patient today ____ minutes.
[2023-05-27 07:32] LABS: Basophils Absolute Auto 0.1 X10*3/uL (0.0-0.2); Basophils Percent Auto 0.2 % (0-2); Eosinophils Absolute Auto 0.1 X10*3/uL (0.0-0.4); Eosinophils Percent Auto 0.2 % (0-4); Hematocrit 44.9 % (42.0-52.0); Hemoglobin 14.4 g/dl (14.0-18.0); Imm Gran Abs Auto 0.45 X10*3/uL (0.00-0.03); Imm Gran Pct Auto 1.5 % (0.0-0.4); Lymphocytes Absolute Auto 1.5 X10*3/uL (1.2-4.9); MANUAL DIFF FLAG SCAN; Mean Corpuscular HGB Conc 32.1 g/dl (31.0-36.0); Mean Corpuscular Hemoglobin 30.1 pg (27.0-33.0); Mean Corpuscular Volume 93.9 fL (80.0-98.0); Mean Platelet Volume 11.4 fL (9.4-12.4); Monocytes Absolute Auto 1.8 X10*3/uL (0.1-1.2); Monocytes Percent Auto 6.1 % (2-11); Neutrophils Absolute Auto 26.4 x10*3/uL (2.0-8.3); Platelet Count 201 X10*3/uL (160-400); Red Blood Count 4.78 X10*6/uL (4.60-5.80); Red Cell Distribution Width 13.8 % (11.0-16.0); SCAN SMEAR FLAG 1
--- NOTE | 2023-05-27 07:38 | PC.NURSE ---
Approximately around 06:45, pt's O2 de-stated to 85%, despite being increased to 4L O2 via NC. Rapid response was called. MD Denson, Nursing Layout Designer, Sweet Potato Disintegrator at bedside as well. Pt complained of SOB and chest pain. Pt's vitals were stable. MD Denson ordered EKG, chest x-ray, BNP, BMP, CBC, troponin & lactic acid. Pt was placed on a face mask with high flow oxygen. Afterwards, pt's O2 went up to the mid 90s. Will continue to monitor pt's O2.
[2023-05-27 07:42] LABS: White Blood Count 30.3 X10*3/uL (4.8-10.8)
[2023-05-27 07:55] LABS: Glucose, Whole Blood 163 mg/dL (60-115)
[2023-05-27 08:03] LABS: SLIDE REVIEW VERIFIED
[2023-05-27 08:21] LABS: ABG Base Excess 1.2 mmol/L; ABG HCO3 25 mmol/L (22-26); ABG pCO2 39 mmHg (32-45); ABG pH 7.41 (7.35-7.45); ABG pO2 169 mmHg (83-108)
[2023-05-27 08:29] LABS: B Type Natriuretic Peptide 20 pg/mL (<100)
[2023-05-27 08:31] LABS: Anion Gap 18 (12-20); Blood Urea Nitrogen 40 mg/dL (9-16); Calcium 10.5 mg/dL (8.4-10.2); Carbon Dioxide 24 mmol/L (22-29); Chloride 103 mmol/L (96-108); Creatinine Clr Calc Pharmacy 107.7; Estimated Glomerular Filt Rate > 60; Glucose Random 147 mg/dL (60-115); Potassium 4.8 mmol/L (3.3-5.1); Sodium 140 mmol/L (135-145)
[2023-05-27 08:39] LABS: Troponin-I High Sensitivity 41.8 ng/L (<3.5-35.0)
--- NOTE | 2023-05-27 08:50 | MHC.CM.PN ---
EMR REVIEWED, PT DECLINED OVERNIGHT AND NOW ON HIGH FLOW O2, NO PLAN FOR D/C AT THIS TIME, [facility] UPDATED [facility] AND CM WILL CONT TO FOLLOW D/C NEEDS.
--- NOTE | 2023-05-27 09:26 | MHC.CM.PN ---
CM MET W/DTR AND SARKIS AT BEDSIDE, DTR REPORTS THEY TOURED BOTH [facility] AND [facility] AND NOW WOULD LIKE [facility] IT IS NEXT TO DTR'S HOUSE, CM WILL LET ROULA BAEZ KNOW ONCE BED SECURED AT [facility].
[2023-05-27] MEDS: Docusate Sodium 100 MG CAPSULE PO ×2 (10:42→21:15)
[2023-05-27] MEDS: Empagliflozin 10 MG TABLET PO (10:42)
[2023-05-27] MEDS: Spironolactone 25 MG TABLET PO (10:42)
[2023-05-27] MEDS: Losartan Potassium 25 MG TABLET PO (10:42)
--- NOTE | 2023-05-27 10:45 | HO.PM.IMPN ---
Subjective Subjective Date of Service: 05/27/23 Interval History: f/u o respiratory failure p effusion, lung and liver lesion Significant drop on O2 sat this morning into 60s, rapid repsonse called, awake alert, no visile distress, slight tachycardia on ECG no chest pain, prior ddimer has been he has been pneumatic compression device for DVT prophylaix a Stat CT chest is ordered to rule out PE, ABG is essentially normal. Physical Exam Vital Signs: Vital Signs: Last Vital Signs Temp 96.8 F 05/27/23 07:44 Pulse 107 H 05/27/23 07:44 Resp 20 05/27/23 07:44 BP 134/84 05/27/23 07:44 Pulse Ox 99 05/27/23 07:44 O2 Del Method High Flow Nasal C annula 05/27/23 07:44 O2 Flow Rate 45 05/27/23 07:44 FiO2 67 05/27/23 07:44 BMI result Body Mass Index 23.5 Const: Other: General: AO X 3, no acute distress Resp: CTA bilateral CVS: S1,S2,RRR GI: +BS, NT, no distention Skin: No rash, no leg edema or lu tenderness Neuro: motor grossly intact Psych: appropriate affect Objective Data Active Medications Acetaminophen (Acetaminophen 325 Mg Tablet) 650 mg PO Q6H PRN PRN Reason: Pain, Moderate(Pain Scale 4-6) Docusate Sodium (Docusate Sodium 100 Mg Capsule) 100 mg PO BID [facility] Last Admin: 05/27/23 10:42 Dose: 100 mg Documented By: WASHINGTON Empagliflozin (Empagliflozin 10 Mg Tablet) 10 mg PO DAILY [facility] Last Admin: 05/27/23 10:42 Dose: 10 mg Documented By: WASHINGTON Glucose (Glucose Gel 15 Gm Gel..Gram.) 15 gm PO Q15M PRN; Protocol PRN Reason: per Hypoglycemia Standing Ord. Dextrose (D10) 250 mls @ 750 mls/hr IV Q15M PRN; Protocol PRN Reason: per Hypoglycemia Standing Ord. Insulin Human Lispro (Insulin Lispro 100 Unit/Ml 3 Ml Vial) 0 unit SUBCUT QIDACHS [facility]; Protocol Last Admin: 05/27/23 07:58 Dose: Not Given Documented By: WASHINGTON Non-Admin Reason: Not eating breakfast due to rapid response \ Lorazepam (Lorazepam 0.5 Mg Tablet) 0.5 mg PO BEDTIME PRN PRN Reason: insomnia Last Admin: 05/23/23 22:47 Dose: 0.5 mg Documented By: SOUTH Losartan Potassium (Losartan Potassium 25 Mg Tablet) 25 mg PO DAILY [facility]; Protocol Last Admin: 05/27/23 10:42 Dose: 25 mg Documented By: WASHINGTON Magnesium Hydroxide (Milk Of Magnesia 30 Ml Oral.Susp) 30 ml PO DAILY PRN PRN Reason: Constipation Mirtazapine (Mirtazapine 7.5 Mg Tablet) 7.5 mg PO BEDTIME [facility] Last Admin: 05/26/23 20:59 Dose: 7.5 mg Documented By: DEVEN Polyethylene Glycol (Polyethylene Glycol 3350 17 Gm Powd.Pack) 17 gm PO DAILY PRN PRN Reason: Constipation Spironolactone (Spironolactone 25 Mg Tablet) 25 mg PO DAILY [facility]; Protocol Last Admin: 05/27/23 10:42 Dose: 25 mg Documented By: WASHINGTON Trazodone HCl (Trazodone Hcl 25 Mg Halftab) 25 mg PO BEDTIME PRN PRN Reason: Insomnia Last Admin: 05/23/23 22:47 Dose: 25 mg Documented By: SOUTH Labs 05/27/23 07:12 05/27/23 07:12 Labs: Laboratory Results - last 24 hr 05/26/23 05/26/23 05/26/23 11:26 15:09 20:09 MCV MCH MCHC RDW Plt Count MPV Immature Gran % (Auto) Neut % (Auto) Lymph % (Auto) [place] % (Auto) Eos % (Auto) Baso % (Auto) Lymph # (Auto) [place] # (Auto) Eos # (Auto) Baso # (Auto) Abs Immat Gran (auto) Absolute Neuts (auto) Absolute Nucleated RBC Nucleated RBC % (auto) Smear Tech's Comments O2 Saturation ABG pH at Pt Temp ABG pCO2 at Pt Temp ABG pO2 at Pt Temp ABG HCO3 ABG Base Excess (Actual) Anion Gap Estim Creat Clear Calc Estimated GFR POC Glucose 187 H 349 H 226 H Random Glucose Lactic Acid Calcium Troponin I High Sens B-Natriuretic Peptide 05/27/23 05/27/23 05/27/23 07:12 07:12 07:12 MCV 93.9 MCH 30.1 MCHC 32.1 RDW 13.8 Plt Count 201 D MPV 11.4 Immature Gran % (Auto) 1.5 H Neut % (Auto) 87.0 H Lymph % (Auto) 5.0 L [place] % (Auto) 6.1 Eos % (Auto) 0.2 Baso % (Auto) 0.2 Lymph # (Auto) 1.5 [place] # (Auto) 1.8 H Eos # (Auto) 0.1 Baso # (Auto) 0.1 Abs Immat Gran (auto) 0.45 H Absolute Neuts (auto) 26.4 H Absolute Nucleated RBC 0.000 Nucleated RBC % (auto) 0.0 Smear Tech's Comments VERIFIED O2 Saturation ABG pH at Pt Temp ABG pCO2 at Pt Temp ABG pO2 at Pt Temp ABG HCO3 ABG Base Excess (Actual) Anion Gap 18 Estim Creat Clear Calc 107.7 Estimated GFR > 60 POC Glucose Random Glucose 147 H Lactic Acid 2.0 Calcium 10.5 H D Troponin I High Sens B-Natriuretic Peptide 05/27/23 05/27/23 05/27/23 07:12 07:12 07:49 MCV MCH MCHC RDW Plt Count MPV Immature Gran % (Auto) Neut % (Auto) Lymph % (Auto) [place] % (Auto) Eos % (Auto) Baso % (Auto) Lymph # (Auto) [place] # (Auto) Eos # (Auto) Baso # (Auto) Abs Immat Gran (auto) Absolute Neuts (auto) Absolute Nucleated RBC Nucleated RBC % (auto) Smear Tech's Comments O2 Saturation ABG pH at Pt Temp ABG pCO2 at Pt Temp ABG pO2 at Pt Temp ABG HCO3 ABG Base Excess (Actual) Anion Gap Estim Creat Clear Calc Estimated GFR POC Glucose 163 H Random Glucose Lactic Acid Calcium Troponin I High Sens 41.8 H B-Natriuretic Peptide 20 05/27/23 08:12 MCV MCH MCHC RDW Plt Count MPV Immature Gran % (Auto) Neut % (Auto) Lymph % (Auto) [place] % (Auto) Eos % (Auto) Baso % (Auto) Lymph # (Auto) [place] # (Auto) Eos # (Auto) Baso # (Auto) Abs Immat Gran (auto) Absolute Neuts (auto) Absolute Nucleated RBC Nucleated RBC % (auto) Smear Tech's Comments O2 Saturation 100.0 ABG pH at Pt Temp 7.41 ABG pCO2 at Pt Temp 39 ABG pO2 at Pt Temp 169 H ABG HCO3 25 ABG Base Excess (Actual) 1.2 Anion Gap Estim Creat Clear Calc Estimated GFR POC Glucose Random Glucose Lactic Acid Calcium Troponin I High Sens B-Natriuretic Peptide Assessment and Plan (1) Acute hypoxemic respiratory failure: Status: Acute Plan 72-year-old male who presented with hypoxemic respiratory failure with pleural effusion and collection of 1500 cc of serosanguineous fluid via chest tube that has since been removed. 8-9 days of antibiotics mainly including doxycycline and Unasyn but given the the pattern of lymphadenopathy and and the nodular liver involvement we still are concerned about metastatic carcinoma and we still need a plan to do needle biopsy as bronchoscopy tissue biopsy was appeared to have gathered the wrong tissue. [place] 20[place] and symptoms of sob started soon after. His PCP ordered the PET scan that was done on 05/10/23 which showed soft tissue mass at central part of partially collapsed left upper lobe of the lung the level of the left main pulmonary artery suspicious for primary lung cancer. Also showed possibility of an esophageal malignancy as well as liver lesions highly suspicious for hepatic metastasectomy disease. Acute Hypoxemic respiratory failure required intubation in ICU and ultimately wean and has been on nasal clif but this am 05/27 became more hypxic . CXR show patchy infilatrate that is unchanged. He has completed ~ 10 days of IV Abx, WBC has been climbing up but has been on steroid. Requesting Chest CT to rule PE. He had bronch with Bx earlier but was not diagnostic and is to have repeat on outpatient basis, there is strong suspicion that he has malignancy. For now I will put him back on Zosyn given much higher WBC and continue tomonitor. postobstructive pneumonia secondary to likely lung cancer as stated above--completed 10 days of Abx. WBC remains high so restarting Zosyn pleural effusion --was drain s/p chest tube removal Hypercalcemia Resolved Worsening leukocytosis--likely due to decadron, no evidence of acute infection, decadrone stopped on 05/25, repeat cbc DM2 ss, ada diet HTN Losartan Stable blood pressure DVT : Adding Lovenox in addition to compression device Full code DISPO Plan for dc home after needle biopsy Continue hospitalization for treatment of acute hypoxic respiratory failure still requiring 4-5 L oxygen Time Spent With Patient Time: Total time managing care of this patient today ____ minutes. Quality Stroke Does the patient have a stroke diagnosis?: No VTE Prior VTE?: No VTE Risk Level:: Medical - moderate - high VTE Device Contraindication: N/A - Device Ordered VTE Drug Contraindication: N/A - Med Ordered
[2023-05-27] MEDS: iohexoL 350 MG/ML 100 ML INFUS..BTL 65 ML IV (10:49)
[2023-05-27 11:26] LABS: Glucose, Whole Blood 162 mg/dL (60-115)
[2023-05-27] MEDS: Insulin Lispro 100 UNIT/ML 3 ML VIAL SUBCUT ×2 (12:04→21:15)
[2023-05-27] MEDS: Piperacillin Sodium/Tazobactam 4.5 GM in 0.9 % Sodium Chloride 100 ML IV ×3 (12:07→23:53)
[2023-05-27] MEDS: Enoxaparin Sodium 80 MG/0.8 ML SYRINGE SUBCUT ×2 (12:40→23:54)
[2023-05-27 15:30] LABS: Glucose, Whole Blood 150 mg/dL (60-115)
[2023-05-27] MEDS: Milk of Magnesia 30 ML ORAL.SUSP PO (17:59)
[2023-05-27 19:49] LABS: Glucose, Whole Blood 165 mg/dL (60-115)
[2023-05-27] MEDS: Mirtazapine 7.5 MG TABLET PO (21:15)
[2023-05-28] VITALS (8 sets, daily range): BP systolic 128–145; BP diastolic 75–81; PULSE 78–106; RESP 16–20; TEMP 36.1–37.1; O2SAT 97–100; BMI 17.9
[2023-05-28] MEDS: Piperacillin Sodium/Tazobactam 4.5 GM in 0.9 % Sodium Chloride 100 ML IV ×4 (05:33→23:07)
[2023-05-28] MEDS: Spironolactone 25 MG TABLET PO (07:49)
[2023-05-28] MEDS: polyethylene glycoL 3350 17 GM POWD.PACK PO (07:49)
[2023-05-28] MEDS: Losartan Potassium 25 MG TABLET PO (07:49)
[2023-05-28] MEDS: Acetaminophen 325 MG TABLET 650 MG PO (07:49)
[2023-05-28] MEDS: Empagliflozin 10 MG TABLET PO (07:49)
[2023-05-28] MEDS: Docusate Sodium 100 MG CAPSULE PO ×2 (07:49→21:25)
[2023-05-28] MEDS: Enoxaparin Sodium 80 MG/0.8 ML SYRINGE SUBCUT (11:49)
[2023-05-28 11:52] LABS: ABG Refer to POC result
[2023-05-28] MEDS: Milk of Magnesia 30 ML ORAL.SUSP PO (12:41)
--- NOTE | 2023-05-28 17:43 | HO.PM.IMPN ---
Subjective Subjective Date of Service: 05/28/23 Interval History: no acute issues overnight. Continues with O2 requirement of 5 L. Somnolent but arousable. at bedside Review of Systems unable to obtain Physical Exam Vital Signs: Vital Signs: Last Vital Signs Temp 98.7 F 05/28/23 15:26 Pulse 106 H 05/28/23 15:26 Resp 20 05/28/23 15:26 BP 145/79 H 05/28/23 15:26 Pulse Ox 100 05/28/23 15:26 O2 Del Method Nasal Cannula 05/28/23 15:26 O2 Flow Rate 5 05/28/23 15:26 FiO2 33 05/28/23 07:29 BMI result Body Mass Index 17.9 Const: Other: somnolent but arousable Resp: Other: clear but diminished at bases Cardio: Other: no S4; positive S1-S2; no S3 murmurs rubs or gallops GI: Other: soft nontender normoactive bowel sounds Extrem: Other: no edema bilaterally Objective Data Active Medications Acetaminophen (Acetaminophen 325 Mg Tablet) 650 mg PO Q6H PRN PRN Reason: Pain, Moderate(Pain Scale 4-6) Last Admin: 05/28/23 07:49 Dose: 650 mg Documented By: ROGELIO Docusate Sodium (Docusate Sodium 100 Mg Capsule) 100 mg PO BID [facility] Last Admin: 05/28/23 07:49 Dose: 100 mg Documented By: ROGELIO Empagliflozin (Empagliflozin 10 Mg Tablet) 10 mg PO DAILY [facility] Last Admin: 05/28/23 07:49 Dose: 10 mg Documented By: ROGELIO Enoxaparin Sodium (Enoxaparin Sodium 80 Mg/0.8 Ml Syringe) 80 mg 1 mg/kg (80 mg) SUBCUT Q12H [facility] Last Admin: 05/28/23 11:49 Dose: 80 mg Documented By: ROGELIO Glucose (Glucose Gel 15 Gm Gel..Gram.) 15 gm PO Q15M PRN; Protocol PRN Reason: per Hypoglycemia Standing Ord. Dextrose (D10) 250 mls @ 750 mls/hr IV Q15M PRN; Protocol PRN Reason: per Hypoglycemia Standing Ord. Piperacillin Sod/Tazobactam (Sod 4.5 gm/ Sodium Chloride) 100 mls @ 200 mls/hr IV Q6H [facility] Last Admin: 05/28/23 17:32 Dose: 200 mls/hr Documented By: SOUTH Insulin Human Lispro (Insulin Lispro 100 Unit/Ml 3 Ml Vial) 0 unit SUBCUT QIDACHS [facility]; Protocol Last Admin: 05/28/23 15:58 Dose: Not Given Documented By: SOUTH Non-Admin Reason: No Insulin Coverage Lorazepam (Lorazepam 0.5 Mg Tablet) 0.5 mg PO BEDTIME PRN PRN Reason: insomnia Last Admin: 05/23/23 22:47 Dose: 0.5 mg Documented By: SOUTH Losartan Potassium (Losartan Potassium 25 Mg Tablet) 25 mg PO DAILY [facility]; Protocol Last Admin: 05/28/23 07:49 Dose: 25 mg Documented By: ORGELIO Magnesium Hydroxide (Milk Of Magnesia 30 Ml Oral.Susp) 30 ml PO DAILY PRN PRN Reason: Constipation Last Admin: 05/28/23 12:41 Dose: 30 ml Documented By: ROGELIO Mirtazapine (Mirtazapine 7.5 Mg Tablet) 7.5 mg PO BEDTIME [facility] Last Admin: 05/27/23 21:15 Dose: 7.5 mg Documented By: OSCAR Polyethylene Glycol (Polyethylene Glycol 3350 17 Gm Powd.Pack) 17 gm PO DAILY PRN PRN Reason: Constipation Last Admin: 05/28/23 07:49 Dose: 17 gm Documented By: ROGELIO Spironolactone (Spironolactone 25 Mg Tablet) 25 mg PO DAILY [facility]; Protocol Last Admin: 05/28/23 07:49 Dose: 25 mg Documented By: ROGELIO Trazodone HCl (Trazodone Hcl 25 Mg Halftab) 25 mg PO BEDTIME PRN PRN Reason: Insomnia Last Admin: 05/23/23 22:47 Dose: 25 mg Documented By: SOUTH Labs 05/27/23 07:12 05/28/23 07:31 Labs: Laboratory Results - last 24 hr 05/27/23 05/28/23 05/28/23 19:43 07:31 07:31 Anion Gap 15 Estim Creat Clear Calc 79.7 Estimated GFR > 60 POC Glucose 165 H 97 Random Glucose 91 Calcium 9.6 D Magnesium 2.3 05/28/23 05/28/23 11:52 15:44 Anion Gap Estim Creat Clear Calc Estimated GFR POC Glucose 143 H 143 H Random Glucose Calcium Magnesium Microbiology Microbiology Results: Microbiology 05/20/23 Unknown Direct Acid Fast Bacilli Smear - Final Pleural Fluid Assessment and Plan (1) Acute hypoxemic respiratory failure: Status: Acute (2) Atypical pneumonia: Status: Acute (3) Diabetes type 2 with atherosclerosis of arteries of extremities: Status: Acute (4) Hypertension: Status: Acute Plan 72-year-old male who presented with hypoxemic respiratory failure with pleural effusion and collection of 1500 cc of serosanguineous fluid via chest tube that has since been removed. 8-9 days of antibiotics mainly including doxycycline and Unasyn but given the the pattern of lymphadenopathy and and the nodular liver involvement we still are concerned about metastatic carcinoma and we still need a plan to do needle biopsy as bronchoscopy tissue biopsy was appeared to have gathered the wrong tissue. He and his moved from [place] in January of 2023 and symptoms of sob started soon after. His PCP ordered the PET scan that was done on 05/10/23 which showed soft tissue mass at central part of partially collapsed left upper lobe of the lung the level of the left main pulmonary artery suspicious for primary lung cancer. Also showed possibility of an esophageal malignancy as well as liver lesions highly suspicious for hepatic metastatic disease. 1.Acute Hypoxemic respiratory failure secondary to postobstructive pneumonia secondary to primary lung cancer - CT-guided biopsy done. . . Await pathology - continue empiric Zosyn and trend white count( no longer on dexamethasone) - supplemental O2 to maintain sats greater equal to 90% - will discuss end of life issues with and conference interpreter 2.Pulmonary emboli (small bilat burden) - continue Lovenox at present - if no further tissue required will start Eliquis for least 6 months 3.DMII -acceptable control on current therapies -lispro correctional scale -adjust as indicated 4.HTN - acceptable control on current therapies - adjust as indicated Lovenox Full code Requires ongoing hospitalization for IV antibiotics to treat postobstructive pneumonia Time Spent With Patient Time: Total time managing care of this patient today ____ minutes. Quality Stroke Does the patient have a stroke diagnosis?: No VTE Prior VTE?: No VTE Risk Level:: Medical - moderate - high VTE Device Contraindication: N/A - Device Ordered VTE Drug Contraindication: N/A - Med Ordered
[2023-05-28] MEDS: Insulin Lispro 100 UNIT/ML 3 ML VIAL SUBCUT (21:25)
[2023-05-28] MEDS: Mirtazapine 7.5 MG TABLET PO (21:25)
[2023-05-29] MEDS: Enoxaparin Sodium 80 MG/0.8 ML SYRINGE SUBCUT ×3 (00:58→23:58)
[2023-05-29] MEDS: Acetaminophen 325 MG TABLET 650 MG PO ×2 (01:07→18:07)
[2023-05-29 03:08] VITALS: BP 135/83; PULSE 73; RESP 16; TEMP 36.8; O2SAT 99
[2023-05-29] MEDS: Piperacillin Sodium/Tazobactam 4.5 GM in 0.9 % Sodium Chloride 100 ML IV ×3 (05:31→18:04)
[2023-05-29 06:00] VITALS: BMI 18.2
[2023-05-29 07:17] VITALS: BP 150/82; PULSE 92; RESP 20; TEMP 36.5; O2SAT 98
[2023-05-29] MEDS: Docusate Sodium 100 MG CAPSULE PO ×2 (08:56→22:12)
[2023-05-29] MEDS: Losartan Potassium 25 MG TABLET PO (08:56)
[2023-05-29] MEDS: Empagliflozin 10 MG TABLET PO (08:56)
[2023-05-29] MEDS: Spironolactone 25 MG TABLET PO (08:56)
[2023-05-29 11:38] VITALS: BP 122/68; PULSE 94; RESP 20; TEMP 36.2; O2SAT 96
--- NOTE | 2023-05-29 12:17 | HO.PM.IMPN ---
Subjective Subjective Date of Service: 05/29/23 Interval History: no acute issues overnight. extremely fatigued but no pain Review of Systems all info gleaned with cardiology tech help denies chest pain Denies shortness of breath Denies nausea vomiting diarrhea Admits to fatigue Physical Exam Vital Signs: Vital Signs: Last Vital Signs Temp 97.2 F 05/29/23 11:38 Pulse 94 05/29/23 11:38 Resp 20 05/29/23 11:38 BP 122/68 05/29/23 11:38 Pulse Ox 96 05/29/23 11:38 O2 Del Method Nasal Cannula 05/29/23 11:38 O2 Flow Rate 3 05/29/23 11:38 FiO2 33 05/28/23 07:29 BMI result Body Mass Index 18.2 Const: Other: somnolent but arousable Resp: Other: clear but diminished at bases Cardio: Other: no S4; positive S1-S2; no S3 murmurs rubs or gallops GI: Other: soft nontender normoactive bowel sounds Extrem: Other: no edema bilaterally Objective Data Active Medications Acetaminophen (Acetaminophen 325 Mg Tablet) 650 mg PO Q6H PRN PRN Reason: Pain, Moderate(Pain Scale 4-6) Last Admin: 05/29/23 01:07 Dose: 650 mg Documented By: ZAIRA Docusate Sodium (Docusate Sodium 100 Mg Capsule) 100 mg PO BID [facility] Last Admin: 05/29/23 08:56 Dose: 100 mg Documented By: CHRISTOPHER Empagliflozin (Empagliflozin 10 Mg Tablet) 10 mg PO DAILY [facility] Last Admin: 05/29/23 08:56 Dose: 10 mg Documented By: CHRISTOPHER Enoxaparin Sodium (Enoxaparin Sodium 80 Mg/0.8 Ml Syringe) 80 mg 1 mg/kg (80 mg) SUBCUT Q12H [facility] Last Admin: 05/29/23 11:55 Dose: 80 mg Documented By: CHRISTOPHER Glucose (Glucose Gel 15 Gm Gel..Gram.) 15 gm PO Q15M PRN; Protocol PRN Reason: per Hypoglycemia Standing Ord. Dextrose (D10) 250 mls @ 750 mls/hr IV Q15M PRN; Protocol PRN Reason: per Hypoglycemia Standing Ord. Piperacillin Sod/Tazobactam (Sod 4.5 gm/ Sodium Chloride) 100 mls @ 200 mls/hr IV Q6H [facility] Last Admin: 05/29/23 11:55 Dose: 200 mls/hr Documented By: CHRISTOPHER Insulin Human Lispro (Insulin Lispro 100 Unit/Ml 3 Ml Vial) 0 unit SUBCUT QIDACHS [facility]; Protocol Last Admin: 05/29/23 11:41 Dose: Not Given Documented By: CHRISTOPHER Non-Admin Reason: No Insulin Coverage Losartan Potassium (Losartan Potassium 25 Mg Tablet) 25 mg PO DAILY [facility]; Protocol Last Admin: 05/29/23 08:56 Dose: 25 mg Documented By: CHRISTOPHER Magnesium Hydroxide (Milk Of Magnesia 30 Ml Oral.Susp) 30 ml PO DAILY PRN PRN Reason: Constipation Last Admin: 05/28/23 12:41 Dose: 30 ml Documented By: ROGELIO Mirtazapine (Mirtazapine 7.5 Mg Tablet) 7.5 mg PO BEDTIME [facility] Last Admin: 05/28/23 21:25 Dose: 7.5 mg Documented By: SOUTH Polyethylene Glycol (Polyethylene Glycol 3350 17 Gm Powd.Pack) 17 gm PO DAILY PRN PRN Reason: Constipation Last Admin: 05/28/23 07:49 Dose: 17 gm Documented By: ROGELIO Spironolactone (Spironolactone 25 Mg Tablet) 25 mg PO DAILY [facility]; Protocol Last Admin: 05/29/23 08:56 Dose: 25 mg Documented By: CHRISTOPHER Trazodone HCl (Trazodone Hcl 25 Mg Halftab) 25 mg PO BEDTIME PRN PRN Reason: Insomnia Last Admin: 05/23/23 22:47 Dose: 25 mg Documented By: SOUTH Labs 05/27/23 07:12 05/28/23 07:31 Labs: Laboratory Results - last 24 hr 05/28/23 05/28/23 05/29/23 15:44 19:57 07:19 POC Glucose 143 H 155 H 150 H 05/29/23 11:08 POC Glucose 143 H Microbiology Microbiology Results: Microbiology 05/20/23 Unknown Direct Acid Fast Bacilli Smear - Final Pleural Fluid Assessment and Plan (1) Acute hypoxemic respiratory failure: Status: Acute (2) Pulmonary embolism: Status: Acute (3) Diabetes type 2 with atherosclerosis of arteries of extremities: Status: Acute (4) Metastatic cancer: Status: Acute Plan 72-year-old male who presented with hypoxemic respiratory failure with pleural effusion and collection of 1500 cc of serosanguineous fluid via chest tube that has since been removed. 8-9 days of antibiotics mainly including doxycycline and Unasyn but given the the pattern of lymphadenopathy and and the nodular liver involvement we still are concerned about metastatic carcinoma and we still need a plan to do needle biopsy as bronchoscopy tissue biopsy was appeared to have gathered the wrong tissue. He and his moved from [place] in January of 2023 and symptoms of sob started soon after. His PCP ordered the PET scan that was done on 05/10/23 which showed soft tissue mass at central part of partially collapsed left upper lobe of the lung the level of the left main pulmonary artery suspicious for primary lung cancer. Also showed possibility of an esophageal malignancy as well as liver lesions highly suspicious for hepatic metastatic disease. 1.Acute Hypoxemic respiratory failure secondary to postobstructive pneumonia secondary to primary lung cancer - CT-guided biopsy done. . . Await pathology - continue empiric Zosyn and trend white count( no longer on dexamethasone) - will discuss end of life issues with and cardiology tech 2.Pulmonary emboli (small bilat burden) - continue Lovenox at present - if no further tissue required will start Eliquis for least 6 months 3.DMII -acceptable control on current therapies -lispro correctional scale -adjust as indicated 4.HTN - acceptable control on current therapies - adjust as indicated Lovenox Full code Requires ongoing hospitalization for IV antibiotics to treat postobstructive pneumonia Time Spent With Patient Time: Total time managing care of this patient today ____ minutes. Quality Stroke Does the patient have a stroke diagnosis?: No VTE Prior VTE?: No VTE Risk Level:: Medical - moderate - high VTE Device Contraindication: N/A - Device Ordered VTE Drug Contraindication: N/A - Med Ordered
[2023-05-29 15:44] VITALS: BP 124/75; PULSE 94; RESP 20; TEMP 36.3; O2SAT 99
[2023-05-29] MEDS: Insulin Lispro 100 UNIT/ML 3 ML VIAL SUBCUT (18:03)
[2023-05-29 20:07] VITALS: BP 119/74; PULSE 85; RESP 18; TEMP 36.4; O2SAT 98
[2023-05-29] MEDS: Mirtazapine 7.5 MG TABLET PO (22:12)
[2023-05-29] MEDS: traZODone HCL 25 MG HALFTAB PO (22:24)
[2023-05-30] VITALS (7 sets, daily range): BP systolic 106–154; BP diastolic 64–83; PULSE 79–108; RESP 15–20; TEMP 35.7–36.7; O2SAT 95–98; BMI 23.8
[2023-05-30] MEDS: Piperacillin Sodium/Tazobactam 4.5 GM in 0.9 % Sodium Chloride 100 ML IV ×3 (00:01→11:25)
[2023-05-30] MEDS: Acetaminophen 325 MG TABLET 650 MG PO (03:51)
[2023-05-30] MEDS: Spironolactone 25 MG TABLET PO (09:43)
[2023-05-30] MEDS: Empagliflozin 10 MG TABLET PO (09:43)
[2023-05-30] MEDS: Losartan Potassium 25 MG TABLET PO (09:43)
[2023-05-30] MEDS: Docusate Sodium 100 MG CAPSULE PO (09:43)
[2023-05-30] MEDS: Insulin Lispro 100 UNIT/ML 3 ML VIAL SUBCUT (11:24)
[2023-05-30] MEDS: Enoxaparin Sodium 80 MG/0.8 ML SYRINGE SUBCUT (11:25)
--- NOTE | 2023-05-30 13:37 | PM.DS ---
DS: Providers Provider Date of Service: 05/30/23 Date of admission: 05/12/23 22:28 Date of discharge: 05/30/23 Primary care physician: Adilia Tomas MD Consults: 05/13/23 05:01 Consult to Thoracic Surgery Routine Consulting Provider: [facility] Sur[facility] Reason for consultation: Loculated pleural efussion? cancer needs dx and tx thoracentesis Has provider been notified: No 05/24/23 09:51 Consult to Hematology / Oncology Routine Consulting Provider: Amanda Denise Reason for consultation: lung ca with liver mets? DS: Diagnosis Discharge Diagnosis (1) Acute hypoxemic respiratory failure: Status: Acute (2) Pulmonary embolism: Status: Acute (3) Diabetes type 2 with atherosclerosis of arteries of extremities: Status: Acute (4) Metastatic cancer: Status: Acute DS: Summary Hospital Course Hospital Course: 72-year-old male presented to the emergency room complaints of shortness of breath for the past 2-3 weeks which has gotten worse over the past 5 days to the point that he was with no get out of bed and he has not been eating well.? He has been experiencing left-sided chest discomfort around the lateral aspect of the chest rated 8/10 at its worst and worsened when trying to take a deep breath, relieved with shallow breathing, he did not take any medications to help with this.? He had been seen in the emergency room on 02/20/2023 with similar complaints and at the time he had a CT angiogram which was negative for PE but revealed chronic interstitial lung disease with bilateral pleural ill-defined in opacities of the left upper lobe and ground-glass opacities in the right upper lobe as well as small pleural effusion.? He had been given doxycycline and has to follow up with the primary care physician to rule out malignancy [facility] Admitted to ICU with subsequently developed worsening respiratory distress which required intubation. He was treated with broad-spectrum antibiotics for what was thought to be postobstructive pneumonia Secondary to malignancy. On 05/20 developed worsening shortness of breath; bedside ultrasound done in ICU demonstrated a large left pleural effusion. Subsequently patient underwent pigtail catheter which drained 1400 cc of serosanguineous fluid. He was subsequently extubated and transferred to the floor on 05/23. On 05/27 developed worsening shortness of breath. Subsequent CTA of chest demonstrated small burden bilateral pulmonary emboli with no heart strain. Patient was subsequently started on Lovenox therapeutic dosing. Of note patient did undergo bronchoscopy with biopsy on 05/18 however this did not demonstrate pathology. pleural fluid from 05/24 chest drainage is pending for pathology. Depending on the results of this fluid patient may need to undergo tissue biopsy. On 05/10, patient underwent PET scan that had multiple mediastinal and supraclavicular nodes. Also there was a soft tissue mass at central part for partially collapsed lung thought to be highly suspicious of malignancy with metastatic lesions in the ribs and thoracic spine. Follow-up will need to be done on pathology of pleural fluid and then decision can be made by receiving physician as per further workup including tissue diagnosis. he will be discharged to complete a course of Augmentin and doxycycline. Time Spent with Patient Time attestation: Total time managing care of this patient today ____ minutes. 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 Resp: Other: clear but diminished at bases Cardio: Other: no S4; positive S1-S2; no S3 murmurs rubs or gallops GI: Other: soft nontender normoactive bowel sounds Extrem: Other: no edema bilaterally DS: Data Data Completed and Pending Completed studies during hospitalization [Text1]: Pending at discharge 05/18/23 11:55 Surgical [PTH] Routine Pending studies at discharge: Pending at discharge 05/20/23 05:29 Cytology [PTH] Stat Labs on day of discharge: Laboratory Results - last 24 hr 05/29/23 05/29/23 05/30/23 15:23 20:33 07:11 WBC RBC Hgb Hct MCV MCH MCHC RDW Plt Count MPV Immature Gran % (Auto) Neut % (Auto) Lymph % (Auto) [place] % (Auto) Eos % (Auto) Baso % (Auto) Lymph # (Auto) [place] # (Auto) Eos # (Auto) Baso # (Auto) Abs Immat Gran (auto) Absolute Neuts (auto) Absolute Nucleated RBC Nucleated RBC % (auto) POC Glucose 239 H 128 H 93 05/30/23 05/30/23 10:55 12:26 WBC 14.6 H RBC 4.12 L Hgb 12.3 L Hct 38.9 L MCV 94.4 MCH 29.9 MCHC 31.6 RDW 13.4 Plt Count 223 MPV 11.0 Immature Gran % (Auto) 1.2 H Neut % (Auto) 79.9 H Lymph % (Auto) 8.1 L [place] % (Auto) 5.4 Eos % (Auto) 5.2 H Baso % (Auto) 0.2 Lymph # (Auto) 1.2 [place] # (Auto) 0.8 Eos # (Auto) 0.8 H Baso # (Auto) 0.0 Abs Immat Gran (auto) 0.17 H Absolute Neuts (auto) 11.7 H Absolute Nucleated RBC 0.000 Nucleated RBC % (auto) 0.0 POC Glucose 169 H Discharge Plan Discharge Anticipated Discharge Date/Time: 05/30/23 12:03 Patient Disposition: Xfer SNF Discharge Diagnosis: Atypical pneumonia/ pulmonary embolism Referrals: [facility] [Outside] - 1 Week (TRANSFER TO [facility] F[facility] FOR [facility]ORT TERM REHAB) Adilia Gonzales MD [Primary Care Provider] - 1 Week Discharge Medications: New spironolactone 25 mg Tablet 25 mg PO DAILY Qty: 30 0RF Protocol: Hold for SBP< HOLD for SBP < : 90 losartan 25 mg Tablet 25 mg PO DAILY Qty: 30 0RF Protocol: Hold for SBP< HOLD for SBP < : 90 mirtazapine 7.5 mg Tablet 7.5 mg PO BEDTIME Qty: 30 0RF Jardiance 10 mg Tablet 10 mg PO DAILY Qty: 30 0RF amoxicillin-pot clavulanate 875-125 mg tablet 1 tab PO BID Qty: 14 0RF doxycycline hyclate 100 mg tablet 100 mg PO BID 7 Days Qty: 14 0RF Eliquis 5 mg tablet 5 mg PO BID Qty: 60 0RF Continued amlodipine 5 mg tablet 5 mg PO DAILY levothyroxine [Synthroid] 100 mcg tablet 100 mcg PO DAILY tamsulosin 0.4 mg capsule 0.4 mg PO QAM omeprazole 20 mg capsule,delayed release(DR/EC) 20 mg PO DAILY losartan 100 mg tablet 100 mg PO DAILY insulin lispro protamin-lispro [Humalog Mix 75-25 KwikPen] 100 unit/mL (75-25) insulin pen 20 ml subcut DAILY@1630 insulin lispro protamin-lispro [Humalog Mix 75-25 KwikPen] 100 unit/mL (75-25) insulin pen 15 unit subcut DAILY@0730,1130 Janumet 50-1,000 mg tablet 1 tab PO BID Discontinued lidocaine [Lidoderm] 5 % adhesive patch,medicated 1 patch topical DAILY Qty: 15 0RF Rx Instructions: leave on most painful area for up to 12 hrs Discharge Orders: Discharge Order (Routine); Ordered 05/30/23 Ordered By: Min Mahan Diet: Advance to usual diet Activity on Discharge: As tolerated Stand Alone Forms: Patient Portal Discharge page Care Plan Goals: complete course of Augmentin and doxycycline as ordered. Health Concerns: Need to take Eliquis 5 mg twice daily for 6 months to treat pulmonary embolism Plan of Treatment: as per receiving facility Assessment: see discharge summary
--- NOTE | 2023-05-30 13:50 | MHC.CM.PN ---
Addendum entered by Libia Robbins 05/30/23 14:09: IMM DELIVERED Original Note: DP: PT HAS BEEN MEDICALLY CLEARED FOR DC TO SHORT TERM REHAB AT [facility] PENDING INSURANCE AUTH. CENTER AWARE AND WILL SEEK AUTH FROM [facility]. FAMILY UPDATED. RN NOTIFIED. BLS TRANSPORT BOOKED FOR 4 PM VIA [facility].
== END 2023-05-30 16:13 | disposition skilled nursing facility (03) | DRG 870 ==
LOC: HO.ED 22:44 → HO.EDOVER 22:47 → HO.ICU 23:22 → HO.IMC 05-22 16:51
PROVIDERS: Internal Medicine; Internal Medicine Cardiovascular Disease; Internal Medicine Pulmonary Disease; Nurse Practitioner Acute Care; Nurse Practitioner Family; Registered Nurse Community Health; Admitting Provider Physician Assistant Medical; Emergency Provider Emergency Medicine Emergency Medical Services; PCP Student in an Organized Health Care Education/Training Program; Visit Provider Hospitalist
PROC: 0BJ08ZZ Inspection of Tracheobronchial Tree, Via Natural or Artificial Opening Endoscopic (ICD-10-PCS; CPT 31622; principal; 2023-05-18 10:00)
DX: A41.9 Sepsis, unspecified organism (principal); E11.10 Type 2 diabetes mellitus with ketoacidosis without coma; J18.9 Pneumonia, unspecified organism; J80 Acute respiratory distress syndrome; I26.99 Other pulmonary embolism without acute cor pulmonale; J86.9 Pyothorax without fistula; C78.7 Secondary malignant neoplasm of liver and intrahepatic bile duct; I42.0 Dilated cardiomyopathy; J90 Pleural effusion, not elsewhere classified; C77.8 Secondary and unspecified malignant neoplasm of lymph nodes of multiple regions; J98.11 Atelectasis; C34.11 Malignant neoplasm of upper lobe, right bronchus or lung; C78.02 Secondary malignant neoplasm of left lung; E11.51 Type 2 diabetes mellitus with diabetic peripheral angiopathy without gangrene; E83.52 Hypercalcemia; E86.0 Dehydration; Z87.891 Personal history of nicotine dependence; Z79.899 Other long term (current) drug therapy
CPT/HCPCS: 0241U; 36415; 36600; 71045; 71250; 71275; 80048; 80053; 80076; 80202; 81001; 82010; 82565; 82803; 82945; 82947; 83605; 83615; 83735; 83880; 83986; 84100; 84157; 84484; 85025; 85027; 85379; 85610; 85652; 86481; 86713; 87040; 87070; 87086; 87116; 87205; 87206; 87449; 87635; 87899; 88112; 88305; 88341; 88342; 89051; 93005; 94002; 94003; 94660; 94799; 97162; 97530; 99203; 99285; C1758; J0295; J0456; J0696; J1100; J1170; J1650; J1885; J1940; J1956; J2250; J2543; J3010; J3370; P9047; Q9967

== ENCOUNTER 2023-06-01 16:51 | Inpatient (IN) | payer OTHER, SELFPAY ==
[2023-06-01] VITALS (11 sets, daily range): BP systolic 64–127; BP diastolic 30–68; PULSE 88–97; RESP 12–20; TEMP 36.4–36.6; O2SAT 91–99; BMI 23.1; BMI 25.7; BMI 25.4
--- NOTE | ~2023-06-01 | XR_ITS ---
EXAMINATION: XR CHEST CLINICAL INFORMATION: Hypoxia. COMPARISON: CT scan of and chest x-ray of 06/01/2023. TECHNIQUE: AP portable view of the chest was obtained. FINDINGS: There has been mild worsening of interstitial and airspace disease seen bilaterally. There is question of a small partially loculated left pleural effusion. No pneumothorax identified. Heart normal size. Multilevel degenerative disc disease is seen within the thoracic and lumbar spine. XR/XR chest 1V IMPRESSION: Mild worsening of diffuse interstitial and airspace disease which may be on the basis of pulmonary edema of cardiogenic or noncardiogenic etiology.
--- NOTE | 2023-06-01 17:51 | PC.NURSE ---
Central line being placed by provider, Dr. Woodruff, pt stable during procedure, provider aware of EKG changes during procedure.
--- NOTE | 2023-06-01 17:57 | ED.GENADULT ---
HPI - General Adult General Chief complaint: General Medical Stated complaint: hypoglycemia/hypotension Time Seen by Provider: 06/01/23 16:58 Source: EMS Mode of arrival: EMS Limitations: other (decreased level of awareness) History of Present Illness HPI narrative: 72-year-old male residing in a short-term rehabilitation facility for pneumonia presents with decreased responsiveness, hypotension and hypoglycemia. He was found at the [facility] with a blood sugar of 54 and a blood pressure 56/35. He responding to painful stimuli. EMS provided him with a approximately 400 mL of IV fluids. Blood pressure did slightly respond. Was also given glucose. Blood sugar upon arrival was approximately 95. Patient does answer some simple questions. Denies chest pain, shortness breath, palpitations, abdominal pain, nausea, vomiting or diarrhea. Patient's symptoms are noted to be quite severe. There is no clear relieving or exacerbating features. It should be noted that the patient was recently discharged from hospital on May 30. Apparently he was admitted to the ICU where he developed acute respiratory distress requiring intubation. Was placed on broad spanned him antibiotics for what was considered postobstructive pneumonia. This is thought to be secondary to malignancy. While in the ICU, he developed a large left pleural effusion which he underwent a pigtail catheter draining approximately 1400 cc of serosanguineous fluid. He was extubated and transferred on the floor to the floor on May 23. On May 27 he developed worsening shortness of breath. Repeat CT angiogram at that time demonstrated small bilateral pulmonary emboli with no evidence of right heart strain. He is subsequently placed on Lovenox. There is a suspicious soft tissue mass that was thought to be suspicious for malignancy with metastatic lesions to the ribs and spine. He did have pathology of pleural fluid. He was discharged on Augmentin and doxycycline. Ate a tissue biopsy from May 18 performed under transbronchial biopsy identified benign bronchial mucosa with reactive changes, no malignancy identified. Pleural fluid cytology is still pending. Related Data Home Medications Medication Instructions Recorded Confirmed amlodipine 5 mg tablet 5 mg PO DAILY 05/13/23 05/13/23 insulin lispro protamine-lispro 15 unit subcut DAILY@0730,1130 05/13/23 05/13/23 100 unit/mL (75-25) subcutaneous pen (Humalog Mix 75-25 KwikPen) insulin lispro protamine-lispro 20 ml subcut DAILY@1630 05/13/23 05/13/23 100 unit/mL (75-25) subcutaneous pen (Humalog Mix 75-25 KwikPen) levothyroxine 100 mcg tablet 100 mcg PO DAILY 05/13/23 05/13/23 (Synthroid) losartan 100 mg tablet 100 mg PO DAILY 05/13/23 05/13/23 omeprazole 20 mg capsule,delayed 20 mg PO DAILY 05/13/23 05/13/23 release sitagliptin phosphate 50 1 tab PO BID 05/13/23 05/13/23 mg-metformin 1,000 mg tablet (Janumet) tamsulosin 0.4 mg capsule 0.4 mg PO QAM 05/13/23 05/13/23 Previous Rx's Medication Instructions Recorded amoxicillin 875 mg-potassium 1 tab PO BID #14 tabs 05/30/23 clavulanate 125 mg tablet apixaban 5 mg tablet (Eliquis) 5 mg PO BID #60 tabs 05/30/23 doxycycline hyclate 100 mg tablet 100 mg PO BID 7 days #14 tabs 05/30/23 empagliflozin 10 mg tablet 10 mg PO DAILY #30 tabs 05/30/23 (Jardiance) losartan 25 mg tablet 25 mg PO DAILY #30 tabs 05/30/23 mirtazapine 7.5 mg tablet 7.5 mg PO BEDTIME #30 tabs 05/30/23 spironolactone 25 mg tablet 25 mg PO DAILY #30 tabs 05/30/23 Allergies Allergy/AdvReac Type Severity Reaction Status Date / Time No Known Allergies Allergy Verified 06/01/23 17:01 Review of Systems Review of Systems: Yes Unobtainable due to mental status (Patient does respond yes or no but offers no specific answers.) [facility] Past Medical History Medical History (Updated 06/01/23 @ 19:23 by Mohit Woodruff MD) Interstitial lung disease Social History Social History (Updated 05/24/23 @ 14:10 by Amanda Denise MD) Household Members: Family Housing: House Do you presently have visiting nurse or other home services: No Unable to assess alcohol history related to: Unable to respond Alcohol intake: former Patient Tobacco Use Status: Current everyday Tobacco user Advance Directives: Yes Advance Directives on File: Yes Advance Directives Date on File: 06/01/23 service: No Physical Exam ED Vital Signs: Vital Signs - 24 hr 06/01/23 17:01 06/01/23 17:33 Temperature 97.7 F Pulse Rate 92 91 Respiratory Rate 16 20 Blood Pressure 64/30 L 70/46 L Pulse Oximetry 97 99 Oxygen Delivery Method Nasal Cannula Nasal Cannula Oxygen Flow Rate 3 BMI result Body Mass Index 23.1 GEN: Well developed, ill-appearing HEENT: Normocephalic, atraumatic, normal external ears, nose appears normal, no oropharyngeal edema or exudates Eyes: Normal to appearance Neck: Supple, no lymphadenopathy Respiratory: Crackles bilaterally anteriorly Cardiovascular: Regular rate and rhythm, no murmurs rubs or gallops Abdomen: Soft, nontender, nondistended, no guarding, no rebound Rectal: Dark stool, guaiac positive Back: No decubiti I identified Extremities: No clubbing cyanosis or edema Neurologic: No focal neurologic deficits Skin: No rash Course Reevaluation(s) Reevaluation #1: Patient appears to have urinary tract infection. He has been in the hospital. There also abnormal findings on chest x-ray. Will place patient on broad-spectrum antibiotics including Zosyn and vancomycin. Time: 18:13 Reevaluation #2: Patient's proBNP is just short of 40. He is hypotensive. He has no elevated white blood cell count. Patient meets the qualifications for severe sepsis. On top of ordering broad-spectrum antibiotics, I am ordering at 30 cc/kilogram IV fluid bolus. Time: 18:53 Reevaluation #3: Patient was consented for blood transfusion. Hemoglobin level dropped significantly. He does have some decreased levels of consciousness, but does respond verbally. I believe oxygen carrying capacity would improve his mentation and help him feel significantly improved. I have ordered an IV fluid bolus. Additionally, I have ordered a sepsis alert on the patient. I have had extensive conversation with the patient, daughter and . Patient is DNI but is okay for CPR. Family is aware of diagnosis of pop likely metastatic/stage IV cancer. That etiology unclear. Biopsy was negative for cancer but the fluid cytology is still pending. I did review the PET scan which shows possible liver metastases as well. Additionally, I have contacted the shoe trimmer to arrange for ICU hospitalization especially given hypotension, active GI bleed. Time: 19:18 Additional Reevaluation(s): 1930: Per request of the shoe trimmer, will start TXA given acute GI hemorrhage in significant blood loss. 8:20 p.m. a focused sepsis examination evaluation has been performed. Patient's blood pressure is improving. He has received broad-spectrum antibiotics. I have transfusion has been ordered. He is receiving TXA for GI bleed on anticoagulation. Patient's mentation has improved. Medications Administered Generic Name Dose Route Start Last Admin Trade Name Freq PRN Reason Stop Dose Admin Pantoprazole Sodium 80 mg/ 100 mls @ 10 mls/hr 06/01/23 18:15 06/01/23 19:14 Sodium Chloride IV 8 mg/hr .Q10H FELI 10 mls/hr Administration 8 MG/HR Discontinued Medications Generic Name Dose Route Start Last Admin Trade Name Freq PRN Reason Stop Dose Admin Sodium Chloride 500 mls @ 500 mls/hr 06/01/23 17:15 06/01/23 17:29 Ns IV 06/01/23 18:14 500 mls/hr .Q1H FELI Administration Piperacillin Sod/Tazobactam 50 mls @ 100 mls/hr 06/01/23 18:13 06/01/23 18:47 Sod 3.375 gm/ Sodium Chloride IV 06/01/23 18:42 100 mls/hr ONCE ONE Administration Sodium Chloride 2,517 mls @ 2,517 mls/hr 06/01/23 18:52 06/01/23 19:09 Ns 30 ml/kg infuse over 1 hr (2517 ml) 06/01/23 19:51 2,517 mls/hr IV Administration .Q1H STA Pantoprazole Sodium 80 mg 06/01/23 18:06 06/01/23 18:47 Pantoprazole Sodium 40 Mg/10 Ml Vial IVPUSH 06/01/23 18:07 80 mg ONCE ONE Administration Procedures Central Line Placement Right IJ: Time Out Performed: Yes Patient Placed on Monitor/Pulse Ox: Yes MD Prep: mask, gown and gloves Central Line Prep: Chlorhexidine scrub Local Anesthetic: lidocaine 1% Amount of anesthesia used (mL): 3 Ultrasound Used for Placement: Yes Central Line Lumen Inserted: triple Post Procedure: sutured in place, good blood return, all ports aspirated, flushed, capped and sterile dressing applied Post Procedure X-Ray: tip of catheter in good position and no pneumothorax seen Patient Tolerated Procedure: well and no complications Complications: none Medical Decision Making Medical Decision Making [facility] Narrative: 72-year-old male presents with hypotension, hypoglycemia. On my exam, there are no obvious focal neurologic deficits. He is on L nasal cannula and has bilateral crackles. He is hypotensive but not tachycardic. His abdomen is soft nontender. His rectal exam revealed dark black stool that was guaiac positive. Problems: Hypotension-patient is hypotensive. Differential diagnosis could include hypovolemia, septic shock, hemorrhagic shock. Patient has a history of congestive heart failure and has crackles bilaterally. Will provide patient with intermittent 500 cc L fluid boluses. Patient may require intubation to protect airway in order to provide appropriate oxygenation if we need to continue with fluid boluses. Will obtain a lactic acid, blood cultures x2, consideration for broad-spectrum antibiotics specially given recent hospitalization. However, patient is afebrile there is no evidence of infection at this time. I also have a Ramos catheter placed in order to provide strict I&Os. Patient has reported history of cardiomyopathy. However, I do not see an echocardiogram on file here. If patient needs pressors, would consider dobutamine/dopamine to add for ionotropic affect appear. A central line will need to be placed for impending pressor placement as well as for patient comfort with frequent blood draws anticipated. GI bleed-patient appears to be having melanotic stool that is soft in nature. He is guaiac positive. Will check a CBC to check for anemia or change in hemoglobin level. Will check coagulation panel. Patient is on anticoagulants as well. Those will need to be held at this time. Patient ate may require a blood transfusion. Will start patient on Protonix 80 mg IV fluid bolus followed by 8 milligrams/hour drip. Differential diagnosis includes upper GI bleed of peptic ulcer disease, gastritis, variceal bleeding, AVM Hypoglycemia-will continue to monitor blood sugar levels on an hourly basis. Consider providing patient with a D5 normal saline drip. Differential Diagnosis Differential Diagnoses: The differential diagnosis associated with the presentation includes (See above) Admission/Observation Consideration of admission/observation: Escalation of care including admission/observation considered Lab Data [facility] Lab Attestation statement: I reviewed the patient's lab results. 06/01/23 17:38 Labs: Lab Results 06/01/23 06/01/23 06/01/23 Range/Units 16:57 17:25 17:26 WBC (4.8-10.8) X10*3/uL RBC (4.60-5.80) X10*6/uL Hgb (14.0-18.0) g/dl Hct (42.0-52.0) % MCV (80.0-98.0) fL MCH (27.0-33.0) pg MCHC (31.0-36.0) g/dl RDW (11.0-16.0) % Plt Count (160-400) X10*3/uL MPV (9.4-12.4) fL Immature Gran % (Auto) (0.0-0.4) % Neut % (Auto) (45-73) % Lymph % (Auto) (20-40) % Polk % (Auto) (2-11) % Eos % (Auto) (0-4) % Baso % (Auto) (0-2) % Lymph # (Auto) (1.2-4.9) X10*3/uL Polk # (Auto) (0.1-1.2) X10*3/uL Eos # (Auto) (0.0-0.4) X10*3/uL Baso # (Auto) (0.0-0.2) X10*3/uL Abs Immat Gran (auto) (0.00-0.03) X10*3/uL Absolute Neuts (auto) (2.0-8.3) x10*3/uL Absolute Nucleated RBC (0.0-0.012) X10*3/uL Nucleated RBC % (auto) (0.0-0.2) /100WBC PT (10.0-13.1) SEC INR (0.9-1.1) O2 Saturation % ABG pH at Pt Temp (7.35-7.45) ABG pCO2 at Pt Temp (32-45) mmHg ABG pO2 at Pt Temp (83-108) mmHg ABG HCO3 (22-26) mmol/L ABG Base Excess (Actual) mmol/L Sodium (135-145) mmol/L Potassium (3.3-5.1) mmol/L Chloride (96-108) mmol/L Carbon Dioxide (22-29) mmol/L Anion Gap (12-20) BUN (9-16) mg/dL Creatinine (0.5-1.4) mg/dL Estim Creat Clear Calc Estimated GFR POC Glucose 94 (60-115) mg/dL Random Glucose (60-115) mg/dL Lactic Acid (0.5-2.0) mmol/L Calcium (8.4-10.2) mg/dL Total Bilirubin (0.0-1.0) mg/dL Direct Bilirubin (0.0-0.5) mg/dL AST (5-37) U/L ALT (0-40) U/L Alkaline Phosphatase (39-117) U/L B-Natriuretic Peptide (<100) pg/mL Total Protein (6.5-8.0) g/dL Albumin (3.5-5.0) g/dL TSH (0.32-4.0) uIU/mL Free T4 (0.71-1.85) ng/dL Urine Color Yellow Urine Appearance Clear Urine pH 5.5 (5.0-9.0) Ur Specific Blair 1.025 (1.005-1.025) Urine Protein Negative (Neg-Trace) mg/dL Urine Glucose (UA) >=1000 H (Negative) mg/dL Urine Ketones Trace (Negative) mg/dL Urine Blood Negative (Negative) Urine Nitrite Negative (Negative) Ur Leukocyte Esterase Small (1+) H (Negative) Urine RBC 0-2 (0-2) /HPF Urine WBC 21-50 H (0-5) /HPF Ur Squamous Epith Cells 0-2 (0-2) /HPF Urine Bacteria None Seen (None Seen) Hyaline Casts 11-20 (0-2) /LPF Urine Yeast Present Stool Occult Blood POSITIVE (NEGATIVE) Blood Type Antibody Screen Crossmatch 06/01/23 06/01/23 06/01/23 Range/Units 17:38 17:38 18:09 WBC 26.8 H (4.8-10.8) X10*3/uL RBC 2.97 L D (4.60-5.80) X10*6/uL Hgb 8.9 L D (14.0-18.0) g/dl Hct 27.4 L D (42.0-52.0) % MCV 92.3 (80.0-98.0) fL MCH 30.0 (27.0-33.0) pg MCHC 32.5 (31.0-36.0) g/dl RDW 14.3 (11.0-16.0) % Plt Count 244 (160-400) X10*3/uL MPV 11.0 (9.4-12.4) fL Immature Gran % (Auto) 3.9 H (0.0-0.4) % Neut % (Auto) 87.9 H (45-73) % Lymph % (Auto) 3.3 L (20-40) % Polk % (Auto) 4.6 (2-11) % Eos % (Auto) 0.2 (0-4) % Baso % (Auto) 0.1 (0-2) % Lymph # (Auto) 0.9 L (1.2-4.9) X10*3/uL Polk # (Auto) 1.2 (0.1-1.2) X10*3/uL Eos # (Auto) 0.1 (0.0-0.4) X10*3/uL Baso # (Auto) 0.0 (0.0-0.2) X10*3/uL Abs Immat Gran (auto) 1.05 H (0.00-0.03) X10*3/uL Absolute Neuts (auto) 23.5 H (2.0-8.3) x10*3/uL Absolute Nucleated RBC 0.020 H (0.0-0.012) X10*3/uL Nucleated RBC % (auto) 0.1 (0.0-0.2) /100WBC PT (10.0-13.1) SEC INR (0.9-1.1) O2 Saturation % ABG pH at Pt Temp (7.35-7.45) ABG pCO2 at Pt Temp (32-45) mmHg ABG pO2 at Pt Temp (83-108) mmHg ABG HCO3 (22-26) mmol/L ABG Base Excess (Actual) mmol/L Sodium 140 (135-145) mmol/L Potassium 4.7 (3.3-5.1) mmol/L Chloride 107 (96-108) mmol/L Carbon Dioxide 22 (22-29) mmol/L Anion Gap 16 (12-20) BUN 47 H (9-16) mg/dL Creatinine 1.30 (0.5-1.4) mg/dL Estim Creat Clear Calc 60.0 Estimated GFR 54 POC Glucose (60-115) mg/dL Random Glucose 85 (60-115) mg/dL Lactic Acid (0.5-2.0) mmol/L Calcium 9.0 D (8.4-10.2) mg/dL Total Bilirubin 0.3 (0.0-1.0) mg/dL Direct Bilirubin 0.1 (0.0-0.5) mg/dL AST 39 H (5-37) U/L ALT 43 H (0-40) U/L Alkaline Phosphatase 62 (39-117) U/L B-Natriuretic Peptide (<100) pg/mL Total Protein 5.2 L (6.5-8.0) g/dL Albumin 2.4 L (3.5-5.0) g/dL TSH 5.80 H (0.32-4.0) uIU/mL Free T4 0.78 (0.71-1.85) ng/dL Urine Color Urine Appearance Urine pH (5.0-9.0) Ur Specific Blair (1.005-1.025) Urine Protein (Neg-Trace) mg/dL Urine Glucose (UA) (Negative) mg/dL Urine Ketones (Negative) mg/dL Urine Blood (Negative) Urine Nitrite (Negative) Ur Leukocyte Esterase (Negative) Urine RBC (0-2) /HPF Urine WBC (0-5) /HPF Ur Squamous Epith Cells (0-2) /HPF Urine Bacteria (None Seen) Hyaline Casts (0-2) /LPF Urine Yeast Stool Occult Blood (NEGATIVE) Blood Type O Positive Antibody Screen NEGATIVE Crossmatch See Detail 06/01/23 06/01/23 06/01/23 Range/Units 18:09 18:09 18:09 WBC (4.8-10.8) X10*3/uL RBC (4.60-5.80) X10*6/uL Hgb (14.0-18.0) g/dl Hct (42.0-52.0) % MCV (80.0-98.0) fL MCH (27.0-33.0) pg MCHC (31.0-36.0) g/dl RDW (11.0-16.0) % Plt Count (160-400) X10*3/uL MPV (9.4-12.4) fL Immature Gran % (Auto) (0.0-0.4) % Neut % (Auto) (45-73) % Lymph % (Auto) (20-40) % Polk % (Auto) (2-11) % Eos % (Auto) (0-4) % Baso % (Auto) (0-2) % Lymph # (Auto) (1.2-4.9) X10*3/uL Polk # (Auto) (0.1-1.2) X10*3/uL Eos # (Auto) (0.0-0.4) X10*3/uL Baso # (Auto) (0.0-0.2) X10*3/uL Abs Immat Gran (auto) (0.00-0.03) X10*3/uL Absolute Neuts (auto) (2.0-8.3) x10*3/uL Absolute Nucleated RBC (0.0-0.012) X10*3/uL Nucleated RBC % (auto) (0.0-0.2) /100WBC PT 15.0 H (10.0-13.1) SEC INR 1.3 H (0.9-1.1) O2 Saturation % ABG pH at Pt Temp (7.35-7.45) ABG pCO2 at Pt Temp (32-45) mmHg ABG pO2 at Pt Temp (83-108) mmHg ABG HCO3 (22-26) mmol/L ABG Base Excess (Actual) mmol/L Sodium (135-145) mmol/L Potassium (3.3-5.1) mmol/L Chloride (96-108) mmol/L Carbon Dioxide (22-29) mmol/L Anion Gap (12-20) BUN (9-16) mg/dL Creatinine (0.5-1.4) mg/dL Estim Creat Clear Calc Estimated GFR POC Glucose (60-115) mg/dL Random Glucose (60-115) mg/dL Lactic Acid 2.5 H* (0.5-2.0) mmol/L Calcium (8.4-10.2) mg/dL Total Bilirubin (0.0-1.0) mg/dL Direct Bilirubin (0.0-0.5) mg/dL AST (5-37) U/L ALT (0-40) U/L Alkaline Phosphatase (39-117) U/L B-Natriuretic Peptide 38 (<100) pg/mL Total Protein (6.5-8.0) g/dL Albumin (3.5-5.0) g/dL TSH (0.32-4.0) uIU/mL Free T4 (0.71-1.85) ng/dL Urine Color Urine Appearance Urine pH (5.0-9.0) Ur Specific Blair (1.005-1.025) Urine Protein (Neg-Trace) mg/dL Urine Glucose (UA) (Negative) mg/dL Urine Ketones (Negative) mg/dL Urine Blood (Negative) Urine Nitrite (Negative) Ur Leukocyte Esterase (Negative) Urine RBC (0-2) /HPF Urine WBC (0-5) /HPF Ur Squamous Epith Cells (0-2) /HPF Urine Bacteria (None Seen) Hyaline Casts (0-2) /LPF Urine Yeast Stool Occult Blood (NEGATIVE) Blood Type Antibody Screen Crossmatch 06/01/23 Range/Units 18:20 WBC (4.8-10.8) X10*3/uL RBC (4.60-5.80) X10*6/uL Hgb (14.0-18.0) g/dl Hct (42.0-52.0) % MCV (80.0-98.0) fL MCH (27.0-33.0) pg MCHC (31.0-36.0) g/dl RDW (11.0-16.0) % Plt Count (160-400) X10*3/uL MPV (9.4-12.4) fL Immature Gran % (Auto) (0.0-0.4) % Neut % (Auto) (45-73) % Lymph % (Auto) (20-40) % Polk % (Auto) (2-11) % Eos % (Auto) (0-4) % Baso % (Auto) (0-2) % Lymph # (Auto) (1.2-4.9) X10*3/uL Polk # (Auto) (0.1-1.2) X10*3/uL Eos # (Auto) (0.0-0.4) X10*3/uL Baso # (Auto) (0.0-0.2) X10*3/uL Abs Immat Gran (auto) (0.00-0.03) X10*3/uL Absolute Neuts (auto) (2.0-8.3) x10*3/uL Absolute Nucleated RBC (0.0-0.012) X10*3/uL Nucleated RBC % (auto) (0.0-0.2) /100WBC PT (10.0-13.1) SEC INR (0.9-1.1) O2 Saturation 100.0 % ABG pH at Pt Temp 7.42 (7.35-7.45) ABG pCO2 at Pt Temp 37 (32-45) mmHg ABG pO2 at Pt Temp 130 H (83-108) mmHg ABG HCO3 25 (22-26) mmol/L ABG Base Excess (Actual) 0.9 mmol/L Sodium (135-145) mmol/L Potassium (3.3-5.1) mmol/L Chloride (96-108) mmol/L Carbon Dioxide (22-29) mmol/L Anion Gap (12-20) BUN (9-16) mg/dL Creatinine (0.5-1.4) mg/dL Estim Creat Clear Calc Estimated GFR POC Glucose (60-115) mg/dL Random Glucose (60-115) mg/dL Lactic Acid (0.5-2.0) mmol/L Calcium (8.4-10.2) mg/dL Total Bilirubin (0.0-1.0) mg/dL Direct Bilirubin (0.0-0.5) mg/dL AST (5-37) U/L ALT (0-40) U/L Alkaline Phosphatase (39-117) U/L B-Natriuretic Peptide (<100) pg/mL Total Protein (6.5-8.0) g/dL Albumin (3.5-5.0) g/dL TSH (0.32-4.0) uIU/mL Free T4 (0.71-1.85) ng/dL Urine Color Urine Appearance Urine pH (5.0-9.0) Ur Specific Blair (1.005-1.025) Urine Protein (Neg-Trace) mg/dL Urine Glucose (UA) (Negative) mg/dL Urine Ketones (Negative) mg/dL Urine Blood (Negative) Urine Nitrite (Negative) Ur Leukocyte Esterase (Negative) Urine RBC (0-2) /HPF Urine WBC (0-5) /HPF Ur Squamous Epith Cells (0-2) /HPF Urine Bacteria (None Seen) Hyaline Casts (0-2) /LPF Urine Yeast Stool Occult Blood (NEGATIVE) Blood Type Antibody Screen Crossmatch ABG Data Attestation ABG: I personally reviewed and interpreted this ABG as follows: Independent Interpretation I performed an independent interpretation of an: EKG (Normal sinus rhythm heart rate 93, normal intervals, no acute ST elevations depressions) and Plain X-Ray (Bilateral pleural effusion and patchy infiltrates right greater than left, central line at the cavoatrial junction, appropriately place, no pneumothorax) Radiology Impression Discussion of test interpretation with radiology: I have reviewed the radiologist's reading. ( XR/XR chest 1V IMPRESSION: 1. Right IJ catheter tip at caval atrial junction. There is no pneumothorax. 2. Chronic interstitial lung disease and bilateral patchy airspace opacities. 3. Small left pleural effusion. Dictated By:Ganga Degroot MDSigned By:<Electronically signed) Independent Historian Clinical information obtained from an independent historian. History obtained from or confirmed by: EMS External Record Review External record reviewed: Inpatient record and Outpatient record Prescription Management I considered prescription management with: Antibiotic Chronic Conditions Patient?s care impacted by: Diabetes Critical Care Time Critical Care Time Total Critical Care Time: 140 Attestation: Approximately 140 minutes of critical care time provided to the patient in terms of initial assessment, frequent bedside assessment, extensive conversation with , daughter and patient as well. Consultation with other providers. Review of medical data, management including hypotension, severe sepsis, upper GI bleed. This is all outside of procedure. Discharge Plan Discharge Clinical Impression: Hypotension, Pleural effusion, Hypoxia, Metastatic cancer, Acute lower UTI (urinary tract infection) Patient Disposition: Admitted As Inpatient
[2023-06-01 18:18] LABS: Alanine Aminotransferase 43 U/L (0-40); Albumin Level 2.4 g/dL (3.5-5.0); Alkaline Phosphatase 62 U/L (39-117); Anion Gap 16 (12-20); Aspartate Amino Transferase 39 U/L (5-37); Bilirubin Direct 0.1 mg/dL (0.0-0.5); Bilirubin Total 0.3 mg/dL (0.0-1.0); Blood Urea Nitrogen 47 mg/dL (9-16); Carbon Dioxide 22 mmol/L (22-29); Chloride 107 mmol/L (96-108); Estimated Glomerular Filt Rate 54; Glucose Random 85 mg/dL (60-115); Potassium 4.7 mmol/L (3.3-5.1); Sodium 140 mmol/L (135-145); Total Protein 5.2 g/dL (6.5-8.0)
[2023-06-01 19:03] LABS: Free T4 (Free Thyroxine) 0.78 ng/dL (0.71-1.85)
--- NOTE | 2023-06-01 19:47 | PC.NURSE ---
POC 81. Dr. Woodruff made aware
--- NOTE | 2023-06-01 20:36 | PC.NURSE ---
Assumed care of patient at 1800. Previous shift completed blood cultures and lactate lab draws, Zosyn infused. NS bolus hung at 1909. Blood transfusion initiated.
--- NOTE | 2023-06-01 20:37 | PC.NURSE ---
Addendum entered by Rochelle Butler 06/01/23 20:51: This RN informed Lukas that 2 BPs needed within an hour of fluid infusion Addendum entered by Rochelle Batistanacion 06/01/23 20:44: Informed Lukas that 2nd lactate draw was needed and vancomycin is currently infusing Original Note: Nurse to Nurse given to ARETHA Gaytan. Informed Lukas that sepsis alert nursing checklist complete with current IVF running.
--- NOTE | 2023-06-01 21:12 | PM.CCHP ---
History of Present Illness Date of Service: 06/01/23 Attending physician on admission: Stephan Carballo Chief Complaint: UGIB, SEPSIS HPI: ?72-year-old patient with history of type 2 diabetes, GERD, BPH, hypertension, hypothyroidism who comes from a correction facility after being discharged from this hospital 2 days ago post a hospitalization for hypoxic respiratory failure in the setting of a lung mass with postobstructive pneumonia which was biopsied during bronchoscopy and bronchial mucosa result showed reactive changes without malignancy however the cytology results still pending. ?His hospitalization included short-term BiPAP following by endotracheal intubation, in addition he had a large left-sided pleural effusion which was drained with a pigtail from which approximately 1400 cc of serosanguineous fluid was obtained.? Subsequently he was extubated and transferred to the floor and on May 27 his course was ?complicated by a underlying diagnosis of pulmonary embolism for which he was put on Eliquis, postobstructive pneumonia for which he was discharged with Augmentin and doxycycline. ? Today he was sent from the nursing facility to the ER due to decreased responsiveness, hypotension (56/35) and hypoglycemia (54) with minimal improvement of his blood pressure after 400 cc of IV fluid given by EMS, he also received dextrose. ?At the time of arrival, the patient had been answering some simple questions. ?Is noted that his H&H baseline was as high as 15 and 45, his current H&H is 8.9 and 27, a stool why act positive, according to the family they did not get any reports of hematemesis but it was reported that he had black stools at some point. ? His workup revealed a white count of 26.8 (increased from 14.6) H&H as above, PT 15, INR 1.3, ABG pH 7.42, pCO2 37, PO2 130, HC03 25, sodium 140, potassium 4.7, chloride 107, carbon dioxide 22, anion gap 16, BUN 47 (31), creatinine 1.3 (0.7) lactic acid 2.5, calcium 9, SAD 39, ALT 43, albumin 2.4, TSH 5.8, T4 0.78.? Urinalysis reveals glucosuria with small leukocyte esterase, 21-50 white blood cells per high-power field, no bacteria, yeast present.? The patient was given 30 mL/kilos of IV fluids, vancomycin and Zosyn and given the concern of worsening hypotension and developing of his suspected upper GI bleed we were asked to admit the patient to the ICU. ? ROS:? Unable to obtain; although he is alert, clearly confused ? Past Medical History:? As above ? Past Surgical History: as above ? Family history:? Noncontributory ? Social History:? Patient lives at home with his , has a 40 pack-year history of tobacco consumption, quit 10 years ago.? No alcohol history, no drug use. ? CODE STATUS: ?Do no intubate, proceed with CPR ? Allergies: NKDA ? Home Medications: See Med Rec ? Sepsis physical exam done at 20:30 p.m. VS: ?127/68, 93, 18, 97% on 3 L nasal cannula, temperature 97.9 degrees. General:? Alert oriented to person, not to time or place, confused.? Able to follow basic commands..? Speaking full sentences.? Speech is well articulated, histo process is not coherent.? Skin:? Intact, no lesions, edema, erythema, clubbing or cyanosis.? No ulcers. HEENT:? Head is normocephalic, atraumatic, pupils equal round reactive to light accommodation bilaterally.? Extraocular movements appear intact.? Buccal mucosa is dry, Neck is supple, RIJ CVL. Cardiac:? Clear S1-S2, no murmurs rubs or gallops. Pulmonary:? bibasilar coarseness, otherwise clear no rhonchi or rales. Abdomen:? Protuberant, positive bowel sounds in all 4 quadrants.? Soft, nontender, no rebound or guarding.? Musculoskeletal:? Moving all 4 extremities upon request a major joints, there is no crepitus or tenderness.? The strength is 5/5 bilaterally and throughout all 4 extremities.? There is no leg edema , no calf tenderness , no leg asymmetry.? Gait not assessed at this point. Neurologic:? As above, cranial nerves 2-12 are grossly intact.? No focal deficits noted. Vascular:? 2+ pulses upper and lower extremities distally. Less than 2nd capillary refill of [id number] upper lower extremities bilaterally ? SIGNIFICANT LABORATORY DATA:? As above ? REVIEW OF IMAGES: Chest x-ray IMPRESSION: 1.? Right IJ catheter tip at caval atrial junction. There is no pneumothorax. 2.? Chronic interstitial lung disease and bilateral patchy airspace opacities. 3.? Small left pleural effusion. ? EKG REVIEW: ?To my view this shows normal sinus rhythm ventricular rate 93 beats per minute.? There is no ST elevations, no ST depressions.? QTC 452.? Unchanged from prior. ? ASSESSMENT : 1. Acute severe sepsis due to PNA bilateral ? aspiration 2. Yeast UTI 3. Residual postobstructive pneumonia 4. Iatrogenic oxygen poisoning 5. Occult upper GI bleed in the setting of Eliquis intake 6. Underlying previous PE 7. Anemia of acute blood loss 8. Acute kidney injury with BUN to creatinine ratio of 37 (both in the setting of dehydration hypoperfusion) 9. Hypoalbuminemia 10. Mild transaminitis NOS 11. Chronic hypothyroidism with therapeutic levels within normal limits ? PLAN OF CARE: Patient will be admitted to ICU, monitor vital signs, I and O's, his blood pressure did improve after IV fluid resuscitation and a unit of blood is currently being administered, TXA was started and Eliquis will be placed on hold.? Will hold all antihypertensive medications, administer insulin sliding scale as needed, he was started on IV ppi with a bolus followed by a drip. Will give him a single dose of Diflucan, if he is able to take oral medications we will continue with doxycycline and Augmentin, I do not think it is necessary to give this patient IV broad-spectrum antibiotics again. He will need intervention radiology consult for placement of IVC filter given his current bleed and inability to continue with anticoagulation.? Albumin was ordered, will repeat laboratories in the morning. I have discussed the case with the private branch exchange service advisor Dr. Xavier Teran who is aware of the case in in agreement with all the above, if the patient does have worsening anemia or any other signs of active GI bleed, will call him back for an emergent intervention otherwise if further evaluation can be done in a routine manner. H&H will be repeated after blood transfusion and in the morning. Repeat lactic acid now. ? GI PROPHYLAXIS:? Protonix GTT DVT PROPHYLAXIS: ?Pneumatic stockings only ? Critical care time used for critical evaluation of this patient, diagnosis, treatment and coordination of care, review her records and documentation TOTAL CRITICAL CARE TIME? 90? MIN . discussion and coordination with consultants, completely separate from any procedures performed. Patient's care was discussed in detail with Dr. Carballo.? He is aware of all the above as well as the plan of care for this patient. [facility] Past Medical History Medical History (Updated 06/02/23 @ 12:58 by Stephan Carballo MD) Interstitial lung disease Social History Social History (Updated 05/24/23 @ 14:10 by Amanda Denise MD) Household Members: Other Housing: [facility]way Housing Other:: STR Do you presently have visiting nurse or other home services: No Unable to assess alcohol history related to: Unknown Alcohol intake: former Patient Tobacco Use Status: Tobacco use Unknown Currently Displaying Signs/Symptoms of Drug Intoxication Withdrawal: No Advance Directives: Yes Advance Directives on File: Yes Advance Directives Date on File: 06/01/23 Do you have thoughts of harming others: None Do you have a plan to hurt others: No Plan Nutrition Risks: On aspiration precautions service: No Meds Allergies Allergy/AdvReac Type Severity Reaction Status Date / Time No Known Allergies Allergy Verified 06/01/23 17:01 Active Medications: Current Medications Pantoprazole Sodium 80 mg/ (Sodium Chloride) 100 mls @ 10 mls/hr IV .Q10H FELI Last Admin: 06/01/23 19:14 Dose: 8 mg/hr, 10 mls/hr Albumin Human (Kedbumin 25 %) 100 mls @ 100 mls/hr IV Q1H FELI Stop: 06/01/23 23:59 Home Medications Medication Instructions Recorded Confirmed Last Taken Type amlodipine 5 mg tablet 5 mg PO DAILY 05/13/23 06/01/23 Unknown History insulin lispro protamine-lispro 15 unit subcut BID 05/13/23 06/01/23 Unknown History 100 unit/mL (75-25) subcutaneous pen (Humalog Mix 75-25 KwikPen) insulin lispro protamine-lispro 20 unit subcut DAILY@1600 05/13/23 06/01/23 Unknown History 100 unit/mL (75-25) subcutaneous pen (Humalog Mix 75-25 KwikPen) levothyroxine 100 mcg tablet 100 mcg PO DAILY 05/13/23 06/01/23 Unknown History (Synthroid) losartan 100 mg tablet 100 mg PO DAILY 05/13/23 06/01/23 Unknown History omeprazole 20 mg capsule,delayed 20 mg PO DAILY 05/13/23 06/01/23 Unknown History release sitagliptin phosphate 50 1 tab PO BID 05/13/23 06/01/23 Unknown History mg-metformin 1,000 mg tablet (Janumet) tamsulosin 0.4 mg capsule 0.4 mg PO DAILY 05/13/23 06/01/23 Unknown History Physical Exam Vital Signs: Vital Signs: Last Vital Signs Temp 97.9 F 06/01/23 20:18 Pulse 93 06/01/23 20:18 Resp 18 06/01/23 20:18 BP 127/68 06/01/23 20:18 Pulse Ox 97 06/01/23 20:18 O2 Del Method Nasal Cannula 06/01/23 20:18 O2 Flow Rate 3 06/01/23 20:18 Oxygen Flow Rate 3 06/01/23 17:01 BMI result Body Mass Index 25.7 Results Labs 06/01/23 18:09 06/01/23 17:38 Labs: Laboratory Results - last 24 hr 06/01/23 06/01/23 06/01/23 16:57 17:25 17:26 MCV MCH MCHC RDW Plt Count MPV Immature Gran % (Auto) Neut % (Auto) Lymph % (Auto) Posey % (Auto) Eos % (Auto) Baso % (Auto) Lymph # (Auto) Posey # (Auto) Eos # (Auto) Baso # (Auto) Abs Immat Gran (auto) Absolute Neuts (auto) Absolute Nucleated RBC Nucleated RBC % (auto) PT INR O2 Saturation ABG pH at Pt Temp ABG pCO2 at Pt Temp ABG pO2 at Pt Temp ABG HCO3 ABG Base Excess (Actual) Anion Gap Estim Creat Clear Calc Estimated GFR POC Glucose 94 Random Glucose Lactic Acid Calcium Total Bilirubin Direct Bilirubin AST ALT Alkaline Phosphatase B-Natriuretic Peptide Total Protein Albumin TSH Free T4 Urine Color Yellow Urine Appearance Clear Urine pH 5.5 Ur Specific [place] 1.025 Urine Protein Negative Urine Glucose (UA) >=1000 H Urine Ketones Trace Urine Blood Negative Urine Nitrite Negative Ur Leukocyte Esterase Small (1+) H Urine RBC 0-2 Urine WBC 21-50 H Ur Squamous Epith Cells 0-2 Urine Bacteria None Seen Hyaline Casts 11-20 Urine Yeast Present Stool Occult Blood POSITIVE Blood Type Antibody Screen Crossmatch 06/01/23 06/01/23 06/01/23 17:38 17:38 18:09 MCV 92.3 MCH 30.0 MCHC 32.5 RDW 14.3 Plt Count 244 MPV 11.0 Immature Gran % (Auto) 3.9 H Neut % (Auto) 87.9 H Lymph % (Auto) 3.3 L Posey % (Auto) 4.6 Eos % (Auto) 0.2 Baso % (Auto) 0.1 Lymph # (Auto) 0.9 L Posey # (Auto) 1.2 Eos # (Auto) 0.1 Baso # (Auto) 0.0 Abs Immat Gran (auto) 1.05 H Absolute Neuts (auto) 23.5 H Absolute Nucleated RBC 0.020 H Nucleated RBC % (auto) 0.1 PT INR O2 Saturation ABG pH at Pt Temp ABG pCO2 at Pt Temp ABG pO2 at Pt Temp ABG HCO3 ABG Base Excess (Actual) Anion Gap 16 Estim Creat Clear Calc 60.0 Estimated GFR 54 POC Glucose Random Glucose 85 Lactic Acid Calcium 9.0 D Total Bilirubin 0.3 Direct Bilirubin 0.1 AST 39 H ALT 43 H Alkaline Phosphatase 62 B-Natriuretic Peptide Total Protein 5.2 L Albumin 2.4 L TSH 5.80 H Free T4 0.78 Urine Color Urine Appearance Urine pH Ur Specific [place] Urine Protein Urine Glucose (UA) Urine Ketones Urine Blood Urine Nitrite Ur Leukocyte Esterase Urine RBC Urine WBC Ur Squamous Epith Cells Urine Bacteria Hyaline Casts Urine Yeast Stool Occult Blood Blood Type O Positive Antibody Screen NEGATIVE Crossmatch See Detail 06/01/23 06/01/23 06/01/23 18:09 18:09 18:09 MCV MCH MCHC RDW Plt Count MPV Immature Gran % (Auto) Neut % (Auto) Lymph % (Auto) Posey % (Auto) Eos % (Auto) Baso % (Auto) Lymph # (Auto) Posey # (Auto) Eos # (Auto) Baso # (Auto) Abs Immat Gran (auto) Absolute Neuts (auto) Absolute Nucleated RBC Nucleated RBC % (auto) PT 15.0 H INR 1.3 H O2 Saturation ABG pH at Pt Temp ABG pCO2 at Pt Temp ABG pO2 at Pt Temp ABG HCO3 ABG Base Excess (Actual) Anion Gap Estim Creat Clear Calc Estimated GFR POC Glucose Random Glucose Lactic Acid 2.5 H* Calcium Total Bilirubin Direct Bilirubin AST ALT Alkaline Phosphatase B-Natriuretic Peptide 38 Total Protein Albumin TSH Free T4 Urine Color Urine Appearance Urine pH Ur Specific [place] Urine Protein Urine Glucose (UA) Urine Ketones Urine Blood Urine Nitrite Ur Leukocyte Esterase Urine RBC Urine WBC Ur Squamous Epith Cells Urine Bacteria Hyaline Casts Urine Yeast Stool Occult Blood Blood Type Antibody Screen Crossmatch 06/01/23 06/01/23 06/01/23 18:20 19:39 20:31 MCV MCH MCHC RDW Plt Count MPV Immature Gran % (Auto) Neut % (Auto) Lymph % (Auto) Posey % (Auto) Eos % (Auto) Baso % (Auto) Lymph # (Auto) Posey # (Auto) Eos # (Auto) Baso # (Auto) Abs Immat Gran (auto) Absolute Neuts (auto) Absolute Nucleated RBC Nucleated RBC % (auto) PT INR O2 Saturation 100.0 ABG pH at Pt Temp 7.42 ABG pCO2 at Pt Temp 37 ABG pO2 at Pt Temp 130 H ABG HCO3 25 ABG Base Excess (Actual) 0.9 Anion Gap Estim Creat Clear Calc Estimated GFR POC Glucose 81 87 Random Glucose Lactic Acid Calcium Total Bilirubin Direct Bilirubin AST ALT Alkaline Phosphatase B-Natriuretic Peptide Total Protein Albumin TSH Free T4 Urine Color Urine Appearance Urine pH Ur Specific [place] Urine Protein Urine Glucose (UA) Urine Ketones Urine Blood Urine Nitrite Ur Leukocyte Esterase Urine RBC Urine WBC Ur Squamous Epith Cells Urine Bacteria Hyaline Casts Urine Yeast Stool Occult Blood Blood Type Antibody Screen Crossmatch Imaging Radiologist's Impressions: Impressions Chest X-Ray 06/01/23 18:02 IMPRESSION: 1. Right IJ catheter tip at caval atrial junction. There is no pneumothorax. 2. Chronic interstitial lung disease and bilateral patchy airspace opacities. 3. Small left pleural effusion. Assessment and Plan Time Spent With Patient Time: Total time managing care of this patient today ____ minutes.
--- NOTE | 2023-06-01 22:01 | PC.NURSE ---
Confirmed with ED RN that the ordered Tranexamic Acid was not given in ED. This RN called Pharmacy to notify them.
--- NOTE | 2023-06-01 22:13 | PHA.MEDREC ---
Pharmacy Consult ? Medication Reconciliation Pharmacy has completed the medication reconciliation. Used list from [facility].
[2023-06-02] VITALS (29 sets, daily range): BP systolic 88–119; BP diastolic 47–63; PULSE 70–995; RESP 12–25; TEMP 36.3–37.7; O2SAT 88–97; BMI 24.4
[2023-06-02 02:08] LABS: Hematocrit 25.2 % (42.0-52.0); Hemoglobin 8.3 g/dl (14.0-18.0)
[2023-06-02 03:34] LABS: Glucose, Whole Blood 100 mg/dL (60-115)
[2023-06-02 05:06] LABS: VBG Base Excess 0.4 mmol/L; VBG HCO3 25 mmol/L (22-26); VBG pCO2 41 mmHg; VBG pH 7.38 (7.32-7.43); VBG pO2 53 mmHg
[2023-06-02 05:21] LABS: Basophils Percent Auto 0.1 % (0-2); Eosinophils Absolute Auto 0.1 X10*3/uL (0.0-0.4); Eosinophils Percent Auto 0.6 % (0-4); Hemoglobin 8.5 g/dl (14.0-18.0); Imm Gran Abs Auto 0.27 X10*3/uL (0.00-0.03); Imm Gran Pct Auto 1.5 % (0.0-0.4); Lymphocytes Absolute Auto 0.7 X10*3/uL (1.2-4.9); MANUAL DIFF FLAG SCAN; Mean Corpuscular HGB Conc 32.7 g/dl (31.0-36.0); Mean Corpuscular Hemoglobin 30.7 pg (27.0-33.0); Mean Corpuscular Volume 93.9 fL (80.0-98.0); Mean Platelet Volume 10.8 fL (9.4-12.4); Monocytes Absolute Auto 0.6 X10*3/uL (0.1-1.2); Monocytes Percent Auto 3.4 % (2-11); Neutrophils Absolute Auto 15.8 x10*3/uL (2.0-8.3); Neutrophils Percent Auto 90.4 % (45-73); Platelet Count 187 X10*3/uL (160-400); Red Blood Count 2.77 X10*6/uL (4.60-5.80); Red Cell Distribution Width 14.1 % (11.0-16.0); SCAN SMEAR FLAG 1; White Blood Count 17.5 X10*3/uL (4.8-10.8)
[2023-06-02 05:22] LABS: Venous Blood Gas Refer to POC result
[2023-06-02 05:39] LABS: Alanine Aminotransferase 33 U/L (0-40); Albumin Level 3.7 g/dL (3.5-5.0); Alkaline Phosphatase 57 U/L (39-117); Anion Gap 13 (12-20); Aspartate Amino Transferase 34 U/L (5-37); Bilirubin Total 0.9 mg/dL (0.0-1.0); Blood Urea Nitrogen 26 mg/dL (9-16); Calcium 9.3 mg/dL (8.4-10.2); Carbon Dioxide 23 mmol/L (22-29); Chloride 109 mmol/L (96-108); Creatinine Clr Calc Pharmacy 97.3; Estimated Glomerular Filt Rate > 60; Glucose Random 89 mg/dL (60-115); Potassium 3.8 mmol/L (3.3-5.1); Sodium 141 mmol/L (135-145); Total Protein 5.7 g/dL (6.5-8.0)
[2023-06-02 05:41] LABS: SLIDE REVIEW VERIFIED
--- NOTE | 2023-06-02 07:00 | PHA.PROG ---
Admission Date/Time: June 01, 2023 19:31 Indication:RESPIRATORY Weight in k.5 kg Adjusted body weight in K.18 Sesser body weight in K.3 Obesity Dosing Indication % IBW: Serum Creatinine - Last 168 Hours 06/01/23 06/02/23 17:38 04:56 Creatinine 1.30 0.72 Estimated CrCl and GFR - Last 168 Hours 06/01/23 06/02/23 17:38 04:56 Estim Creat Clear Calc 60.0 97.3 Estimated GFR 54 > 60 Vancomycin Loading Dose: 2000 MG Current Vancomycin Dosing Regimen: 1000 MG Q12 Vancomycin Monitoring using AUC goal of 400 - 600 range with trough as surrogate marker:489 Date and Time for next Vancomycin Level to be drawn: 06/03 @0500 Pharmacist Comments on Vancomycin Plan: INSIGHT SAYS TROUGH OF 13.5 AFTER 3RD DOSE WILL CHECK LEVEL BEFORE 4TH DOSE TO REEVALUATE DOSING FOR SAFETY AND EFFICACY. Vancomycin dosing will take advantage of [employer] as a clinical decision support tool that uses Bayesian modeling to calculate individual patient's pharmacokinetic parameters and forecast the patient's drug concentration time course with the target goal AUC 24 range of 400 - 600 mg/L/hr.
--- NOTE | 2023-06-02 08:45 | PM.EVENT ---
Event Note Date of Service: 06/02/23 Event Note: GI Consult-Full note dictated. History from ICU staff and EMR UGI bleed in 72 yo male with presumed metastatic cancer based on imaging studies, although tissue diagnosis has not been made as yet. The presumed diagnosis is that of a primary lung neoplasm. He was also recently started on Eliquis for pulmonary emboli. His last dose of Eliquis was yesterday at the rehab facility before transfer to [facility]. He has had no active bleeding overnight and things have stabilized after 1 u PRBC. Diff dx: PUD, gastritis, duodenitis, UGI neoplasm. Rec: Continue IV PPI, F/U Hgb and transfuse as needed, NPO for now. I called his daughter, Mónica, and left her a VM regarding the situation and need for upper endoscopy. Since he received Eliquis yesterday and things are presently stable it will probably be best to wait another 24 hours before an endoscopy. However, can proceed more urgently if need be. It will also be important to speak with his family to ascertain the level of care desired due to the presumed underlying diagnosis. Please call if he develops active bleeding. Thanks Time Spent With Patient Time: Total time managing care of this patient today ____ minutes.
--- NOTE | 2023-06-02 12:50 | PM.CCPN ---
Subjective Subjective Date of Service: 06/02/23 Interval History: 72-year-old gentleman with underlying of diabetes mellitus, BPH,, hypothyroidism, likely metastatic lung cancer with cytology results still pending, recent admission to [facility] for postobstructive pneumonia and pulmonary emboli, started on anticoagulation, admitted on 06/01/2023 with GI bleed and acute blood loss anemia to the intensive care unit. Patient has received IV fluid resuscitation and 1 unit packed red blood cells with normalization of blood pressure, but development of pulmonary edema. Patient is planned for endoscopy on 06/03/2023. No events overnight. Critical Care Time (minutes): 45 Physical Exam Vital Signs: Vital Signs: Last Vital Signs Temp 98.1 F 06/02/23 12:00 Pulse 96 06/02/23 12:00 Resp 25 H 06/02/23 12:00 BP 97/58 L 06/02/23 12:00 Pulse Ox 91 L 06/02/23 12:00 O2 Del Method High Flow Nasal C annula 06/02/23 12:00 O2 Flow Rate 35 06/02/23 12:00 FiO2 65 06/02/23 12:00 Oxygen Flow Rate 3 06/01/23 17:01 BMI result Body Mass Index 25.4 Const: General: no acute distress, alert and awake Eyes: Sclerae: sclerae normal EOM: EOMs intact bilaterally Neck: Neck: Yes no lymphadenopathy, Yes trachea midline and Yes supple Resp: Effort & Inspection: normal respiratory effort and no respiratory distress Auscultation: crackles (Diffuse bilateral) Cardio: Rate: regular rate Rhythm: regular rhythm Heart sounds: no gallops, no murmurs and no rubs GI: Palpation (GI): Soft to palpation and Other GI palpation findings present ( Nontender) Auscultation: normal bowel sounds Extrem: General: Yes no pedal edema, No clubbing and No cyanosis Objective Data Labs 06/02/23 12:01 06/02/23 04:56 Labs: Laboratory Results - last 24 hr 06/01/23 06/01/23 06/01/23 16:57 17:25 17:26 WBC RBC Hgb Hct MCV MCH MCHC RDW Plt Count MPV Immature Gran % (Auto) Neut % (Auto) Lymph % (Auto) [place] % (Auto) Eos % (Auto) Baso % (Auto) Lymph # (Auto) [place] # (Auto) Eos # (Auto) Baso # (Auto) Abs Immat Gran (auto) Absolute Neuts (auto) Absolute Nucleated RBC Nucleated RBC % (auto) Smear Tech's Comments PT INR O2 Saturation ABG pH at Pt Temp ABG pCO2 at Pt Temp ABG pO2 at Pt Temp ABG HCO3 ABG Base Excess (Actual) VBG pH VBG pCO2 VBG pO2 VBG HCO3 VBG O2 Saturation VBG Base Excess Sodium Potassium Chloride Carbon Dioxide Anion Gap BUN Creatinine Estim Creat Clear Calc Estimated GFR POC Glucose 94 Random Glucose Lactic Acid Calcium Total Bilirubin Direct Bilirubin AST ALT Alkaline Phosphatase B-Natriuretic Peptide Total Protein Albumin TSH Free T4 Urine Color Yellow Urine Appearance Clear Urine pH 5.5 Ur Specific [place] 1.025 Urine Protein Negative Urine Glucose (UA) >=1000 H Urine Ketones Trace Urine Blood Negative Urine Nitrite Negative Ur Leukocyte Esterase Small (1+) H Urine RBC 0-2 Urine WBC 21-50 H Ur Squamous Epith Cells 0-2 Urine Bacteria None Seen Hyaline Casts 11-20 Urine Yeast Present Stool Occult Blood POSITIVE Blood Type Antibody Screen Crossmatch 06/01/23 06/01/23 06/01/23 17:38 17:38 18:09 WBC 26.8 H RBC 2.97 L D Hgb 8.9 L D Hct 27.4 L D MCV 92.3 MCH 30.0 MCHC 32.5 RDW 14.3 Plt Count 244 MPV 11.0 Immature Gran % (Auto) 3.9 H Neut % (Auto) 87.9 H Lymph % (Auto) 3.3 L [place] % (Auto) 4.6 Eos % (Auto) 0.2 Baso % (Auto) 0.1 Lymph # (Auto) 0.9 L [place] # (Auto) 1.2 Eos # (Auto) 0.1 Baso # (Auto) 0.0 Abs Immat Gran (auto) 1.05 H Absolute Neuts (auto) 23.5 H Absolute Nucleated RBC 0.020 H Nucleated RBC % (auto) 0.1 Smear Tech's Comments PT INR O2 Saturation ABG pH at Pt Temp ABG pCO2 at Pt Temp ABG pO2 at Pt Temp ABG HCO3 ABG Base Excess (Actual) VBG pH VBG pCO2 VBG pO2 VBG HCO3 VBG O2 Saturation VBG Base Excess Sodium 140 Potassium 4.7 Chloride 107 Carbon Dioxide 22 Anion Gap 16 BUN 47 H Creatinine 1.30 Estim Creat Clear Calc 60.0 Estimated GFR 54 POC Glucose Random Glucose 85 Lactic Acid Calcium 9.0 D Total Bilirubin 0.3 Direct Bilirubin 0.1 AST 39 H ALT 43 H Alkaline Phosphatase 62 B-Natriuretic Peptide Total Protein 5.2 L Albumin 2.4 L TSH 5.80 H Free T4 0.78 Urine Color Urine Appearance Urine pH Ur Specific [place] Urine Protein Urine Glucose (UA) Urine Ketones Urine Blood Urine Nitrite Ur Leukocyte Esterase Urine RBC Urine WBC Ur Squamous Epith Cells Urine Bacteria Hyaline Casts Urine Yeast Stool Occult Blood Blood Type O Positive Antibody Screen NEGATIVE Crossmatch See Detail 06/01/23 06/01/23 06/01/23 18:09 18:09 18:09 WBC RBC Hgb Hct MCV MCH MCHC RDW Plt Count MPV Immature Gran % (Auto) Neut % (Auto) Lymph % (Auto) [place] % (Auto) Eos % (Auto) Baso % (Auto) Lymph # (Auto) [place] # (Auto) Eos # (Auto) Baso # (Auto) Abs Immat Gran (auto) Absolute Neuts (auto) Absolute Nucleated RBC Nucleated RBC % (auto) Smear Tech's Comments PT 15.0 H INR 1.3 H O2 Saturation ABG pH at Pt Temp ABG pCO2 at Pt Temp ABG pO2 at Pt Temp ABG HCO3 ABG Base Excess (Actual) VBG pH VBG pCO2 VBG pO2 VBG HCO3 VBG O2 Saturation VBG Base Excess Sodium Potassium Chloride Carbon Dioxide Anion Gap BUN Creatinine Estim Creat Clear Calc Estimated GFR POC Glucose Random Glucose Lactic Acid 2.5 H* Calcium Total Bilirubin Direct Bilirubin AST ALT Alkaline Phosphatase B-Natriuretic Peptide 38 Total Protein Albumin TSH Free T4 Urine Color Urine Appearance Urine pH Ur Specific [place] Urine Protein Urine Glucose (UA) Urine Ketones Urine Blood Urine Nitrite Ur Leukocyte Esterase Urine RBC Urine WBC Ur Squamous Epith Cells Urine Bacteria Hyaline Casts Urine Yeast Stool Occult Blood Blood Type Antibody Screen Crossmatch 06/01/23 06/01/23 06/01/23 18:20 19:39 20:31 WBC RBC Hgb Hct MCV MCH MCHC RDW Plt Count MPV Immature Gran % (Auto) Neut % (Auto) Lymph % (Auto) [place] % (Auto) Eos % (Auto) Baso % (Auto) Lymph # (Auto) [place] # (Auto) Eos # (Auto) Baso # (Auto) Abs Immat Gran (auto) Absolute Neuts (auto) Absolute Nucleated RBC Nucleated RBC % (auto) Smear Tech's Comments PT INR O2 Saturation 100.0 ABG pH at Pt Temp 7.42 ABG pCO2 at Pt Temp 37 ABG pO2 at Pt Temp 130 H ABG HCO3 25 ABG Base Excess (Actual) 0.9 VBG pH VBG pCO2 VBG pO2 VBG HCO3 VBG O2 Saturation VBG Base Excess Sodium Potassium Chloride Carbon Dioxide Anion Gap BUN Creatinine Estim Creat Clear Calc Estimated GFR POC Glucose 81 87 Random Glucose Lactic Acid Calcium Total Bilirubin Direct Bilirubin AST ALT Alkaline Phosphatase B-Natriuretic Peptide Total Protein Albumin TSH Free T4 Urine Color Urine Appearance Urine pH Ur Specific [place] Urine Protein Urine Glucose (UA) Urine Ketones Urine Blood Urine Nitrite Ur Leukocyte Esterase Urine RBC Urine WBC Ur Squamous Epith Cells Urine Bacteria Hyaline Casts Urine Yeast Stool Occult Blood Blood Type Antibody Screen Crossmatch 06/01/23 06/01/23 06/01/23 21:11 21:39 21:39 WBC RBC Hgb 10.1 L Hct 30.7 L MCV MCH MCHC RDW Plt Count MPV Immature Gran % (Auto) Neut % (Auto) Lymph % (Auto) [place] % (Auto) Eos % (Auto) Baso % (Auto) Lymph # (Auto) [place] # (Auto) Eos # (Auto) Baso # (Auto) Abs Immat Gran (auto) Absolute Neuts (auto) Absolute Nucleated RBC Nucleated RBC % (auto) Smear Tech's Comments PT INR O2 Saturation ABG pH at Pt Temp ABG pCO2 at Pt Temp ABG pO2 at Pt Temp ABG HCO3 ABG Base Excess (Actual) VBG pH VBG pCO2 VBG pO2 VBG HCO3 VBG O2 Saturation VBG Base Excess Sodium Potassium Chloride Carbon Dioxide Anion Gap BUN Creatinine Estim Creat Clear Calc Estimated GFR POC Glucose 82 Random Glucose Lactic Acid 1.1 Calcium Total Bilirubin Direct Bilirubin AST ALT Alkaline Phosphatase B-Natriuretic Peptide Total Protein Albumin TSH Free T4 Urine Color Urine Appearance Urine pH Ur Specific [place] Urine Protein Urine Glucose (UA) Urine Ketones Urine Blood Urine Nitrite Ur Leukocyte Esterase Urine RBC Urine WBC Ur Squamous Epith Cells Urine Bacteria Hyaline Casts Urine Yeast Stool Occult Blood Blood Type Antibody Screen Crossmatch 06/01/23 06/02/23 06/02/23 22:21 00:19 00:47 WBC RBC Hgb Hct MCV MCH MCHC RDW Plt Count MPV Immature Gran % (Auto) Neut % (Auto) Lymph % (Auto) [place] % (Auto) Eos % (Auto) Baso % (Auto) Lymph # (Auto) [place] # (Auto) Eos # (Auto) Baso # (Auto) Abs Immat Gran (auto) Absolute Neuts (auto) Absolute Nucleated RBC Nucleated RBC % (auto) Smear Tech's Comments PT INR O2 Saturation ABG pH at Pt Temp ABG pCO2 at Pt Temp ABG pO2 at Pt Temp ABG HCO3 ABG Base Excess (Actual) VBG pH VBG pCO2 VBG pO2 VBG HCO3 VBG O2 Saturation VBG Base Excess Sodium Potassium Chloride Carbon Dioxide Anion Gap BUN Creatinine Estim Creat Clear Calc Estimated GFR POC Glucose 83 77 180 H Random Glucose Lactic Acid Calcium Total Bilirubin Direct Bilirubin AST ALT Alkaline Phosphatase B-Natriuretic Peptide Total Protein Albumin TSH Free T4 Urine Color Urine Appearance Urine pH Ur Specific [place] Urine Protein Urine Glucose (UA) Urine Ketones Urine Blood Urine Nitrite Ur Leukocyte Esterase Urine RBC Urine WBC Ur Squamous Epith Cells Urine Bacteria Hyaline Casts Urine Yeast Stool Occult Blood Blood Type Antibody Screen Crossmatch 06/02/23 06/02/23 06/02/23 01:09 01:35 01:55 WBC RBC Hgb 8.3 L Hct 25.2 L MCV MCH MCHC RDW Plt Count MPV Immature Gran % (Auto) Neut % (Auto) Lymph % (Auto) [place] % (Auto) Eos % (Auto) Baso % (Auto) Lymph # (Auto) [place] # (Auto) Eos # (Auto) Baso # (Auto) Abs Immat Gran (auto) Absolute Neuts (auto) Absolute Nucleated RBC Nucleated RBC % (auto) Smear Tech's Comments PT INR O2 Saturation ABG pH at Pt Temp ABG pCO2 at Pt Temp ABG pO2 at Pt Temp ABG HCO3 ABG Base Excess (Actual) VBG pH VBG pCO2 VBG pO2 VBG HCO3 VBG O2 Saturation VBG Base Excess Sodium Potassium Chloride Carbon Dioxide Anion Gap BUN Creatinine Estim Creat Clear Calc Estimated GFR POC Glucose 147 H 141 H Random Glucose Lactic Acid Calcium Total Bilirubin Direct Bilirubin AST ALT Alkaline Phosphatase B-Natriuretic Peptide Total Protein Albumin TSH Free T4 Urine Color Urine Appearance Urine pH Ur Specific [place] Urine Protein Urine Glucose (UA) Urine Ketones Urine Blood Urine Nitrite Ur Leukocyte Esterase Urine RBC Urine WBC Ur Squamous Epith Cells Urine Bacteria Hyaline Casts Urine Yeast Stool Occult Blood Blood Type Antibody Screen Crossmatch 06/02/23 06/02/23 06/02/23 03:29 04:56 04:56 WBC 17.5 H RBC 2.77 L Hgb 8.5 L Hct 26.0 L MCV 93.9 MCH 30.7 MCHC 32.7 RDW 14.1 Plt Count 187 MPV 10.8 Immature Gran % (Auto) 1.5 H Neut % (Auto) 90.4 H Lymph % (Auto) 4.0 L [place] % (Auto) 3.4 Eos % (Auto) 0.6 Baso % (Auto) 0.1 Lymph # (Auto) 0.7 L [place] # (Auto) 0.6 Eos # (Auto) 0.1 Baso # (Auto) 0.0 Abs Immat Gran (auto) 0.27 H Absolute Neuts (auto) 15.8 H Absolute Nucleated RBC 0.000 Nucleated RBC % (auto) 0.0 Smear Tech's Comments VERIFIED PT INR O2 Saturation ABG pH at Pt Temp ABG pCO2 at Pt Temp ABG pO2 at Pt Temp ABG HCO3 ABG Base Excess (Actual) VBG pH VBG pCO2 VBG pO2 VBG HCO3 VBG O2 Saturation VBG Base Excess Sodium 141 Potassium 3.8 Chloride 109 H Carbon Dioxide 23 Anion Gap 13 BUN 26 H Creatinine 0.72 Estim Creat Clear Calc 97.3 Estimated GFR > 60 POC Glucose 100 Random Glucose 89 Lactic Acid Calcium 9.3 Total Bilirubin 0.9 Direct Bilirubin AST 34 ALT 33 Alkaline Phosphatase 57 B-Natriuretic Peptide Total Protein 5.7 L Albumin 3.7 TSH Free T4 Urine Color Urine Appearance Urine pH Ur Specific [place] Urine Protein Urine Glucose (UA) Urine Ketones Urine Blood Urine Nitrite Ur Leukocyte Esterase Urine RBC Urine WBC Ur Squamous Epith Cells Urine Bacteria Hyaline Casts Urine Yeast Stool Occult Blood Blood Type Antibody Screen Crossmatch 06/02/23 06/02/23 06/02/23 04:57 05:30 11:58 WBC RBC Hgb Hct MCV MCH MCHC RDW Plt Count MPV Immature Gran % (Auto) Neut % (Auto) Lymph % (Auto) [place] % (Auto) Eos % (Auto) Baso % (Auto) Lymph # (Auto) [place] # (Auto) Eos # (Auto) Baso # (Auto) Abs Immat Gran (auto) Absolute Neuts (auto) Absolute Nucleated RBC Nucleated RBC % (auto) Smear Tech's Comments PT INR O2 Saturation ABG pH at Pt Temp ABG pCO2 at Pt Temp ABG pO2 at Pt Temp ABG HCO3 ABG Base Excess (Actual) VBG pH 7.38 VBG pCO2 41 VBG pO2 53 VBG HCO3 25 VBG O2 Saturation 82.0 VBG Base Excess 0.4 Sodium Potassium Chloride Carbon Dioxide Anion Gap BUN Creatinine Estim Creat Clear Calc Estimated GFR POC Glucose 81 132 H Random Glucose Lactic Acid Calcium Total Bilirubin Direct Bilirubin AST ALT Alkaline Phosphatase B-Natriuretic Peptide Total Protein Albumin TSH Free T4 Urine Color Urine Appearance Urine pH Ur Specific [place] Urine Protein Urine Glucose (UA) Urine Ketones Urine Blood Urine Nitrite Ur Leukocyte Esterase Urine RBC Urine WBC Ur Squamous Epith Cells Urine Bacteria Hyaline Casts Urine Yeast Stool Occult Blood Blood Type Antibody Screen Crossmatch 06/02/23 12:01 WBC 18.4 H RBC 3.11 L Hgb 9.6 L Hct 29.1 L MCV 93.6 MCH 30.9 MCHC 33.0 RDW 14.4 Plt Count 206 MPV 11.1 Immature Gran % (Auto) 1.4 H Neut % (Auto) 90.6 H Lymph % (Auto) 3.6 L [place] % (Auto) 3.7 Eos % (Auto) 0.5 Baso % (Auto) 0.2 Lymph # (Auto) 0.7 L [place] # (Auto) 0.7 Eos # (Auto) 0.1 Baso # (Auto) 0.0 Abs Immat Gran (auto) 0.26 H Absolute Neuts (auto) 16.6 H Absolute Nucleated RBC 0.000 Nucleated RBC % (auto) 0.0 Smear Tech's Comments PT INR O2 Saturation ABG pH at Pt Temp ABG pCO2 at Pt Temp ABG pO2 at Pt Temp ABG HCO3 ABG Base Excess (Actual) VBG pH VBG pCO2 VBG pO2 VBG HCO3 VBG O2 Saturation VBG Base Excess Sodium Potassium Chloride Carbon Dioxide Anion Gap BUN Creatinine Estim Creat Clear Calc Estimated GFR POC Glucose Random Glucose Lactic Acid Calcium Total Bilirubin Direct Bilirubin AST ALT Alkaline Phosphatase B-Natriuretic Peptide Total Protein Albumin TSH Free T4 Urine Color Urine Appearance Urine pH Ur Specific [place] Urine Protein Urine Glucose (UA) Urine Ketones Urine Blood Urine Nitrite Ur Leukocyte Esterase Urine RBC Urine WBC Ur Squamous Epith Cells Urine Bacteria Hyaline Casts Urine Yeast Stool Occult Blood Blood Type Antibody Screen Crossmatch Progress Note: A&P Assessment and plan (1) GI bleed: Status: Acute (2) Acute blood loss anemia: Status: Acute (3) Acute hypoxemic respiratory failure: Status: Acute (4) Congestive cardiomyopathy: Status: Acute (5) Metastatic cancer: Status: Acute (6) Pulmonary emboli: Status: Acute Plan Assessment: 72-year-old gentleman with underlying likely metastatic lung cancer, pulmonary emboli previously on anticoagulation, postobstructive pneumonia, admitted with acute blood loss anemia likely from Eliquis related GI bleed Plan: Neuro: No acute issues. Cardiac: Acute on chronic congestive heart failure, improving with diuresis. Pulmonary: Acute hypoxic respiratory failure secondary to pulmonary edema, secondary to IV fluid resuscitation of underlying GI bleed. Continue to titrate off supplemental oxygen as tolerated. Likely an aspiration component, on empiric antibiotics. Renal: No acute issues. Endo: No acute issues. GI: GI bleed, likely Eliquis related. Gastroenterology service care appreciated. Planned for EGD on 06/03/2023. ID: Empirically covered with broad-spectrum antibiotics. Possible component of aspiration pneumonia. Heme/Onc: Acute blood loss anemia, likely secondary to GI bleed, status post transfusion of 1 unit of packed red blood cells with stabilized hemoglobin. Psych: No acute issues. Miscellaneous: No acute issues. Prophylaxis: Pneumatic compression Diet: NPO admitted Critical care time spent: 45 minutes Quality Stroke Does the patient have a stroke diagnosis?: No VTE Prior VTE?: Yes VTE Risk Level:: Medical - moderate - high VTE Device Contraindication: Procedure Contraindicated VTE Drug Contraindication: Treatment Not Tolerated
--- NOTE | 2023-06-02 15:34 | PC.RT ---
RT called to pt bedside for low sats. pt was on 100% hfnc and nrb. pt then was bmv. icu dr performed nt sx. small amt thick de souza sec. pt able to cough up large thick glob of de souza sec.
--- NOTE | 2023-06-02 19:07 | PC.NURSE ---
Assumed care at 15:00. Alert/drowsy, arousable and oriented to person, place, and situation. Patient initially with episode of desaturation, dropped SpO2 to 66%, Uptitrated FiO2 to 100% and 50 LPM on high flow with 100% NRB, RT and MD called to bedside, bagged patient, MD suctioned bilateral nares for large amount of de souza secretions. Patient weaned down to 60% and 40 LPM. Patient now with unlabored breathing regular rate and rhythm. Reports mild back pain that is positional, and mild mid periumbilical pain, declined offer of pain medication. Repositioned with good effect.
--- NOTE | 2023-06-02 19:19 | MHC.SHP ---
Pre-Procedural Eval Section A Date of Service: 06/03/23 The patient is an INPATIENT: Yes The History & Physical has been completed within 30 days and I have reviewed it.: Yes Section B Chief Complaint: UGIB,hemorrahgic shock Allergies: Allergies Allergy/AdvReac Type Severity Reaction Status Date / Time No Known Allergies Allergy Verified 06/01/23 17:01 Plan I have reviewed the history and physical and performed a pertinent physical examination on my patient. No changes have occurred unless specified. Time Spent With Patient Time: Total time managing care of this patient today ____ minutes.
[2023-06-03] VITALS (22 sets, daily range): BP systolic 108–154; BP diastolic 61–76; PULSE 83–128; RESP 13–28; TEMP 35.9–37; O2SAT 91–97
[2023-06-03 05:25] LABS: MANUAL DIFF FLAG NO
[2023-06-03 05:27] LABS: Basophils Percent Auto 0.2 % (0-2); Eosinophils Absolute Auto 0.2 X10*3/uL (0.0-0.4); Eosinophils Percent Auto 1.1 % (0-4); Hematocrit 29.7 % (42.0-52.0); Hemoglobin 9.7 g/dl (14.0-18.0); Imm Gran Abs Auto 0.26 X10*3/uL (0.00-0.03); Imm Gran Pct Auto 1.5 % (0.0-0.4); Lymphocytes Absolute Auto 0.9 X10*3/uL (1.2-4.9); Mean Corpuscular HGB Conc 32.7 g/dl (31.0-36.0); Mean Corpuscular Volume 94.9 fL (80.0-98.0); Mean Platelet Volume 10.9 fL (9.4-12.4); Monocytes Absolute Auto 0.7 X10*3/uL (0.1-1.2); Monocytes Percent Auto 4.3 % (2-11); Neutrophils Absolute Auto 14.9 x10*3/uL (2.0-8.3); Neutrophils Percent Auto 87.9 % (45-73); Platelet Count 188 X10*3/uL (160-400); Red Blood Count 3.13 X10*6/uL (4.60-5.80); Red Cell Distribution Width 14.6 % (11.0-16.0)
[2023-06-03 05:32] LABS: VBG Base Excess 6.1 mmol/L; VBG HCO3 29 mmol/L (22-26); VBG pCO2 39 mmHg; VBG pH 7.48 (7.32-7.43); VBG pO2 189 mmHg
[2023-06-03 05:42] LABS: Vancomycin Random 12.5 mcg/mL (15-20)
[2023-06-03 05:43] LABS: Albumin Level 3.5 g/dL (3.5-5.0); Anion Gap 17 (12-20); Blood Urea Nitrogen 19 mg/dL (9-16); Carbon Dioxide 25 mmol/L (22-29); Chloride 105 mmol/L (96-108); Creatinine Clr Calc Pharmacy 109.4; Estimated Glomerular Filt Rate > 60; Glucose Random 82 mg/dL (60-115); Magnesium 1.9 mg/dL (1.6-2.6); Phosphorus 2.1 mg/dL (2.7-4.5); Potassium 3.1 mmol/L (3.3-5.1); Sodium 144 mmol/L (135-145)
[2023-06-03 05:53] LABS: Venous Blood Gas Refer to POC result
--- NOTE | 2023-06-03 07:19 | HE.PHANOTE ---
Vancomycin Dosing Level 12.5 today. Will increase dose to vancomycin 1250 mg Q12H. New expected AUC 489 with a trough of 14.4. Next level in 24 hours on 06/04 @ 0500. Rhoda Jenkins PharmD
--- NOTE | 2023-06-03 09:50 | MHC.CM.PN ---
Pt readmitted to ICU from [facility] with GI bleed ( on Eliquis) Pt has a hx of metastatic cancer Pt to OR today for UEGD: call placed to pt's HCP, Mackenzie who states pt resides w/her and has been fairly independent with care needs. Mackenzie states pt will return to [facility] once medically stable to complete STR. BLS transport: HCP on file. IMM left w/pt.
--- NOTE | 2023-06-03 10:16 | PM.CCPN ---
Subjective Subjective Date of Service: 06/03/23 Interval History: 72-year-old gentleman with underlying of diabetes mellitus, BPH,, hypothyroidism, likely metastatic lung cancer with cytology results still pending, recent admission to [facility] for postobstructive pneumonia and pulmonary emboli, started on anticoagulation, admitted on 06/01/2023 with GI bleed and acute blood loss anemia to the intensive care unit. Patient has received IV fluid resuscitation and 1 unit packed red blood cells with normalization of blood pressure, but development of pulmonary edema that improved with diuresis. Patient is planned for endoscopy on 06/03/2023. No events overnight. Hemoglobin stabilized. Critical Care Time (minutes): 45 Physical Exam Vital Signs: Vital Signs: Last Vital Signs Temp 97.5 F 06/03/23 08:00 Pulse 112 H 06/03/23 10:00 Resp 25 H 06/03/23 10:00 BP 121/73 06/03/23 10:00 Pulse Ox 94 06/03/23 10:00 O2 Del Method High Flow Nasal C annula 06/03/23 10:00 O2 Flow Rate 40 06/03/23 10:00 FiO2 60 06/03/23 10:00 Oxygen Flow Rate 3 06/01/23 17:01 BMI result Body Mass Index 24.4 Const: General: no acute distress, alert, awake and lethargic (Arousable to voice) Orientation/consciousness: lethargic (Arousable to voice) Eyes: Sclerae: sclerae normal EOM: EOMs intact bilaterally Neck: Neck: Yes no lymphadenopathy, Yes trachea midline and Yes supple Resp: Effort & Inspection: normal respiratory effort and no respiratory distress Auscultation: crackles (bilateral) Cardio: Rate: tachycardic Rhythm: regular rhythm Heart sounds: no gallops, no murmurs and no rubs GI: Palpation (GI): Soft to palpation and Other GI palpation findings present ( Nontender) Auscultation: normal bowel sounds Extrem: General: No clubbing, No cyanosis and Yes edema (Trace bilateral) Objective Data Labs 06/03/23 05:08 06/03/23 05:08 Labs: Laboratory Results - last 24 hr 06/02/23 06/02/23 06/02/23 11:58 12:01 17:33 WBC 18.4 H RBC 3.11 L Hgb 9.6 L Hct 29.1 L MCV 93.6 MCH 30.9 MCHC 33.0 RDW 14.4 Plt Count 206 MPV 11.1 Immature Gran % (Auto) 1.4 H Neut % (Auto) 90.6 H Lymph % (Auto) 3.6 L [place] % (Auto) 3.7 Eos % (Auto) 0.5 Baso % (Auto) 0.2 Lymph # (Auto) 0.7 L [place] # (Auto) 0.7 Eos # (Auto) 0.1 Baso # (Auto) 0.0 Abs Immat Gran (auto) 0.26 H Absolute Neuts (auto) 16.6 H Absolute Nucleated RBC 0.000 Nucleated RBC % (auto) 0.0 VBG pH VBG pCO2 VBG pO2 VBG HCO3 VBG O2 Saturation VBG Base Excess Sodium Potassium Chloride Carbon Dioxide Anion Gap BUN Creatinine Estim Creat Clear Calc Estimated GFR POC Glucose 132 H 112 Random Glucose Calcium Phosphorus Magnesium Albumin Random Vancomycin 06/02/23 06/03/23 06/03/23 23:46 05:08 05:08 WBC 17.0 H RBC 3.13 L Hgb 9.7 L Hct 29.7 L MCV 94.9 MCH 31.0 MCHC 32.7 RDW 14.6 Plt Count 188 MPV 10.9 Immature Gran % (Auto) 1.5 H Neut % (Auto) 87.9 H Lymph % (Auto) 5.0 L [place] % (Auto) 4.3 Eos % (Auto) 1.1 Baso % (Auto) 0.2 Lymph # (Auto) 0.9 L [place] # (Auto) 0.7 Eos # (Auto) 0.2 Baso # (Auto) 0.0 Abs Immat Gran (auto) 0.26 H Absolute Neuts (auto) 14.9 H Absolute Nucleated RBC 0.000 Nucleated RBC % (auto) 0.0 VBG pH VBG pCO2 VBG pO2 VBG HCO3 VBG O2 Saturation VBG Base Excess Sodium 144 Potassium 3.1 L Chloride 105 Carbon Dioxide 25 Anion Gap 17 BUN 19 H Creatinine 0.64 Estim Creat Clear Calc 109.4 Estimated GFR > 60 POC Glucose 79 Random Glucose 82 Calcium 10.0 D Phosphorus 2.1 L Magnesium 1.9 Albumin 3.5 Random Vancomycin 06/03/23 06/03/23 05:08 05:24 WBC RBC Hgb Hct MCV MCH MCHC RDW Plt Count MPV Immature Gran % (Auto) Neut % (Auto) Lymph % (Auto) [place] % (Auto) Eos % (Auto) Baso % (Auto) Lymph # (Auto) [place] # (Auto) Eos # (Auto) Baso # (Auto) Abs Immat Gran (auto) Absolute Neuts (auto) Absolute Nucleated RBC Nucleated RBC % (auto) VBG pH 7.48 H VBG pCO2 39 VBG pO2 189 VBG HCO3 29 H VBG O2 Saturation 99.0 VBG Base Excess 6.1 Sodium Potassium Chloride Carbon Dioxide Anion Gap BUN Creatinine Estim Creat Clear Calc Estimated GFR POC Glucose Random Glucose Calcium Phosphorus Magnesium Albumin Random Vancomycin 12.5 L Microbiology Microbiology Results: Microbiology 06/01/23 18:09 Blood - Venous Blood Culture - Preliminary No growth after 24 hours. 06/01/23 18:09 Blood - Venous Blood Culture - Preliminary No growth after 24 hours. 06/01/23 Unknown Urine Catheterized - Ramos Catheter Urine Culture - Preliminary No growth to date. Progress Note: A&P Assessment and plan (1) Pulmonary emboli: Status: Acute (2) Acute blood loss anemia: Status: Acute (3) GI bleed: Status: Acute (4) Acute hypoxemic respiratory failure: Status: Acute (5) Diabetes type 2 with atherosclerosis of arteries of extremities: Status: Acute (6) Metastatic cancer: Status: Acute Plan Assessment: 72-year-old gentleman with underlying likely metastatic lung cancer, pulmonary emboli previously on anticoagulation, postobstructive pneumonia, admitted with acute blood loss anemia likely from Eliquis related GI bleed Plan: Neuro: No acute issues. Cardiac: Acute on chronic congestive heart failure, improving with diuresis. Pulmonary: Acute hypoxic respiratory failure secondary to pulmonary edema, secondary to IV fluid resuscitation of underlying GI bleed. Continue to titrate off supplemental oxygen as tolerated. Likely an aspiration component, on empiric antibiotics. Renal: No acute issues. Endo: No acute issues. GI: GI bleed, likely Eliquis related. Gastroenterology service care appreciated. Planned for EGD on 06/03/2023. ID: Empirically covered with broad-spectrum antibiotics. Possible component of aspiration pneumonia. Heme/Onc: Acute blood loss anemia, likely secondary to GI bleed, status post transfusion of 1 unit of packed red blood cells with stabilized hemoglobin. Psych: No acute issues. Miscellaneous: No acute issues. Prophylaxis: Pneumatic compression Diet: NPO for procedure Critical care time spent: 45 minutes Quality Stroke Does the patient have a stroke diagnosis?: No VTE Prior VTE?: Yes VTE Risk Level:: Medical - moderate - high VTE Device Contraindication: Procedure Contraindicated VTE Drug Contraindication: Treatment Not Tolerated
--- NOTE | 2023-06-03 15:19 | PM.ANESCN ---
History of Present Illness Consult details Consult date: 06/03/23 Requesting physician: Xavier Teran Narrative: Dr. Teran scheduled Mr. John Franz for an EGD bec of GI bleeding. I very briefly reviewed the patient's chart, briefly examined the patient, spoke with Dr. Carballo, and then with Dr. Teran. According to Dr. Carballo, the patient is on anticoagulation [with Eliquis] for PE. (CTA on 05/27 showed small bilat segmental and subsegmental PE, with normal right heart and PA size.) On June 01, the patient presented to the hospital in hemorrhagic shock with a Hb of 8.9. INR was 1.3. The source of the bleeding was unclear, other than that he never had hematemesis or gross bleeding from below, but his stool was guiac positive. The patient was vol resusc, including one unit RBCs. Next Hb was 10.1, then dropped to 8.3 [? 2? volume resusc vs continued bleeding], then slowly jessica [? bec of diuresis]. Last Hb was 9.7 this morn. The patient was scheduled for EGD today to r/o an UGI bleed. On my exam, the patient is in no distress. HR is 116, BP 120/67. On HFNC 30L/45%, RR was 27 without access musc, Sat 92%. We put him on 6L NC, Sat was 92%. Then on 2L NC, Sat quickly dropped to 89%. CXR from 06/01 shows severe interstitial infiltrates. Could be CHF or ILD; that film is unchanged from the prior film of 05/27, however (suggesting chronic ILD). BUN/creat this morning showed 19/0.6. CVBG this morning showed 7.48/39/+6. According to Dr. Carballo, the patient has DNR status. The patient is also at high risk for aspiration. IMPRESSION: The patient has a tenous resp status, which would put him at high risk for requiring tracheal intubation during an EGD. IMO, his resp status might well improve over the next few days, beena if he was further diuresed. (Given his current renal indices, there seems to be no reason not to diurese him aggressively.) An improved resp status would considerably lessen the chance of needing tracheal intubation during an EGD. Therefore, my recommendation to Dr. Teran was that we not proceed with the procedure today, and reevaluate the patient's condition on Tuesday. There is no urgency to do the EGD (given that the patient is not bleeding), and there is no urgency to restart his anticoagulation, which it seems to me, in this case, could probably safely wait for about a week (ie. until June 08). Dr. Teran has decided to defer the procedure. I have noted my recommendation regarding further diuresis to Dr. Carballo. Note that prior to going ahead with the procedure, the specific issue of possibly needing tracheal intubation will have to be discussed with the patient, given his DNR status. That might influence the patient's decision about how to proceed. (I did not discuss any aspect of the procedure with the patient today.) [facility] Past Medical History Medical History (Updated 06/02/23 @ 12:58 by Stephan Carballo MD) Interstitial lung disease Social History Social History (Updated 05/24/23 @ 14:10 by Amanda Denise MD) Household Members: Other Housing: Long-Term Housing Other:: STR Do you presently have visiting nurse or other home services: No Unable to assess alcohol history related to: Unknown Alcohol intake: former Patient Tobacco Use Status: Tobacco use Unknown Currently Displaying Signs/Symptoms of Drug Intoxication Withdrawal: No Advance Directives: Yes Advance Directives on File: Yes Advance Directives Date on File: 06/01/23 Do you have thoughts of harming others: None Do you have a plan to hurt others: No Plan Nutrition Risks: On aspiration precautions service: No Meds Allergies Allergy/AdvReac Type Severity Reaction Status Date / Time No Known Allergies Allergy Verified 06/01/23 17:01 Active Medications: Current Medications Dextrose (Dextrose 50 % 25 Gm/50 Ml Syringe) 25 gm IVPUSH Q15M PRN; Protocol PRN Reason: per Hypoglycemia Standing Ord. Last Admin: 06/02/23 00:22 Dose: 25 gm Glucose (Glucose Gel 15 Gm Gel..Gram.) 15 gm PO Q15M PRN; Protocol PRN Reason: per Hypoglycemia Standing Ord. Piperacillin Sod/Tazobactam (Sod 3.375 gm/ Sodium Chloride) 50 mls @ 100 mls/hr IV Q6H FELI Last Infusion: 06/03/23 13:32 Dose: Infused Pantoprazole Sodium 80 mg/ (Sodium Chloride) 100 mls @ 10 mls/hr IV CONT. PER PROTOCOL [facility] Last Admin: 06/03/23 07:53 Dose: 10 mls/hr Insulin Human Lispro (Insulin Lispro 100 Unit/Ml 3 Ml Vial) 0 unit SUBCUT Q6H [facility]; Protocol Last Admin: 06/03/23 11:57 Dose: Not Given Home Medications Medication Instructions Recorded Confirmed Last Taken Type amlodipine 5 mg tablet 5 mg PO DAILY 05/13/23 06/01/23 Unknown History insulin lispro protamine-lispro 15 unit subcut BID 05/13/23 06/01/23 Unknown History 100 unit/mL (75-25) subcutaneous pen (Humalog Mix 75-25 KwikPen) insulin lispro protamine-lispro 20 unit subcut DAILY@1600 05/13/23 06/01/23 Unknown History 100 unit/mL (75-25) subcutaneous pen (Humalog Mix 75-25 KwikPen) levothyroxine 100 mcg tablet 100 mcg PO DAILY 05/13/23 06/01/23 Unknown History (Synthroid) losartan 100 mg tablet 100 mg PO DAILY 05/13/23 06/01/23 Unknown History omeprazole 20 mg capsule,delayed 20 mg PO DAILY 05/13/23 06/01/23 Unknown History release sitagliptin phosphate 50 1 tab PO BID 05/13/23 06/01/23 Unknown History mg-metformin 1,000 mg tablet (Janumet) tamsulosin 0.4 mg capsule 0.4 mg PO DAILY 05/13/23 06/01/23 Unknown History Physical Exam Vital Signs: Vital Signs: Last Vital Signs Temp 98.2 F 06/03/23 15:00 Pulse 106 H 06/03/23 15:00 Resp 23 H 06/03/23 15:00 BP 118/68 06/03/23 15:00 Pulse Ox 93 06/03/23 15:00 O2 Del Method Nasal Cannula 06/03/23 15:00 O2 Flow Rate 6 06/03/23 15:00 FiO2 35 06/03/23 14:00 Oxygen Flow Rate 3 06/01/23 17:01 BMI result Body Mass Index 24.4 Results Labs 06/03/23 05:08 06/03/23 05:08 Labs: Abnormal lab results 06/03/23 06/03/23 06/03/23 Range/Units 05:08 05:08 05:08 WBC 17.0 H (4.8-10.8) X10*3/uL RBC 3.13 L (4.60-5.80) X10*6/uL Hgb 9.7 L (14.0-18.0) g/dl Hct 29.7 L (42.0-52.0) % Immature Gran % (Auto) 1.5 H (0.0-0.4) % Neut % (Auto) 87.9 H (45-73) % Lymph % (Auto) 5.0 L (20-40) % Lymph # (Auto) 0.9 L (1.2-4.9) X10*3/uL Abs Immat Gran (auto) 0.26 H (0.00-0.03) X10*3/uL Absolute Neuts (auto) 14.9 H (2.0-8.3) x10*3/uL VBG pH (7.32-7.43) VBG HCO3 (22-26) mmol/L Potassium 3.1 L (3.3-5.1) mmol/L BUN 19 H (9-16) mg/dL Phosphorus 2.1 L (2.7-4.5) mg/dL Random Vancomycin 12.5 L (15-20) mcg/mL 06/03/23 Range/Units 05:24 WBC (4.8-10.8) X10*3/uL RBC (4.60-5.80) X10*6/uL Hgb (14.0-18.0) g/dl Hct (42.0-52.0) % Immature Gran % (Auto) (0.0-0.4) % Neut % (Auto) (45-73) % Lymph % (Auto) (20-40) % Lymph # (Auto) (1.2-4.9) X10*3/uL Abs Immat Gran (auto) (0.00-0.03) X10*3/uL Absolute Neuts (auto) (2.0-8.3) x10*3/uL VBG pH 7.48 H (7.32-7.43) VBG HCO3 29 H (22-26) mmol/L Potassium (3.3-5.1) mmol/L BUN (9-16) mg/dL Phosphorus (2.7-4.5) mg/dL Random Vancomycin (15-20) mcg/mL Short CBC 06/03/23 Range/Units 05:08 WBC 17.0 H (4.8-10.8) X10*3/uL Hgb 9.7 L (14.0-18.0) g/dl Hct 29.7 L (42.0-52.0) % Plt Count 188 (160-400) X10*3/uL BMP 06/03/23 05:08 Sodium 144 Potassium 3.1 L Chloride 105 Carbon Dioxide 25 BUN 19 H Creatinine 0.64 Calcium 10.0 D Liver Function 06/03/23 Range/Units 05:08 Albumin 3.5 (3.5-5.0) g/dL Urine 06/01/23 Range/Units 17:26 Urine Color Yellow Urine Appearance Clear Urine pH 5.5 (5.0-9.0) Ur Specific [place] 1.025 (1.005-1.025) Urine Protein Negative (Neg-Trace) mg/dL Urine Glucose (UA) >=1000 H (Negative) mg/dL All other labs normal. Assessment and Plan Time Spent With Patient Time: Total time managing care of this patient today _60_ minutes. Procedures Date of Service Date of Service: 06/03/23
--- NOTE | 2023-06-03 15:45 | PM.EVENT ---
Event Note Date of Service: 06/03/23 Event Note: GI Followup. D/W patient's nurse, Dr. Carballo, and the Anesthesiologists. Patient is currently alert and hungry. There has been no active bleeding since admission and no further transfusions since the 1 unit on the night of admission. His Hgb has been stable. The plan had been for an upper endoscopy today but Anesthesia feels that his respiratory status is too fragile for any type of sedation unless the case was needed emergently. The patient does not want to be intubated and Anesthesia feels there would be a high chance of that if we proceeded with sedation and endoscopy today. Therefore, since things are stable, we will hold off on an upper endoscopy today and reassess on Tuesday, 06/06. Dr. Stafford will be covering next week and can add the patient on for Tuesday, 06/07. Given the need for eventually restarting his anticoagulation for the recent pulmonary emboli, it would be reasonable to proceed with the Upper Endo at some point as long as he is felt to be reasonably stable from the cardiopulmonary standpoint. In the meantime, a swallowing evaluation has been ordered by Dr. Carballo. His diet can be advanced from my standpoint as long as he is able to swallow safely. His IV PPI can be changed to po on Tuesday, 06/04, if things remain stable as well. I did speak with his daughter, Mónica([phone]) and reviewed everything in detail with her. She is comfortable with the plan. Dr. Raman is covering the weekend if problems or questions. Thanks very much. Time Spent With Patient Time: Total time managing care of this patient today ____ minutes.
--- NOTE | 2023-06-03 17:15 | MHC.SL.SWA ---
Speech Pathologist Impression: Risk of aspiration, oropharyngeal dysphagia Risk of Aspiration Due to: Medically Fragile Dysphasia Diet Status: Upgrade to NDD1/thin Liquid Consistency and Strategies for Safe Swallow: Liquid Intake Recommendation: Thin Liquid Intake Strategies: Small Sips No Straws Solid Food Consistency: Dietary Recommendations: Pureed (NDD1) Additional Modifications to Solid Foods: Recommend UPGRADE from NPO, start on PUREED solids (NDD1) and THIN liquids, pills CRUSHED in PUREE. Pt exhibited some difficulty clearing harder solids and eventually expectorated this consistency, suspicious for pharyngeal retention vs. other G.I. pathology. Recommend further workup w/ G.I. Notified team (MD, RN, RD) via [employer] Message. DIAPHRAGM BUILDER will continue to follow to monitor tolerance and re-assess potential for upgrade if appropriate. Oral Medication Intake: Crushed with Puree Please contact the pharmacy regarding appropriate crushable or liquid drug formulations that are available whenever modified delivery is recommended. Compensatory Strategies and Precautions to be Taken for Safe Swallow: Sitting Upright (90 deg) Double Swallow Small Bites and Sips Rate of Ingestion Change Oral Check Supervision While Eating and Drinking for Safe Swallow: Total Supervision (1:1) Swallowing Recommended Treatments: Compens. Strategy Educat. Recommendation for Speech: Inpatient Speech Therapy Asset Protection Greeter Clinican/Clinical Fellow: No Supervisory Statement: I have reviewed and agree with the student/clinical fellow's documentation: N/A Speech Language Pathologist: Sahara Doran M.A., [facility]-DIAPHRAGM BUILDER
--- NOTE | 2023-06-03 17:28 | PC.NURSE ---
Assumed care at 1100- Afebrile. monitor and storage bin tender Sinus tachycardia. No c/o pain. No bleeding noted. On Protonix drip. Received KCL and Kphosp replacement. Receiving IV Zosyn. TLC Right IJ removed and peripheral IV placed. Ramos to remain in place per Dr Carballo for I&O monitoring. Pt has received IV Lasix x 2 today, good urine output. Ramos/Melissa care done. Weaned from Highflow nasal cannula to 6 liters torres cannula, tolerating well. O2 sat 90-92%. ST eval completed and recommended a diet. Pt transferred to [facility] for further monitoring.
[2023-06-03] MEDS: Insulin Lispro 100 UNIT/ML 3 ML VIAL SUBCUT (17:58)
[2023-06-04] VITALS (8 sets, daily range): BP systolic 114–138; BP diastolic 61–80; PULSE 95–118; RESP 14–20; TEMP 36–36.4; O2SAT 86–96; BMI 23.2
[2023-06-04] MEDS: Insulin Lispro 100 UNIT/ML 3 ML VIAL SUBCUT ×3 (06:24→18:00)
[2023-06-04 07:06] LABS: Albumin Level 3.5 g/dL (3.5-5.0); Anion Gap 21 (12-20); Blood Urea Nitrogen 21 mg/dL (9-16); Carbon Dioxide 24 mmol/L (22-29); Chloride 104 mmol/L (96-108); Creatinine Clr Calc Pharmacy 100.1; Estimated Glomerular Filt Rate > 60; Glucose Random 172 mg/dL (60-115); Magnesium 1.9 mg/dL (1.6-2.6); Phosphorus 2.1 mg/dL (2.7-4.5); Potassium 3.2 mmol/L (3.3-5.1); Sodium 146 mmol/L (135-145)
--- NOTE | 2023-06-04 09:30 | HO.PM.IMPN ---
Subjective Subjective Date of Service: 06/04/23 Interval History: f/u on anemia, acute blood loss anemia stable overnight without active bleed, H/H is stable, took of O2 this morning and O2 sat went down t0 70s and now 80s Physical Exam Vital Signs: Vital Signs: Last Vital Signs Temp 97.5 F 06/04/23 07:30 Pulse 118 H 06/04/23 07:30 Resp 16 06/04/23 07:30 BP 136/77 06/04/23 07:30 Pulse Ox 86 L 06/04/23 07:30 O2 Del Method Nasal Cannula 06/04/23 07:30 O2 Flow Rate 6 06/04/23 07:30 FiO2 35 06/03/23 14:00 Oxygen Flow Rate 3 06/01/23 17:01 BMI result Body Mass Index 23.2 Const: Other: General: AO X 3, no acute distress Resp: CTA bilateral CVS: S1,S2,RRR GI: +BS, NT, no distention Skin: No rash Neuro: motor grossly intact Psych: appropriate affect Objective Data Active Medications Dextrose (Dextrose 50 % 25 Gm/50 Ml Syringe) 25 gm IVPUSH Q15M PRN; Protocol PRN Reason: per Hypoglycemia Standing Ord. Last Admin: 06/02/23 00:22 Dose: 25 gm Documented By: MARTIN Comments: per LAITH Reyes- give now for POC of 77 Glucose (Glucose Gel 15 Gm Gel..Gram.) 15 gm PO Q15M PRN; Protocol PRN Reason: per Hypoglycemia Standing Ord. Piperacillin Sod/Tazobactam (Sod 3.375 gm/ Sodium Chloride) 50 mls @ 100 mls/hr IV Q6H [facility] Last Infusion: 06/04/23 08:31 Dose: 0 mls/hr Documented By: KING Pantoprazole Sodium 80 mg/ (Sodium Chloride) 100 mls @ 10 mls/hr IV .Q10H [facility] Last Admin: 06/04/23 06:26 Dose: 10 mls/hr Documented By: ASAF Insulin Human Lispro (Insulin Lispro 100 Unit/Ml 3 Ml Vial) 0 unit SUBCUT Q6H [facility]; Protocol Last Admin: 06/04/23 06:24 Dose: 2 unit Documented By: ASAF Labs 06/04/23 06:31 06/04/23 06:31 Labs: Laboratory Results - last 24 hr 06/03/23 06/03/23 06/03/23 11:47 17:17 23:51 MCV MCH MCHC RDW Plt Count MPV Immature Gran % (Auto) Neut % (Auto) Lymph % (Auto) [place] % (Auto) Eos % (Auto) Baso % (Auto) Lymph # (Auto) [place] # (Auto) Eos # (Auto) Baso # (Auto) Abs Immat Gran (auto) Absolute Neuts (auto) Absolute Nucleated RBC Nucleated RBC % (auto) Smear Tech's Comments VBG pH VBG pCO2 VBG pO2 VBG HCO3 VBG O2 Saturation VBG Base Excess Anion Gap Estim Creat Clear Calc Estimated GFR POC Glucose 102 204 H 143 H Random Glucose Calcium Phosphorus Magnesium Albumin 06/04/23 06/04/23 06/04/23 06:04 06:31 06:31 MCV 95.4 MCH 30.7 MCHC 32.2 RDW 14.9 Plt Count 179 MPV 11.0 Immature Gran % (Auto) 1.5 H Neut % (Auto) 90.4 H Lymph % (Auto) 3.5 L [place] % (Auto) 3.9 Eos % (Auto) 0.5 Baso % (Auto) 0.2 Lymph # (Auto) 0.7 L [place] # (Auto) 0.8 Eos # (Auto) 0.1 Baso # (Auto) 0.0 Abs Immat Gran (auto) 0.29 H Absolute Neuts (auto) 17.6 H Absolute Nucleated RBC 0.000 Nucleated RBC % (auto) 0.0 Smear Tech's Comments VERIFIED VBG pH VBG pCO2 VBG pO2 VBG HCO3 VBG O2 Saturation VBG Base Excess Anion Gap 21 H Estim Creat Clear Calc 100.1 Estimated GFR > 60 POC Glucose 192 H Random Glucose 172 H Calcium 10.0 Phosphorus 2.1 L Magnesium 1.9 Albumin 3.5 06/04/23 06/04/23 06:37 07:35 MCV MCH MCHC RDW Plt Count MPV Immature Gran % (Auto) Neut % (Auto) Lymph % (Auto) [place] % (Auto) Eos % (Auto) Baso % (Auto) Lymph # (Auto) [place] # (Auto) Eos # (Auto) Baso # (Auto) Abs Immat Gran (auto) Absolute Neuts (auto) Absolute Nucleated RBC Nucleated RBC % (auto) Smear Tech's Comments VBG pH 7.56 H VBG pCO2 31 VBG pO2 103 VBG HCO3 28 H VBG O2 Saturation 100.0 VBG Base Excess 6.3 Anion Gap Estim Creat Clear Calc Estimated GFR POC Glucose 160 H Random Glucose Calcium Phosphorus Magnesium Albumin Microbiology Microbiology Results: Microbiology 06/01/23 18:09 Blood Culture - Preliminary Blood - Venous No growth after 48 hours. 06/01/23 18:09 Blood Culture - Preliminary Blood - Venous No growth after 48 hours. 06/01/23 Unknown Urine Culture - Final Urine Catheterized - Ramos Catheter Assessment and Plan (1) Pulmonary emboli: Status: Acute (2) Acute blood loss anemia: Status: Acute (3) GI bleed: Status: Acute Plan 72-year-old gentleman with underlying of diabetes mellitus, BPH,, hypothyroidism, likely metastatic lung cancer with cytology results still pending, recent admission to [facility] for postobstructive pneumonia and pulmonary emboli, started on anticoagulation, admitted on 06/01/2023 with GI bleed and acute blood loss anemia to the intensive care unit.? Patient has received IV fluid resuscitation and 1 unit packed red blood cells with normalization of blood pressure, but development of pulmonary edema that improved with diuresis.? Patient was planned for endoscopy on 06/03/2023 but was cancelled due to tenous respiratory status. He remains stable and H/H is stable. Acute blood loss anemia --H/H stable, s/p 1 units of RBC only.. Oral PPI. EGD on hold recent history of PE--anticoagulationo hold given unknown source of gi bleeding vascular surgery on tuesday for possible filter placement Leukocytosis--likely reactive and has been stable DM2 ss, ada diet HTN--restart Losartan, Norvasc, HypOthyroidism--Levohyroxine DVT prophylaxis: compression device given gi bleeding Time Spent With Patient Time: Total time managing care of this patient today ____ minutes. Quality Stroke Does the patient have a stroke diagnosis?: No VTE Prior VTE?: Yes VTE Risk Level:: Medical - moderate - high VTE Device Contraindication: Procedure Contraindicated VTE Drug Contraindication: Treatment Not Tolerated
[2023-06-04] MEDS: amLODIPine Besylate 5 MG TABLET PO (10:38)
--- NOTE | 2023-06-04 13:32 | PM.EVENT ---
Event Note Date of Service: 06/04/23 Event Note: Pt signed out by Dr Teran. H/H angel. Plan for endoscopy tentatively Tuesday. Switch protonix to 40mg PO BID dosing. Can start pureed diet (as per speech recs). White count uptrending again. Consider repeat chest imaging to r/o recurrent empyema/ progression of PNA if resp status remains unchanged Time Spent With Patient Time: Total time managing care of this patient today ____ minutes.
--- NOTE | 2023-06-04 15:13 | PC.NURSE ---
ramirez cath removed at 13:50. Patient tolerated procedure well and is due to void at 19:50.
[2023-06-04] MEDS: SITagliptin Phosphate 50 MG TABLET PO (20:10)
[2023-06-04] MEDS: metFORMIN HCl 1,000 MG TABLET 1000 MG PO (20:10)
[2023-06-04] MEDS: Mirtazapine 7.5 MG TABLET PO (20:10)
[2023-06-05 03:35] VITALS: BP 133/66; PULSE 97; RESP 20; TEMP 36.3; O2SAT 97
[2023-06-05] MEDS: Levothyroxine Sodium 100 MCG TABLET PO (05:22)
[2023-06-05] MEDS: Omeprazole 20 MG CAPSULE.DR PO (05:22)
[2023-06-05] MEDS: Insulin Lispro 100 UNIT/ML 3 ML VIAL SUBCUT ×2 (06:24→12:26)
[2023-06-05 07:09] LABS: Creatinine Clr Calc Pharmacy 107.8; Estimated Glomerular Filt Rate > 60
[2023-06-05] MEDS: Empagliflozin 10 MG TABLET PO (07:43)
[2023-06-05] MEDS: Losartan Potassium 25 MG TABLET PO (07:43)
[2023-06-05] MEDS: Spironolactone 25 MG TABLET PO (07:43)
[2023-06-05] MEDS: amLODIPine Besylate 5 MG TABLET PO (07:43)
[2023-06-05] MEDS: metFORMIN HCl 1,000 MG TABLET 1000 MG PO ×2 (07:44→20:42)
[2023-06-05] MEDS: SITagliptin Phosphate 50 MG TABLET PO ×2 (07:44→20:42)
[2023-06-05] MEDS: Tamsulosin HCL 0.4 MG CAPSULE PO (07:44)
[2023-06-05 07:53] VITALS: BP 145/70; PULSE 111; RESP 18; TEMP 36.6; O2SAT 94
[2023-06-05 08:00] VITALS: BMI 24.8
--- NOTE | 2023-06-05 08:28 | PC.NURSE ---
pt placed on 15L oxy mask for o2sat of 86% when on 6L via NC. pt o2 sat now at 92%. Coarse crackles throughout on right side, fine crackles to L base. Pt c/o SOB and dyspnea with repositioning but denies any chest pain. MD notified. no new orders at this time, will continue to monitor.
--- NOTE | 2023-06-05 09:17 | HO.PM.IMPN ---
Subjective Subjective Date of Service: 06/05/23 Interval History: f/u on anemia, acute blood loss anemia Increased O2 requirement overnight but no distress, Physical Exam Vital Signs: Vital Signs: Last Vital Signs Temp 97.8 F 06/05/23 07:53 Pulse 111 H 06/05/23 07:53 Resp 18 06/05/23 07:53 BP 145/70 H 06/05/23 07:53 Pulse Ox 94 06/05/23 07:53 O2 Del Method Oxymask 06/05/23 07:53 O2 Flow Rate 6 06/05/23 07:53 FiO2 35 06/03/23 14:00 Oxygen Flow Rate 3 06/01/23 17:01 BMI result Body Mass Index 24.8 Const: Other: General: AO X 3, no acute distress Resp: rhonchi, rales at bases CVS: S1,S2,RRR GI: +BS, NT, no distention Skin: No rash Neuro: motor grossly intact Psych: appropriate affect Objective Data Active Medications Amlodipine Besylate (Amlodipine Besylate 5 Mg Tablet) 5 mg PO DAILY [facility]; Protocol Last Admin: 06/05/23 07:43 Dose: 5 mg Documented By: KING Dextrose (Dextrose 50 % 25 Gm/50 Ml Syringe) 25 gm IVPUSH Q15M PRN; Protocol PRN Reason: per Hypoglycemia Standing Ord. Last Admin: 06/02/23 00:22 Dose: 25 gm Documented By: MARTIN Comments: per LAITH Reyes- give now for POC of 77 Empagliflozin (Empagliflozin 10 Mg Tablet) 10 mg PO DAILY [facility] Last Admin: 06/05/23 07:43 Dose: 10 mg Documented By: KING Glucose (Glucose Gel 15 Gm Gel..Gram.) 15 gm PO Q15M PRN; Protocol PRN Reason: per Hypoglycemia Standing Ord. Piperacillin Sod/Tazobactam (Sod 3.375 gm/ Sodium Chloride) 50 mls @ 100 mls/hr IV Q6H [facility] Last Infusion: 06/05/23 08:56 Dose: 0 mls/hr Documented By: KING Insulin Human Lispro (Insulin Lispro 100 Unit/Ml 3 Ml Vial) 0 unit SUBCUT Q6H [facility]; Protocol Last Admin: 06/05/23 06:24 Dose: 2 unit Documented By: ARSEN Levothyroxine Sodium (Levothyroxine Sodium 100 Mcg Tablet) 100 mcg PO DAILY@0600 [facility] Last Admin: 06/05/23 05:22 Dose: 100 mcg Documented By: ARSEN Losartan Potassium (Losartan Potassium 25 Mg Tablet) 25 mg PO DAILY [facility]; Protocol Last Admin: 06/05/23 07:43 Dose: 25 mg Documented By: KING Metformin HCl (Metformin Hcl 1,000 Mg Tablet) 1,000 mg PO BID [facility] Last Admin: 06/05/23 07:44 Dose: 1,000 mg Documented By: KING Mirtazapine (Mirtazapine 7.5 Mg Tablet) 7.5 mg PO BEDTIME [facility] Last Admin: 06/04/23 20:10 Dose: 7.5 mg Documented By: ROGELIO Omeprazole (Omeprazole 20 Mg Capsule.) 20 mg PO DAILY@0630 [facility] Last Admin: 06/05/23 05:22 Dose: 20 mg Documented By: ARSEN Sitagliptin Phosphate (Sitagliptin Phosphate 50 Mg Tablet) 50 mg PO BID [facility] Last Admin: 06/05/23 07:44 Dose: 50 mg Documented By: KING Spironolactone (Spironolactone 25 Mg Tablet) 25 mg PO DAILY [facility]; Protocol Last Admin: 06/05/23 07:43 Dose: 25 mg Documented By: KING Tamsulosin HCl (Tamsulosin Hcl 0.4 Mg Capsule) 0.4 mg PO DAILY [facility] Last Admin: 06/05/23 07:44 Dose: 0.4 mg Documented By: KING Labs 06/04/23 06:31 06/05/23 05:57 Labs: Laboratory Results - last 24 hr 06/04/23 06/04/23 06/04/23 11:32 15:58 17:55 Estim Creat Clear Calc Estimated GFR POC Glucose 212 H 210 H 206 H 06/05/23 06/05/23 06/05/23 00:29 05:57 06:19 Estim Creat Clear Calc 107.8 Estimated GFR > 60 POC Glucose 132 H 166 H Assessment and Plan (1) Pulmonary emboli: Status: Acute (2) Acute blood loss anemia: Status: Acute (3) GI bleed: Status: Acute Plan 72-year-old gentleman with underlying of diabetes mellitus, BPH,, hypothyroidism, likely metastatic lung cancer with cytology results still pending, recent admission to [facility] for postobstructive pneumonia and pulmonary emboli, started on anticoagulation, admitted on 06/01/2023 with GI bleed and acute blood loss anemia to the intensive care unit.? Patient has received IV fluid resuscitation and 1 unit packed red blood cells with normalization of blood pressure, but development of pulmonary edema that improved with diuresis.? Patient was planned for endoscopy on 06/03/2023 but was cancelled due to tenous respiratory status. He remains stable and H/H is stable. Acute blood loss anemia --H/H stable, s/p 1 units of RBC only.. Oral PPI. EGD due to tenous respiratory status, to be revisited recent history of PE--anticoagulationo hold given unknown source of gi bleeding, but concern of recurrent PE vascular surgery consult for possible IVC filter Acute hypoxic resp--? existing PE, CHF--IV Lasix and reassess, get VBG Leukocytosis--likely reactive and has been stable DM2 ss, ada diet HTN--restart Losartan, Norvasc, HypOthyroidism--Levohyroxine DVT prophylaxis: compression device given gi bleeding Time Spent With Patient Time: Total time managing care of this patient today ____ minutes. Quality Stroke Does the patient have a stroke diagnosis?: No VTE Prior VTE?: Yes VTE Risk Level:: Medical - moderate - high VTE Device Contraindication: Procedure Contraindicated VTE Drug Contraindication: Treatment Not Tolerated
[2023-06-05 11:54] VITALS: BP 88/60; PULSE 97; RESP 18; TEMP 36.4; O2SAT 96
[2023-06-05 15:44] VITALS: BP 100/60; PULSE 104; RESP 14; TEMP 36.2; O2SAT 97
[2023-06-05 19:44] VITALS: BP 101/59; PULSE 106; RESP 108; TEMP 35.9; O2SAT 94
[2023-06-05] MEDS: Mirtazapine 7.5 MG TABLET PO (20:42)
[2023-06-05 23:54] VITALS: BP 116/69; PULSE 100; RESP 20; TEMP 36.4; O2SAT 97
[2023-06-06] VITALS (11 sets, daily range): BP systolic 91–130; BP diastolic 50–81; PULSE 86–107; RESP 18–20; TEMP 36–37.1; O2SAT 94–98; BMI 24.3
[2023-06-06] MEDS: Levothyroxine Sodium 100 MCG TABLET PO (05:41)
[2023-06-06] MEDS: Omeprazole 20 MG CAPSULE.DR PO (05:41)
[2023-06-06] MEDS: Insulin Lispro 100 UNIT/ML 3 ML VIAL SUBCUT ×2 (05:41→17:13)
[2023-06-06 07:21] LABS: Creatinine Clr Calc Pharmacy 116.7; Estimated Glomerular Filt Rate > 60
[2023-06-06] MEDS: Tamsulosin HCL 0.4 MG CAPSULE PO (08:36)
[2023-06-06] MEDS: amLODIPine Besylate 5 MG TABLET PO (08:37)
[2023-06-06] MEDS: SITagliptin Phosphate 50 MG TABLET PO ×2 (08:37→20:45)
[2023-06-06] MEDS: Losartan Potassium 25 MG TABLET PO (08:37)
[2023-06-06] MEDS: Empagliflozin 10 MG TABLET PO (08:37)
[2023-06-06] MEDS: Spironolactone 25 MG TABLET PO (08:37)
[2023-06-06] MEDS: metFORMIN HCl 1,000 MG TABLET 1000 MG PO ×2 (08:37→20:45)
--- NOTE | 2023-06-06 08:58 | PM.CNPUL ---
History of Present Illness History of Present Illness Consult date: 06/06/23 Chief complaint: UGIB,hemorrahgic shock Narrative: This is an inpatient pulmonary consultation. The patient is a 72-year-old gentleman with underlying of diabetes mellitus, BPH,, hypothyroidism, with recent admission to [facility] for postobstructive pneumonia and pulmonary emboli, started on anticoagulation, admitted on 06/01/2023 with GI bleed and acute blood loss anemia to the intensive care unit.? Patient has received IV fluid resuscitation and 1 unit packed red blood cells with normalization of blood pressure, but development of pulmonary edema.? Patient is planned for endoscopy on 06/03/2023. The patient's respiratory status is getting worse. She did have a recent CTA which was compared to the previous. No evidence of any thromboembolic disease at this time. The patient does have evidence of significant ground-glass opacities bilaterally with some pleural effusions in addition to airspace disease. He is already being treated for community-acquired pneumonia. His worsening symptoms are likely related to his transfusion may have had a transfusion related acute lung injury versus pulmonary edema from the volume. The patient has been on antibiotics and also on diuretics. Will go ahead and start him on steroids to decrease the inflammation of the lungs. I did review his previous bronchoscopy. The biopsies of the left upper lobe were benign. The patient did have a PET scan demonstrating significant FDG activity in the mediastinum and the hilum. At some point the patient may benefit from some but in the mediastinum if no other clear source of abnormalities noted. The patient right now is going to require high-flow. Therefore hold off on any endoscopic procedures. Review of Systems Constitutional: Constitutional: Reports fatigue and Denies fever(s) Eyes: Eyes: Denies blurry vision ENT: Denies epistaxis Cardiovascular: Cardiovascular: Denies chest pain and Reports dyspnea Respiratory: Respiratory: Reports chest congestion, Reports cough, Denies hemoptysis, Reports dyspnea and Denies wheezing Gastrointestinal: Gastrointestinal: Reports as per HPI Musculoskeletal: Musculoskeletal: Reports no additional musculoskeletal complaints Endocrine: Endocrine: Reports fatigue Hematologic/Lymphatic: Hematologic/Lymphatic: Denies easy bleeding, Denies easy bruising and Denies lymphadenopathy Allergic/Immunologic: Allergic/Immunologic: Denies wheezing PMFSH Past Medical History Medical History (Updated 06/06/23 @ 09:10 by Angel Fonseca MD) Interstitial lung disease Social History Social History (Updated 05/24/23 @ 14:10 by Amanda Denise MD) Household Members: Other Housing: [facility] Other:: STR Do you presently have visiting nurse or other home services: No Unable to assess alcohol history related to: Unknown Alcohol intake: former Patient Tobacco Use Status: Tobacco use Unknown Currently Displaying Signs/Symptoms of Drug Intoxication Withdrawal: No Advance Directives: Yes Advance Directives on File: Yes Advance Directives Date on File: 06/01/23 Do you have thoughts of harming others: None Do you have a plan to hurt others: No Plan Nutrition Risks: On aspiration precautions service: No Meds Allergies Allergy/AdvReac Type Severity Reaction Status Date / Time No Known Allergies Allergy Verified 06/01/23 17:01 Active Medications: Current Medications Amlodipine Besylate (Amlodipine Besylate 5 Mg Tablet) 5 mg PO DAILY [facility]; Protocol Last Admin: 06/06/23 08:37 Dose: 5 mg Dextrose (Dextrose 50 % 25 Gm/50 Ml Syringe) 25 gm IVPUSH Q15M PRN; Protocol PRN Reason: per Hypoglycemia Standing Ord. Last Admin: 06/02/23 00:22 Dose: 25 gm Empagliflozin (Empagliflozin 10 Mg Tablet) 10 mg PO DAILY [facility] Last Admin: 06/06/23 08:37 Dose: 10 mg Glucose (Glucose Gel 15 Gm Gel..Gram.) 15 gm PO Q15M PRN; Protocol PRN Reason: per Hypoglycemia Standing Ord. Piperacillin Sod/Tazobactam (Sod 3.375 gm/ Sodium Chloride) 50 mls @ 100 mls/hr IV Q6H [facility] Last Admin: 06/06/23 08:36 Dose: 100 mls/hr Sodium Chloride (Ns) 1,000 mls @ 100 mls/hr IVCONT .Q10H [facility] Last Admin: 06/06/23 08:38 Dose: Not Given Insulin Human Lispro (Insulin Lispro 100 Unit/Ml 3 Ml Vial) 0 unit SUBCUT Q6H [facility]; Protocol Last Admin: 06/06/23 05:41 Dose: 2 unit Levothyroxine Sodium (Levothyroxine Sodium 100 Mcg Tablet) 100 mcg PO DAILY@0600 [facility] Last Admin: 06/06/23 05:41 Dose: 100 mcg Losartan Potassium (Losartan Potassium 25 Mg Tablet) 25 mg PO DAILY [facility]; Protocol Last Admin: 06/06/23 08:37 Dose: 25 mg Metformin HCl (Metformin Hcl 1,000 Mg Tablet) 1,000 mg PO BID [facility] Last Admin: 06/06/23 08:37 Dose: 1,000 mg Mirtazapine (Mirtazapine 7.5 Mg Tablet) 7.5 mg PO BEDTIME [facility] Last Admin: 06/05/23 20:42 Dose: 7.5 mg Morphine Sulfate (Morphine Sulfate 2 Mg/Ml Cartridge) 2 mg IVPUSH Q4H PRN; Protocol PRN Reason: Pain, Severe (Pain Scale 7-10) Omeprazole (Omeprazole 20 Mg Capsule.) 20 mg PO DAILY@0630 [facility] Last Admin: 06/06/23 05:41 Dose: 20 mg Sitagliptin Phosphate (Sitagliptin Phosphate 50 Mg Tablet) 50 mg PO BID [facility] Last Admin: 06/06/23 08:37 Dose: 50 mg Spironolactone (Spironolactone 25 Mg Tablet) 25 mg PO DAILY [facility]; Protocol Last Admin: 06/06/23 08:37 Dose: 25 mg Tamsulosin HCl (Tamsulosin Hcl 0.4 Mg Capsule) 0.4 mg PO DAILY [facility] Last Admin: 06/06/23 08:36 Dose: 0.4 mg Home Medications Medication Instructions Recorded Confirmed Last Taken Type amlodipine 5 mg tablet 5 mg PO DAILY 05/13/23 06/01/23 Unknown History insulin lispro protamine-lispro 15 unit subcut BID 05/13/23 06/01/23 Unknown History 100 unit/mL (75-25) subcutaneous pen (Humalog Mix 75-25 KwikPen) insulin lispro protamine-lispro 20 unit subcut DAILY@1600 05/13/23 06/01/23 Unknown History 100 unit/mL (75-25) subcutaneous pen (Humalog Mix 75-25 KwikPen) levothyroxine 100 mcg tablet 100 mcg PO DAILY 05/13/23 06/01/23 Unknown History (Synthroid) losartan 100 mg tablet 100 mg PO DAILY 05/13/23 06/01/23 Unknown History omeprazole 20 mg capsule,delayed 20 mg PO DAILY 05/13/23 06/01/23 Unknown History release sitagliptin phosphate 50 1 tab PO BID 05/13/23 06/01/23 Unknown History mg-metformin 1,000 mg tablet (Kyle) tamsulosin 0.4 mg capsule 0.4 mg PO DAILY 05/13/23 06/01/23 Unknown History Physical Exam Vital Signs: Vital Signs: Last Vital Signs Temp 98.7 F 06/06/23 07:45 Pulse 99 06/06/23 07:45 Resp 20 06/06/23 08:35 BP 124/68 06/06/23 07:45 Pulse Ox 95 06/06/23 07:45 O2 Del Method Oxymask 06/06/23 07:45 O2 Flow Rate 14 06/06/23 07:45 FiO2 35 06/03/23 14:00 Oxygen Flow Rate 3 06/01/23 17:01 BMI result Body Mass Index 24.3 Const: General: awake and acute distress mild and respiratory HEENT: Head: Yes normocephalic Neck: Neck: Yes trachea midline and Yes supple Chest: Chest palpation & inspection: normal inspection of the chest Resp: Effort & Inspection: tachypneic Auscultation: rales diffuse Cardio: Heart sounds: S1 normal heart sound present and S2 normal heart sound present GI: Palpation (GI): Soft to palpation Skin: General skin exam: no rashes or lesions noted Extrem: General: Yes no clubbing, cyanosis or edema Results Laboratory Findings 06/05/23 10:57 06/06/23 06:33 ABG, PT/INR, D-dimer: PT/INR, D-dimer PT 15.0 SEC (10.0-13.1) H 06/01/23 18:09 INR 1.3 (0.9-1.1) H 06/01/23 18:09 Abnormal lab findings: Abnormal Labs 06/01/23 06/01/23 06/01/23 17:26 17:38 17:38 WBC RBC Hgb Hct Plt Count Immature Gran % (Auto) Neut % (Auto) Lymph % (Auto) Lymph # (Auto) Abs Immat Gran (auto) Absolute Neuts (auto) Absolute Nucleated RBC PT INR ABG pO2 at Pt Temp VBG pH VBG HCO3 Sodium Potassium Chloride Anion Gap BUN 47 H POC Glucose Random Glucose Lactic Acid Phosphorus AST 39 H ALT 43 H Total Protein 5.2 L Albumin 2.4 L TSH 5.80 H Urine Glucose (UA) >=1000 H Ur Leukocyte Esterase Small (1+) H Urine WBC 21-50 H Random Vancomycin Crossmatch See Detail 06/01/23 06/01/23 06/01/23 18:09 18:09 18:09 WBC 26.8 H RBC 2.97 L D Hgb 8.9 L D Hct 27.4 L D Plt Count Immature Gran % (Auto) 3.9 H Neut % (Auto) 87.9 H Lymph % (Auto) 3.3 L Lymph # (Auto) 0.9 L Abs Immat Gran (auto) 1.05 H Absolute Neuts (auto) 23.5 H Absolute Nucleated RBC 0.020 H PT 15.0 H INR 1.3 H ABG pO2 at Pt Temp VBG pH VBG HCO3 Sodium Potassium Chloride Anion Gap BUN POC Glucose Random Glucose Lactic Acid 2.5 H* Phosphorus AST ALT Total Protein Albumin TSH Urine Glucose (UA) Ur Leukocyte Esterase Urine WBC Random Vancomycin Crossmatch 06/01/23 06/01/23 06/02/23 18:20 21:39 00:47 WBC RBC Hgb 10.1 L Hct 30.7 L Plt Count Immature Gran % (Auto) Neut % (Auto) Lymph % (Auto) Lymph # (Auto) Abs Immat Gran (auto) Absolute Neuts (auto) Absolute Nucleated RBC PT INR ABG pO2 at Pt Temp 130 H VBG pH VBG HCO3 Sodium Potassium Chloride Anion Gap BUN POC Glucose 180 H Random Glucose Lactic Acid Phosphorus AST ALT Total Protein Albumin TSH Urine Glucose (UA) Ur Leukocyte Esterase Urine WBC Random Vancomycin Crossmatch 06/02/23 06/02/23 06/02/23 01:09 01:35 01:55 WBC RBC Hgb 8.3 L Hct 25.2 L Plt Count Immature Gran % (Auto) Neut % (Auto) Lymph % (Auto) Lymph # (Auto) Abs Immat Gran (auto) Absolute Neuts (auto) Absolute Nucleated RBC PT INR ABG pO2 at Pt Temp VBG pH VBG HCO3 Sodium Potassium Chloride Anion Gap BUN POC Glucose 147 H 141 H Random Glucose Lactic Acid Phosphorus AST ALT Total Protein Albumin TSH Urine Glucose (UA) Ur Leukocyte Esterase Urine WBC Random Vancomycin Crossmatch 06/02/23 06/02/23 06/02/23 04:56 04:56 11:58 WBC 17.5 H RBC 2.77 L Hgb 8.5 L Hct 26.0 L Plt Count Immature Gran % (Auto) 1.5 H Neut % (Auto) 90.4 H Lymph % (Auto) 4.0 L Lymph # (Auto) 0.7 L Abs Immat Gran (auto) 0.27 H Absolute Neuts (auto) 15.8 H Absolute Nucleated RBC PT INR ABG pO2 at Pt Temp VBG pH VBG HCO3 Sodium Potassium Chloride 109 H Anion Gap BUN 26 H POC Glucose 132 H Random Glucose Lactic Acid Phosphorus AST ALT Total Protein 5.7 L Albumin TSH Urine Glucose (UA) Ur Leukocyte Esterase Urine WBC Random Vancomycin Crossmatch 06/02/23 06/03/23 06/03/23 12:01 05:08 05:08 WBC 18.4 H 17.0 H RBC 3.11 L 3.13 L Hgb 9.6 L 9.7 L Hct 29.1 L 29.7 L Plt Count Immature Gran % (Auto) 1.4 H 1.5 H Neut % (Auto) 90.6 H 87.9 H Lymph % (Auto) 3.6 L 5.0 L Lymph # (Auto) 0.7 L 0.9 L Abs Immat Gran (auto) 0.26 H 0.26 H Absolute Neuts (auto) 16.6 H 14.9 H Absolute Nucleated RBC PT INR ABG pO2 at Pt Temp VBG pH VBG HCO3 Sodium Potassium 3.1 L Chloride Anion Gap BUN 19 H POC Glucose Random Glucose Lactic Acid Phosphorus 2.1 L AST ALT Total Protein Albumin TSH Urine Glucose (UA) Ur Leukocyte Esterase Urine WBC Random Vancomycin Crossmatch 06/03/23 06/03/23 06/03/23 05:08 05:24 17:17 WBC RBC Hgb Hct Plt Count Immature Gran % (Auto) Neut % (Auto) Lymph % (Auto) Lymph # (Auto) Abs Immat Gran (auto) Absolute Neuts (auto) Absolute Nucleated RBC PT INR ABG pO2 at Pt Temp VBG pH 7.48 H VBG HCO3 29 H Sodium Potassium Chloride Anion Gap BUN POC Glucose 204 H Random Glucose Lactic Acid Phosphorus AST ALT Total Protein Albumin TSH Urine Glucose (UA) Ur Leukocyte Esterase Urine WBC Random Vancomycin 12.5 L Crossmatch 06/03/23 06/04/23 06/04/23 23:51 06:04 06:31 WBC RBC Hgb Hct Plt Count Immature Gran % (Auto) Neut % (Auto) Lymph % (Auto) Lymph # (Auto) Abs Immat Gran (auto) Absolute Neuts (auto) Absolute Nucleated RBC PT INR ABG pO2 at Pt Temp VBG pH VBG HCO3 Sodium 146 H Potassium 3.2 L Chloride Anion Gap 21 H BUN 21 H POC Glucose 143 H 192 H Random Glucose 172 H Lactic Acid Phosphorus 2.1 L AST ALT Total Protein Albumin TSH Urine Glucose (UA) Ur Leukocyte Esterase Urine WBC Random Vancomycin Crossmatch 06/04/23 06/04/23 06/04/23 06:31 06:37 07:35 WBC 19.5 H RBC 3.48 L Hgb 10.7 L Hct 33.2 L Plt Count Immature Gran % (Auto) 1.5 H Neut % (Auto) 90.4 H Lymph % (Auto) 3.5 L Lymph # (Auto) 0.7 L Abs Immat Gran (auto) 0.29 H Absolute Neuts (auto) 17.6 H Absolute Nucleated RBC PT INR ABG pO2 at Pt Temp VBG pH 7.56 H VBG HCO3 28 H Sodium Potassium Chloride Anion Gap BUN POC Glucose 160 H Random Glucose Lactic Acid Phosphorus AST ALT Total Protein Albumin TSH Urine Glucose (UA) Ur Leukocyte Esterase Urine WBC Random Vancomycin Crossmatch 06/04/23 06/04/23 06/04/23 11:32 15:58 17:55 WBC RBC Hgb Hct Plt Count Immature Gran % (Auto) Neut % (Auto) Lymph % (Auto) Lymph # (Auto) Abs Immat Gran (auto) Absolute Neuts (auto) Absolute Nucleated RBC PT INR ABG pO2 at Pt Temp VBG pH VBG HCO3 Sodium Potassium Chloride Anion Gap BUN POC Glucose 212 H 210 H 206 H Random Glucose Lactic Acid Phosphorus AST ALT Total Protein Albumin TSH Urine Glucose (UA) Ur Leukocyte Esterase Urine WBC Random Vancomycin Crossmatch 06/05/23 06/05/23 06/05/23 00:29 06:19 10:57 WBC 16.6 H RBC 3.66 L Hgb 11.3 L Hct 35.4 L Plt Count 142 L Immature Gran % (Auto) Neut % (Auto) Lymph % (Auto) Lymph # (Auto) Abs Immat Gran (auto) Absolute Neuts (auto) Absolute Nucleated RBC PT INR ABG pO2 at Pt Temp VBG pH VBG HCO3 Sodium Potassium Chloride Anion Gap BUN POC Glucose 132 H 166 H Random Glucose Lactic Acid Phosphorus AST ALT Total Protein Albumin TSH Urine Glucose (UA) Ur Leukocyte Esterase Urine WBC Random Vancomycin Crossmatch 06/05/23 06/05/23 06/05/23 10:59 11:48 15:47 WBC RBC Hgb Hct Plt Count Immature Gran % (Auto) Neut % (Auto) Lymph % (Auto) Lymph # (Auto) Abs Immat Gran (auto) Absolute Neuts (auto) Absolute Nucleated RBC PT INR ABG pO2 at Pt Temp VBG pH 7.44 H VBG HCO3 37 H Sodium Potassium Chloride Anion Gap BUN POC Glucose 174 H 143 H Random Glucose Lactic Acid Phosphorus AST ALT Total Protein Albumin TSH Urine Glucose (UA) Ur Leukocyte Esterase Urine WBC Random Vancomycin Crossmatch 06/05/23 06/06/23 06/06/23 19:58 01:13 05:35 WBC RBC Hgb Hct Plt Count Immature Gran % (Auto) Neut % (Auto) Lymph % (Auto) Lymph # (Auto) Abs Immat Gran (auto) Absolute Neuts (auto) Absolute Nucleated RBC PT INR ABG pO2 at Pt Temp VBG pH VBG HCO3 Sodium Potassium Chloride Anion Gap BUN POC Glucose 218 H 123 H 175 H Random Glucose Lactic Acid Phosphorus AST ALT Total Protein Albumin TSH Urine Glucose (UA) Ur Leukocyte Esterase Urine WBC Random Vancomycin Crossmatch Microbiology: Microbiology 06/01/23 18:09 Blood - Venous Blood Culture - Preliminary No growth after 48 hours. 06/01/23 18:09 Blood - Venous Blood Culture - Preliminary No growth after 48 hours. 06/01/23 Unknown Urine Catheterized - Ramos Catheter Urine Culture - Final Assessment and Plan (1) Pleural effusion: Status: Acute (2) Acute hypoxemic respiratory failure: Status: Acute (3) Pulmonary edema: Qualifiers: Chronicity: acute Qualified Code(s): J81.0 - Acute pulmonary edema Status: Acute (4) Pneumonia: Qualifiers: Aspiration pneumonia type: unspecified Laterality: unspecified laterality Lung location: unspecified part of lung Status: Inactive Plan Solumedrol 125mg IV x 1 now. Monitor response Start HF diuresis as tolerated Abx therapy DNI Hold off EGD for now Time Spent With Patient Time: Total time managing care of this patient today ____ minutes. Procedures Date of Service Date of Service: 06/06/23
--- NOTE | 2023-06-06 09:08 | HO.PM.IMPN ---
Subjective Subjective Date of Service: 06/06/23 Interval History: f/u on anemia, acute blood loss anemia and no acute hypoxic respiratory failure Patient is requiring more and more oxygen and is now going on high flow Physical Exam Vital Signs: Vital Signs: Last Vital Signs Temp 98.7 F 06/06/23 07:45 Pulse 99 06/06/23 07:45 Resp 20 06/06/23 08:35 BP 124/68 06/06/23 07:45 Pulse Ox 95 06/06/23 07:45 O2 Del Method Oxymask 06/06/23 07:45 O2 Flow Rate 14 06/06/23 07:45 FiO2 35 06/03/23 14:00 Oxygen Flow Rate 3 06/01/23 17:01 BMI result Body Mass Index 24.3 Const: Other: General: AO X 3, no acute distress Resp: rhonchi, rales at bases CVS: S1,S2,RRR GI: +BS, NT, no distention Skin: No rash Neuro: motor grossly intact Psych: appropriate affect Objective Data Active Medications Amlodipine Besylate (Amlodipine Besylate 5 Mg Tablet) 5 mg PO DAILY [facility]; Protocol Last Admin: 06/06/23 08:37 Dose: 5 mg Documented By: [place] Dextrose (Dextrose 50 % 25 Gm/50 Ml Syringe) 25 gm IVPUSH Q15M PRN; Protocol PRN Reason: per Hypoglycemia Standing Ord. Last Admin: 06/02/23 00:22 Dose: 25 gm Documented By: MARTIN Comments: per LAITH Reyes- give now for POC of 77 Empagliflozin (Empagliflozin 10 Mg Tablet) 10 mg PO DAILY [facility] Last Admin: 06/06/23 08:37 Dose: 10 mg Documented By: [place] Glucose (Glucose Gel 15 Gm Gel..Gram.) 15 gm PO Q15M PRN; Protocol PRN Reason: per Hypoglycemia Standing Ord. Piperacillin Sod/Tazobactam (Sod 3.375 gm/ Sodium Chloride) 50 mls @ 100 mls/hr IV Q6H [facility] Last Admin: 06/06/23 08:36 Dose: 100 mls/hr Documented By: [place] Sodium Chloride (Ns) 1,000 mls @ 100 mls/hr IVCONT .Q10H [facility] Last Admin: 06/06/23 08:38 Dose: Not Given Documented By: [place] Non-Admin Reason: paused Insulin Human Lispro (Insulin Lispro 100 Unit/Ml 3 Ml Vial) 0 unit SUBCUT Q6H [facility]; Protocol Last Admin: 06/06/23 05:41 Dose: 2 unit Documented By: ZAIRA Levothyroxine Sodium (Levothyroxine Sodium 100 Mcg Tablet) 100 mcg PO DAILY@0600 [facility] Last Admin: 06/06/23 05:41 Dose: 100 mcg Documented By: ZAIRA Losartan Potassium (Losartan Potassium 25 Mg Tablet) 25 mg PO DAILY [facility]; Protocol Last Admin: 06/06/23 08:37 Dose: 25 mg Documented By: [place] Metformin HCl (Metformin Hcl 1,000 Mg Tablet) 1,000 mg PO BID [facility] Last Admin: 06/06/23 08:37 Dose: 1,000 mg Documented By: [place] Mirtazapine (Mirtazapine 7.5 Mg Tablet) 7.5 mg PO BEDTIME [facility] Last Admin: 06/05/23 20:42 Dose: 7.5 mg Documented By: ZAIRA Morphine Sulfate (Morphine Sulfate 2 Mg/Ml Cartridge) 2 mg IVPUSH Q4H [facility]; Protocol PRN Reason: Pain, Severe (Pain Scale 7-10) Omeprazole (Omeprazole 20 Mg Capsule.) 20 mg PO DAILY@0630 [facility] Last Admin: 06/06/23 05:41 Dose: 20 mg Documented By: ZAIRA Sitagliptin Phosphate (Sitagliptin Phosphate 50 Mg Tablet) 50 mg PO BID [facility] Last Admin: 06/06/23 08:37 Dose: 50 mg Documented By: [place] Spironolactone (Spironolactone 25 Mg Tablet) 25 mg PO DAILY [facility]; Protocol Last Admin: 06/06/23 08:37 Dose: 25 mg Documented By: [place] Tamsulosin HCl (Tamsulosin Hcl 0.4 Mg Capsule) 0.4 mg PO DAILY [facility] Last Admin: 06/06/23 08:36 Dose: 0.4 mg Documented By: [place] Labs 06/05/23 10:57 06/06/23 06:33 Labs: Laboratory Results - last 24 hr 06/05/23 06/05/23 06/05/23 10:57 10:57 10:59 MCV 96.7 MCH 30.9 MCHC 31.9 RDW 14.9 Plt Count 142 L MPV 11.0 Absolute Nucleated RBC 0.000 Nucleated RBC % (auto) 0.0 VBG pH 7.44 H VBG pCO2 54 VBG pO2 45 VBG HCO3 37 H VBG O2 Saturation 70.0 VBG Base Excess 11.4 Estim Creat Clear Calc Estimated GFR POC Glucose Blood Type O Positive Antibody Screen NEGATIVE 06/05/23 06/05/23 06/05/23 11:48 15:47 19:58 MCV MCH MCHC RDW Plt Count MPV Absolute Nucleated RBC Nucleated RBC % (auto) VBG pH VBG pCO2 VBG pO2 VBG HCO3 VBG O2 Saturation VBG Base Excess Estim Creat Clear Calc Estimated GFR POC Glucose 174 H 143 H 218 H Blood Type Antibody Screen 06/06/23 06/06/23 06/06/23 01:13 05:35 06:33 MCV MCH MCHC RDW Plt Count MPV Absolute Nucleated RBC Nucleated RBC % (auto) VBG pH VBG pCO2 VBG pO2 VBG HCO3 VBG O2 Saturation VBG Base Excess Estim Creat Clear Calc 116.7 Estimated GFR > 60 POC Glucose 123 H 175 H Blood Type Antibody Screen 06/06/23 07:47 MCV MCH MCHC RDW Plt Count MPV Absolute Nucleated RBC Nucleated RBC % (auto) VBG pH VBG pCO2 VBG pO2 VBG HCO3 VBG O2 Saturation VBG Base Excess Estim Creat Clear Calc Estimated GFR POC Glucose 111 Blood Type Antibody Screen Assessment and Plan (1) Pulmonary emboli: Status: Acute (2) Acute blood loss anemia: Status: Acute (3) GI bleed: Status: Acute Plan 72-year-old gentleman with underlying of diabetes mellitus, BPH,, hypothyroidism, likely metastatic lung cancer with cytology results still pending, recent admission to [facility] for postobstructive pneumonia and pulmonary emboli, started on anticoagulation, admitted on 06/01/2023 with GI bleed and acute blood loss anemia to the intensive care unit.? Patient has received IV fluid resuscitation and 1 unit packed red blood cells with normalization of blood pressure, but development of pulmonary edema that improved with diuresis.? Patient was planned for endoscopy on 06/03/2023 but was cancelled due to tenous respiratory status. He remains stable and H/H is stable. Acute blood loss anemia that was associated with Hypotension and was admitted to the ICU, but was only transfused 1 units of RBC with good effect, was seen by GI (Dr. Teran ) who was going to do EGD but patient's respiratory failure and so was cancelled, he was on IV PPI but now on oral PPI. H/H remains stable without any sings of bleeding recent history of PE--anticoagulation hold given signficant GIb and anemia and unknown source of gi bleeding. Repeat CTA on 06/05 showed no PE and last PE were just subsegmental. Will get US of legs, Vascular surgery to consider IVC filter. Will add DVT prophylaxis dose of heparin and 5k bid and closely wathc H/H Acute hypoxic respiratory failure--He has underlying lungs issues, concern for lung cancer. Acute respiratory failure now thought to be related to possible TRALI per pulmonolgy and there starting Solumedrol Leukocytosis--likely reactive and has been stable DM2 ss, ada diet HTN--restart Losartan, Norvasc, HypOthyroidism--Levohyroxine DVT prophylaxis: compression device given gi bleeding, will try subcut Heparin today Time Spent With Patient Time: Total time managing care of this patient today ____ minutes. Quality Stroke Does the patient have a stroke diagnosis?: No VTE Prior VTE?: Yes VTE Risk Level:: Medical - moderate - high VTE Device Contraindication: Procedure Contraindicated VTE Drug Contraindication: Treatment Not Tolerated
--- NOTE | 2023-06-06 10:17 | MHC.CM.PN ---
EMR reviewed and per MD rounds, pt condition poor and he remains on hi-flow O2, MD to have goals of care discussion with pt and family, and anticipating hospice referral. CM will continue to follow.
--- NOTE | 2023-06-06 10:58 | PM.CNGS ---
History of Present Illness Consult details Consult date: 06/06/23 Reason for consult: other ( PE) Narrative: complex 72-year-old gentleman with a diagnosis in evolution metastatic lung cancer had originally presented to [facility] with a pulmonary embolism. At that time he was started on anticoagulation. He subsequently presented to our institution with acute respiratory failure had a GI bleed. He has been extensively worked up. Unfortunately he is unable to be anticoagulated formal Due to multiple medical issues they are currently trying to address. I was called in to see and evaluate this patient for possible IVC filter placement. Review of Systems Review of Systems: Yes all other systems are reviewed and are negative Constitutional: Constitutional: Reports fatigue ENT: Reports Normal hearing present Cardiovascular: Cardiovascular: Denies chest pain, Denies chest pain at rest, Denies chest pain with activity and Denies pedal edema Respiratory: Respiratory: Denies cough Gastrointestinal: Gastrointestinal: Denies abdominal pain Musculoskeletal: Musculoskeletal: Denies abnormal gait, Denies muscle cramps and Denies radiating pain into limb Integumentary/Breasts: Skin/Breast: Denies skin ulcer and Denies wounds Neurologic: Reports Normal hearing present and Denies abnormal gait Psychiatric: Psychiatric: Reports no additional psychiatric complaints Endocrine: Endocrine: Reports fatigue PMFSH Past Medical History Medical History (Updated 06/06/23 @ 09:10 by Angel Fonseca MD) Interstitial lung disease Social History Social History (Updated 05/24/23 @ 14:10 by Amanda Denise MD) Household Members: Other Housing: Prison Housing Other:: STR Do you presently have visiting nurse or other home services: No Unable to assess alcohol history related to: Unknown Alcohol intake: former Patient Tobacco Use Status: Tobacco use Unknown Currently Displaying Signs/Symptoms of Drug Intoxication Withdrawal: No Advance Directives: Yes Advance Directives on File: Yes Advance Directives Date on File: 06/01/23 Do you have thoughts of harming others: None Do you have a plan to hurt others: No Plan Nutrition Risks: On aspiration precautions service: No Meds Allergies Allergy/AdvReac Type Severity Reaction Status Date / Time No Known Allergies Allergy Verified 06/01/23 17:01 Active Medications: Current Medications Amlodipine Besylate (Amlodipine Besylate 5 Mg Tablet) 5 mg PO DAILY [facility]; Protocol Last Admin: 06/06/23 08:37 Dose: 5 mg Dextrose (Dextrose 50 % 25 Gm/50 Ml Syringe) 25 gm IVPUSH Q15M PRN; Protocol PRN Reason: per Hypoglycemia Standing Ord. Last Admin: 06/02/23 00:22 Dose: 25 gm Empagliflozin (Empagliflozin 10 Mg Tablet) 10 mg PO DAILY [facility] Last Admin: 06/06/23 08:37 Dose: 10 mg Glucose (Glucose Gel 15 Gm Gel..Gram.) 15 gm PO Q15M PRN; Protocol PRN Reason: per Hypoglycemia Standing Ord. Piperacillin Sod/Tazobactam (Sod 3.375 gm/ Sodium Chloride) 50 mls @ 100 mls/hr IV Q6H [facility] Last Infusion: 06/06/23 10:19 Dose: Infused Sodium Chloride (Ns) 1,000 mls @ 100 mls/hr IVCONT .Q10H [facility] Last Admin: 06/06/23 08:38 Dose: Not Given Insulin Human Lispro (Insulin Lispro 100 Unit/Ml 3 Ml Vial) 0 unit SUBCUT Q6H [facility]; Protocol Last Admin: 06/06/23 05:41 Dose: 2 unit Levothyroxine Sodium (Levothyroxine Sodium 100 Mcg Tablet) 100 mcg PO DAILY@0600 [facility] Last Admin: 06/06/23 05:41 Dose: 100 mcg Losartan Potassium (Losartan Potassium 25 Mg Tablet) 25 mg PO DAILY [facility]; Protocol Last Admin: 06/06/23 08:37 Dose: 25 mg Metformin HCl (Metformin Hcl 1,000 Mg Tablet) 1,000 mg PO BID [facility] Last Admin: 06/06/23 08:37 Dose: 1,000 mg Methylprednisolone Sodium Succinate (Methylprednisolone Sod Succ 125 Mg/2 Ml Vial) 60 mg IVPUSH Q6H [facility] Mirtazapine (Mirtazapine 7.5 Mg Tablet) 7.5 mg PO BEDTIME [facility] Last Admin: 06/05/23 20:42 Dose: 7.5 mg Morphine Sulfate (Morphine Sulfate 2 Mg/Ml Cartridge) 2 mg IVPUSH Q4H PRN; Protocol PRN Reason: Pain, Severe (Pain Scale 7-10) Omeprazole (Omeprazole 20 Mg Capsule.Dr) 20 mg PO DAILY@0630 [facility] Last Admin: 06/06/23 05:41 Dose: 20 mg Sitagliptin Phosphate (Sitagliptin Phosphate 50 Mg Tablet) 50 mg PO BID [facility] Last Admin: 06/06/23 08:37 Dose: 50 mg Spironolactone (Spironolactone 25 Mg Tablet) 25 mg PO DAILY [facility]; Protocol Last Admin: 06/06/23 08:37 Dose: 25 mg Tamsulosin HCl (Tamsulosin Hcl 0.4 Mg Capsule) 0.4 mg PO DAILY [facility] Last Admin: 06/06/23 08:36 Dose: 0.4 mg Home Medications Medication Instructions Recorded Confirmed Last Taken Type amlodipine 5 mg tablet 5 mg PO DAILY 05/13/23 06/01/23 Unknown History insulin lispro protamine-lispro 15 unit subcut BID 05/13/23 06/01/23 Unknown History 100 unit/mL (75-25) subcutaneous pen (Humalog Mix 75-25 KwikPen) insulin lispro protamine-lispro 20 unit subcut DAILY@1600 05/13/23 06/01/23 Unknown History 100 unit/mL (75-25) subcutaneous pen (Humalog Mix 75-25 KwikPen) levothyroxine 100 mcg tablet 100 mcg PO DAILY 05/13/23 06/01/23 Unknown History (Synthroid) losartan 100 mg tablet 100 mg PO DAILY 05/13/23 06/01/23 Unknown History omeprazole 20 mg capsule,delayed 20 mg PO DAILY 05/13/23 06/01/23 Unknown History release sitagliptin phosphate 50 1 tab PO BID 05/13/23 06/01/23 Unknown History mg-metformin 1,000 mg tablet (Kyle) tamsulosin 0.4 mg capsule 0.4 mg PO DAILY 05/13/23 06/01/23 Unknown History Physical Exam Vital Signs: Vital Signs: Last Vital Signs Temp 98.7 F 06/06/23 07:45 Pulse 99 06/06/23 07:45 Resp 18 06/06/23 10:54 BP 124/68 06/06/23 07:45 Pulse Ox 95 06/06/23 07:45 O2 Del Method Oxymask 06/06/23 07:45 O2 Flow Rate 14 06/06/23 07:45 FiO2 35 06/03/23 14:00 Oxygen Flow Rate 3 06/01/23 17:01 BMI result Body Mass Index 24.3 Const: General: cooperative, healthy appearing and comfortable Orientation/consciousness: oriented to person, oriented to place and oriented to time HEENT: Head: Yes normal to inspection Neck: Neck: Yes normal visual inspection Carotids: no bruits Chest: Chest palpation & inspection: normal inspection of the chest Resp: Effort & Inspection: abnormal respiratory pattern Auscultation: crackles, rales, rhonchi and wheezes Cardio: Rate: regular rate Rhythm: regular rhythm Heart sounds: S1 normal heart sound present and S2 normal heart sound present Bruits: no carotid bruits Peripheral pulses: Peripheral pulses 2+ throughout GI: Inspection: Yes normal to inspection Skin: Wounds: no wounds Hair: normal Neuro: General: oriented to person, oriented to place and oriented to time Cranial nerves: Yes CN's II-XII intact bilaterally and Yes Normal hearing present Cognition (Neuro): normal cognition Motor exam (neuro): 5/5 motor strength present throughout Extrem: Other: venous exam: No significant superficial varicosities or spider telangiectasias, minimal edema General: No clubbing, No cyanosis and No edema Psych: Appearance: grossly normal Mental Status: mental status grossly normal Speech and movement: Normal speech and movement present Results Labs 06/05/23 10:57 06/06/23 06:33 Labs: Abnormal lab results 06/05/23 06/05/23 06/05/23 Range/Units 10:57 10:59 11:48 WBC 16.6 H (4.8-10.8) X10*3/uL RBC 3.66 L (4.60-5.80) X10*6/uL Hgb 11.3 L (14.0-18.0) g/dl Hct 35.4 L (42.0-52.0) % Plt Count 142 L (160-400) X10*3/uL VBG pH 7.44 H (7.32-7.43) VBG HCO3 37 H (22-26) mmol/L POC Glucose 174 H (60-115) mg/dL 06/05/23 06/05/23 06/06/23 Range/Units 15:47 19:58 01:13 WBC (4.8-10.8) X10*3/uL RBC (4.60-5.80) X10*6/uL Hgb (14.0-18.0) g/dl Hct (42.0-52.0) % Plt Count (160-400) X10*3/uL VBG pH (7.32-7.43) VBG HCO3 (22-26) mmol/L POC Glucose 143 H 218 H 123 H (60-115) mg/dL 06/06/23 Range/Units 05:35 WBC (4.8-10.8) X10*3/uL RBC (4.60-5.80) X10*6/uL Hgb (14.0-18.0) g/dl Hct (42.0-52.0) % Plt Count (160-400) X10*3/uL VBG pH (7.32-7.43) VBG HCO3 (22-26) mmol/L POC Glucose 175 H (60-115) mg/dL Short CBC 06/05/23 Range/Units 10:57 WBC 16.6 H (4.8-10.8) X10*3/uL Hgb 11.3 L (14.0-18.0) g/dl Hct 35.4 L (42.0-52.0) % Plt Count 142 L (160-400) X10*3/uL BMP 06/06/23 06:33 Creatinine 0.60 Urine 06/01/23 Range/Units 17:26 Urine Color Yellow Urine Appearance Clear Urine pH 5.5 (5.0-9.0) Ur Specific [place] 1.025 (1.005-1.025) Urine Protein Negative (Neg-Trace) mg/dL Urine Glucose (UA) >=1000 H (Negative) mg/dL All other labs normal. Assessment and Plan (1) Pulmonary emboli: Status: Acute Plan In short patient has pulmonary embolism. We will plan for IVC filter placement. Risks benefits complications were discussed in detail with the patient. his family was at bedside. They all understood and consented and would like to proceed. I will try to schedule for tomorrow. Thank you for allowing us to assist in his care. If there are any questions or concerns please do not hesitate to contact us. Time Spent With Patient Time: Total time managing care of this patient today ____ minutes. Procedures Date of Service Date of Service: 06/06/23
--- NOTE | 2023-06-06 14:29 | MHC.SLORD ---
Speech Language Pathology Order Status: DISK RECORDIST attempted to see pt for f/u- Pt refusing offerings of PO, attempting to sleep. Pt's reported pt ate all his lunch without difficulty.
[2023-06-06] MEDS: methylPREDNISolone Sod Succ 125 MG/2 ML VIAL 60 MG IVPUSH ×2 (14:56→20:47)
[2023-06-06] MEDS: Heparin Sodium,Porcine 5,000 UNIT/ML VIAL 5000 UNIT SUBCUT (14:56)
[2023-06-06] MEDS: Mirtazapine 7.5 MG TABLET PO (20:45)
[2023-06-07] VITALS (9 sets, daily range): BP systolic 98–144; BP diastolic 56–81; PULSE 94–114; RESP 16–20; TEMP 36.5–37.2; O2SAT 94–99; BMI 24.9
[2023-06-07] MEDS: methylPREDNISolone Sod Succ 125 MG/2 ML VIAL 60 MG IVPUSH ×4 (02:58→20:35)
[2023-06-07 07:13] LABS: Glucose, Whole Blood 171 mg/dL (60-115)
[2023-06-07 07:17] LABS: Creatinine Clr Calc Pharmacy 95.9; Estimated Glomerular Filt Rate > 60
--- NOTE | 2023-06-07 07:24 | PM.GIPN ---
Subjective Subjective Date of Service: 06/07/23 Interval History: patient seen 06/06 no reported bleeding requiring increasing oxygen Critical Care Time (minutes): 0 Physical Exam Vital Signs: Vital Signs: Last Vital Signs Temp 97.7 F 06/07/23 03:35 Pulse 97 06/07/23 03:35 Resp 18 06/07/23 03:35 BP 135/80 06/07/23 03:35 Pulse Ox 96 06/07/23 03:35 O2 Del Method High Flow Nasal C annula 06/07/23 03:35 O2 Flow Rate 50 06/07/23 03:35 FiO2 50 06/07/23 03:35 Oxygen Flow Rate 3 06/01/23 17:01 BMI result Body Mass Index 24.9 GI: Other: abd is soft and nontender Objective Data Labs 06/05/23 10:57 06/07/23 05:58 Labs: Laboratory Results - last 24 hr 06/06/23 06/06/23 06/06/23 07:47 10:52 12:51 ESR 18 H Creatinine Estim Creat Clear Calc Estimated GFR POC Glucose 111 102 C-Reactive Protein 06/06/23 06/06/23 06/07/23 12:51 16:51 05:58 ESR Creatinine 0.73 Estim Creat Clear Calc 95.9 Estimated GFR > 60 POC Glucose 217 H C-Reactive Protein 9.55 H 06/07/23 07:06 ESR Creatinine Estim Creat Clear Calc Estimated GFR POC Glucose 171 H C-Reactive Protein Microbiology Microbiology Results: Microbiology 06/01/23 18:09 Blood - Venous Blood Culture - Final No growth after 5 days. 06/01/23 18:09 Blood - Venous Blood Culture - Final No growth after 5 days. 06/01/23 Unknown Urine Catheterized - Ramos Catheter Urine Culture - Final Procedures Date of Service Date of Service: 06/07/23 Progress Note: A&P Assessment and plan (1) GI bleed: Status: Acute Assessment and Plan: no further bleeding EGD deferred due to pulmonary status. continue ppi Time Spent With Patient Time: Total time managing care of this patient today ____ minutes. Quality Stroke Does the patient have a stroke diagnosis?: No VTE Prior VTE?: Yes VTE Risk Level:: Medical - moderate - high VTE Device Contraindication: Procedure Contraindicated VTE Drug Contraindication: Treatment Not Tolerated
[2023-06-07] MEDS: Lidocaine HCl 1 % MPF 5 ML VIAL 10 ML SUBCUT (08:34)
--- NOTE | 2023-06-07 09:01 | W.PM.OPN ---
Operative Note Operative Note Date of Service: 06/07/23 Narrative: Angiogram report from [facility] Preoperative diagnosis: Deep venous thrombosis 2. Pulmonary embolism Postoperative diagnosis: Same Procedure: 1. Ultrasound-guided right common femoral vein access 2. Inferior vena cavogram 3. Placement of inferior vena cava filter Surgeon:Alex Jerez M.D., JUAN ANTONIO, RPVI Custodian Manager:None Anesthesia: Local only Specimens:none Drains:none Estimated blood loss: Less than 10 ml Implant: Bard Meriwether retrievable vena cava filter Indications: Complex 72-year-old gentleman with metastatic cancer presented with pulmonary embolism and GI bleed. There was an inability to anticoagulate. He now presents for IVC filter placement. The patient has signed the informed consent after reviewing risks, complications, benefits, and alternatives previously discussed with the patient. The patient was given the opportunity to ask any additional questions or voice any concerns. All questions were answered to the patient's satisfaction. Procedure in detail: Patient was brought to the angiography suite prior to which a time-out was called for patient identification and site verification. Bilateral groins were prepped and draped in the standard surgical fashion. Under ultrasound guidance right common femoral vein was punctured with micro puncture needle and wire. Subsequently a precision 5 Israeli sheath was then placed. Crowdb[place]on wire was advanced to the level of the vena cava. Vena cavogram was then undertaken through the 5 Israeli sheath. This was a baseline study to define the variant anatomy, caval size, location and number of renal veins, and to evaluate for ileo caval thrombus. Under direct fluoroscopic guidance we exchanged out the 5 Israeli sheath for the Bard in Selena sheath. We brought the filter into position. This was then subsequently deployed. The inner cannula was then removed. Through the sheath a hand injection was performed to assess filter position. Once this was accomplished the sheath was then removed, and hemostasis was achieved with 10 minutes of direct compression. No immediate complications occurred and the patient was returned to the recovery suite with no complications Interpretation of films: 1. Ultrasound demonstrates appropriate femoral vein puncture. Image of which was saved. 2. There was no ileal caval thrombus noted 3. There are single renal veins bilaterally and the IVC is normal in caliber. There is no aberrant anatomy. 4. The filter was deployed appropriately and position below the lowest renal vein. Conclusion: 1. Successful placement of Bard Meriwether IVC filter 2. Anticoagulation status: Resume regular anticoagulation as indicated 4 hours post filter placement This note is constructed using voice recognition software. While every effort has been made to ensure accuracy, industrial chemist errors may have been included. Thank you for allowing me to participate in the care of your patient. Yours sincerely, Alex Jerez MD, FACS, R.P.V.I.
[2023-06-07 09:08] LABS: Glucose, Whole Blood 229 mg/dL (60-115)
[2023-06-07] MEDS: metFORMIN HCl 1,000 MG TABLET 1000 MG PO ×2 (10:46→20:35)
[2023-06-07] MEDS: SITagliptin Phosphate 50 MG TABLET PO ×2 (10:46→20:35)
[2023-06-07] MEDS: Tamsulosin HCL 0.4 MG CAPSULE PO (10:47)
[2023-06-07] MEDS: Losartan Potassium 25 MG TABLET PO (10:47)
[2023-06-07] MEDS: Spironolactone 25 MG TABLET PO (10:47)
[2023-06-07] MEDS: amLODIPine Besylate 5 MG TABLET PO (10:47)
[2023-06-07] MEDS: Empagliflozin 10 MG TABLET PO (10:50)
[2023-06-07 10:55] LABS: Hematocrit 37.2 % (42.0-52.0); Hemoglobin 11.6 g/dl (14.0-18.0)
--- NOTE | 2023-06-07 11:37 | MHC.SL.DTX ---
Dysphagia Diet modifications: Last documented Solid diet consistencies: Pureed (NDD1) Last documented Liquid consistency: Thin Last documented Medication Administration: Changes made to current diet?: Yes Liquid Consistency and Strategies: Liquid Intake Recommendation: Thin Compensatory Strategies for Safe Swallow: Small Sips Compensatory Strategies for Safe Swallow(b): Sitting Upright (90 deg) Liquids from Cup Liquids from Straw Small Bites and Sips Alternate Liquids/Solids Rate of Ingestion Change Solid Food Consistency: Dietary Recommendations: Grnd/Mech Altered (NDD2) Additional Modifications to Solids: Recommend UPGRADE from NPO, start on PUREED solids (NDD1) and THIN liquids, pills CRUSHED in PUREE. Pt exhibited some difficulty clearing harder solids and eventually expectorated this consistency, suspicious for pharyngeal retention vs. other G.I. pathology. Recommend further workup w/ G.I. Notified team (, RN, RD) via evolso Message. EMS MANAGER will continue to follow to monitor tolerance and re-assess potential for upgrade if appropriate. Oral Medication Intake: Whole with Puree Strategies and Precautions to be Taken for Safe Swallow: Sitting Upright (90 deg) Liquids from Cup Liquids from Straw Small Bites and Sips Alternate Liquids/Solids Rate of Ingestion Change Supervision While Eating and/Drinking: Intermittent Supervision Foods to Avoid: Swallowing Recommended Treatments: Compens. Strategy Educat. Recommendation for Speech: Inpatient Speech Therapy Frequency/Duration: PRN Additional Comments: Treatment: Per MD, Pt cleared for PO again after procedure complete. Pt upright in bed with visitor present. Pt requests water stating that he is thirsty. Pt tolerated Thin Liquids via Ice Chips, Spoon and administered straw. Pt noted to be impulsive with liquids taking consecutive sips. This may be a bi-product of his thirst however. Pt tolerated Puree Solids and Ground/Mech Solids with appropriate oral preparation and adequate clearance. He demonstrated moderately prolonged mastication with Advanced/Chopped Solids. Oral cavity check revealed significant residue including unchewed solid remnants increasing risk of aspiration. Secondary presentation of Puree Solids helped clear any remains from Advanced Solids. Assessment: Jacker Feeder Clinican/Clinical Fellow: No Supervisory Statement: I have reviewed and agree with the student/clinical fellow's documentation: N/A Speech Language Pathologist: Poncho Lopez M.A., CCC-EMS MANAGER
[2023-06-07 11:51] LABS: Glucose, Whole Blood 162 mg/dL (60-115)
[2023-06-07] MEDS: Insulin Lispro 100 UNIT/ML 3 ML VIAL SUBCUT ×2 (12:30→17:26)
[2023-06-07] MEDS: Heparin Sodium,Porcine 5,000 UNIT/ML VIAL 5000 UNIT SUBCUT ×2 (12:30→23:55)
--- NOTE | 2023-06-07 12:48 | PC.NURSE ---
Pt off unit in am for procedure arrives back to unit approx 0915 in bed. Vitals stable. Right groin site with glue no redness, warmth or swelling. + pedal pulses. Denies pain/discomfort. Placed back on highflow oxygen by RT, Lung sounds dim NS/ST on tele. Ok to resume diet. Meds given per order as well as heparin sub Q. Will continue to monitor and report changes
[2023-06-07 13:09] LABS: Basophils Absolute Auto 0.1 X10*3/uL (0.0-0.2); Basophils Percent Auto 0.3 % (0-2); Imm Gran Abs Auto 0.39 X10*3/uL (0.00-0.03); Imm Gran Pct Auto 1.8 % (0.0-0.4); Lymphocytes Absolute Auto 0.8 X10*3/uL (1.2-4.9); Lymphocytes Percent Auto 3.6 % (20-40); MANUAL DIFF FLAG SCAN; Mean Corpuscular HGB Conc 30.8 g/dl (31.0-36.0); Mean Corpuscular Hemoglobin 30.3 pg (27.0-33.0); Mean Corpuscular Volume 98.4 fL (80.0-98.0); Mean Platelet Volume 11.4 fL (9.4-12.4); Monocytes Absolute Auto 0.6 X10*3/uL (0.1-1.2); Monocytes Percent Auto 2.5 % (2-11); NRBC Pct Auto 0.1 /100WBC (0.0-0.2); Neutrophils Absolute Auto 20.4 x10*3/uL (2.0-8.3); Neutrophils Percent Auto 91.8 % (45-73); Platelet Count 157 X10*3/uL (160-400); Red Blood Count 3.83 X10*6/uL (4.60-5.80); Red Cell Distribution Width 14.9 % (11.0-16.0); SCAN SMEAR FLAG 1; White Blood Count 22.3 X10*3/uL (4.8-10.8)
[2023-06-07 13:45] LABS: SLIDE REVIEW VERIFIED
--- NOTE | 2023-06-07 14:38 | P.PNIM_ITS ---
Subjective Subjective Date of Service: 06/07/23 Interval History: f/u on anemia, acute blood loss anemia and acute hypoxic respiratory failure Review of Systems Patient says that shortness of breath is somewhat improving, denies any cough Denies any chest pain or nausea vomiting or abdominal pain. Physical Exam Vital Signs: Vital Signs: Last Vital Signs Temp 98.0 F 06/07/23 11:25 Pulse 114 H 06/07/23 11:25 Resp 20 06/07/23 11:25 BP 132/81 06/07/23 11:25 Pulse Ox 99 06/07/23 11:25 O2 Del Method High Flow Nasal C annula 06/07/23 11:25 O2 Flow Rate 50 06/07/23 11:25 FiO2 50 06/07/23 11:25 Oxygen Flow Rate 3 06/01/23 17:01 BMI result Body Mass Index 24.9 General: AO X 3, no acute distress Resp:? rhonchi, rales at bases CVS: S1,S2,RRR GI: +BS, NT, no distention Skin: No rash Neuro:? motor grossly intact Psych: appropriate affect Objective Data Active Medications Amlodipine Besylate (Amlodipine Besylate 5 Mg Tablet) 5 mg PO DAILY [facility]; Protocol Last Admin: 06/07/23 10:47 Dose: 5 mg Documented By: GARRISON Dextrose (Dextrose 50 % 25 Gm/50 Ml Syringe) 25 gm IVPUSH Q15M PRN; Protocol PRN Reason: per Hypoglycemia Standing Ord. Last Admin: 06/02/23 00:22 Dose: 25 gm Documented By: MARTIN Comments: per LAITH Reyes- give now for POC of 77 Empagliflozin (Empagliflozin 10 Mg Tablet) 10 mg PO DAILY [facility] Last Admin: 06/07/23 10:50 Dose: 10 mg Documented By: GARRISON Glucose (Glucose Gel 15 Gm Gel..Gram.) 15 gm PO Q15M PRN; Protocol PRN Reason: per Hypoglycemia Standing Ord. Heparin Sodium (Porcine) (Heparin Sodium,Porcine 5,000 Unit/Ml Vial) 5,000 unit SUBCUT Q12H [facility] Last Admin: 06/07/23 12:30 Dose: 5,000 unit Documented By: GARRISON Piperacillin Sod/Tazobactam (Sod 3.375 gm/ Sodium Chloride) 50 mls @ 100 mls/hr IV Q6H [facility] Insulin Human Lispro (Insulin Lispro 100 Unit/Ml 3 Ml Vial) 0 unit SUBCUT Q6H [facility]; Protocol Last Admin: 06/07/23 12:30 Dose: 2 unit Documented By: GARRISON Levothyroxine Sodium (Levothyroxine Sodium 100 Mcg Tablet) 100 mcg PO DAILY@0600 [facility] Last Admin: 06/07/23 06:23 Dose: Not Given Documented By: ANTONIA Non-Admin Reason: NPO Losartan Potassium (Losartan Potassium 25 Mg Tablet) 25 mg PO DAILY FELI; Pro tocol Last Admin: 06/07/23 10:47 Dose: 25 mg Documented By: GARRISON Metformin HCl (Metformin Hcl 1,000 Mg Tablet) 1,000 mg PO BID [facility] Last Admin: 06/07/23 10:46 Dose: 1,000 mg Documented By: GARRISON Methylprednisolone Sodium Succinate (Methylprednisolone Sod Succ 125 Mg/2 Ml Vial) 60 mg IVPUSH Q6H [facility] Last Admin: 06/07/23 10:47 Dose: 60 mg Documented By: GARRISON Mirtazapine (Mirtazapine 7.5 Mg Tablet) 7.5 mg PO BEDTIME [facility] Last Admin: 06/06/23 20:45 Dose: 7.5 mg Documented By: ANTONIA Morphine Sulfate (Morphine Sulfate 2 Mg/Ml Cartridge) 2 mg IVPUSH Q4H PRN; Protocol PRN Reason: Pain, Severe (Pain Scale 7-10) Omeprazole (Omeprazole 20 Mg Capsule.Dr) 20 mg PO DAILY@0630 [facility] Last Admin: 06/07/23 06:23 Dose: Not Given Documented By: ANTONIA Non-Admin Reason: NPO Sitagliptin Phosphate (Sitagliptin Phosphate 50 Mg Tablet) 50 mg PO BID [facility] Last Admin: 06/07/23 10:46 Dose: 50 mg Documented By: GARRISON Spironolactone (Spironolactone 25 Mg Tablet) 25 mg PO DAILY [facility]; Protocol Last Admin: 06/07/23 10:47 Dose: 25 mg Documented By: GARRISON Tamsulosin HCl (Tamsulosin Hcl 0.4 Mg Capsule) 0.4 mg PO DAILY [facility] Last Admin: 06/07/23 10:47 Dose: 0.4 mg Documented By: GARRISON Labs 06/07/23 10:41 06/07/23 05:58 Labs: Laboratory Results - last 24 hr 06/06/23 06/07/23 06/07/23 16:51 05:58 07:06 MCV MCH MCHC RDW Plt Count MPV Immature Gran % (Auto) Neut % (Auto) Lymph % (Auto) [place] % (Auto) Eos % (Auto) Baso % (Auto) Lymph # (Auto) [place] # (Auto) Eos # (Auto) Baso # (Auto) Abs Immat Gran (auto) Absolute Neuts (auto) Absolute Nucleated RBC Nucleated RBC % (auto) Smear Tech's Comments Estim Creat Clear Calc 95.9 Estimated GFR > 60 POC Glucose 217 H 171 H 06/07/23 06/07/23 06/07/23 09:05 10:41 11:31 MCV 98.4 H MCH 30.3 MCHC 30.8 L RDW 14.9 Plt Count 157 L MPV 11.4 Immature Gran % (Auto) 1.8 H Neut % (Auto) 91.8 H Lymph % (Auto) 3.6 L [place] % (Auto) 2.5 Eos % (Auto) 0.0 Baso % (Auto) 0.3 Lymph # (Auto) 0.8 L [place] # (Auto) 0.6 Eos # (Auto) 0.0 Baso # (Auto) 0.1 Abs Immat Gran (auto) 0.39 H Absolute Neuts (auto) 20.4 H Absolute Nucleated RBC 0.020 H Nucleated RBC % (auto) 0.1 Smear Tech's Comments VERIFIED Estim Creat Clear Calc Estimated GFR POC Glucose 229 H 162 H Microbiology Microbiology Results: Microbiology 06/01/23 18:09 Blood Culture - Final Blood - Venous No growth after 5 days. 06/01/23 18:09 Blood Culture - Final Blood - Venous No growth after 5 days. Assessment and Plan (1) Pulmonary emboli: Status: Acute (2) Acute blood loss anemia: Status: Acute (3) GI bleed: Status: Acute Plan 72-year-old gentleman with underlying of diabetes mellitus, BPH,, hypothyroidism, likely metastatic lung cancer with cytology results still pending, recent admission to [facility] for postobstructive pneumonia and pulmonary emboli, started on anticoagulation, admitted on 06/01/2023 with GI bleed and acute blood loss anemia to the intensive care unit.? Patient has received IV fluid resuscitation and 1 unit packed red blood cells with normalization of blood pressure, but development of pulmonary edema that improved with diuresis.? Patient was planned for endoscopy on 06/03/2023 but was cancelled due to tenous respiratory status. He remains stable and H/H is stable. Acute blood loss anemia that was associated with Hypotension and was admitted to the ICU, but was only transfused 1 units of RBC with good effect, was seen by GI (Dr. Teran ) who was going to do EGD but patient's respiratory failure and so was cancelled(as per chart review) continue on PPI. H/H remains stable without any sings of bleeding recent history of PE--anticoagulation hold given signficant GIb and anemia and unknown source of gi bleeding. Repeat CTA on 06/05 showed no PE and last PE were just subsegmental. s/p US of legs-Extensive bilateral acute DVT, Vascular surgery -s/p IVC filter. DVT prophylaxis dose of heparin 5k bid and closely wathc H/H Acute hypoxic respiratory failure--multifactorial-He has underlying lungs issues( ?pneumonia ,pulm edema ) Acute respiratory failure now thought to be related to possible TRALI per pulmonolgy and on Solumedrol. continue high flow ,steriods ,antibiotics,gentle diuresis i/o, daily weights echo speech and swallow-diet upgraded . pulm f/u. Leukocytosis--likely reactive and has been stable blood cultures neg urine culture -<10k cfu/ml no fevers on steriods high dose. DM2: fs 100-200 range ss, ada diet HTN--restart Losartan, Norvasc, HypOthyroidism--Levohyroxine mild elevated tsh ,free t4 normal DVT prophylaxis: compression device given gi bleeding, will try subcut Heparin (06/06/23) inpatient need :Acute hypoxic respiratory failure--He has underlying lungs issues( ?pneumonia ,pulm edema )-need iv antibiotics , steriods ,diuresis , pulm followup. Discussed with patient and his healthcare proxy miss Mann-at bedside in detail they understand and in agreement with above plan. Time Spent With Patient Time: Total time managing care of this patient today ____ minutes. Quality Stroke Does the patient have a stroke diagnosis?: No VTE Prior VTE?: Yes VTE Risk Level:: Medical - moderate - high VTE Device Contraindication: Procedure Contraindicated VTE Drug Contraindication: Treatment Not Tolerated
[2023-06-07 15:31] LABS: Magnesium 2.2 mg/dL (1.6-2.6); Potassium 4.4 mmol/L (3.3-5.1)
[2023-06-07] MEDS: Furosemide 20 MG/2 ML VIAL IVPUSH (15:45)
[2023-06-07] MEDS: Piperacillin Sodium/Tazobactam 3.375 GM in 0.9 % Sodium Chloride 50 ML IV ×2 (15:46→21:52)
[2023-06-07 16:31] LABS: Glucose, Whole Blood 227 mg/dL (60-115)
[2023-06-07 20:15] LABS: Glucose, Whole Blood 205 mg/dL (60-115)
[2023-06-07] MEDS: Mirtazapine 7.5 MG TABLET PO (20:35)
[2023-06-08] VITALS (11 sets, daily range): BP systolic 82–149; BP diastolic 48–81; PULSE 94–108; RESP 17–22; TEMP 35.8–37.6; O2SAT 89–99; BMI 23.8
--- NOTE | 2023-06-08 03:31 | PC.NURSE ---
Pt A&O to person and place. Wifty on day/time. Pleasant and cooperative with care. Continues on HFNC, 50L50%. Tolerating well. [place] cath for incontinence. Call garcia within reach. Bed in lowest locked position. Bed alarm on, video monitor in place.
[2023-06-08] MEDS: methylPREDNISolone Sod Succ 125 MG/2 ML VIAL 60 MG IVPUSH ×4 (04:25→23:02)
[2023-06-08] MEDS: Piperacillin Sodium/Tazobactam 3.375 GM in 0.9 % Sodium Chloride 50 ML IV ×4 (04:25→23:02)
[2023-06-08] MEDS: Omeprazole 20 MG CAPSULE.DR PO (06:29)
[2023-06-08] MEDS: Levothyroxine Sodium 100 MCG TABLET PO (06:29)
--- NOTE | 2023-06-08 07:00 | CA_ITS ---
Transthoracic Echocardiogram Patient (Last, First, Middle): Selvin Santo, Gender: Male Date of : 1950 Age: 72 Procedure Date: 06/08/2023 Procedure Type: Transthoracic Echocardiogram Location: [facility] [place] Height: 180.34 cm Weight: 77.11 kg BSA: 1.97 m2 Heart Rate: 108 bpm BP: 119 / 78 mmHg Customer Account Specialist: CRISTINA Referring MD: Mynor Mcfarland MD Corn Shredder: Kenny Orellana MD Symptoms: ? pulm edema Study Quality: Technically Difficult/supine HOB due to SOB ECG Rhythm: Tachycardia Conclusions: - 1. Technically limited study due to off axis views 2. Normal LV systolic function with impaired relaxation filling pattern 3. Normal cardiac valvular Doppler 4. Normal measured RV systolic pressure 5. No gross pericardial effusion Findings Procedure Information Contrast agent, definity, is being given per protocol without apparent complications. Left Ventricle Normal left ventricular size, thickness, and systolic function. The visually estimated ejection fraction is between 55-60%. Regional wall motion abnormalities can not be excluded due to suboptimal endocardial definition. Spectral Doppler is indicative of an impaired relaxation filling pattern. E/E prime ratio is between 8 and 15 consistent with indeterminate filling pressures. Right Ventricle Normal right ventricular cavity size and systolic function. Atria The left atrium was not well visualized. Interatrial shunt cannot be excluded. The right atrium was not well visualized. Aortic Valve The aortic valve was not well visualized. There is no aortic valve stenosis. There is no aortic valve regurgitation. Mitral Valve Likely normal mitral valve structure and function. There is trace mitral valve regurgitation. There is no mitral valve stenosis. Pulmonic Valve The pulmonic valve was not well visualized. Tricuspid Valve Likely normal tricuspid valve structure and function. There is mild tricuspid valve regurgitation. The right ventricular systolic pressure is normal. The right ventricular systolic pressure is 26 mmHg. Normal right atrial pressure. There is no evidence of pulmonary hypertension. Great Vessels All visible segments of the aorta are normal in size. The pulmonary artery was not well visualized. Venous The inferior vena cava is normal in size and collapses greater than 50% with inspiration. Pericardium/Pleural There is no evidence of pericardial effusion. Prior Study Comparison No prior study available for comparison. Measurements 2D Linear Measurements IVSd: 1.00 0.6-0.9/0.6-1.0 cm LVIDd: 3.70 3.9-5.3/4.2-5.9 cm LVIDd Index: 1.88 2.4-3.2/2.2-3.1 cm/m2 LVIDs: 2.90 2.0-3.6 cm LVPWd: 0.50 0.7-1.1 cm Ao Root: 3.70 2.1-3.5 cm LA Diam: 2.00 2.7-3.8/3.0-4.0 cm LAIDs Index: 1.02 1.5-2.3 cm/m2 LV Mass: 93.55 67-162/88-224 g LV Mass Index: 47.49 43-95/49-115 g/m2 LVOT Diam: 2.40 3.0+(-)1.3 cm 2D Systolic Function EF 4C: 57.00 >55% EF 2C: 55.20 >55% EF BiP: 54.50 >55% Mitral Valve MV Pk E: 0.69 MV PK A: 0.79 MV Decel Time: 152.00 E/A: 0.90 E'Lateral: 5.00 E'Medial: 4.24 E/E' Med: 16.30 E/E' Lat: 13.80 PHT: 45.00 MVA PHT: 4.89 Decel Crisp: 4.54 Aortic Valve AoV Pk Bahman: 1.06 AoV Pk Grad: 4.00 FREDY: 4.18 LVOT LVOT Pk Bahman: 1.01 LVOT Mn Bahman: 0.72 LVOT VTI: 0.17 LVOT Pk Grad: 4.00 LVOT Mn Grad: 3.00 LVOT Diam: 2.40 LVOT Area: 4.52 Diastolic Function MV Pk E: 0.69 MV Pk A: 0.79 E/A: 0.90 E'Medial: 4.24 E/E' Med: 16.30 E' Laterial: 5.00 E/E' Lat: 13.80 Right Ventricle TAPSE (mm): 19.10 TVS' Bahman: 22.80 Tricuspid Valve TR Pk Bahman: 2.41 TR Pk Grad: 23.00 RA Press: 3.00 RVSP: 26.00 Great Vessels Aorta Ao Root-2D: 3.70 2.0-3.7 cm Ao Asc: 3.50 2.1-3.4 cm Ao Arch: 2.60 Pulmonary Valve PV Pk Bahman: 0.79 Peak PV Grad: 3.00 Updated in Other Vendor System with Status of Final Kenny Orellana MD electronically signed on 06/08/2023 3:43:11 PM with status of Final
[2023-06-08 07:01] LABS: Anion Gap 16 (12-20); Blood Urea Nitrogen 30 mg/dL (9-16); Calcium 9.8 mg/dL (8.4-10.2); Carbon Dioxide 28 mmol/L (22-29); Chloride 106 mmol/L (96-108); Creatinine Clr Calc Pharmacy 97.3; Estimated Glomerular Filt Rate > 60; Glucose Random 181 mg/dL (60-115); Potassium 4.6 mmol/L (3.3-5.1); Sodium 145 mmol/L (135-145)
[2023-06-08 07:28] LABS: Hematocrit 35.2 % (42.0-52.0); Hemoglobin 10.9 g/dl (14.0-18.0); Mean Corpuscular Hemoglobin 30.3 pg (27.0-33.0); Mean Corpuscular Volume 97.8 fL (80.0-98.0); Mean Platelet Volume 11.2 fL (9.4-12.4); NRBC Pct Auto 0.1 /100WBC (0.0-0.2); Platelet Count 143 X10*3/uL (160-400); Red Cell Distribution Width 15.1 % (11.0-16.0); White Blood Count 26.1 X10*3/uL (4.8-10.8)
[2023-06-08 07:45] LABS: Glucose, Whole Blood 169 mg/dL (60-115)
[2023-06-08] MEDS: Furosemide 20 MG/2 ML VIAL IVPUSH (08:01)
[2023-06-08] MEDS: Spironolactone 25 MG TABLET PO (08:02)
[2023-06-08] MEDS: SITagliptin Phosphate 50 MG TABLET PO ×2 (08:02→23:03)
[2023-06-08] MEDS: Tamsulosin HCL 0.4 MG CAPSULE PO (08:02)
[2023-06-08] MEDS: Losartan Potassium 25 MG TABLET PO (08:02)
[2023-06-08] MEDS: amLODIPine Besylate 5 MG TABLET PO (08:02)
[2023-06-08] MEDS: Empagliflozin 10 MG TABLET PO (08:02)
[2023-06-08] MEDS: metFORMIN HCl 1,000 MG TABLET 1000 MG PO ×2 (08:02→23:03)
[2023-06-08] MEDS: Insulin Lispro 100 UNIT/ML 3 ML VIAL SUBCUT ×3 (08:12→23:04)
--- NOTE | 2023-06-08 08:59 | PM.PNPUL ---
Subjective Subjective Date of Service: 06/08/23 Interval history: The patient was seen on exam. He was able to be decreased down to 50% on his high-flow and saturating 98%. He looks a little better this morning. Probably can wean down further. Although I did review his chest x-ray. Appears to still show bilateral airspace disease with fluffy opacities suggesting a component of noncardiogenic pulmonary edema. This is superimposed on his underlying interstitial lung disease, pleural effusion and suspicion for lung cancer. Objective Data Labs 06/08/23 07:04 06/08/23 06:27 Labs: Laboratory Results - last 24 hr 06/07/23 06/07/23 06/07/23 05:58 09:05 10:41 WBC 22.3 H RBC 3.83 L Hgb 11.6 L Hct 37.2 L MCV 98.4 H MCH 30.3 MCHC 30.8 L RDW 14.9 Plt Count 157 L MPV 11.4 Immature Gran % (Auto) 1.8 H Neut % (Auto) 91.8 H Lymph % (Auto) 3.6 L [place] % (Auto) 2.5 Eos % (Auto) 0.0 Baso % (Auto) 0.3 Lymph # (Auto) 0.8 L [place] # (Auto) 0.6 Eos # (Auto) 0.0 Baso # (Auto) 0.1 Abs Immat Gran (auto) 0.39 H Absolute Neuts (auto) 20.4 H Absolute Nucleated RBC 0.020 H Nucleated RBC % (auto) 0.1 Smear Tech's Comments VERIFIED Sodium Potassium 4.4 D Chloride Carbon Dioxide Anion Gap BUN Creatinine Estim Creat Clear Calc Estimated GFR POC Glucose 229 H Random Glucose Calcium Magnesium 2.2 06/07/23 06/07/23 06/07/23 11:31 16:19 20:09 WBC RBC Hgb Hct MCV MCH MCHC RDW Plt Count MPV Immature Gran % (Auto) Neut % (Auto) Lymph % (Auto) [place] % (Auto) Eos % (Auto) Baso % (Auto) Lymph # (Auto) [place] # (Auto) Eos # (Auto) Baso # (Auto) Abs Immat Gran (auto) Absolute Neuts (auto) Absolute Nucleated RBC Nucleated RBC % (auto) Smear Tech's Comments Sodium Potassium Chloride Carbon Dioxide Anion Gap BUN Creatinine Estim Creat Clear Calc Estimated GFR POC Glucose 162 H 227 H 205 H Random Glucose Calcium Magnesium 06/08/23 06/08/23 06/08/23 06:27 06:27 07:04 WBC 26.1 H RBC 3.60 L Hgb 10.9 L Hct 35.2 L MCV 97.8 MCH 30.3 MCHC 31.0 RDW 15.1 Plt Count 143 L MPV 11.2 Immature Gran % (Auto) Neut % (Auto) Lymph % (Auto) [place] % (Auto) Eos % (Auto) Baso % (Auto) Lymph # (Auto) [place] # (Auto) Eos # (Auto) Baso # (Auto) Abs Immat Gran (auto) Absolute Neuts (auto) Absolute Nucleated RBC 0.020 H Nucleated RBC % (auto) 0.1 Smear Tech's Comments Sodium 145 Potassium 4.6 Chloride 106 Carbon Dioxide 28 Anion Gap 16 BUN 30 H Creatinine Cancelled 0.72 Estim Creat Clear Calc Cancelled 97.3 Estimated GFR Cancelled > 60 POC Glucose Random Glucose 181 H Calcium 9.8 Magnesium 06/08/23 07:31 WBC RBC Hgb Hct MCV MCH MCHC RDW Plt Count MPV Immature Gran % (Auto) Neut % (Auto) Lymph % (Auto) [place] % (Auto) Eos % (Auto) Baso % (Auto) Lymph # (Auto) [place] # (Auto) Eos # (Auto) Baso # (Auto) Abs Immat Gran (auto) Absolute Neuts (auto) Absolute Nucleated RBC Nucleated RBC % (auto) Smear Tech's Comments Sodium Potassium Chloride Carbon Dioxide Anion Gap BUN Creatinine Estim Creat Clear Calc Estimated GFR POC Glucose 169 H Random Glucose Calcium Magnesium Microbiology Microbiology Results: Microbiology 06/01/23 18:09 Blood - Venous Blood Culture - Final No growth after 5 days. 06/01/23 18:09 Blood - Venous Blood Culture - Final No growth after 5 days. 06/01/23 Unknown Urine Catheterized - Ramos Catheter Urine Culture - Final Review of Systems Constitutional: Reports fatigue and Denies fever(s) Eyes: Denies blurry vision Denies epistaxis Cardiovascular: Denies chest pain and Reports dyspnea Respiratory: Reports chest congestion, Reports cough, Denies hemoptysis, Reports dyspnea and Denies wheezing Gastrointestinal: Reports as per HPI Musculoskeletal: Reports no additional musculoskeletal complaints Endocrine: Reports fatigue Hematologic/Lymphatic: Denies easy bleeding, Denies easy bruising and Denies lymphadenopathy Allergic/Immunologic: Denies wheezing Physical Exam Vital Signs: Vital Signs: Last Vital Signs Temp 97.6 F 06/08/23 07:30 Pulse 107 H 06/08/23 07:30 Resp 22 H 06/08/23 08:26 BP 149/81 H 06/08/23 07:30 Pulse Ox 98 06/08/23 07:30 O2 Del Method High Flow Nasal C annula 06/08/23 07:30 O2 Flow Rate 50 06/08/23 07:30 FiO2 51 06/08/23 07:30 Oxygen Flow Rate 3 06/01/23 17:01 BMI result Body Mass Index 23.8 General: AO X 3, no acute distress Resp:? +rales CVS: S1,S2,RRR GI: +BS, NT, no distention Skin: No rash Neuro:? motor grossly intact Psych: appropriate affect Procedures Date of Service Date of Service: 06/08/23 Assessment and Plan Assessment and plan (1) Pulmonary edema: Status: Acute (2) Pulmonary emboli: Status: Acute (3) Pleural effusion: Status: Acute (4) Interstitial lung disease: Status: Acute Plan continue solumedrol diuresis as tolerated titrate pox to keep pox>88% The patient has underlying interstitial lung disease as suspicion for malignancy with positive PET scan now pleural effusion and pneumonitis which could be secondary to a transfusion related acute lung injury or ARDS. At this point in view of his ongoing respiratory failure would not be safe to have him undergo any bronchoscopy or EBUS to evaluate for malignancy. Guarded condition Time Spent With Patient Time: Total time managing care of this patient today ____ minutes. Progress Note: Quality Stroke Does the patient have a stroke diagnosis?: No
--- NOTE | 2023-06-08 09:16 | P.PNVS_ITS ---
Subjective Subjective Date of Service: 06/08/23 Patient reports: no new complaints Interval history: Patient is postop day 1 status post IVC filter. Appears to be doing relatively well. No significant complaints. Respiratory status appears to be improved. Now for postprocedure follow-up. Physical Exam Vital Signs: Vital Signs: Last Vital Signs Temp 97.6 F 06/08/23 07:30 Pulse 107 H 06/08/23 07:30 Resp 22 H 06/08/23 08:26 BP 149/81 H 06/08/23 07:30 Pulse Ox 98 06/08/23 07:30 O2 Del Method High Flow Nasal C annula 06/08/23 07:30 O2 Flow Rate 50 06/08/23 07:30 FiO2 51 06/08/23 07:30 Oxygen Flow Rate 3 06/01/23 17:01 BMI result Body Mass Index 23.8 Const: General: cooperative, healthy appearing and no acute distress [place] ation/consciousness: oriented to person, oriented to place and oriented to time HEENT: Head: Yes normal to inspection Neck: Carotids: no bruits Chest: Chest palpation & inspection: normal inspection of the chest Resp: Effort & Inspection: normal respiratory effort and able to speak in complete sentences Auscultation: clear to auscultation bilaterally Cardio: Rate: regular rate Heart sounds: S1 normal heart sound present and S2 normal heart sound present GI: Inspection: Yes normal to inspection Skin: Other: Right groin no hematoma General skin exam: no rashes or lesions noted Wounds: no wounds Neuro: General: oriented to person, oriented to place, oriented to time and CN's II-XI intact bilaterally Extrem: General: Yes normal to inspection, Yes full ROM and Yes no clubbing, cyanosis or edema Psych: Appearance: grossly normal and well kempt Speech and movement: Normal speech and movement present Affect: normal affect Progress Note: A&P Assessment and plan (1) Pulmonary emboli: Status: Acute Assessment and Plan: In short patient is doing well status post IVC filter placement. We will sign off. Should there be any issues happy to see him again. Time Spent With Patient Time: Total time managing care of this patient today ____ minutes. Procedures Date of Service Date of Service: 06/08/23 Quality Stroke Does the patient have a stroke diagnosis?: No VTE Prior VTE?: Yes VTE Risk Level:: Medical - moderate - high VTE Device Contraindication: Procedure Contraindicated VTE Drug Contraindication: Treatment Not Tolerated
[2023-06-08] MEDS: Heparin Sodium,Porcine 5,000 UNIT/ML VIAL 5000 UNIT SUBCUT ×2 (11:36→23:37)
[2023-06-08] MEDS: Omeprazole 40 MG CAPSULE.DR PO ×2 (11:36→23:03)
[2023-06-08 11:38] LABS: Glucose, Whole Blood 255 mg/dL (60-115)
--- NOTE | 2023-06-08 13:50 | MHC.CM.PN ---
EMR reviewed and per MD rounds, pt is not medically cleared for D/C, he remains on hi-flow O2 which is being weaned down, and is being followed by Pulmonology, CM will continue to follow.
--- NOTE | 2023-06-08 14:51 | MHC.SL.SWA ---
Risk of Aspiration Due to: Medically Fragile Dysphasia Diet Status: No change Liquid Consistency and Strategies for Safe Swallow: Liquid Intake Recommendation: Thin Liquid Intake Strategies: Small Sips Solid Food Consistency: Dietary Recommendations: Grnd/Mech Altered (NDD2) Oral Medication Intake: Crushed with Puree Please contact the pharmacy regarding appropriate crushable or liquid drug formulations that are available whenever modified delivery is recommended. Compensatory Strategies and Precautions to be Taken for Safe Swallow: Sitting Upright (90 deg) Liquids from Cup Liquids from Straw Small Bites and Sips Alternate Liquids/Solids Rate of Ingestion Change Supervision While Eating and Drinking for Safe Swallow: Total Supervision (1:1) Swallowing Recommended Treatments: Compens. Strategy Educat. Recommendation for Speech: Inpatient Speech Therapy Pt seen during lunch to monitor for toleration of diet following upgrade to NDD2 on 06/07. Per RN, pt tolerating meds crushed in puree. Family present at bedside. During [employer] visit, Pt tolerated ground meat, mashed potato, and thin liquids via straw. Pt observed to intermittently burp and/or clear throat following large sips of liquid via straw. Pt and family provided education to take small sips to reduce impulsivity when drinking and decrease risk of aspiration. On ground solids, patient observed with mildly prolonged mastication. Pt able to clear residue w/ subsequent bites of puree solids and/or thin liquids. Recommend patient continue w/ Ground/Mech Altered (NDD2), Thin Liquids, Meds crushed with Puree (whenever possible). Recommend full supervision to monitor for s/s of aspiration on solids and provide cues for safe eating (i.e. small bites/sips). [employer] to continue to follow. Brick Paver Clinican/Clinical Fellow: No Supervisory Statement: I have reviewed and agree with the student/clinical fellow's documentation: N/A Speech Language Pathologist: Vandana Gupta M.A., [facility]-[employer]
--- NOTE | 2023-06-08 15:17 | P.PNIM_ITS ---
Subjective Subjective Date of Service: 06/08/23 Interval History: f/u on anemia, acute blood loss anemia and acute hypoxic respiratory failure Review of Systems Patient says that shortness of breath is somewhat improving, denies any cough Denies any chest pain or nausea vomiting or abdominal pain. Physical Exam Vital Signs: Vital Signs: Last Vital Signs Temp 98.1 F 06/08/23 11:34 Pulse 106 H 06/08/23 11:34 Resp 21 H 06/08/23 11:34 BP 97/53 L 06/08/23 11:34 Pulse Ox 89 L 06/08/23 11:34 O2 Del Method High Flow Nasal C annula 06/08/23 11:34 O2 Flow Rate 30 06/08/23 11:34 FiO2 30 06/08/23 11:34 Oxygen Flow Rate 3 06/01/23 17:01 BMI result Body Mass Index 23.8 General: AO X 3, no acute distress Resp:?air entry slightly improving, rhonchi, few scattered rales at bases. CVS: S1,S2,RRR GI: +BS, NT, no distention Skin: No rash Neuro:? motor grossly intact Psych: appropriate affect Objective Data Active Medications Dextrose (Dextrose 50 % 25 Gm/50 Ml Syringe) 25 gm IVPUSH Q15M PRN; Protocol PRN Reason: per Hypoglycemia Standing Ord. Last Admin: 06/02/23 00:22 Dose: 25 gm Documented By: MARTIN Comments: per LAITH Reyes- give now for POC of 77 Empagliflozin (Empagliflozin 10 Mg Tablet) 10 mg PO DAILY [facility] Last Admin: 06/08/23 08:02 Dose: 10 mg Documented By: GARRISON Furosemide (Furosemide 20 Mg/2 Ml Vial) 20 mg IVPUSH DAILY [facility]; Protocol Last Admin: 06/08/23 08:01 Dose: 20 mg Documented By: GARRISON Glucose (Glucose Gel 15 Gm Gel..Gram.) 15 gm PO Q15M PRN; Protocol PRN Reason: per Hypoglycemia Standing Ord. Heparin Sodium (Porcine) (Heparin Sodium,Porcine 5,000 Unit/Ml Vial) 5,000 unit SUBCUT Q12H [facility] Last Admin: 06/08/23 11:36 Dose: 5,000 unit Documented By: GARRISON Piperacillin Sod/Tazobactam (Sod 3.375 gm/ Sodium Chloride) 50 mls @ 100 mls/hr IV Q6H [facility] Last Infusion: 06/08/23 12:10 Dose: 0 mls/hr Documented By: GARRISON Insulin Human Lispro (Insulin Lispro 100 Unit/Ml 3 Ml Vial) 0 unit SUBCUT QIDACHS [facility]; Protocol Last Admin: 06/08/23 11:35 Dose: 6 unit Documented By: AGRRISON Levothyroxine Sodium (Levothyroxine Sodium 100 Mcg Tablet) 100 mcg PO DAILY@0600 [facility] Last Admin: 06/08/23 06:29 Dose: 100 mcg Documented By: BRANDI Losartan Potassium (Losartan Potassium 25 Mg Tablet) 25 mg PO DAILY [facility]; Protocol Last Admin: 06/08/23 08:02 Dose: 25 mg Documented By: GARRISON Metformin HCl (Metformin Hcl 1,000 Mg Tablet) 1,000 mg PO BID [facility] Last Admin: 06/08/23 08:02 Dose: 1,000 mg Documented By: GARRISON Methylprednisolone Sodium Succinate (Methylprednisolone Sod Succ 125 Mg/2 Ml Via l) 60 mg IVPUSH Q6H [facility] Last Admin: 06/08/23 08:01 Dose: 60 mg Documented By: GARRISON Mirtazapine (Mirtazapine 7.5 Mg Tablet) 7.5 mg PO BEDTIME [facility] Last Admin: 06/07/23 20:35 Dose: 7.5 mg Documented By: OSCAR Morphine Sulfate (Morphine Sulfate 2 Mg/Ml Cartridge) 2 mg IVPUSH Q4H PRN; Protocol PRN Reason: Pain, Severe (Pain Scale 7-10) Omeprazole (Omeprazole 40 Mg Capsule.) 40 mg PO BID [facility] Last Admin: 06/08/23 11:36 Dose: 40 mg Documented By: GARRISON Sitagliptin Phosphate (Sitagliptin Phosphate 50 Mg Tablet) 50 mg PO BID [facility] Last Admin: 06/08/23 08:02 Dose: 50 mg Documented By: GARRISON Spironolactone (Spironolactone 25 Mg Tablet) 25 mg PO DAILY [facility]; Protocol Last Admin: 06/08/23 08:02 Dose: 25 mg Documented By: GARRISON Tamsulosin HCl (Tamsulosin Hcl 0.4 Mg Capsule) 0.4 mg PO DAILY [facility] Last Admin: 06/08/23 08:02 Dose: 0.4 mg Documented By: GARRISON Labs 06/08/23 07:04 06/08/23 06:27 Labs: Laboratory Results - last 24 hr 06/07/23 06/07/23 06/07/23 05:58 16:19 20:09 MCV MCH MCHC RDW Plt Count MPV Absolute Nucleated RBC Nucleated RBC % (auto) Anion Gap Estim Creat Clear Calc Estimated GFR POC Glucose 227 H 205 H Random Glucose Calcium Magnesium 2.2 06/08/23 06/08/23 06/08/23 06:27 06:27 07:04 MCV 97.8 MCH 30.3 MCHC 31.0 RDW 15.1 Plt Count 143 L MPV 11.2 Absolute Nucleated RBC 0.020 H Nucleated RBC % (auto) 0.1 Anion Gap 16 Estim Creat Clear Calc Cancelled 97.3 Estimated GFR Cancelled > 60 POC Glucose Random Glucose 181 H Calcium 9.8 Magnesium 06/08/23 06/08/23 07:31 11:33 MCV MCH MCHC RDW Plt Count MPV Absolute Nucleated RBC Nucleated RBC % (auto) Anion Gap Estim Creat Clear Calc Estimated GFR POC Glucose 169 H 255 H Random Glucose Calcium Magnesium Assessment and Plan (1) Pulmonary emboli: Status: Acute (2) Acute blood loss anemia: Status: Acute (3) GI bleed: Status: Acute Plan 72-year-old gentleman with underlying of diabetes mellitus, BPH,, hypothyroidism, likely metastatic lung cancer with cytology results still pending, recent admission to [facility] for postobstructive pneumonia and pulmonary emboli, started on anticoagulation, admitted on 06/01/2023 with GI bleed and acute blood loss anemia to the intensive care unit.? Patient has received IV fluid resuscitation and 1 unit packed red blood cells with normalization of blood pressure, but development of pulmonary edema that improved with diuresis.? Patient was planned for endoscopy on 06/03/2023 but was cancelled due to tenous respiratory status. He remains stable and H/H is stable. Acute blood loss anemia that was associated with Hypotension and was admitted to the ICU, but was only transfused 1 units of RBC with good effect, was seen by GI (Dr. Teran ) who was going to do EGD but patient's respiratory failure and so was cancelled(as per chart review) continue on PPI. H/H remains stable without any sings of bleeding,titrate pox to keep pox>88% recent history of PE--anticoagulation hold given signficant GIb and anemia and unknown source of gi bleeding. Repeat CTA on 06/05 showed no PE and last PE were just subsegmental. s/p US of legs-Extensive bilateral acute DVT, Vascular surgery -s/p IVC filter. DVT prophylaxis dose of heparin 5k bid and closely wathc H/H Acute hypoxic respiratory failure--multifactorial-He has underlying lungs issues( ?pneumonia ,pulm edema ) Acute respiratory failure now thought to be related to possible TRALI per pulmonolgy and on Solumedrol. continue high flow adjusted from 50/50 to 30/30 ,steriods ,antibiotics,gentle diuresis i/o( 4.3 liter negative ), daily weights echo speech and swallow-diet upgraded . pulm f/u noted . Leukocytosis--likely reactive and has been stable blood cultures neg urine culture -<10k cfu/ml no fevers on steriods high dose. DM2: fs 100-200 range ss, ada diet HTN--restart Losartan, Norvasc, HypOthyroidism--Levohyroxine mild elevated tsh ,free t4 normal DVT prophylaxis: compression device given gi bleeding, will try subcut Heparin (06/06/23) inpatient need :Acute hypoxic respiratory failure--He has underlying lungs issues( ?pneumonia ,pulm edema )-need iv antibiotics , steriods ,diuresis , pulm followup. Discussed with patient and his healthcare proxy miss Mann-at bedside in detail they understand and in agreement with above plan. Time Spent With Patient Time: Total time managing care of this patient today ____ minutes. Quality Stroke Does the patient have a stroke diagnosis?: No VTE Prior VTE?: Yes VTE Risk Level:: Medical - moderate - high VTE Device Contraindication: Procedure Contraindicated VTE Drug Contraindication: Treatment Not Tolerated
[2023-06-08 16:28] LABS: Glucose, Whole Blood 137 mg/dL (60-115)
[2023-06-08 20:22] LABS: Hematocrit 33.2 % (42.0-52.0); Hemoglobin 10.4 g/dl (14.0-18.0); Mean Corpuscular HGB Conc 31.3 g/dl (31.0-36.0); Mean Corpuscular Hemoglobin 30.4 pg (27.0-33.0); Mean Corpuscular Volume 97.1 fL (80.0-98.0); Mean Platelet Volume 11.3 fL (9.4-12.4); NRBC Pct Auto 0.1 /100WBC (0.0-0.2); Platelet Count 152 X10*3/uL (160-400); Red Blood Count 3.42 X10*6/uL (4.60-5.80); Red Cell Distribution Width 15.2 % (11.0-16.0); White Blood Count 24.6 X10*3/uL (4.8-10.8)
[2023-06-08 20:56] LABS: Glucose, Whole Blood 203 mg/dL (60-115)
[2023-06-08] MEDS: Mirtazapine 7.5 MG TABLET PO (23:03)
--- NOTE | 2023-06-08 23:06 | P.CNID_ITS ---
History of Present Illness Data of Consult Service Date: 06/08/23 Requesting physician: Mynor Mcfarland Primary Care Provider: Adilia Tomas MD HPI Reason for consult: pneumonia He presents from facility with somnolence and unresponsiveness. He was there for recovery from pneumonia 05/27 had mass and pleural fluid biopsy unremarkable. He has no fever or chills. Review of Systems Review of Systems: Yes Unobtainable due to mental condition PMFSH Past Medical History Medical History Diabetes type 2 with atherosclerosis of arteries of extremities Hypertension Interstitial lung disease Metastatic cancer Family History Family history: reviewed and not pertinent Social History Social History Household Members: Other Housing: [facility] Housing Other:: STR Do you presently have visiting nurse or other home services: No Unable to assess alcohol history related to: Unknown Alcohol intake: former Patient Tobacco Use Status: Tobacco use Unknown Currently Displaying Signs/Symptoms of Drug Intoxication Withdrawal: No Advance Directives: Yes Advance Directives on File: Yes Advance Directives Date on File: 06/01/23 Do you have thoughts of harming others: None Do you have a plan to hurt others: No Plan Nutrition Risks: On aspiration precautions service: No Meds Allergies Allergy/AdvReac Type Severity Reaction Status Date / Time No Known Allergies Allergy Verified 06/01/23 17:01 Active Medications: Current Medications Dextrose (Dextrose 50 % 25 Gm/50 Ml Syringe) 25 gm IVPUSH Q15M PRN; Protocol PRN Reason: per Hypoglycemia Standing Ord. Last Admin: 06/02/23 00:22 Dose: 25 gm Empagliflozin (Empagliflozin 10 Mg Tablet) 10 mg PO DAILY [facility] Last Admin: 06/08/23 08:02 Dose: 10 mg Furosemide (Furosemide 20 Mg/2 Ml Vial) 20 mg IVPUSH DAILY [facility]; Protocol Last Admin: 06/08/23 08:01 Dose: 20 mg Glucose (Glucose Gel 15 Gm Gel..Gram.) 15 gm PO Q15M PRN; Protocol PRN Reason: per Hypoglycemia Standing Ord. Heparin Sodium (Porcine) (Heparin Sodium,Porcine 5,000 Unit/Ml Vial) 5,000 unit SUBCUT Q12H [facility] Last Admin: 06/08/23 11:36 Dose: 5,000 unit Piperacillin Sod/Tazobactam (Sod 3.375 gm/ Sodium Chloride) 50 mls @ 100 mls/hr IV Q6H [facility] Last Infusion: 06/08/23 17:15 Dose: Infused Insulin Human Lispro (Insulin Lispro 100 Unit/Ml 3 Ml Vial) 0 unit SUBCUT QIDACHS [facility]; Protocol Last Admin: 06/08/23 16:40 Dose: Not Given Levothyroxine Sodium (Levothyroxine Sodium 100 Mcg Tablet) 100 mcg PO DAILY@060 0 [facility] Last Admin: 06/08/23 06:29 Dose: 100 mcg Losartan Potassium (Losartan Potassium 25 Mg Tablet) 25 mg PO DAILY [facility]; Protocol Last Admin: 06/08/23 08:02 Dose: 25 mg Metformin HCl (Metformin Hcl 1,000 Mg Tablet) 1,000 mg PO BID [facility] Last Admin: 06/08/23 08:02 Dose: 1,000 mg Methylprednisolone Sodium Succinate (Methylprednisolone Sod Succ 125 Mg/2 Ml Vial) 60 mg IVPUSH Q6H [facility] Last Admin: 06/08/23 16:41 Dose: 60 mg Mirtazapine (Mirtazapine 7.5 Mg Tablet) 7.5 mg PO BEDTIME [facility] Last Admin: 06/07/23 20:35 Dose: 7.5 mg Morphine Sulfate (Morphine Sulfate 2 Mg/Ml Cartridge) 2 mg IVPUSH Q4H PRN; Protocol PRN Reason: Pain, Severe (Pain Scale 7-10) Omeprazole (Omeprazole 40 Mg Capsule.Dr) 40 mg PO BID [facility] Last Admin: 06/08/23 11:36 Dose: 40 mg Sitagliptin Phosphate (Sitagliptin Phosphate 50 Mg Tablet) 50 mg PO BID [facility] Last Admin: 06/08/23 08:02 Dose: 50 mg Spironolactone (Spironolactone 25 Mg Tablet) 25 mg PO DAILY [facility]; Protocol Last Admin: 06/08/23 08:02 Dose: 25 mg Tamsulosin HCl (Tamsulosin Hcl 0.4 Mg Capsule) 0.4 mg PO DAILY [facility] Last Admin: 06/08/23 08:02 Dose: 0.4 mg Home Medications Medication Instructions Recorded Confirmed Last Taken Type amlodipine 5 mg tablet 5 mg PO DAILY 05/13/23 06/01/23 Unknown History insulin lispro protamine-lispro 15 unit subcut BID 05/13/23 06/01/23 Unknown History 100 unit/mL (75-25) subcutaneous pen (Humalog Mix 75-25 KwikPen) insulin lispro protamine-lispro 20 unit subcut DAILY@1600 05/13/23 06/01/23 Unknown History 100 unit/mL (75-25) subcutaneous pen (Humalog Mix 75-25 KwikPen) levothyroxine 100 mcg tablet 100 mcg PO DAILY 05/13/23 06/01/23 Unknown History (Synthroid) losartan 100 mg tablet 100 mg PO DAILY 05/13/23 06/01/23 Unknown History omeprazole 20 mg capsule,delayed 20 mg PO DAILY 05/13/23 06/01/23 Unknown History release sitagliptin phosphate 50 1 tab PO BID 05/13/23 06/01/23 Unknown History mg-metformin 1,000 mg tablet (Luisumet) tamsulosin 0.4 mg capsule 0.4 mg PO DAILY 05/13/23 06/01/23 Unknown History Physical Exam Vital Signs: Vital Signs: Last Vital Signs Temp 96.7 F L 06/08/23 20:00 Pulse 104 H 06/08/23 20:00 Resp 18 06/08/23 20:00 BP 110/61 06/08/23 20:00 Pulse Ox 98 06/08/23 20:00 O2 Del Method High Flow Nasal C annula 06/08/23 20:00 O2 Flow Rate 30 06/08/23 20:00 FiO2 30 06/08/23 20:00 Oxygen Flow Rate 3 06/01/23 17:01 BMI result Body Mass Index 23.8 Const: General: cooperative HEENT: Head: Yes normal to inspection Face and sinus: Yes normal facial exam Mouth: Normal oral and palatal mucosa present Teeth and gingiva: dentition normal Eyes: General: appearance normal, both eyes and all related structures Pupils: Equal, round and reactive pupils present Resp: Effort & Inspection: normal respiratory effort Cardio: Rate: regular rate Rhythm: regular rhythm GI: Palpation (GI): Soft to palpation and nontender : General: Yes no CVA tenderness Back/Spine/Pelvis: Back: no CVA tenderness Skin: General skin exam: no rashes or lesions noted Neuro: General: moves all extremities Cranial nerves: Yes Equal, round and reactive pupils present Extrem: General: Yes normal to inspection Psych: Other: confusion Results Labs 06/08/23 19:58 06/08/23 06:27 Labs: Short CBC 06/08/23 06/08/23 Range/Units 07:04 19:58 WBC 26.1 H 24.6 H (4.8-10.8) X10*3/uL Hgb 10.9 L 10.4 L (14.0-18.0) g/dl Hct 35.2 L 33.2 L (42.0-52.0) % Plt Count 143 L 152 L (160-400) X10*3/uL BMP 06/08/23 06/08/23 06:27 06:27 Sodium 145 Potassium 4.6 Chloride 106 Carbon Dioxide 28 BUN 30 H Creatinine Cancelled 0.72 Calcium 9.8 Microbiology Microbiology Results: Microbiology 06/01/23 18:09 Blood - Venous Blood Culture - Final No growth after 5 days. 06/01/23 18:09 Blood - Venous Blood Culture - Final No growth after 5 days. 06/01/23 Unknown Urine Catheterized - Ramos Catheter Urine Culture - Final Assessment and Plan (1) GI bleed: Status: Acute (2) Acute blood loss anemia: Status: Acute (3) Interstitial lung disease: Status: Acute He has chronic lung disease with probable aspiration component There was no specific organism isolated from pleura in past Plan Continue Zosyn likely 5-7 days total. Consider swallowing study Time Spent With Patient Time: Total time managing care of this patient today ____ minutes.
[2023-06-09 03:08] VITALS: BP 143/79; PULSE 87; RESP 17; TEMP 36.3; O2SAT 98
[2023-06-09 03:10] LABS: Glucose, Whole Blood 207 mg/dL (60-115)
[2023-06-09] MEDS: methylPREDNISolone Sod Succ 125 MG/2 ML VIAL 60 MG IVPUSH ×2 (04:08→08:17)
[2023-06-09] MEDS: Piperacillin Sodium/Tazobactam 3.375 GM in 0.9 % Sodium Chloride 50 ML IV ×4 (04:09→22:29)
[2023-06-09 06:00] VITALS: BMI 23.6
[2023-06-09] MEDS: Levothyroxine Sodium 100 MCG TABLET PO (07:04)
[2023-06-09 07:20] LABS: Estimated Glomerular Filt Rate > 60
[2023-06-09 07:56] LABS: Glucose, Whole Blood 195 mg/dL (60-115)
[2023-06-09 08:00] VITALS: BP 153/72; PULSE 91; RESP 17; TEMP 36.1; O2SAT 99
[2023-06-09] MEDS: SITagliptin Phosphate 50 MG TABLET PO ×2 (08:16→22:30)
[2023-06-09] MEDS: metFORMIN HCl 1,000 MG TABLET 1000 MG PO ×2 (08:16→22:30)
[2023-06-09] MEDS: Spironolactone 25 MG TABLET PO (08:16)
[2023-06-09] MEDS: Empagliflozin 10 MG TABLET PO (08:16)
[2023-06-09] MEDS: Omeprazole 40 MG CAPSULE.DR PO ×2 (08:17→22:31)
[2023-06-09] MEDS: Insulin Lispro 100 UNIT/ML 3 ML VIAL SUBCUT ×4 (08:19→22:30)
[2023-06-09] MEDS: Furosemide 20 MG TABLET PO (08:22)
[2023-06-09] MEDS: predniSONE 20 MG TABLET 40 MG PO (10:25)
[2023-06-09 11:07] LABS: Glucose, Whole Blood 243 mg/dL (60-115)
[2023-06-09 11:32] VITALS: BP 130/68; PULSE 104; RESP 16; TEMP 36.2; O2SAT 98
[2023-06-09] MEDS: Heparin Sodium,Porcine 5,000 UNIT/ML VIAL 5000 UNIT SUBCUT ×2 (12:26→22:30)
--- NOTE | 2023-06-09 13:08 | P.PNIM_ITS ---
Subjective Subjective Date of Service: 06/09/23 Interval History: f/u on anemia, acute blood loss anemia and acute hypoxic respiratory failure Review of Systems sob and oxygen demand seems improving Denies any chest pain or cough or fever or chills. Physical Exam Vital Signs: Vital Signs: Last Vital Signs Temp 97.2 F 06/09/23 11:32 Pulse 104 H 06/09/23 11:32 Resp 16 06/09/23 11:32 BP 130/68 06/09/23 11:32 Pulse Ox 98 06/09/23 11:32 O2 Del Method Nasal Cannula 06/09/23 11:32 O2 Flow Rate 4 06/09/23 11:32 FiO2 30 06/08/23 20:00 Oxygen Flow Rate 3 06/01/23 17:01 BMI result Body Mass Index 23.6 General: AO X 3, no acute distress Resp:?air entry slightly improving, rhonchi, few scattered rales at bases. CVS: S1,S2,RRR GI: +BS, NT, no distention Skin: No rash Neuro:? motor grossly intact Psych: appropriate affect Objective Data Active Medications Dextrose (Dextrose 50 % 25 Gm/50 Ml Syringe) 25 gm IVPUSH Q15M PRN; Protocol PRN Reason: per Hypoglycemia Standing Ord. Last Admin: 06/02/23 00:22 Dose: 25 gm Documented By: MARTIN Comments: per LAITH Reyes- give now for POC of 77 Empagliflozin (Empagliflozin 10 Mg Tablet) 10 mg PO DAILY [facility] Last Admin: 06/09/23 08:16 Dose: 10 mg Documented By: JAMISON Furosemide (Furosemide 20 Mg Tablet) 20 mg PO DAILY [facility]; Protocol Last Admin: 06/09/23 08:22 Dose: 20 mg Documented By: JAMISON Glucose (Glucose Gel 15 Gm Gel..Gram.) 15 gm PO Q15M PRN; Protocol PRN Reason: per Hypoglycemia Standing Ord. Heparin Sodium (Porcine) (Heparin Sodium,Porcine 5,000 Unit/Ml Vial) 5,000 unit SUBCUT Q12H [facility] Last Admin: 06/09/23 12:26 Dose: 5,000 unit Documented By: JAMISON Piperacillin Sod/Tazobactam (Sod 3.375 gm/ Sodium Chloride) 50 mls @ 100 mls/hr IV Q6H [facility] Last Infusion: 06/09/23 11:00 Dose: 0 mls/hr Documented By: JAMISON Insulin Human Lispro (Insulin Lispro 100 Unit/Ml 3 Ml Vial) 0 unit SUBCUT QIDACHS [facility]; Protocol Last Admin: 06/09/23 12:26 Dose: 4 unit Documented By: JAMISON Levothyroxine Sodium (Levothyroxine Sodium 100 Mcg Tablet) 100 mcg PO DAILY@0600 [facility] Last Admin: 06/09/23 07:04 Dose: 100 mcg Documented By: JAMEL Losartan Potassium (Losartan Potassium 25 Mg Tablet) 25 mg PO DAILY [facility]; Tiffanie col Last Admin: 06/08/23 08:02 Dose: 25 mg Documented By: GARRISON Metformin HCl (Metformin Hcl 1,000 Mg Tablet) 1,000 mg PO BID [facility] Last Admin: 06/09/23 08:16 Dose: 1,000 mg Documented By: JAMISON Mirtazapine (Mirtazapine 7.5 Mg Tablet) 7.5 mg PO BEDTIME [facility] Last Admin: 06/08/23 23:03 Dose: 7.5 mg Documented By: JAMEL Morphine Sulfate (Morphine Sulfate 2 Mg/Ml Cartridge) 2 mg IVPUSH Q4H PRN; Protocol PRN Reason: Pain, Severe (Pain Scale 7-10) Omeprazole (Omeprazole 40 Mg Capsule.) 40 mg PO BID [facility] Last Admin: 06/09/23 08:17 Dose: 40 mg Documented By: JAMISON Prednisone (Prednisone 20 Mg Tablet) 40 mg PO DAILY [facility] Last Admin: 06/09/23 10:25 Dose: 40 mg Documented By: JAMISON Sitagliptin Phosphate (Sitagliptin Phosphate 50 Mg Tablet) 50 mg PO BID [facility] Last Admin: 06/09/23 08:16 Dose: 50 mg Documented By: JAMISON Spironolactone (Spironolactone 25 Mg Tablet) 25 mg PO DAILY [facility]; Protocol Last Admin: 06/09/23 08:16 Dose: 25 mg Documented By: JAMISON Tamsulosin HCl (Tamsulosin Hcl 0.4 Mg Capsule) 0.4 mg PO DAILY [facility] Last Admin: 06/08/23 08:02 Dose: 0.4 mg Documented By: GARRISON Labs 06/08/23 19:58 06/09/23 06:29 Labs: Laboratory Results - last 24 hr 06/08/23 06/08/23 06/08/23 16:25 19:58 20:52 MCV 97.1 MCH 30.4 MCHC 31.3 RDW 15.2 Plt Count 152 L MPV 11.3 Absolute Nucleated RBC 0.020 H Nucleated RBC % (auto) 0.1 Estim Creat Clear Calc Estimated GFR POC Glucose 137 H 203 H 06/08/23 06/09/23 06/09/23 23:21 06:29 07:48 MCV MCH MCHC RDW Plt Count MPV Absolute Nucleated RBC Nucleated RBC % (auto) Estim Creat Clear Calc 103.0 Estimated GFR > 60 POC Glucose 207 H 195 H 06/09/23 11:01 MCV MCH MCHC RDW Plt Count MPV Absolute Nucleated RBC Nucleated RBC % (auto) Estim Creat Clear Calc Estimated GFR POC Glucose 243 H Assessment and Plan (1) Pulmonary emboli: Status: Acute (2) Acute blood loss anemia: Status: Acute (3) GI bleed: Status: Acute Plan 72-year-old gentleman with underlying of diabetes mellitus, BPH,, hypothyroidism, likely metastatic lung cancer with cytology results still pending, recent admission to [facility] for postobstructive pneumonia and pulmonary emboli, started on anticoagulation, admitted on 06/01/2023 with GI bleed and acute blood loss anemia to the intensive care unit.? Patient has received IV fluid resuscitation and 1 unit packed red blood cells with normalization of blood pressure, but development of pulmonary edema that improved with diuresis.? Patient was planned for endoscopy on 06/03/2023 but was cancelled due to tenous respiratory status. He remains stable and H/H is stable. Acute blood loss anemia that was associated with Hypotension and was admitted to the ICU, but was only transfused 1 units of RBC with good effect, was seen by GI (Dr. Teran ) who was going to do EGD but patient's respiratory failure and so was cancelled(as per chart review) continue on PPI. H/H remains stable without any sings of bleeding,titrate pox to keep pox>88% recent history of PE--anticoagulation hold given signficant GIb and anemia and unknown source of gi bleeding. Repeat CTA on 06/05 showed no PE and last PE were just subsegmental. s/p US of legs-Extensive bilateral acute DVT, Vascular surgery -s/p IVC filter. DVT prophylaxis dose of heparin 5k bid and H/H stable around 10. Acute hypoxic respiratory failure--multifactorial-He has underlying lungs issues( ?pneumonia ,pulm edema ) Acute respiratory failure now thought to be related to possible TRALI per pulmonolgy and on Solumedrol. continue high flow adjusted from 50/50 to 30/30 ,steriods ,antibiotics,gentle diuresis i/o( 4.3 liter negative ), daily weights echo speech and swallow-diet upgraded . moniter off AC. pulm following. Leukocytosis--likely reactive and has been stable blood cultures neg urine culture -<10k cfu/ml no fevers on steriods high dose. DM2: fs 100-200 range ss, ada diet HTN--restart Losartan, Norvasc, HypOthyroidism--Levohyroxine mild elevated tsh ,free t4 normal DVT prophylaxis: compression device given gi bleeding, will try subcut Heparin (06/06/23) inpatient need :Acute hypoxic respiratory failure--He has underlying lungs issu es( ?pneumonia ,pulm edema )-need iv antibiotics , steriods ,diuresis , pulm followup. Discussed with patient and his healthcare proxy miss Mann-at bedside in detail they understand and in agreement with above plan. Time Spent With Patient Time: Total time managing care of this patient today ____ minutes. Quality Stroke Does the patient have a stroke diagnosis?: No VTE Prior VTE?: Yes VTE Risk Level:: Medical - moderate - high VTE Device Contraindication: Procedure Contraindicated VTE Drug Contraindication: Treatment Not Tolerated
--- NOTE | 2023-06-09 14:17 | MHC.SL.SWA ---
Speech Pathologist Impression: Risk of Aspiration Due to: Medically Fragile Dysphasia Diet Status: Recommend patient continue w/ Ground/Mech Altered (NDD2), Thin Liquids, Meds crushed with Puree (whenever possible). Recommend full supervision to monitor for s/s of aspiration on solids and provide cues for safe eating (i.e. small bites/sips). [employer] to continue to follow. Liquid Consistency and Strategies for Safe Swallow: Liquid Intake Recommendation: Thin Liquid Intake Strategies: Small Sips Solid Food Consistency: Dietary Recommendations: Grnd/Mech Altered (NDD2) Additional Modifications to Solid Foods: Alternate liquids and solids. Allow patient time to swallow before presenting more food. Add sauces/gravies and mix well. Oral Medication Intake: Crushed with Puree Please contact the pharmacy regarding appropriate crushable or liquid drug formulations that are available whenever modified delivery is recommended. Compensatory Strategies and Precautions to be Taken for Safe Swallow: Sitting Upright (90 deg) Liquids from Cup Liquids from Straw Small Bites and Sips Alternate Liquids/Solids Rate of Ingestion Change Supervision While Eating and Drinking for Safe Swallow: Total Supervision (1:1) Foods to Avoid: Swallowing Recommended Treatments: Compens. Strategy Educat. Recommendation for Speech: Inpatient Speech Therapy Comment: Pt seen during lunch. Patient was being fed by his , with his daughter present in room. Patient was observed taking spoonfuls of ground consistency food, producing a slow oral phase, munching on bolus for a mildly prolonged period, then producing swallow after mild delay. [employer]ER reminded not to add food to mouth before previous bite had been swallowed and she was highly responsive/cooperative, monitoring swallow before presenting more food. Patient was observed taking sips of liquid which was offered in between bites, producing good oral management and timely swallow. an daughter report that patient has been doing well on current diet, and that the consistency of the food is appropriate and tolerated well by the patient. Family member noted that patient has had a hoarse voice since being extubated two weeks ago, patient reported that he thinks this is getting slowly better, has no c/o of throat pain. Recommended patient and family continue to monitor, if no improvement, patient may need further evaluation by ENT. Frequency/Duration: Date Range for Service Req: Timeline to reassess: [employer] Clinican/Clinical Fellow: No Supervisory Statement: I have reviewed and agree with the student/clinical fellow's documentation: N/A Speech Language Pathologist: Iwona Velazquez M.A., [facility]
[2023-06-09 15:08] LABS: Glucose, Whole Blood 201 mg/dL (60-115)
[2023-06-09 16:00] VITALS: BP 124/65; PULSE 117; RESP 17; TEMP 36.4; O2SAT 91
--- NOTE | 2023-06-09 16:34 | PM.PNPUL ---
Subjective Subjective Date of Service: 06/09/23 Interval history: Seen and examined. Feeling a little better. On nasal cannula. Objective Data Labs 06/08/23 19:58 06/09/23 06:29 Labs: Laboratory Results - last 24 hr 06/08/23 06/08/23 06/08/23 19:58 20:52 23:21 WBC 24.6 H RBC 3.42 L Hgb 10.4 L Hct 33.2 L MCV 97.1 MCH 30.4 MCHC 31.3 RDW 15.2 Plt Count 152 L MPV 11.3 Absolute Nucleated RBC 0.020 H Nucleated RBC % (auto) 0.1 Creatinine Estim Creat Clear Calc Estimated GFR POC Glucose 203 H 207 H 06/09/23 06/09/23 06/09/23 06:29 07:48 11:01 WBC RBC Hgb Hct MCV MCH MCHC RDW Plt Count MPV Absolute Nucleated RBC Nucleated RBC % (auto) Creatinine 0.68 Estim Creat Clear Calc 103.0 Estimated GFR > 60 POC Glucose 195 H 243 H 06/09/23 15:03 WBC RBC Hgb Hct MCV MCH MCHC RDW Plt Count MPV Absolute Nucleated RBC Nucleated RBC % (auto) Creatinine Estim Creat Clear Calc Estimated GFR POC Glucose 201 H Microbiology Microbiology Results: Microbiology 06/01/23 18:09 Blood - Venous Blood Culture - Final No growth after 5 days. 06/01/23 18:09 Blood - Venous Blood Culture - Final No growth after 5 days. 06/01/23 Unknown Urine Catheterized - Ramos Catheter Urine Culture - Final Review of Systems Constitutional: Reports fatigue and Denies fever(s) Eyes: Denies blurry vision Denies epistaxis Cardiovascular: Denies chest pain and Reports dyspnea Respiratory: Reports chest congestion, Reports cough, Denies hemoptysis, Reports dyspnea and Denies wheezing Gastrointestinal: Reports as per HPI Musculoskeletal: Reports no additional musculoskeletal complaints Endocrine: Reports fatigue Hematologic/Lymphatic: Denies easy bleeding, Denies easy bruising and Denies lymphadenopathy Allergic/Immunologic: Denies wheezing Physical Exam Vital Signs: Vital Signs: Last Vital Signs Temp 97.5 F 06/09/23 16:00 Pulse 117 H 06/09/23 16:00 Resp 17 06/09/23 16:00 BP 124/65 06/09/23 16:00 Pulse Ox 91 L 06/09/23 16:00 O2 Del Method Nasal Cannula 06/09/23 16:00 O2 Flow Rate 4 06/09/23 16:00 FiO2 30 06/08/23 20:00 Oxygen Flow Rate 3 06/01/23 17:01 BMI result Body Mass Index 23.6 General: AO X 3, no acute distress Resp:? +rales CVS: S1,S2,RRR GI: +BS, NT, no distention Skin: No rash Neuro:? motor grossly intact Psych: appropriate affect Const: General: awake and acute distress mild and respiratory HEENT: Head: Yes normocephalic Neck: Neck: Yes trachea midline and Yes supple Chest: Chest palpation & inspection: normal inspection of the chest Resp: Effort & Inspection: tachypneic Auscultation: rales diffuse Cardio: Heart sounds: S1 normal heart sound present and S2 normal heart sound present GI: Palpation (GI): Soft to palpation Skin: General skin exam: no rashes or lesions noted Extrem: General: Yes no clubbing, cyanosis or edema Procedures Date of Service Date of Service: 06/09/23 Assessment and Plan Assessment and plan (1) Pulmonary edema: Status: Acute (2) Pulmonary emboli: Status: Acute (3) Pleural effusion: Status: Acute (4) Interstitial lung disease: Status: Acute Plan change to Prednisone diuresis as tolerated titrate pox to keep pox>88% The patient has underlying interstitial lung disease as suspicion for malignancy with positive PET scan now pleural effusion and pneumonitis which could be secondary to a transfusion related acute lung injury or ARDS. At this point in view of his ongoing respiratory failure would not be safe to have him undergo any bronchoscopy or EBUS to evaluate for malignancy. Time Spent With Patient Time: Total time managing care of this patient today ____ minutes. Progress Note: Quality Stroke Does the patient have a stroke diagnosis?: No
[2023-06-09 19:44] VITALS: BP 131/70; PULSE 102; RESP 17; TEMP 36.1; O2SAT 98
[2023-06-09 20:29] LABS: Glucose, Whole Blood 177 mg/dL (60-115)
[2023-06-09] MEDS: Mirtazapine 7.5 MG TABLET PO (22:31)
[2023-06-09 23:32] VITALS: BP 121/77; PULSE 84; RESP 17; TEMP 37.1; O2SAT 98
[2023-06-10 03:06] VITALS: BP 122/72; PULSE 102; RESP 17; TEMP 36.4; O2SAT 97
[2023-06-10] MEDS: Piperacillin Sodium/Tazobactam 3.375 GM in 0.9 % Sodium Chloride 50 ML IV ×4 (05:40→22:34)
[2023-06-10 05:41] VITALS: BMI 24.3
[2023-06-10] MEDS: Levothyroxine Sodium 100 MCG TABLET PO (05:41)
[2023-06-10 07:10] LABS: Creatinine Clr Calc Pharmacy 111.2; Estimated Glomerular Filt Rate > 60
[2023-06-10 07:26] VITALS: BP 99/68; PULSE 117; RESP 21; TEMP 36.2; O2SAT 94
[2023-06-10 07:53] LABS: Glucose, Whole Blood 114 mg/dL (60-115)
[2023-06-10] MEDS: Furosemide 20 MG TABLET PO (08:39)
[2023-06-10] MEDS: metFORMIN HCl 1,000 MG TABLET 1000 MG PO ×2 (08:39→22:35)
[2023-06-10] MEDS: Empagliflozin 10 MG TABLET PO (08:39)
[2023-06-10] MEDS: predniSONE 20 MG TABLET 40 MG PO (08:39)
[2023-06-10] MEDS: Spironolactone 25 MG TABLET PO (08:39)
[2023-06-10] MEDS: SITagliptin Phosphate 50 MG TABLET PO ×2 (08:39→22:35)
[2023-06-10] MEDS: Omeprazole 40 MG CAPSULE.DR PO ×2 (08:39→22:35)
[2023-06-10 08:46] LABS: Hematocrit 36.6 % (42.0-52.0); Hemoglobin 11.4 g/dl (14.0-18.0); Mean Corpuscular HGB Conc 31.1 g/dl (31.0-36.0); Mean Corpuscular Hemoglobin 30.7 pg (27.0-33.0); Mean Corpuscular Volume 98.7 fL (80.0-98.0); Mean Platelet Volume 11.1 fL (9.4-12.4); NRBC Pct Auto 0.3 /100WBC (0.0-0.2); Platelet Count 166 X10*3/uL (160-400); Red Blood Count 3.71 X10*6/uL (4.60-5.80); Red Cell Distribution Width 15.1 % (11.0-16.0); White Blood Count 16.1 X10*3/uL (4.8-10.8)
--- NOTE | 2023-06-10 10:20 | MHC.CM.PN ---
EMR REVIEWED, PT W/PE/DVT REMAINS ON 5-6L O2, NO PLAN FOR D/C AT THIS TIME, PLAN REMAINS TO RETURN TO DBV FOR STR, DBV UPDATED AND CM WILL CONT TO FOLLOW D/C NEEDS.
[2023-06-10] MEDS: Heparin Sodium,Porcine 5,000 UNIT/ML VIAL 5000 UNIT SUBCUT ×2 (10:36→22:33)
[2023-06-10] MEDS: polyethylene glycoL 3350 17 GM POWD.PACK PO (10:36)
[2023-06-10 10:58] VITALS: BP 96/62; PULSE 101; RESP 20; TEMP 36.1; O2SAT 97
[2023-06-10 11:25] LABS: Glucose, Whole Blood 160 mg/dL (60-115)
[2023-06-10] MEDS: Insulin Lispro 100 UNIT/ML 3 ML VIAL SUBCUT ×2 (11:36→22:33)
--- NOTE | 2023-06-10 12:57 | HO.PM.IMPN ---
Subjective Subjective Date of Service: 06/10/23 Interval History: f/u on anemia, acute blood loss anemia and acute hypoxic respiratory failure Review of Systems sob and oxygen demand seems improving Denies any chest pain or cough or fever or chills. Physical Exam Vital Signs: Vital Signs: Last Vital Signs Temp 96.9 F 06/10/23 10:58 Pulse 101 H 06/10/23 10:58 Resp 20 06/10/23 10:58 BP 96/62 06/10/23 10:58 Pulse Ox 97 06/10/23 10:58 O2 Del Method Nasal Cannula 06/10/23 10:58 O2 Flow Rate 5 06/10/23 10:58 FiO2 30 06/08/23 20:00 Oxygen Flow Rate 3 06/01/23 17:01 BMI result Body Mass Index 24.3 General: AO X 3, no acute distress Resp:?air entry slightly improving, rhonchi, few scattered rales at bases. CVS: S1,S2,RRR GI: +BS, NT, no distention Skin: No rash Neuro:? motor grossly intact Psych: appropriate affect Objective Data Active Medications Dextrose (Dextrose 50 % 25 Gm/50 Ml Syringe) 25 gm IVPUSH Q15M PRN; Protocol PRN Reason: per Hypoglycemia Standing Ord. Last Admin: 06/02/23 00:22 Dose: 25 gm Documented By: MARTIN Comments: per LAITH Reyes- give now for POC of 77 Empagliflozin (Empagliflozin 10 Mg Tablet) 10 mg PO DAILY [facility] Last Admin: 06/10/23 08:39 Dose: 10 mg Documented By: GARRISON Furosemide (Furosemide 20 Mg Tablet) 20 mg PO DAILY [facility]; Protocol Last Admin: 06/10/23 08:39 Dose: 20 mg Documented By: GARRISON Glucose (Glucose Gel 15 Gm Gel..Gram.) 15 gm PO Q15M PRN; Protocol PRN Reason: per Hypoglycemia Standing Ord. Heparin Sodium (Porcine) (Heparin Sodium,Porcine 5,000 Unit/Ml Vial) 5,000 unit SUBCUT Q12H [facility] Last Admin: 06/10/23 10:36 Dose: 5,000 unit Documented By: EDUAR Piperacillin Sod/Tazobactam (Sod 3.375 gm/ Sodium Chloride) 50 mls @ 100 mls/hr IV Q6H [facility] Last Infusion: 06/10/23 11:31 Dose: 0 mls/hr Documented By: EDUAR Insulin Human Lispro (Insulin Lispro 100 Unit/Ml 3 Ml Vial) 0 unit SUBCUT QIDACHS [facility]; Protocol Last Admin: 06/10/23 11:36 Dose: 2 unit Documented By: EDUAR Levothyroxine Sodium (Levothyroxine Sodium 100 Mcg Tablet) 100 mcg PO DAILY@0600 [facility] Last Admin: 06/10/23 05:41 Dose: 100 mcg Documented By: CURT Losartan Potassium (Losartan Potassium 25 Mg Tablet) 25 mg PO DAILY [facility]; Protocol Last Admin: 06/08/23 08:02 Dose: 25 mg Documented By: GARRISON Metformin HCl (Metformin Hcl 1,000 Mg Tablet) 1,000 mg PO BID [facility] Last Admin: 06/10/23 08:39 Dose: 1,000 mg Documented By: GARRISON Mirtazapine (Mirtazapine 7.5 Mg Tablet) 7.5 mg PO BEDTIME [facility] Last Admin: 06/09/23 22:31 Dose: 7.5 mg Documented By: CURT Morphine Sulfate (Morphine Sulfate 2 Mg/Ml Cartridge) 2 mg IVPUSH Q4H PRN; Protocol PRN Reason: Pain, Severe (Pain Scale 7-10) Omeprazole (Omeprazole 40 Mg Capsule.Dr) 40 mg PO BID [facility] Last Admin: 06/10/23 08:39 Dose: 40 mg Documented By: GARRISON Polyethylene Glycol (Polyethylene Glycol 3350 17 Gm Powd.Pack) 17 gm PO DAILY [facility] Last Admin: 06/10/23 10:36 Dose: 17 gm Documented By: EDUAR Prednisone (Prednisone 20 Mg Tablet) 40 mg PO DAILY [facility] Last Admin: 06/10/23 08:39 Dose: 40 mg Documented By: AGRRISON Sitagliptin Phosphate (Sitagliptin Phosphate 50 Mg Tablet) 50 mg PO BID [facility] Last Admin: 06/10/23 08:39 Dose: 50 mg Documented By: GARRISON Spironolactone (Spironolactone 25 Mg Tablet) 25 mg PO DAILY [facility]; Protocol Last Admin: 06/10/23 08:39 Dose: 25 mg Documented By: GARRISON Tamsulosin HCl (Tamsulosin Hcl 0.4 Mg Capsule) 0.4 mg PO DAILY [facility] Last Admin: 06/08/23 08:02 Dose: 0.4 mg Documented By: GARRISON Labs 06/10/23 08:12 06/10/23 05:59 Labs: Laboratory Results - last 24 hr 06/09/23 06/09/23 06/10/23 15:03 20:26 05:59 MCV MCH MCHC RDW Plt Count MPV Absolute Nucleated RBC Nucleated RBC % (auto) Estim Creat Clear Calc 111.2 Estimated GFR > 60 POC Glucose 201 H 177 H 06/10/23 06/10/23 06/10/23 07:31 08:12 10:59 MCV 98.7 H MCH 30.7 MCHC 31.1 RDW 15.1 Plt Count 166 MPV 11.1 Absolute Nucleated RBC 0.050 H Nucleated RBC % (auto) 0.3 H Estim Creat Clear Calc Estimated GFR POC Glucose 114 160 H Assessment and Plan (1) Pulmonary emboli: Status: Acute (2) Acute blood loss anemia: Status: Acute (3) GI bleed: Status: Acute Plan 72-year-old gentleman with underlying of diabetes mellitus, BPH,, hypothyroidism, likely metastatic lung cancer with cytology results still pending, recent admission to [facility] for postobstructive pneumonia and pulmonary emboli, started on anticoagulation, admitted on 06/01/2023 with GI bleed and acute blood loss anemia to the intensive care unit.? Patient has received IV fluid resuscitation and 1 unit packed red blood cells with normalization of blood pressure, but development of pulmonary edema that improved with diuresis.? Patient was planned for endoscopy on 06/03/2023 but was cancelled due to tenous respiratory status. He remains stable and H/H is stable. Acute blood loss anemia that was associated with Hypotension and was admitted to the ICU, but was only transfused 1 units of RBC with good effect, was seen by GI (Dr. Teran ) who was going to do EGD but patient's respiratory failure and so was cancelled(as per chart review) continue on PPI. H/H remains stable without any sings of bleeding,titrate pox to keep pox>88%. recent history of PE--anticoagulation hold given signficant GIb and anemia and unknown source of gi bleeding. Repeat CTA on 06/05 showed no PE and last PE were just subsegmental. s/p US of legs-Extensive bilateral acute DVT, Vascular surgery -s/p IVC filter. DVT prophylaxis dose of heparin 5k bid and H/H stable around 10. Acute hypoxic respiratory failure--multifactorial-He has underlying lungs issues( ?pneumonia ,pulm edema ) Acute respiratory failure now thought to be related to possible TRALI per pulmonolgy and was on Solumedrol. sob somewhat improving but still gets sob with minimum excersion i/o( 6.5 liter negative ), daily weights ,echo speech and swallow-diet upgraded . off high flow now on xoygen5 liter nc +,steriods +antibiotics+gentle diuresis with lasix,moniter off AC. pulm following. Leukocytosis--likely reactive and has been stable trending down blood cultures neg urine culture -<10k cfu/ml no fevers on steriods high dose. DM2: fs 160-200 range ss, ada diet HTN--restart Losartan, Norvasc, HypOthyroidism--Levohyroxine mild elevated tsh ,free t4 normal DVT prophylaxis: compression device given gi bleeding, will try subcut Heparin (06/06/23) inpatient need :Acute hypoxic respiratory failure--He has underlying lungs issues( ?pneumonia ,pulm edema )-need iv antibiotics , steriods ,diuresis , pulm followup.Pt eval once repiratory status allows. Discussed with patient and his healthcare proxy miss Mann-at bedside in detail they understand and in agreement with above plan. Time Spent With Patient Time: Total time managing care of this patient today ____ minutes. Quality Stroke Does the patient have a stroke diagnosis?: No VTE Prior VTE?: Yes VTE Risk Level:: Medical - moderate - high VTE Device Contraindication: Procedure Contraindicated VTE Drug Contraindication: Treatment Not Tolerated
[2023-06-10 15:06] VITALS: BP 105/67; PULSE 104; RESP 17; TEMP 35.9; O2SAT 96
[2023-06-10 15:14] LABS: Glucose, Whole Blood 157 mg/dL (60-115)
[2023-06-10 19:10] VITALS: BP 121/74; PULSE 84; RESP 17; TEMP 35.6; O2SAT 98
[2023-06-10 20:09] LABS: Glucose, Whole Blood 181 mg/dL (60-115)
[2023-06-10] MEDS: Mirtazapine 7.5 MG TABLET PO (22:35)
[2023-06-10 23:13] VITALS: BP 138/84; PULSE 104; RESP 12; TEMP 36.2; O2SAT 96
[2023-06-11] VITALS (8 sets, daily range): BP systolic 107–156; BP diastolic 50–84; PULSE 92–116; RESP 16–20; TEMP 35.9–37.2; O2SAT 94–98; BMI 23.5
[2023-06-11] MEDS: Piperacillin Sodium/Tazobactam 3.375 GM in 0.9 % Sodium Chloride 50 ML IV ×4 (03:43→20:49)
[2023-06-11] MEDS: Levothyroxine Sodium 100 MCG TABLET PO (05:19)
[2023-06-11 07:20] LABS: Glucose, Whole Blood 115 mg/dL (60-115)
[2023-06-11] MEDS: polyethylene glycoL 3350 17 GM POWD.PACK PO (08:06)
[2023-06-11] MEDS: SITagliptin Phosphate 50 MG TABLET PO ×2 (08:07→20:51)
[2023-06-11] MEDS: predniSONE 20 MG TABLET 40 MG PO (08:07)
[2023-06-11] MEDS: Omeprazole 40 MG CAPSULE.DR PO ×2 (08:07→20:51)
[2023-06-11] MEDS: metFORMIN HCl 1,000 MG TABLET 1000 MG PO ×2 (08:07→20:51)
[2023-06-11] MEDS: Empagliflozin 10 MG TABLET PO (08:07)
[2023-06-11] MEDS: Spironolactone 25 MG TABLET PO (08:07)
[2023-06-11] MEDS: Furosemide 20 MG TABLET PO (08:08)
[2023-06-11] MEDS: guaiFENesin 100 MG/5 ML LIQUID 10 ML PO ×2 (10:53→20:52)
[2023-06-11] MEDS: Heparin Sodium,Porcine 5,000 UNIT/ML VIAL 5000 UNIT SUBCUT ×2 (10:53→23:22)
[2023-06-11 11:05] LABS: Glucose, Whole Blood 180 mg/dL (60-115)
[2023-06-11] MEDS: Insulin Lispro 100 UNIT/ML 3 ML VIAL SUBCUT ×3 (11:09→20:50)
[2023-06-11] MEDS: Albuterol/Iprat 2.5/0.5MG 3 ML AMPUL.NEB INHALE ×2 (11:33→15:38)
--- NOTE | 2023-06-11 12:33 | P.PNIM_ITS ---
Subjective Subjective Date of Service: 06/11/23 Interval History: f/u on anemia, acute blood loss anemia and acute hypoxic respiratory failure Review of Systems sob and oxygen demand seems improving has cough Denies any chest pain or fever or chills. Physical Exam Vital Signs: Vital Signs: Last Vital Signs Temp 98.0 F 06/11/23 11:15 Pulse 110 H 06/11/23 11:36 Resp 16 06/11/23 11:36 BP 132/78 06/11/23 11:15 Pulse Ox 94 06/11/23 11:15 O2 Del Method Nasal Cannula 06/11/23 11:15 O2 Flow Rate 4 06/11/23 11:15 FiO2 30 06/08/23 20:00 Oxygen Flow Rate 3 06/01/23 17:01 BMI result Body Mass Index 23.5 General: AO X 3, no acute distress Resp:?air entry slightly improving, rhonchi, few scattered rales at bases. CVS: S1,S2,RRR GI: +BS, NT, no distention Skin: No rash Neuro:? motor grossly intact Psych: appropriate affect Objective Data Active Medications Acetaminophen (Acetaminophen 325 Mg Tablet) 650 mg PO Q6H PRN PRN Reason: Pain, Moderate(Pain Scale 4-6) Albuterol/Ipratropium (Albuterol/Iprat 2.5/0.5mg 3 Ml Ampul.Neb) 3 ml INHALE RQ4H WHILE AWAKE [facility] Last Admin: 06/11/23 11:33 Dose: 3 ml Documented By: DARWIN Dextrose (Dextrose 50 % 25 Gm/50 Ml Syringe) 25 gm IVPUSH Q15M PRN; Protocol PRN Reason: per Hypoglycemia Standing Ord. Last Admin: 06/02/23 00:22 Dose: 25 gm Documented By: MARTIN Comments: per LAITH Reyes- give now for POC of 77 Empagliflozin (Empagliflozin 10 Mg Tablet) 10 mg PO DAILY [facility] Last Admin: 06/11/23 08:07 Dose: 10 mg Documented By: CHRISTOPHER Furosemide (Furosemide 20 Mg Tablet) 20 mg PO DAILY [facility]; Protocol Last Admin: 06/11/23 08:08 Dose: 20 mg Documented By: CHRISTOPHER Glucose (Glucose Gel 15 Gm Gel..Gram.) 15 gm PO Q15M PRN; Protocol PRN Reason: per Hypoglycemia Standing Ord. Guaifenesin (Guaifenesin 100 Mg/5 Ml Liquid) 10 ml PO Q6H [facility] Last Admin: 06/11/23 10:53 Dose: 10 ml Documented By: CHRISTOPHER Heparin Sodium (Porcine) (Heparin Sodium,Porcine 5,000 Unit/Ml Vial) 5,000 unit SUBCUT Q12H [facility] Last Admin: 06/11/23 10:53 Dose: 5,000 unit Documented By: CHRISTOPHER Piperacillin Sod/Tazobactam (Sod 3.375 gm/ Sodium Chloride) 50 mls @ 100 mls/hr IV Q6H [facility] Last Infusion: 06/11/23 11:57 Dose: 0 mls/hr Documented By: CHRISTOPHER Insulin Human Lispro (Insulin Lispro 100 Unit/Ml 3 Ml Vial) 0 unit SUBCUT QIDACHS [facility]; Protocol Last Admin: 06/11/23 11:09 Dose: 2 unit Documented By: CHRISTOPHER Levothyroxine Sodium (Levothyroxine Sodium 100 Mcg Tablet) 100 mcg PO DAILY@0600 [facility] Last Admin: 06/11/23 05:19 Dose: 100 mcg Documented By: BRANDI Losartan Potassium (Losartan Potassium 25 Mg Tablet) 25 mg PO DAILY [facility]; Protocol Last Admin: 06/08/23 08:02 Dose: 25 mg Documented By: GARRISON Metformin HCl (Metformin Hcl 1,000 Mg Tablet) 1,000 mg PO BID [facility] Last Admin: 06/11/23 08:07 Dose: 1,000 mg Documented By: CHRISTOPHER Mirtazapine (Mirtazapine 7.5 Mg Tablet) 7.5 mg PO BEDTIME [facility] Last Admin: 06/10/23 22:35 Dose: 7.5 mg Documented By: BRANDI Omeprazole (Omeprazole 40 Mg Capsule.Dr) 40 mg PO BID [facility] Last Admin: 06/11/23 08:07 Dose: 40 mg Documented By: CHRISTOPHER Polyethylene Glycol (Polyethylene Glycol 3350 17 Gm Powd.Pack) 17 gm PO DAILY [facility] Last Admin: 06/11/23 08:06 Dose: 17 gm Documented By: CHRISTOPHER Prednisone (Prednisone 20 Mg Tablet) 40 mg PO DAILY [facility] Last Admin: 06/11/23 08:07 Dose: 40 mg Documented By: CHRISTOPHER Sitagliptin Phosphate (Sitagliptin Phosphate 50 Mg Tablet) 50 mg PO BID [facility] Last Admin: 06/11/23 08:07 Dose: 50 mg Documented By: CHRISTOPHER Spironolactone (Spironolactone 25 Mg Tablet) 25 mg PO DAILY [facility]; Protocol Last Admin: 06/11/23 08:07 Dose: 25 mg Documented By: CHRISTOPHER Tamsulosin HCl (Tamsulosin Hcl 0.4 Mg Capsule) 0.4 mg PO DAILY [facility] Last Admin: 06/08/23 08:02 Dose: 0.4 mg Documented By: RUANES Labs 06/10/23 08:12 06/10/23 05:59 Labs: Laboratory Results - last 24 hr 06/10/23 06/10/23 06/11/23 15:10 19:13 07:04 POC Glucose 157 H 181 H 115 06/11/23 11:00 POC Glucose 180 H Assessment and Plan (1) Acute blood loss anemia: Status: Acute (2) Hypoxia: Status: Acute Plan 72-year-old gentleman with underlying of diabetes mellitus, BPH,, hypothyroidism, likely metastatic lung cancer with cytology results still pending, recent admission to [facility] for postobstructive pneumonia and pulmonary emboli, started on anticoagulation, admitted on 06/01/2023 with GI bleed and acute blood loss anemia to the intensive care unit.? Patient has received IV fluid resuscitation and 1 unit packed red blood cells with normalization of blood pressure, but development of pulmonary edema that improved with diuresis.? Patient was planned for endoscopy on 06/03/2023 but was cancelled due to tenous respiratory status.? He remains stable and H/H is stable.? Acute blood loss anemia that was associated with Hypotension and was admitted to the ICU, but was only transfused 1 units of RBC with good effect, was seen by GI (Dr. Teran ) who was going to do? EGD but patient's respiratory failure and so was cancelled(as per chart review) continue on PPI. H/H remains stable without any sings of bleeding,titrate pox to keep pox>88%. recent history of PE--anticoagulation hold given signficant GIb and anemia and unknown source of gi bleeding. Repeat CTA on 06/05 showed no PE and last PE were just subsegmental.? s/p? US of legs-Extensive bilateral acute DVT, Vascular surgery -s/p IVC filter. ?DVT prophylaxis dose of heparin? 5k bid and H/H stable around 10. Acute hypoxic respiratory failure--multifactorial-He has underlying lungs issues( ?pneumonia ,pulm edema ) Acute respiratory failure now thought to be related to possible TRALI per pulmonolgy and was on Solumedrol. sob somewhat improving but still gets sob with minimum excersion i/o( 6.5 liter negative ), daily weights ,echo ?speech and swallow-diet upgraded . off high flow now on xoygen5 liter nc +,steriods +antibiotics+gentle diuresis with lasix,moniter off AC. pulm following. Leukocytosis--likely reactive and has been stable trending down blood cultures neg urine culture -<10k cfu/ml no fevers on steriods high dose. DM2: fs aceptable ss, ada diet HTN--restart Losartan, Norvasc, HypOthyroidism--Levohyroxine mild elevated tsh ,free t4 normal DVT prophylaxis: compression device given gi bleeding, will try subcut Heparin (06/06/23) inpatient need :Acute hypoxic respiratory failure--He has underlying lungs issues( ?pneumonia ,pulm edema )-need iv antibiotics , steriods ,diuresis , pulm followup.Pt eval once repiratory status allows. Discussed with patient and his healthcare proxy miss Mann-at bedside in detail they understand and in agreement with above plan. Time Spent With Patient Time: Total time managing care of this patient today ____ minutes. Quality Stroke Does the patient have a stroke diagnosis?: No VTE Prior VTE?: Yes VTE Risk Level:: Medical - moderate - high VTE Device Contraindication: Procedure Contraindicated VTE Drug Contraindication: Treatment Not Tolerated
[2023-06-11 13:14] LABS: Anion Gap 15 (12-20); Blood Urea Nitrogen 24 mg/dL (9-16); Calcium 9.7 mg/dL (8.4-10.2); Carbon Dioxide 30 mmol/L (22-29); Chloride 103 mmol/L (96-108); Creatinine Clr Calc Pharmacy 118.7; Estimated Glomerular Filt Rate > 60; Glucose Random 129 mg/dL (60-115); Potassium 4.3 mmol/L (3.3-5.1); Sodium 144 mmol/L (135-145)
[2023-06-11 16:37] LABS: Glucose, Whole Blood 159 mg/dL (60-115)
[2023-06-11 20:14] LABS: Glucose, Whole Blood 174 mg/dL (60-115)
[2023-06-11] MEDS: Mirtazapine 7.5 MG TABLET PO (20:51)
[2023-06-12] VITALS (8 sets, daily range): BP systolic 106–141; BP diastolic 67–87; PULSE 97–115; RESP 16–20; TEMP 36–37.2; O2SAT 92–98; BMI 22.9
[2023-06-12] MEDS: guaiFENesin 100 MG/5 ML LIQUID 10 ML PO ×2 (03:28→20:05)
[2023-06-12] MEDS: Levothyroxine Sodium 100 MCG TABLET PO (05:16)
[2023-06-12] MEDS: Piperacillin Sodium/Tazobactam 3.375 GM in 0.9 % Sodium Chloride 50 ML IV ×4 (05:16→22:15)
[2023-06-12 07:11] LABS: Glucose, Whole Blood 108 mg/dL (60-115)
[2023-06-12 07:38] LABS: Glucose, Whole Blood 99 mg/dL (60-115)
[2023-06-12] MEDS: Albuterol/Iprat 2.5/0.5MG 3 ML AMPUL.NEB INHALE ×4 (07:56→20:47)
[2023-06-12] MEDS: metFORMIN HCl 1,000 MG TABLET 1000 MG PO ×2 (09:07→20:05)
[2023-06-12] MEDS: Empagliflozin 10 MG TABLET PO (09:07)
[2023-06-12] MEDS: predniSONE 20 MG TABLET 40 MG PO (09:07)
[2023-06-12] MEDS: Omeprazole 40 MG CAPSULE.DR PO ×2 (09:07→20:05)
[2023-06-12] MEDS: polyethylene glycoL 3350 17 GM POWD.PACK PO (09:07)
[2023-06-12] MEDS: SITagliptin Phosphate 50 MG TABLET PO ×2 (09:07→20:05)
--- NOTE | 2023-06-12 09:38 | P.PNIM_ITS ---
Subjective Subjective Date of Service: 06/12/23 Interval History: f/u on anemia, acute blood loss anemia and acute hypoxic respiratory failure Review of Systems sob and oxygen demand seems improving ? 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 has cough Denies any chest pain or fever or chills. Physical Exam Vital Signs: Vital Signs: Last Vital Signs Temp 97.8 F 06/12/23 07:47 Pulse 97 06/12/23 07:58 Resp 18 06/12/23 07:58 BP 106/67 06/12/23 07:47 Pulse Ox 92 06/12/23 07:47 O2 Del Method Nasal Cannula 06/12/23 07:47 O2 Flow Rate 5 06/12/23 07:47 FiO2 30 06/08/23 20:00 Oxygen Flow Rate 3 06/01/23 17:01 BMI result Body Mass Index 22.9 General: AO X 3, no acute distress Resp:?air entry slightly improving, rhonchi, few scattered rales at bases. CVS: S1,S2,RRR GI: +BS, NT, no distention Skin: No rash Neuro:? motor grossly intact Psych: appropriate affect Objective Data Active Medications Acetaminophen (Acetaminophen 325 Mg Tablet) 650 mg PO Q6H PRN PRN Reason: Pain, Moderate(Pain Scale 4-6) Albuterol/Ipratropium (Albuterol/Iprat 2.5/0.5mg 3 Ml Ampul.Neb) 3 ml INHALE RQ4H WHILE AWAKE [facility] Last Admin: 06/12/23 07:56 Dose: 3 ml Documented By: DARWIN Dextrose (Dextrose 50 % 25 Gm/50 Ml Syringe) 25 gm IVPUSH Q15M PRN; Protocol PRN Reason: per Hypoglycemia Standing Ord. Last Admin: 06/02/23 00:22 Dose: 25 gm Documented By: MARTIN Comments: per LAITH Eric- give now for POC of 77 Empagliflozin (Empagliflozin 10 Mg Tablet) 10 mg PO DAILY [facility] Last Admin: 06/12/23 09:07 Dose: 10 mg Documented By: CHRISTOPHER Furosemide (Furosemide 20 Mg Tablet) 20 mg PO DAILY [facility]; Protocol Last Admin: 06/11/23 08:08 Dose: 20 mg Documented By: CHRISTOPHER Glucose (Glucose Gel 15 Gm Gel..Gram.) 15 gm PO Q15M PRN; Protocol PRN Reason: per Hypoglycemia Standing Ord. Guaifenesin (Guaifenesin 100 Mg/5 Ml Liquid) 10 ml PO Q6H [facility] Last Admin: 06/12/23 09:11 Dose: Not Given Documented By: CHRISTOPHER Non-Admin Reason: Patient Refused Heparin Sodium (Porcine) (Heparin Sodium,Porcine 5,000 Unit/Ml Vial) 5,000 unit SUBCUT Q12H [facility] Last Admin: 06/11/23 23:22 Dose: 5,000 unit Documented By: DAREK Piperacillin Sod/Tazobactam (Sod 3.375 gm/ Sodium Chloride) 50 mls @ 100 mls/hr IV Q6H [facility] Last Admin: 06/12/23 09:06 Dose: 100 mls/hr Documented By: CHRISTOPHER Insulin Human Lispro (Insulin Lispro 100 Unit/Ml 3 Ml Vial) 0 unit SUBCUT QIDACHS [facility]; Protocol Last Admin: 06/12/23 07:23 Dose: Not Given Documented By: CHRISTOPHER Non-Admin Reason: No Insulin Coverage Levothyroxine Sodium (Levothyroxine Sodium 100 Mcg Tablet) 100 mcg PO DAILY@0600 [facility] Last Admin: 06/12/23 05:16 Dose: 100 mcg Documented By: DAREK Losartan Potassium (Losartan Potassium 25 Mg Tablet) 25 mg PO DAILY [facility]; Protocol Last Admin: 06/08/23 08:02 Dose: 25 mg Documented By: GARRISON Metformin HCl (Metformin Hcl 1,000 Mg Tablet) 1,000 mg PO BID [facility] Last Admin: 06/12/23 09:07 Dose: 1,000 mg Documented By: CHRISTOPHER Mirtazapine (Mirtazapine 7.5 Mg Tablet) 7.5 mg PO BEDTIME [facility] Last Admin: 06/11/23 20:51 Dose: 7.5 mg Documented By: DAREK Omeprazole (Omeprazole 40 Mg Capsule.) 40 mg PO BID [facility] Last Admin: 06/12/23 09:07 Dose: 40 mg Documented By: CHRISTOPHER Polyethylene Glycol (Polyethylene Glycol 3350 17 Gm Powd.Pack) 17 gm PO DAILY [facility] Last Admin: 06/12/23 09:07 Dose: 17 gm Documented By: CHRISTOPHER Prednisone (Prednisone 20 Mg Tablet) 40 mg PO DAILY [facility] Last Admin: 06/12/23 09:07 Dose: 40 mg Documented By: CHRISTOPHER Sitagliptin Phosphate (Sitagliptin Phosphate 50 Mg Tablet) 50 mg PO BID [facility] Last Admin: 06/12/23 09:07 Dose: 50 mg Documented By: CHRISTOPHER Spironolactone (Spironolactone 25 Mg Tablet) 25 mg PO DAILY [facility]; Protocol Last Admin: 06/11/23 08:07 Dose: 25 mg Documented By: CHRISTOPHER Tamsulosin HCl (Tamsulosin Hcl 0.4 Mg Capsule) 0.4 mg PO DAILY [facility] Last Admin: 06/08/23 08:02 Dose: 0.4 mg Documented By: RUANES Labs 06/10/23 08:12 06/11/23 12:43 Labs: Laboratory Results - last 24 hr 06/11/23 06/11/23 06/11/23 11:00 12:43 16:31 Anion Gap 15 Estim Creat Clear Calc 118.7 Estimated GFR > 60 POC Glucose 180 H 159 H Random Glucose 129 H Calcium 9.7 06/11/23 06/12/23 06/12/23 20:09 07:07 07:31 Anion Gap Estim Creat Clear Calc Estimated GFR POC Glucose 174 H 108 99 Random Glucose Calcium Assessment and Plan (1) Acute blood loss anemia: Status: Acute (2) Hypoxia: Status: Acute Plan 72-year-old gentleman with underlying of diabetes mellitus, BPH,, hypothyroidism, likely metastatic lung cancer with cytology results still pending, recent admission to [facility] for postobstructive pneumonia and pulmonary emboli, started on anticoagulation, admitted on 06/01/2023 with GI bleed and acute blood loss anemia to the intensive care unit.? Patient has received IV fluid resuscitation and 1 unit packed red blood cells with normalization of blood pressure, but development of pulmonary edema that improved with diuresis.? Patient was planned for endoscopy on 06/03/2023 but was cancelled due to tenous respiratory status.? He remains stable and H/H is stable.? Acute blood loss anemia that was associated with Hypotension and was admitted to the ICU, but was only transfused 1 units of RBC with good effect, was seen by GI (Dr. Teran ) who was going to do? EGD but patient's respiratory failure and so was cancelled(as per chart review) continue on PPI. H/H remains stable without any sings of bleeding,titrate pox to keep pox>88%. recent history of PE--anticoagulation hold given signficant GIb and anemia and unknown source of gi bleeding. Repeat CTA on 06/05 showed no PE and last PE were just subsegmental.? s/p? US of legs-Extensive bilateral acute DVT, Vascular surgery -s/p IVC filter. ?DVT prophylaxis dose of heparin? 5k bid and H/H stable around 10. Acute hypoxic respiratory failure--multifactorial-He has underlying lungs issues( ?pneumonia ,pulm edema ) Acute respiratory failure now thought to be related to possible TRALI per pulmonolgy and was on Solumedrol. sob somewhat improving but still gets sob with minimum excersion i/o( 6.5 liter negative ), daily weights ,echo ?speech and swallow-diet upgraded . off high flow now on xoygen5 liter nc +,steriods +antibiotics+gentle diuresis with lasix,moniter off AC. pulm following. Leukocytosis--likely reactive and has been stable trending down blood cultures neg urine culture -<10k cfu/ml no fevers on steriods high dose. DM2: fs aceptable ss, ada diet HTN--restart Losartan, Norvasc, HypOthyroidism--Levohyroxine mild elevated tsh ,free t4 normal DVT prophylaxis: compression device given gi bleeding, will try subcut Heparin (06/06/23) inpatient need :Acute hypoxic respiratory failure--He has underlying lungs issues( ?pneumonia ,pulm edema )-need iv antibiotics , steriods ,diuresis , pulm followup.Pt eval once repiratory status allows. Discussed with patient and his healthcare proxy miss Mann-at bedside in detail they understand and in agreement with above plan. Time Spent With Patient Time: Total time managing care of this patient today ____ minutes. Quality Stroke Does the patient have a stroke diagnosis?: No VTE Prior VTE?: Yes VTE Risk Level:: Medical - moderate - high VTE Device Contraindication: Procedure Contraindicated VTE Drug Contraindication: Treatment Not Tolerated
[2023-06-12 12:03] LABS: Glucose, Whole Blood 155 mg/dL (60-115)
[2023-06-12] MEDS: Heparin Sodium,Porcine 5,000 UNIT/ML VIAL 5000 UNIT SUBCUT ×2 (12:26→23:06)
[2023-06-12] MEDS: Insulin Lispro 100 UNIT/ML 3 ML VIAL SUBCUT (12:26)
--- NOTE | 2023-06-12 12:33 | PC.NURSE ---
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 Pt reports feeling a little better today and asked to get out of bed into chair. Pt sat at the edge of the bed and reported feeling very dizzy. Dizziness did not subside so patient laid back down. No current compliants of dizziness or pain. Weaning o2 as tolerated to maintain sats 88-92%. Safety precautions remain in place, call garcia within reach, bed alarm on. Family at bedside
[2023-06-12 14:32] LABS: Anti Nuclear Antibody Screen NEGATIVE (NEGATIVE)
[2023-06-12 16:31] LABS: Glucose, Whole Blood 115 mg/dL (60-115)
[2023-06-12] MEDS: Mirtazapine 7.5 MG TABLET PO (20:05)
[2023-06-12 20:16] LABS: Glucose, Whole Blood 164 mg/dL (60-115)
[2023-06-13] VITALS (7 sets, daily range): BP systolic 104–124; BP diastolic 65–75; PULSE 107–118; RESP 13–20; TEMP 36.2–36.9; O2SAT 94–97; BMI 22.9
[2023-06-13] MEDS: Piperacillin Sodium/Tazobactam 3.375 GM in 0.9 % Sodium Chloride 50 ML IV ×4 (04:58→21:20)
[2023-06-13] MEDS: guaiFENesin 100 MG/5 ML LIQUID 10 ML PO ×4 (05:02→21:26)
[2023-06-13] MEDS: Levothyroxine Sodium 100 MCG TABLET PO (05:03)
[2023-06-13 07:05] LABS: Glucose, Whole Blood 122 mg/dL (60-115)
[2023-06-13] MEDS: Albuterol/Iprat 2.5/0.5MG 3 ML AMPUL.NEB INHALE ×2 (08:57→15:28)
[2023-06-13] MEDS: metFORMIN HCl 1,000 MG TABLET 1000 MG PO ×2 (09:16→21:26)
[2023-06-13] MEDS: predniSONE 20 MG TABLET 40 MG PO (09:16)
[2023-06-13] MEDS: Empagliflozin 10 MG TABLET PO (09:16)
[2023-06-13] MEDS: Omeprazole 40 MG CAPSULE.DR PO ×2 (09:16→21:27)
[2023-06-13] MEDS: SITagliptin Phosphate 50 MG TABLET PO ×2 (09:16→21:27)
[2023-06-13] MEDS: polyethylene glycoL 3350 17 GM POWD.PACK PO (09:17)
[2023-06-13 10:15] LABS: ANA Pattern 3 TPN
[2023-06-13 11:03] LABS: Glucose, Whole Blood 187 mg/dL (60-115)
[2023-06-13] MEDS: Insulin Lispro 100 UNIT/ML 3 ML VIAL SUBCUT ×2 (11:18→16:33)
[2023-06-13] MEDS: Heparin Sodium,Porcine 5,000 UNIT/ML VIAL 5000 UNIT SUBCUT (11:18)
--- NOTE | 2023-06-13 14:41 | HO.PM.IMPN ---
Subjective Subjective Date of Service: 06/13/23 Interval History: f/u on anemia, acute blood loss anemia and acute hypoxic respiratory failure Review of Systems sob some improving,has cough denies any fever or chills Physical Exam Vital Signs: Vital Signs: Last Vital Signs Temp 97.2 F 06/13/23 11:00 Pulse 108 H 06/13/23 11:00 Resp 20 06/13/23 11:00 BP 112/75 06/13/23 11:00 Pulse Ox 95 06/13/23 11:00 O2 Del Method Nasal Cannula 06/13/23 11:00 O2 Flow Rate 5 06/13/23 11:00 FiO2 30 06/08/23 20:00 Oxygen Flow Rate 3 06/01/23 17:01 BMI result Body Mass Index 22.9 General: AO X 3, no acute distress Resp:?air entry slightly improving, rhonchi, few scattered rales at bases. CVS: S1,S2,RRR GI: +BS, NT, no distention Skin: No rash Neuro:? motor grossly intact Psych: appropriate affect Objective Data Active Medications Acetaminophen (Acetaminophen 325 Mg Tablet) 650 mg PO Q6H PRN PRN Reason: Pain, Moderate(Pain Scale 4-6) Albuterol/Ipratropium (Albuterol/Iprat 2.5/0.5mg 3 Ml Ampul.Neb) 3 ml INHALE RQ4H WHILE AWAKE [facility] Last Admin: 06/13/23 11:40 Dose: Not Given Documented By: CAM Non-Admin Reason: Patient Asleep Dextrose (Dextrose 50 % 25 Gm/50 Ml Syringe) 25 gm IVPUSH Q15M PRN; Protocol PRN Reason: per Hypoglycemia Standing Ord. Last Admin: 06/02/23 00:22 Dose: 25 gm Documented By: MARTIN Comments: per LAITH Reyes- give now for POC of 77 Empagliflozin (Empagliflozin 10 Mg Tablet) 10 mg PO DAILY [facility] Last Admin: 06/13/23 09:16 Dose: 10 mg Documented By: KING Furosemide (Furosemide 20 Mg Tablet) 20 mg PO DAILY [facility]; Protocol Last Admin: 06/11/23 08:08 Dose: 20 mg Documented By: CHRISTOPHER Glucose (Glucose Gel 15 Gm Gel..Gram.) 15 gm PO Q15M PRN; Protocol PRN Reason: per Hypoglycemia Standing Ord. Guaifenesin (Guaifenesin 100 Mg/5 Ml Liquid) 10 ml PO Q6H [facility] Last Admin: 06/13/23 09:16 Dose: 10 ml Documented By: KING Heparin Sodium (Porcine) (Heparin Sodium,Porcine 5,000 Unit/Ml Vial) 5,000 unit SUBCUT Q12H [facility] Last Admin: 06/13/23 11:18 Dose: 5,000 unit Documented By: KING Piperacillin Sod/Tazobactam (Sod 3.375 gm/ Sodium Chloride) 50 mls @ 100 mls/hr IV Q6H [facility] Last Infusion: 06/13/23 10:01 Dose: 0 mls/hr Documented By: KING Insulin Human Lispro (Insulin Lispro 100 Unit/Ml 3 Ml Vial) 0 unit SUBCUT QIDACHS [facility]; Protocol Last Admin: 06/13/23 11:18 Dose: 2 unit Documented By: KING Levothyroxine Sodium (Levothyroxine Sodium 100 Mcg Tablet) 100 mcg PO DAILY@0600 [facility] Last Admin: 06/13/23 05:03 Dose: 100 mcg Documented By: ASAF Losartan Potassium (Losartan Potassium 25 Mg Tablet) 25 mg PO DAILY [facility]; Protocol Last Admin: 06/08/23 08:02 Dose: 25 mg Documented By: GARRISON Metformin HCl (Metformin Hcl 1,000 Mg Tablet) 1,000 mg PO BID [facility] Last Admin: 06/13/23 09:16 Dose: 1,000 mg Documented By: KING Mirtazapine (Mirtazapine 7.5 Mg Tablet) 7.5 mg PO BEDTIME [facility] Last Admin: 06/12/23 20:05 Dose: 7.5 mg Documented By: ARSEN Omeprazole (Omeprazole 40 Mg Capsule.Dr) 40 mg PO BID [facility] Last Admin: 06/13/23 09:16 Dose: 40 mg Documented By: KING Polyethylene Glycol (Polyethylene Glycol 3350 17 Gm Powd.Pack) 17 gm PO DAILY [facility] Last Admin: 06/13/23 09:17 Dose: 17 gm Documented By: KING Prednisone (Prednisone 20 Mg Tablet) 40 mg PO DAILY [facility] Last Admin: 06/13/23 09:16 Dose: 40 mg Documented By: KING Sitagliptin Phosphate (Sitagliptin Phosphate 50 Mg Tablet) 50 mg PO BID [facility] Last Admin: 06/13/23 09:16 Dose: 50 mg Documented By: KING Spironolactone (Spironolactone 25 Mg Tablet) 25 mg PO DAILY [facility]; Protocol Last Admin: 06/11/23 08:07 Dose: 25 mg Documented By: CHRISTOPHER Tamsulosin HCl (Tamsulosin Hcl 0.4 Mg Capsule) 0.4 mg PO DAILY [facility] Last Admin: 06/08/23 08:02 Dose: 0.4 mg Documented By: RUANES Labs 06/10/23 08:12 06/11/23 12:43 Labs: Laboratory Results - last 24 hr 06/06/23 06/12/23 06/12/23 12:51 16:27 20:13 POC Glucose 115 164 H SEBASTIAN Titer TNP SEBASTIAN Titer 2 TNP SEBASTIAN Titer 3 TNP SEBASTIAN Pattern TNP SEBASTIAN Pattern 2 TNP SEBASTIAN Pattern 3 TPN 06/13/23 06/13/23 06:55 10:50 POC Glucose 122 H 187 H SEBASTIAN Titer SEBASTIAN Titer 2 SEBASTIAN Titer 3 SEBASTIAN Pattern SEBASTIAN Pattern 2 SEBASTIAN Pattern 3 Assessment and Plan (1) Acute blood loss anemia: Status: Acute (2) Hypoxia: Status: Acute Plan 72-year-old gentleman with underlying of diabetes mellitus, BPH,, hypothyroidism, likely metastatic lung cancer with cytology results still pending, recent admission to [facility] for postobstructive pneumonia and pulmonary emboli, started on anticoagulation, admitted on 06/01/2023 with GI bleed and acute blood loss anemia to the intensive care unit.? Patient has received IV fluid resuscitation and 1 unit packed red blood cells with normalization of blood pressure, but development of pulmonary edema that improved with diuresis.? Patient was planned for endoscopy on 06/03/2023 but was cancelled due to tenous respiratory status.? He remains stable and H/H is stable.? Acute blood loss anemia that was associated with Hypotension and was admitted to the ICU, but was only transfused 1 units of RBC with good effect, was seen by GI (Dr. Teran ) who was going to do? EGD but patient's respiratory failure and so was cancelled(as per chart review) continue on PPI. H/H remains stable without any sings of bleeding,titrate pox to keep pox>88%. recent history of PE--anticoagulation hold given signficant GIb and anemia and unknown source of gi bleeding. Repeat CTA on 06/05 showed no PE and last PE were just subsegmental.? s/p? US of legs-Extensive bilateral acute DVT, Vascular surgery -s/p IVC filter. ?DVT prophylaxis dose of heparin? 5k bid and H/H stable around 10-11. Acute hypoxic respiratory failure--multifactorial-He has underlying lungs issues( ?pneumonia ,pulm edema ) Acute respiratory failure now thought to be related to possible TRALI per pulmonolgy and was on Solumedrol. sob somewhat improving but still gets sob with minimum excersion. leucocytosis tren ding down , no fevers echo:1. Technically limited study due to off axis views ? 2. Normal LV systolic function with impaired relaxation filling? pattern? 3. Normal cardiac valvular Doppler ? 4. Normal measured RV systolic pressure? 5. No gross pericardial effusion ? ? i/o( 9liter negative ), daily weights ?speech and swallow-diet upgraded . off high flow now on oxygen 5 liter nc +,steriods +antibiotics zosyn (06/07/23)+gentle diuresis with lasix( placed on hold for now patient since patient diuresed well and still producing good amount of urine), moniter off AC -recheck with Gi pulm upon discharge if possible to start . pulm following-in addition to above PET scan was abnormal 05/10-? lung malignancy , lymphadenopathy, in addition FDG uptake in liver and liver area also patient lung cytology pending patient will benefit Pulm follow up before discharge. DM2: fs aceptable ss, ada diet HTN--restart Losartan, Norvasc, HypOthyroidism--Levohyroxine mild elevated tsh ,free t4 normal DVT prophylaxis: compression device given gi bleeding, will try subcut Heparin (06/06/23) inpatient need :Acute hypoxic respiratory failure--He has underlying lungs issues( ?pneumonia ,pulm edema )-need iv antibiotics , steriods ,diuresis , pulm followup.Pt eval once repiratory status allows. in addition patient will benefit from pulmonary and Gi follow for -plan of anticoagulation as well as abnormal PET scan. Time Spent With Patient Time: Total time managing care of this patient today ____ minutes. Quality Stroke Does the patient have a stroke diagnosis?: No VTE Prior VTE?: Yes VTE Risk Level:: Medical - moderate - high VTE Device Contraindication: Procedure Contraindicated VTE Drug Contraindication: Treatment Not Tolerated
[2023-06-13 15:38] LABS: Hematocrit 38.9 % (42.0-52.0); Hemoglobin 11.9 g/dl (14.0-18.0)
[2023-06-13 15:55] LABS: Anion Gap 18 (12-20); Blood Urea Nitrogen 23 mg/dL (9-16); Calcium 9.2 mg/dL (8.4-10.2); Carbon Dioxide 25 mmol/L (22-29); Chloride 103 mmol/L (96-108); Creatinine Clr Calc Pharmacy 105.1; Estimated Glomerular Filt Rate > 60; Glucose Random 165 mg/dL (60-115); Potassium 4.9 mmol/L (3.3-5.1); Sodium 141 mmol/L (135-145)
[2023-06-13 16:19] LABS: Glucose, Whole Blood 193 mg/dL (60-115)
--- NOTE | 2023-06-13 16:49 | MHC.CM.PN ---
emr reviewed, per hospitalist pt remains hypoxic, gleason for P.T. eval once pt mor medically stable, antic 1-2 more days, cm will cont to follow.
[2023-06-13 20:46] LABS: Glucose, Whole Blood 154 mg/dL (60-115)
[2023-06-13] MEDS: Morphine Sulfate 2 MG/ML CARTRIDGE IVPUSH (21:20)
[2023-06-13] MEDS: Mirtazapine 7.5 MG TABLET PO (21:27)
[2023-06-14] VITALS (12 sets, daily range): BP systolic 100–136; BP diastolic 55–84; PULSE 90–119; RESP 18–22; TEMP 35.8–36.8; O2SAT 90–99; BMI 22.8
[2023-06-14] MEDS: Heparin Sodium,Porcine 5,000 UNIT/ML VIAL 5000 UNIT SUBCUT ×3 (00:48→22:46)
[2023-06-14] MEDS: Piperacillin Sodium/Tazobactam 3.375 GM in 0.9 % Sodium Chloride 50 ML IV ×4 (03:33→22:42)
[2023-06-14] MEDS: guaiFENesin 100 MG/5 ML LIQUID 10 ML PO ×4 (03:34→21:59)
[2023-06-14] MEDS: Acetaminophen 325 MG TABLET 650 MG PO (03:37)
[2023-06-14] MEDS: Levothyroxine Sodium 100 MCG TABLET PO (05:50)
[2023-06-14 07:17] LABS: Glucose, Whole Blood 126 mg/dL (60-115)
[2023-06-14 07:26] LABS: Hematocrit 39.7 % (42.0-52.0); Hemoglobin 11.9 g/dl (14.0-18.0); Mean Corpuscular Hemoglobin 30.1 pg (27.0-33.0); Mean Corpuscular Volume 100.5 fL (80.0-98.0); Mean Platelet Volume 11.4 fL (9.4-12.4); NRBC Pct Auto 0.2 /100WBC (0.0-0.2); Platelet Count 225 X10*3/uL (160-400); Red Blood Count 3.95 X10*6/uL (4.60-5.80); Red Cell Distribution Width 15.9 % (11.0-16.0); White Blood Count 17.7 X10*3/uL (4.8-10.8)
[2023-06-14 07:33] LABS: Angiotensin Converting Enzyme 11 U/L (9-67)
[2023-06-14 07:41] LABS: Anion Gap 11 (12-20); Blood Urea Nitrogen 26 mg/dL (9-16); Calcium 9.5 mg/dL (8.4-10.2); Carbon Dioxide 34 mmol/L (22-29); Chloride 104 mmol/L (96-108); Creatinine Clr Calc Pharmacy 107.7; Estimated Glomerular Filt Rate > 60; Glucose Random 134 mg/dL (60-115); Potassium 4.3 mmol/L (3.3-5.1); Sodium 145 mmol/L (135-145)
[2023-06-14] MEDS: predniSONE 20 MG TABLET 40 MG PO (08:09)
[2023-06-14] MEDS: SITagliptin Phosphate 50 MG TABLET PO ×2 (08:10→22:04)
[2023-06-14] MEDS: Empagliflozin 10 MG TABLET PO (08:10)
[2023-06-14] MEDS: metFORMIN HCl 1,000 MG TABLET 1000 MG PO ×2 (08:10→22:04)
[2023-06-14] MEDS: Omeprazole 40 MG CAPSULE.DR PO ×2 (08:10→22:04)
[2023-06-14] MEDS: polyethylene glycoL 3350 17 GM POWD.PACK PO (08:10)
[2023-06-14] MEDS: Albuterol/Iprat 2.5/0.5MG 3 ML AMPUL.NEB INHALE ×4 (08:57→19:43)
--- NOTE | 2023-06-14 10:36 | HO.PM.IMPN ---
Subjective Subjective Date of Service: 06/15/23 Interval History: f/u on anemia, acute blood loss anemia and acute hypoxic respiratory failure Physical Exam Vital Signs: Vital Signs: Last Vital Signs Temp 97.1 F 06/14/23 07:04 Pulse 113 H 06/14/23 08:59 Resp 20 06/14/23 08:59 BP 136/84 06/14/23 07:04 Pulse Ox 96 06/14/23 07:04 O2 Del Method Nasal Cannula 06/14/23 07:04 O2 Flow Rate 4 06/14/23 07:04 FiO2 30 06/08/23 20:00 Oxygen Flow Rate 3 06/01/23 17:01 BMI result Body Mass Index 22.8 Const: Other: General: AO X 3, no acute distress Resp: rhonchi, rales at bases CVS: S1,S2,RRR GI: +BS, NT, no distention Skin: No rash Neuro: motor grossly intact Psych: appropriate affect Objective Data Active Medications Acetaminophen (Acetaminophen 325 Mg Tablet) 650 mg PO Q6H PRN PRN Reason: Pain, Moderate(Pain Scale 4-6) Last Admin: 06/14/23 03:37 Dose: 650 mg Documented By: MOLINA Albuterol/Ipratropium (Albuterol/Iprat 2.5/0.5mg 3 Ml Ampul.Neb) 3 ml INHALE RQ4H WHILE AWAKE [facility] Last Admin: 06/14/23 08:57 Dose: 3 ml Documented By: DIMITRI Dextrose (Dextrose 50 % 25 Gm/50 Ml Syringe) 25 gm IVPUSH Q15M PRN; Protocol PRN Reason: per Hypoglycemia Standing Ord. Last Admin: 06/02/23 00:22 Dose: 25 gm Documented By: MARTIN Comments: per LAITH Reyes- give now for POC of 77 Empagliflozin (Empagliflozin 10 Mg Tablet) 10 mg PO DAILY [facility] Last Admin: 06/14/23 08:10 Dose: 10 mg Documented By: GARRISON Furosemide (Furosemide 20 Mg Tablet) 20 mg PO DAILY [facility]; Protocol Last Admin: 06/11/23 08:08 Dose: 20 mg Documented By: RAINARTJj Glucose (Glucose Gel 15 Gm Gel..Gram.) 15 gm PO Q15M PRN; Protocol PRN Reason: per Hypoglycemia Standing Ord. Guaifenesin (Guaifenesin 100 Mg/5 Ml Liquid) 10 ml PO Q6H [facility] Last Admin: 06/14/23 08:09 Dose: 10 ml Documented By: GARRISON Heparin Sodium (Porcine) (Heparin Sodium,Porcine 5,000 Unit/Ml Vial) 5,000 unit SUBCUT Q12H [facility] Last Admin: 06/14/23 00:48 Dose: 5,000 unit Documented By: MOLINA Piperacillin Sod/Tazobactam (Sod 3.375 gm/ Sodium Chloride) 50 mls @ 100 mls/hr IV Q6H [facility] Last Admin: 06/14/23 10:22 Dose: 100 mls/hr Documented By: GARRISON Insulin Human Lispro (Insulin Lispro 100 Unit/Ml 3 Ml Vial) 0 unit SUBCUT QIDACHS [facility]; Protocol Last Admin: 06/14/23 07:19 Dose: Not Given Documented By: GARRISON Non-Admin Reason: No Insulin Coverage Levothyroxine Sodium (Levothyroxine Sodium 100 Mcg Tablet) 100 mcg PO DAILY@0600 [facility] Last Admin: 06/14/23 05:50 Dose: 100 mcg Documented By: MOLINA Losartan Potassium (Losartan Potassium 25 Mg Tablet) 25 mg PO DAILY [facility]; Protocol Last Admin: 06/08/23 08:02 Dose: 25 mg Documented By: GARRISON Metformin HCl (Metformin Hcl 1,000 Mg Tablet) 1,000 mg PO BID [facility] Last Admin: 06/14/23 08:10 Dose: 1,000 mg Documented By: GARRISON Mirtazapine (Mirtazapine 7.5 Mg Tablet) 7.5 mg PO BEDTIME [facility] Last Admin: 06/13/23 21:27 Dose: 7.5 mg Documented By: ANTONIA Omeprazole (Omeprazole 40 Mg Capsule.Dr) 40 mg PO BID [facility] Last Admin: 06/14/23 08:10 Dose: 40 mg Documented By: GARRISON Polyethylene Glycol (Polyethylene Glycol 3350 17 Gm Powd.Pack) 17 gm PO DAILY [facility] Last Admin: 06/14/23 08:10 Dose: 17 gm Documented By: GARRISON Prednisone (Prednisone 20 Mg Tablet) 40 mg PO DAILY [facility] Last Admin: 06/14/23 08:09 Dose: 40 mg Documented By: GARRISON Sitagliptin Phosphate (Sitagliptin Phosphate 50 Mg Tablet) 50 mg PO BID [facility] Last Admin: 06/14/23 08:10 Dose: 50 mg Documented By: GARRISON Spironolactone (Spironolactone 25 Mg Tablet) 25 mg PO DAILY [facility]; Protocol Last Admin: 06/11/23 08:07 Dose: 25 mg Documented By: CHRISTOPHER Tamsulosin HCl (Tamsulosin Hcl 0.4 Mg Capsule) 0.4 mg PO DAILY [facility] Last Admin: 06/08/23 08:02 Dose: 0.4 mg Documented By: GARRISON Labs 06/14/23 06:49 06/14/23 06:49 Labs: Laboratory Results - last 24 hr 06/06/23 06/13/23 06/13/23 12:51 10:50 15:11 MCV MCH MCHC RDW Plt Count MPV Absolute Nucleated RBC Nucleated RBC % (auto) Anion Gap 18 Estim Creat Clear Calc 105.1 Estimated GFR > 60 POC Glucose 187 H Random Glucose 165 H Calcium 9.2 Angiotensin Convert Enz 11 06/13/23 06/13/23 06/14/23 16:13 20:42 06:49 MCV 100.5 H MCH 30.1 MCHC 30.0 L RDW 15.9 Plt Count 225 D MPV 11.4 Absolute Nucleated RBC 0.030 H Nucleated RBC % (auto) 0.2 Anion Gap Estim Creat Clear Calc Estimated GFR POC Glucose 193 H 154 H Random Glucose Calcium Angiotensin Convert Enz 06/14/23 06/14/23 06:49 07:10 MCV MCH MCHC RDW Plt Count MPV Absolute Nucleated RBC Nucleated RBC % (auto) Anion Gap 11 L Estim Creat Clear Calc 107.7 Estimated GFR > 60 POC Glucose 126 H Random Glucose 134 H Calcium 9.5 Angiotensin Convert Enz Assessment and Plan (1) Interstitial lung disease: Status: Acute (2) Pulmonary edema: Status: Acute (3) Pulmonary emboli: Status: Acute Plan 72-year-old gentleman with underlying of diabetes mellitus, BPH,, hypothyroidism, likely metastatic lung cancer with cytology results still pending, recent admission to [facility] for postobstructive pneumonia and pulmonary emboli, started on anticoagulation, admitted on 06/01/2023 with GI bleed and acute blood loss anemia to the intensive care unit.? Patient has received IV fluid resuscitation and 1 unit packed red blood cells with normalization of blood pressure, but development of pulmonary edema that improved with diuresis.? Patient was planned for endoscopy on 06/03/2023 but was cancelled due to tenous respiratory status.? He remains stable and H/H is stable.? Acute blood loss anemia that was associated with Hypotension and was admitted to the ICU, but was only transfused 1 units of RBC with good effect, was seen by GI (Dr. Teran ) who was going to do? EGD but patient's respiratory failure and so was cancelled. continue on PPI. H/H remains stable without any sings of bleeding,titrate pox to keep pox>88%. recent history of PE--anticoagulation stopped given signficant GIb and anemia and unknown source . Repeat CTA on 06/05 showed no PE and last PE were just subsegmental.? ? US of legs-Extensive bilateral acute DVT, Vascular surgery inserted IVC filter on 06/07. DVT prophylaxis dose of heparin? 5k bid and H/H stable around 09-07. Acute hypoxic respiratory failure--multifactorial-He has underlying lungs issues( ?pneumonia ,pulm edema ) Acute respiratory failure now thought to be related to possible TRALI per pulmonolgy and was on Solumedrol. sob somewhat improving but still gets sob with minimum excersion. pulm following-in addition to above PET scan was abnormal 05/10-? lung malignancy , lymphadenopathy, in addition FDG uptake in liver and liver area also patient lung cytology pending patient will benefit Pulm follow up before discharge. DM2: fs aceptable ss, ada diet HTN--restart Losartan, Norvasc, HypOthyroidism--Levohyroxine mild elevated tsh ,free t4 normal DVT prophylaxis: compression device given gi bleeding, will try subcut Heparin (06/06/23) inpatient need :Acute hypoxic respiratory failure, need high amount of O2 and close monitoring Time Spent With Patient Time: Total time managing care of this patient today ____ minutes. Quality Stroke Does the patient have a stroke diagnosis?: No VTE Prior VTE?: Yes VTE Risk Level:: Medical - moderate - high VTE Device Contraindication: Procedure Contraindicated VTE Drug Contraindication: Treatment Not Tolerated
[2023-06-14 11:03] LABS: Glucose, Whole Blood 140 mg/dL (60-115)
[2023-06-14 16:15] LABS: Glucose, Whole Blood 168 mg/dL (60-115)
[2023-06-14] MEDS: Insulin Lispro 100 UNIT/ML 3 ML VIAL SUBCUT ×2 (17:01→22:05)
[2023-06-14 21:03] LABS: Glucose, Whole Blood 152 mg/dL (60-115)
[2023-06-14] MEDS: Mirtazapine 7.5 MG TABLET PO (22:04)
[2023-06-15] VITALS (8 sets, daily range): BP systolic 106–145; BP diastolic 64–81; PULSE 103–113; RESP 18–24; TEMP 36.3–37.2; O2SAT 92–95; BMI 23.1
[2023-06-15] MEDS: guaiFENesin 100 MG/5 ML LIQUID 10 ML PO ×3 (03:51→16:42)
[2023-06-15] MEDS: Piperacillin Sodium/Tazobactam 3.375 GM in 0.9 % Sodium Chloride 50 ML IV (03:52)
[2023-06-15] MEDS: Levothyroxine Sodium 100 MCG TABLET PO (06:25)
[2023-06-15 07:13] LABS: Glucose, Whole Blood 123 mg/dL (60-115)
[2023-06-15] MEDS: Albuterol/Iprat 2.5/0.5MG 3 ML AMPUL.NEB INHALE ×3 (08:21→15:35)
--- NOTE | 2023-06-15 08:23 | HO.PM.IMPN ---
Subjective Subjective Date of Service: 06/15/23 Interval History: f/u on anemia, gib, acute on chronic hypoxia Overall continues to make progress but slowly Physical Exam Vital Signs: Vital Signs: Last Vital Signs Temp 98.7 F 06/15/23 07:04 Pulse 103 H 06/15/23 07:04 Resp 18 06/15/23 07:04 BP 137/79 06/15/23 07:04 Pulse Ox 92 06/15/23 07:04 O2 Del Method Nasal Cannula 06/15/23 07:04 O2 Flow Rate 4 06/15/23 07:04 FiO2 30 06/08/23 20:00 Oxygen Flow Rate 3 06/01/23 17:01 BMI result Body Mass Index 23.1 Objective Data Active Medications Acetaminophen (Acetaminophen 325 Mg Tablet) 650 mg PO Q6H PRN PRN Reason: Pain, Moderate(Pain Scale 4-6) Last Admin: 06/14/23 03:37 Dose: 650 mg Documented By: MOLINA Albuterol/Ipratropium (Albuterol/Iprat 2.5/0.5mg 3 Ml Ampul.Neb) 3 ml INHALE RQ4H WHILE AWAKE FELI Last Admin: 06/15/23 08:21 Dose: 3 ml Documented By: SHOSHANA Dextrose (Dextrose 50 % 25 Gm/50 Ml Syringe) 25 gm IVPUSH Q15M PRN; Protocol PRN Reason: per Hypoglycemia Standing Ord. Last Admin: 06/02/23 00:22 Dose: 25 gm Documented By: MARTIN Comments: per LAITH Reyes- give now for POC of 77 Empagliflozin (Empagliflozin 10 Mg Tablet) 10 mg PO DAILY [facility] Last Admin: 06/14/23 08:10 Dose: 10 mg Documented By: GARRISON Furosemide (Furosemide 20 Mg Tablet) 20 mg PO DAILY FELI; Protocol Last Admin: 06/11/23 08:08 Dose: 20 mg Documented By: RAINARTB Glucose (Glucose Gel 15 Gm Gel..Gram.) 15 gm PO Q15M PRN; Protocol PRN Reason: per Hypoglycemia Standing Ord. Guaifenesin (Guaifenesin 100 Mg/5 Ml Liquid) 10 ml PO Q6H FELI Last Admin: 06/15/23 03:51 Dose: 10 ml Documented By: ALAN Heparin Sodium (Porcine) (Heparin Sodium,Porcine 5,000 Unit/Ml Vial) 5,000 unit SUBCUT Q12H [facility] Last Admin: 06/14/23 22:46 Dose: 5,000 unit Documented By: ALAN Piperacillin Sod/Tazobactam (Sod 3.375 gm/ Sodium Chloride) 50 mls @ 100 mls/hr IV Q6H [facility] Last Infusion: 06/15/23 04:22 Dose: 0 mls/hr Documented By: ALAN Insulin Human Lispro (Insulin Lispro 100 Unit/Ml 3 Ml Vial) 0 unit SUBCUT QIDACHS [facility]; Protocol Last Admin: 06/15/23 08:20 Dose: Not Given Documented By: GARRISON Non-Admin Reason: No Insulin Coverage Levothyroxine Sodium (Levothyroxine Sodium 100 Mcg Tablet) 100 mcg PO DAILY@0600 [facility] Last Admin: 06/15/23 06:25 Dose: 100 mcg Documented By: PADMINI Losartan Potassium (Losartan Potassium 25 Mg Tablet) 25 mg PO DAILY [facility]; Protocol Last Admin: 06/08/23 08:02 Dose: 25 mg Documented By: GARRISON Metformin HCl (Metformin Hcl 1,000 Mg Tablet) 1,000 mg PO BID [facility] Last Admin: 06/14/23 22:04 Dose: 1,000 mg Documented By: ALAN Mirtazapine (Mirtazapine 7.5 Mg Tablet) 7.5 mg PO BEDTIME [facility] Last Admin: 06/14/23 22:04 Dose: 7.5 mg Documented By: ALAN Omeprazole (Omeprazole 40 Mg Capsule.Dr) 40 mg PO BID [facility] Last Admin: 06/14/23 22:04 Dose: 40 mg Documented By: ALAN Polyethylene Glycol (Polyethylene Glycol 3350 17 Gm Powd.Pack) 17 gm PO DAILY [facility] Last Admin: 06/14/23 08:10 Dose: 17 gm Documented By: GARRISON Prednisone (Prednisone 20 Mg Tablet) 40 mg PO DAILY [facility] Last Admin: 06/14/23 08:09 Dose: 40 mg Documented By: GARRISON Sitagliptin Phosphate (Sitagliptin Phosphate 50 Mg Tablet) 50 mg PO BID [facility] Last Admin: 06/14/23 22:04 Dose: 50 mg Documented By: ALAN Spironolactone (Spironolactone 25 Mg Tablet) 25 mg PO DAILY [facility]; Protocol Last Admin: 06/11/23 08:07 Dose: 25 mg Documented By: FOGARTB Tamsulosin HCl (Tamsulosin Hcl 0.4 Mg Capsule) 0.4 mg PO DAILY FELI Last Admin: 06/08/23 08:02 Dose: 0.4 mg Documented By: RUANES Labs 06/14/23 06:49 06/14/23 06:49 Labs: Laboratory Results - last 24 hr 06/14/23 06/14/23 06/14/23 10:57 16:11 20:30 POC Glucose 140 H 168 H 152 H 06/15/23 07:06 POC Glucose 123 H Assessment and Plan (1) Interstitial lung disease: Status: Acute (2) Pulmonary edema: Status: Acute (3) Pulmonary emboli: Status: Acute Plan 72-year-old gentleman with underlying of diabetes mellitus, BPH,, hypothyroidism, likely metastatic lung cancer with cytology results still pending, recent admission to [facility] for postobstructive pneumonia and pulmonary emboli, started on anticoagulation, admitted on 06/01/2023 with GI bleed and acute blood loss anemia to the intensive care unit.? Patient has received IV fluid resuscitation and 1 unit packed red blood cells with normalization of blood pressure, but development of pulmonary edema that improved with diuresis.? Patient was planned for endoscopy on 06/03/2023 but was cancelled due to tenous respiratory status.? He remains stable and H/H is stable.? Acute blood loss anemia that was associated with Hypotension and was admitted to the ICU, but was only transfused 1 units of RBC with good effect, was seen by GI (Dr. Teran ) who was going to do? EGD but patient's respiratory failure and so was cancelled. continue on PPI. H/H remains stable without any sings of bleeding,titrate pox to keep pox>88%. recent history of PE--anticoagulation stopped given signficant GIb and anemia and unknown source . Repeat CTA on 06/05 showed no PE and last PE were just subsegmental.? ? US of legs-Extensive bilateral acute DVT, Vascular surgery inserted IVC filter on 06/07. DVT prophylaxis dose of heparin? 5k bid and H/H stable around 10-11. Acute hypoxic respiratory failure--multifactorial-He has underlying lungs issues and may have had TRALI which was treated with IV steroid, possoble compoenent of pulmonary edema treated with diuretics and prior PE. Continue to wean off O2, wean off Prednisone. Pulmonary has been following. Stop Zosyn sice 06/07, stop--leukocytosis d/t steroid h/o abnormal PET scan on 05/10-? lung malignancy , lymphadenopathy, in addition FDG uptake in liver and liver area also patient lung cytology-- Left chest tube fluid:? Suspicious for carcinoma.? See comment. COMMENT:? Cellular specimen consisting of atypical epithelioid cells singly and in a few small groups; these cells are are medium to large in size, have moderate cytoplasm and oval nuclei with open chromatin and distinct nucleoli.? The background has scattered mesothelial cells with reactive changes, macrophages, blood and acute inflammatory cells.? By immunohistochemistry, occasional cells appear immunoreactive with MOC-31 with membrane staining; other background cells have more cytoplasmic staining and others are non immunoreactive.? Pancytokeratin highlights a majority of these epithelial cells.? They are non immunoreactive with CD68, S100, CK5/6 and CD45.? Taken together, the findings are worrisome for carcinoma. Should follow up with oncology on outpatient basis DM2: continue metformin, insulin, diabetic diet HTN--On aldactone alone. Norvasc and losartan on hold HypOthyroidism--Levohyroxine mild elevated tsh ,free t4 normal DVT prophylaxis: compression device given gi bleeding, will try subcut Heparin (06/06/23) inpatient need :Acute hypoxic respiratory failure, need high amount of O2 and close monitoring PT recommends STR Time Spent With Patient Time: Total time managing care of this patient today ____ minutes. Quality Stroke Does the patient have a stroke diagnosis?: No VTE Prior VTE?: Yes VTE Risk Level:: Medical - moderate - high VTE Device Contraindication: Procedure Contraindicated VTE Drug Contraindication: Treatment Not Tolerated
[2023-06-15] MEDS: predniSONE 20 MG TABLET 40 MG PO (08:43)
[2023-06-15] MEDS: metFORMIN HCl 1,000 MG TABLET 1000 MG PO ×2 (08:43→22:17)
[2023-06-15] MEDS: SITagliptin Phosphate 50 MG TABLET PO ×2 (08:43→22:18)
[2023-06-15] MEDS: Omeprazole 40 MG CAPSULE.DR PO ×2 (08:43→22:18)
[2023-06-15] MEDS: Empagliflozin 10 MG TABLET PO (08:44)
[2023-06-15] MEDS: polyethylene glycoL 3350 17 GM POWD.PACK PO (08:44)
--- NOTE | 2023-06-15 10:27 | MHC.CM.PN ---
EMR reviewed and per MD rounds, pt is not medically cleared for D/C today due to continued due to increased O2 requirements. PT recommending STR, Ginger Peck following. CM will continue to follow.
[2023-06-15 11:11] LABS: Glucose, Whole Blood 215 mg/dL (60-115)
[2023-06-15] MEDS: Heparin Sodium,Porcine 5,000 UNIT/ML VIAL 5000 UNIT SUBCUT (12:14)
[2023-06-15] MEDS: Insulin Lispro 100 UNIT/ML 3 ML VIAL SUBCUT (12:15)
--- NOTE | 2023-06-15 14:06 | MHC.SLORD ---
Speech Language Pathology Order Status: Pt not seen for dysphagia tx, as pt was unavailable this morning, receiving other treatment. Pt is on a chopped diet (NDD3) with thin liquids, recommend continue w/ 1:1 supervision during PO intake. MEAL PACKER plans to f/u tomorrow. Please contact MEAL PACKER via [place] or ext. [phone] if any changes or concerns arise before then.
[2023-06-15 16:03] LABS: Glucose, Whole Blood 100 mg/dL (60-115)
--- NOTE | 2023-06-15 19:00 | PC.NURSE ---
Pt OOB to chair in am with 2 assist. Desat into low 70's on nasal cannula at 5L placed on oxymask for recovery at 15L. Pt slow to recover over approx 5 minutes. Up into chair to early afternoon. Seen by PT in afternoon. Will continue to monitor and report changes
[2023-06-15 20:09] LABS: Glucose, Whole Blood 103 mg/dL (60-115)
[2023-06-15] MEDS: Mirtazapine 7.5 MG TABLET PO (22:19)
[2023-06-16] VITALS (9 sets, daily range): BP systolic 102–145; BP diastolic 62–88; PULSE 102–118; RESP 13–20; TEMP 36.1–36.6; O2SAT 91–98; BMI 22.6
[2023-06-16] MEDS: Heparin Sodium,Porcine 5,000 UNIT/ML VIAL 5000 UNIT SUBCUT ×3 (01:07→22:07)
[2023-06-16] MEDS: guaiFENesin 100 MG/5 ML LIQUID 10 ML PO ×4 (02:13→22:06)
[2023-06-16] MEDS: Levothyroxine Sodium 100 MCG TABLET PO (05:15)
[2023-06-16 07:34] LABS: Glucose, Whole Blood 87 mg/dL (60-115)
[2023-06-16] MEDS: polyethylene glycoL 3350 17 GM POWD.PACK PO (08:44)
[2023-06-16] MEDS: metFORMIN HCl 1,000 MG TABLET 1000 MG PO ×2 (08:44→22:07)
[2023-06-16] MEDS: predniSONE 20 MG TABLET 40 MG PO (08:44)
[2023-06-16] MEDS: Empagliflozin 10 MG TABLET PO (08:44)
[2023-06-16] MEDS: SITagliptin Phosphate 50 MG TABLET PO ×2 (08:44→22:06)
--- NOTE | 2023-06-16 09:12 | P.PNIM_ITS ---
Subjective Subjective Date of Service: 06/16/23 Interval History: Overall not making signficant progress, gen weak and lethargic, still requiring high amout of O2, poor nutrition Physical Exam Vital Signs: Vital Signs: Last Vital Signs Temp 97.6 F 06/16/23 07:15 Pulse 102 H 06/16/23 07:15 Resp 18 06/16/23 07:15 BP 138/78 06/16/23 07:15 Pulse Ox 96 06/16/23 07:15 O2 Del Method Nasal Cannula 06/16/23 07:15 O2 Flow Rate 6 06/16/23 07:15 FiO2 30 06/08/23 20:00 Oxygen Flow Rate 3 06/01/23 17:01 BMI result Body Mass Index 22.6 Const: Other: General: alert, lethargic, Resp: CTA bilateral CVS: S1,S2,RRR GI: +BS, NT, no distention Skin: No rash Neuro: motor grossly intact Psych: appropriate affect Objective Data Active Medications Acetaminophen (Acetaminophen 325 Mg Tablet) 650 mg PO Q6H PRN PRN Reason: Pain, Moderate(Pain Scale 4-6) Last Admin: 06/14/23 03:37 Dose: 650 mg Documented By: MOLINA Albuterol/Ipratropium (Albuterol/Iprat 2.5/0.5mg 3 Ml Ampul.Neb) 3 ml INHALE RQ4H WHILE AWAKE [facility] Last Admin: 06/16/23 07:55 Dose: Not Given Documented By: SHOSHANA Non-Admin Reason: Patient Refused Dextrose (Dextrose 50 % 25 Gm/50 Ml Syringe) 25 gm IVPUSH Q15M PRN; Protocol PRN Reason: per Hypoglycemia Standing Ord. Last Admin: 06/02/23 00:22 Dose: 25 gm Documented By: MARTIN Comments: per LAITH Reyes- give now for POC of 77 Empagliflozin (Empagliflozin 10 Mg Tablet) 10 mg PO DAILY [facility] Last Admin: 06/16/23 08:44 Dose: 10 mg Documented By: WASHINGTON Furosemide (Furosemide 20 Mg Tablet) 20 mg PO DAILY [facility]; Protocol Last Admin: 06/11/23 08:08 Dose: 20 mg Documented By: CHRISTOPHER Glucose (Glucose Gel 15 Gm Gel..Gram.) 15 gm PO Q15M PRN; Protocol PRN Reason: per Hypoglycemia Standing Ord. Guaifenesin (Guaifenesin 100 Mg/5 Ml Liquid) 10 ml PO Q6H [facility] Last Admin: 06/16/23 08:44 Dose: 10 ml Documented By: WASHINGTON Heparin Sodium (Porcine) (Heparin Sodium,Porcine 5,000 Unit/Ml Vial) 5,000 unit SUBCUT Q12H [facility] Last Admin: 06/16/23 01:07 Dose: 5,000 unit Documented By: BRANDI Insulin Human Lispro (Insulin Lispro 100 Unit/Ml 3 Ml Vial) 0 unit SUBCUT QIDACHS [facility]; Protocol Last Admin: 06/16/23 08:42 Dose: Not Given Documented By: W[place] Non-Admin Reason: No Insulin Coverage Levothyroxine Sodium (Levothyroxine Sodium 100 Mcg Tablet) 100 mcg PO DAILY@0600 [facility] Last Admin: 06/16/23 05:15 Dose: 100 mcg Documented By: ILDEFONSO Losartan Potassium (Losartan Potassium 25 Mg Tablet) 25 mg PO DAILY [facility]; Protocol Last Admin: 06/08/23 08:02 Dose: 25 mg Documented By: GARRISON Metformin HCl (Metformin Hcl 1,000 Mg Tablet) 1,000 mg PO BID [facility] Last Admin: 06/16/23 08:44 Dose: 1,000 mg Documented By: WASHINGTON Mirtazapine (Mirtazapine 7.5 Mg Tablet) 7.5 mg PO BEDTIME [facility] Last Admin: 06/15/23 22:19 Dose: 7.5 mg Documented By: BRANDI Omeprazole (Omeprazole 40 Mg Capsule.Dr) 40 mg PO BID [facility] Last Admin: 06/16/23 08:54 Dose: Not Given Documented By: WASHINGTON Non-Admin Reason: cant be crushed Polyethylene Glycol (Polyethylene Glycol 3350 17 Gm Powd.Pack) 17 gm PO DAILY [facility] Last Admin: 06/16/23 08:44 Dose: 17 gm Documented By: WASHINGTON Prednisone (Prednisone 20 Mg Tablet) 40 mg PO DAILY [facility] Last Admin: 06/16/23 08:44 Dose: 40 mg Documented By: WASHINGTON Sitagliptin Phosphate (Sitagliptin Phosphate 50 Mg Tablet) 50 mg PO BID [facility] Last Admin: 06/16/23 08:44 Dose: 50 mg Documented By: WASHINGTON Spironolactone (Spironolactone 25 Mg Tablet) 25 mg PO DAILY [facility]; Protocol Last Admin: 06/11/23 08:07 Dose: 25 mg Documented By: CHRISTOPHER Tamsulosin HCl (Tamsulosin Hcl 0.4 Mg Capsule) 0.4 mg PO DAILY [facility] Last Admin: 06/08/23 08:02 Dose: 0.4 mg Documented By: CAMERONANES Labs 06/14/23 06:49 06/14/23 06:49 Labs: Laboratory Results - last 24 hr 06/15/23 06/15/23 06/15/23 11:00 15:54 19:59 POC Glucose 215 H 100 103 06/16/23 07:29 POC Glucose 87 Assessment and Plan (1) Interstitial lung disease: Status: Acute (2) Pulmonary edema: Status: Acute (3) Pulmonary emboli: Status: Acute Plan 72-year-old gentleman with underlying of diabetes mellitus, BPH,, hypothyroidism, likely metastatic lung cancer with cytology results still pending, recent admission to [facility] for postobstructive pneumonia and pulmonary emboli, started on anticoagulation, admitted on 06/01/2023 with GI bleed and acute blood loss anemia to the intensive care unit.? Patient has received IV fluid resuscitation and 1 unit packed red blood cells with normalization of blood pressure, but development of pulmonary edema that improved with diuresis.? Patient was planned for endoscopy on 06/03/2023 but was cancelled due to tenous respiratory status.? He remains stable and H/H is stable.? Acute blood loss anemia that was associated with Hypotension and was admitted to the ICU, but was only transfused 1 units of RBC with good effect, was seen by GI (Dr. Teran ) who was going to do? EGD but patient's respiratory failure and so was cancelled. continue on PPI. H/H remains stable without any sings of bleeding,titrate pox to keep O2 sat >88%. recent history of PE--anticoagulation stopped given signficant GIb and anemia and unknown source . Repeat CTA on 06/05 showed no PE and last PE were just subs egmental.? ? US of legs-Extensive bilateral acute DVT, Vascular surgery inserted IVC filter on 06/07. DVT prophylaxis dose of heparin? 5k bid and H/H stable around 10-11. Acute hypoxic respiratory failure--multifactorial-He has underlying lungs issues and may have had TRALI which was treated with IV steroid, possoble compoenent of pulmonary edema treated with diuretics and prior PE. Continue to wean off O2, wean off Prednisone. Pulmonary has been following. Stop Zosyn sice 06/07, stop--leukocytosis d/t steroid. He remains very hypoxic, get cxr, CBC h/o abnormal PET scan on 05/10-? lung malignancy , lymphadenopathy, in addition FDG uptake in liver and liver area also patient lung cytology-- Left chest tube fluid:? Suspicious for carcinoma.? See comment. COMMENT:? Cellular specimen consisting of atypical epithelioid cells singly and in a few small groups; these cells are are medium to large in size, have moderate cytoplasm and oval nuclei with open chromatin and distinct nucleoli.? The background has scattered mesothelial cells with reactive changes, macr ophages, blood and acute inflammatory cells.? By immunohistochemistry, occasional cells appear immunoreactive with MOC-31 with membrane staining; other background cells have more cytoplasmic staining and others are non immunoreactive.? Pancytokeratin highlights a majority of these epithelial cells.? They are non immunoreactive with CD68, S100, CK5/6 and CD45.? Taken together, the findings are worrisome for carcinoma. Should follow up with oncology on outpatient basis DM2: continue metformin, insulin, diabetic diet HTN--On aldactone alone. Norvasc and losartan on hold HypOthyroidism--Levohyroxine mild elevated tsh ,free t4 normal DVT prophylaxis: compression device given gi bleeding, will try subcut Heparin (06/06/23) inpatient need :Acute hypoxic respiratory failure, need high amount of O2 and close monitoring PT recommends STR Time Spent With Patient Time: Total time managing care of this patient today ____ minutes. Quality Stroke Does the patient have a stroke diagnosis?: No VTE Prior VTE?: Yes VTE Risk Level:: Medical - moderate - high VTE Device Contraindication: Procedure Contraindicated VTE Drug Contraindication: Treatment Not Tolerated
[2023-06-16 11:36] LABS: Glucose, Whole Blood 154 mg/dL (60-115)
[2023-06-16] MEDS: Insulin Lispro 100 UNIT/ML 3 ML VIAL SUBCUT ×2 (12:08→16:53)
--- NOTE | 2023-06-16 13:47 | MHC.CLN ---
PT WITH INCREASED NUTRITION RISK R/T PRESSURE INJURY PO INTAKE VARIABLE DIET RX: REGULAR CHOPPED-RECOMMEND CHANGING TO 2200DM R/T DM RECOMMEND ADDING ENSURE MAX BID TO PROMOTE WOUND HEALING SUPP TO PROVIDE 300KCALS, 60G PROTEIN MONITOR PO INTAKE AND SUPP ACCEPTANCE SEE ALSO FULL CLINICAL NUTRITION ASSESSMENT
--- NOTE | 2023-06-16 14:31 | MHC.SL.SWA ---
Speech Pathologist Impression: Risk of Aspiration Due to: Medically Fragile Dysphasia Diet Status: Recommend continue on Chopped/Advanced with Thin liquids, pills crushed in puree. Patient requires supervision and some occasional assistance during meals. Recommend supervision to monitor for s/s of aspiration on solids and provide cues for safe eating (i.e. small bites/sips). DIRECTOR OF VOCATIONAL GUIDANCE to continue to follow. Liquid Consistency and Strategies for Safe Swallow: Liquid Intake Recommendation: Thin Liquid Intake Strategies: Small Sips Solid Food Consistency: Dietary Recommendations: Chopped/Advanced (NDD3) Additional Modifications to Solid Foods: Patient may require occasional cued to swallow before adding more food to mouth and to alternate sips of liquid with bites of solid. Oral Medication Intake: Crushed with Puree Please contact the pharmacy regarding appropriate crushable or liquid drug formulations that are available whenever modified delivery is recommended. Compensatory Strategies and Precautions to be Taken for Safe Swallow: Sitting Upright (90 deg) Liquids from Cup Liquids from Straw Small Bites and Sips Alternate Liquids/Solids Rate of Ingestion Change Supervision While Eating and Drinking for Safe Swallow: Total Supervision (1:1) Foods to Avoid: Swallowing Recommended Treatments: Compens. Strategy Educat. Recommendation for Speech: Inpatient Speech Therapy Comment: Pt seen during lunch. DIRECTOR OF VOCATIONAL GUIDANCE assisted patient with set up of tray, opened items and put juice in cup with straw. Patient is able to independently feed self, but benefitted from some of the food being presented to him (e.g. did not try or attempt mac and cheese on tray until presented by DIRECTOR OF VOCATIONAL GUIDANCE). Lunch was cubed pork, it was noted patient was taking pronlonged period chewing pork, and noted to take sips of liquid to help clear residual from mouth. Pork on fork test was remarkably hard, indicating tough to chew. Patient was encouraged to take mac (Orzo) and cheese on tray, which patient produced a less prolonged oral phase, mild delay of swallow, with mild residual noted after swallow cleared by sips of liquid. Patient took several bites of the mac and cheese then stated he was done. Patient appears to be managing chopped/advanced diet as long as food is not tough to chew. Recommend continue on Chopped/Advanced with Thin liquids, pills crushed in puree. Patient requires supervision and some occasional assistance during meals. DIRECTOR OF VOCATIONAL GUIDANCE will continue to follow for toleration 1-2X Frequency/Duration: Date Range for Service Req: Timeline to reassess: Manager Web Clinican/Clinical Fellow: No Supervisory Statement: I have reviewed and agree with the student/clinical fellow's documentation: N/A Speech Language Pathologist: Iwona Velazquez M.A., [facility]-DIRECTOR OF VOCATIONAL GUIDANCE
[2023-06-16 15:30] LABS: Glucose, Whole Blood 176 mg/dL (60-115)
[2023-06-16] MEDS: Albuterol/Iprat 2.5/0.5MG 3 ML AMPUL.NEB INHALE ×2 (15:59→18:58)
[2023-06-16 20:19] LABS: Glucose, Whole Blood 133 mg/dL (60-115)
[2023-06-16] MEDS: Omeprazole 40 MG CAPSULE.DR PO (22:06)
[2023-06-16] MEDS: Mirtazapine 7.5 MG TABLET PO (22:06)
[2023-06-17] VITALS (7 sets, daily range): BP systolic 120–152; BP diastolic 60–80; PULSE 101–111; RESP 16–20; TEMP 35.9–36.6; O2SAT 96–99; BMI 22.2
[2023-06-17] MEDS: Acetaminophen 325 MG TABLET 650 MG PO (04:02)
[2023-06-17] MEDS: Levothyroxine Sodium 100 MCG TABLET PO (05:45)
[2023-06-17 07:19] LABS: Glucose, Whole Blood 117 mg/dL (60-115)
[2023-06-17] MEDS: Albuterol/Iprat 2.5/0.5MG 3 ML AMPUL.NEB INHALE ×3 (07:55→15:22)
--- NOTE | 2023-06-17 09:23 | P.PNIM_ITS ---
Subjective Subjective Date of Service: 06/17/23 Interval History: Pt seem more alert, more interactive, overall very deconditioned Physical Exam Vital Signs: Vital Signs: Last Vital Signs Temp 96.8 F 06/17/23 07:42 Pulse 101 H 06/17/23 07:57 Resp 18 06/17/23 07:57 BP 126/70 06/17/23 07:42 Pulse Ox 99 06/17/23 07:42 O2 Del Method Nasal Cannula 06/17/23 07:42 O2 Flow Rate 5 06/17/23 07:42 FiO2 30 06/08/23 20:00 Oxygen Flow Rate 3 06/01/23 17:01 BMI result Body Mass Index 22.2 Const: Other: General: alert, lethargic, Resp: CTA bilateral CVS: S1,S2,RRR GI: +BS, NT, no distention Skin: No rash Neuro: motor grossly intact Psych: appropriate affect Objective Data Active Medications Acetaminophen (Acetaminophen 325 Mg Tablet) 650 mg PO Q6H PRN PRN Reason: Pain, Moderate(Pain Scale 4-6) Last Admin: 06/17/23 04:02 Dose: 650 mg Documented By: ILDEFONSO Albuterol/Ipratropium (Albuterol/Iprat 2.5/0.5mg 3 Ml Ampul.Neb) 3 ml INHALE RQ4H WHILE AWAKE [facility] Last Admin: 06/17/23 07:55 Dose: 3 ml Documented By: DIMITRI Dextrose (Dextrose 50 % 25 Gm/50 Ml Syringe) 25 gm IVPUSH Q15M PRN; Protocol PRN Reason: per Hypoglycemia Standing Ord. Last Admin: 06/02/23 00:22 Dose: 25 gm Documented By: MARTIN Comments: per LAITH Reyes- give now for POC of 77 Empagliflozin (Empagliflozin 10 Mg Tablet) 10 mg PO DAILY [facility] Last Admin: 06/16/23 08:44 Dose: 10 mg Documented By: WASHINGTON Furosemide (Furosemide 20 Mg Tablet) 20 mg PO DAILY [facility]; Protocol Last Admin: 06/11/23 08:08 Dose: 20 mg Documented By: CHRISTOPHER Glucose (Glucose Gel 15 Gm Gel..Gram.) 15 gm PO Q15M PRN; Protocol PRN Reason: per Hypoglycemia Standing Ord. Guaifenesin (Guaifenesin 100 Mg/5 Ml Liquid) 10 ml PO Q6H [facility] Last Admin: 06/17/23 04:34 Dose: Not Given Documented By: BRANDI Non-Admin Reason: Patient Asleep Heparin Sodium (Porcine) (Heparin Sodium,Porcine 5,000 Unit/Ml Vial) 5,000 unit SUBCUT Q12H [facility] Last Admin: 06/16/23 22:07 Dose: 5,000 unit Documented By: BRANDI Insulin Human Lispro (Insulin Lispro 100 Unit/Ml 3 Ml Vial) 0 unit SUBCUT QIDACHS [facility]; Protocol Last Admin: 06/17/23 07:38 Dose: Not Given Documented By: KING Non-Admin Reason: No Insulin Coverage Levothyroxine Sodium (Levothyroxine Sodium 100 Mcg Tablet) 100 mcg PO DAILY@0600 [facility] Last Admin: 06/17/23 05:45 Dose: 100 mcg Documented By: BRANDI Losartan Potassium (Losartan Potassium 25 Mg Tablet) 25 mg PO DAILY [facility]; Protocol Last Admin: 06/08/23 08:02 Dose: 25 mg Documented By: GARRISON Metformin HCl (Metformin Hcl 1,000 Mg Tablet) 1,000 mg PO BID [facility] Last Admin: 06/16/23 22:07 Dose: 1,000 mg Documented By: BRANDI Mirtazapine (Mirtazapine 7.5 Mg Tablet) 7.5 mg PO BEDTIME [facility] Last Admin: 06/16/23 22:06 Dose: 7.5 mg Documented By: BRANDI Omeprazole (Omeprazole 40 Mg Capsule.) 40 mg PO BID [facility] Last Admin: 06/16/23 22:06 Dose: 40 mg Documented By: BRANDI Polyethylene Glycol (Polyethylene Glycol 3350 17 Gm Powd.Pack) 17 gm PO DAILY [facility] Last Admin: 06/16/23 08:44 Dose: 17 gm Documented By: WASHINGTON Prednisone (Prednisone 20 Mg Tablet) 40 mg PO DAILY [facility] Last Admin: 06/16/23 08:44 Dose: 40 mg Documented By: WASHINGTON Sitagliptin Phosphate (Sitagliptin Phosphate 50 Mg Tablet) 50 mg PO BID [facility] Last Admin: 06/16/23 22:06 Dose: 50 mg Documented By: BRANDI Spironolactone (Spironolactone 25 Mg Tablet) 25 mg PO DAILY [facility]; Protocol Last Admin: 06/11/23 08:07 Dose: 25 mg Documented By: FOGARTB Tamsulosin HCl (Tamsulosin Hcl 0.4 Mg Capsule) 0.4 mg PO DAILY [facility] Last Admin: 06/08/23 08:02 Dose: 0.4 mg Documented By: CAMERONANES Labs 06/14/23 06:49 06/14/23 06:49 Labs: Laboratory Results - last 24 hr 06/16/23 06/16/23 06/16/23 11:29 15:15 20:13 POC Glucose 154 H 176 H 133 H 06/17/23 07:16 POC Glucose 117 H Assessment and Plan (1) Interstitial lung disease: Status: Acute (2) Pulmonary edema: Status: Acute (3) Pulmonary emboli: Status: Acute Plan 72-year-old gentleman with underlying of diabetes mellitus, BPH,, hypothyroid ism, likely metastatic lung cancer with cytology results still pending, recent admission to [facility] for postobstructive pneumonia and pulmonary emboli, started on anticoagulation, admitted on 06/01/2023 with GI bleed and acute blood loss anemia to the intensive care unit.? Patient has received IV fluid resuscitation and 1 unit packed red blood cells with normalization of blood pressure, but development of pulmonary edema that improved with diuresis.? Patient was planned for endoscopy on 06/03/2023 but was cancelled due to tenous respiratory status.? He remains stable and H/H is stable.? Acute blood loss anemia that was associated with Hypotension and was admitted to the ICU, but was only transfused 1 units of RBC with good effect, was seen by GI (Dr. Teran ) who was going to do? EGD but patient's respiratory failure and so was cancelled. continue on PPI. H/H remains stable without any sings of bleeding,titrate pox to keep O2 sat >88%. recent history of PE--anticoagulation stopped given signficant GIb and anemia and unknown source . Repeat CTA on 06/05 showed no PE and last PE were just subsegmental.? ? US of legs-Extensive bilateral acute DVT, Vascular surgery inserted IVC filter on 06/07. DVT prophylaxis dose of heparin? 5k bid and H/H stable around 09-07. Acute hypoxic respiratory failure--multifactorial-He has underlying lungs issues and may have had TRALI which was treated with IV steroid, possoble compoenent of pulmonary edema treated with diuretics and prior PE. Continue to wean off O2, wean off Prednisone. Pulmonary has been following. Stop Zosyn sice 06/07, stop--leukocytosis d/t steroid. He remains very hypoxic, get cxr, CBC h/o abnormal PET scan on 05/10-? lung malignancy , lymphadenopathy, in addition FDG uptake in liver and liver area also patient lung cytology-- Left chest tube fluid:? Suspicious for carcinoma.? See comment. COMMENT:? Cellular specimen consisting of atypical epithelioid cells singly and in a few small groups; these cells are are medium to large in size, have moderate cytoplasm and oval nuclei with open chromatin and distinct nucleoli.? The background has scattered mesothelial cells with reactive changes, macrophages, blood and acute inflammatory cells.? By immunohistochemistry, occasional cells appear immunoreactive with MOC-31 with membrane staining; other background cells have more cytoplasmic staining and others are non immunoreactive.? Pancytokeratin highlights a majority of these epithelial cells.? They are non immunoreactive with CD68, S100, CK5/6 and CD45.? Taken together, the findings are worrisome for carcinoma. Should follow up with oncology on outpatient basis DM2: continue metformin, insulin, diabetic diet HTN--On aldactone alone. Norvasc and losartan on hold HypOthyroidism--Levohyroxine mild elevated tsh ,free t4 normal DVT prophylaxis: compression device given gi bleeding, will try subcut Heparin (06/06/23) inpatient need :Acute hypoxic respiratory failure, need high amount of O2 and close monitoring PT recommends STR Time Spent With Patient Time: Total time managing care of this patient today ____ minutes. Quality Stroke Does the patient have a stroke diagnosis?: No VTE Prior VTE?: Yes VTE Risk Level:: Medical - moderate - high VTE Device Contraindication: Procedure Contraindicated VTE Drug Contraindication: Treatment Not Tolerated
[2023-06-17] MEDS: polyethylene glycoL 3350 17 GM POWD.PACK PO (09:50)
[2023-06-17] MEDS: Omeprazole 40 MG CAPSULE.DR PO (09:50)
[2023-06-17] MEDS: guaiFENesin 100 MG/5 ML LIQUID 10 ML PO ×2 (09:50→16:04)
[2023-06-17] MEDS: SITagliptin Phosphate 50 MG TABLET PO (09:50)
[2023-06-17] MEDS: metFORMIN HCl 1,000 MG TABLET 1000 MG PO (09:50)
[2023-06-17] MEDS: Empagliflozin 10 MG TABLET PO (09:50)
[2023-06-17] MEDS: predniSONE 20 MG TABLET 40 MG PO (09:51)
[2023-06-17 10:06] LABS: Hematocrit 40.9 % (42.0-52.0); Hemoglobin 12.3 g/dl (14.0-18.0); Mean Corpuscular HGB Conc 30.1 g/dl (31.0-36.0); Mean Corpuscular Hemoglobin 30.8 pg (27.0-33.0); Mean Corpuscular Volume 102.3 fL (80.0-98.0); Mean Platelet Volume 11.1 fL (9.4-12.4); NRBC Pct Auto 0.2 /100WBC (0.0-0.2); Platelet Count 253 X10*3/uL (160-400); White Blood Count 12.4 X10*3/uL (4.8-10.8)
[2023-06-17 10:20] LABS: Anion Gap 12 (12-20); Blood Urea Nitrogen 22 mg/dL (9-16); Carbon Dioxide 33 mmol/L (22-29); Chloride 101 mmol/L (96-108); Creatinine Clr Calc Pharmacy 111.9; Estimated Glomerular Filt Rate > 60; Glucose Random 156 mg/dL (60-115); Potassium 4.4 mmol/L (3.3-5.1); Sodium 142 mmol/L (135-145)
[2023-06-17 11:23] LABS: Glucose, Whole Blood 172 mg/dL (60-115)
--- NOTE | 2023-06-17 11:50 | MHC.CM.PN ---
Patient is medically cleared for dc today, to return to [facility]; CM has asked [employer] to initiate the auth process with [employer] and CM will follow.
--- NOTE | 2023-06-17 12:21 | MHC.CLN ---
F/U PT WITH INCREASED NUTRITION RISK R/T PRESSURE INJURY PO INTAKE VARIABLE DIET RX: REGULAR CHOPPED-RECOMMEND CHANGING TO 2200DM R/T DM PT RECEIVING ENSURE MAX BID TO PROMOTE WOUND HEALING SUPP PROVIDES 300KCALS, 60G PROTEIN MONITOR PO INTAKE AND SUPP ACCEPTANCE
--- NOTE | 2023-06-17 12:25 | MHC.SL.SWA ---
Speech Pathologist Impression: Oral phase dysphagia Risk of Aspiration Due to: Medically Fragile Dysphasia Diet Status: Pt appears to be on safest, least restrictive diet textures. Recommend continue on Chopped/Advanced with Thin liquids, pills crushed in puree. Patient requires supervision and some occasional assistance during meals. Recommend supervision to monitor for s/s of aspiration on solids and provide cues for safe eating (i.e. small bites/sips). Further ST intervention no longer warranted at this time. Please re-refer with any changes or further concern. Liquid Consistency and Strategies for Safe Swallow: Liquid Intake Recommendation: Thin Liquid Intake Strategies: Small Sips Solid Food Consistency: Dietary Recommendations: Chopped/Advanced (NDD3) Additional Modifications to Solid Foods: Patient may require occasional cued to swallow before adding more food to mouth and to alternate sips of liquid with bites of solid. Oral Medication Intake: Crushed with Puree Please contact the pharmacy regarding appropriate crushable or liquid drug formulations that are available whenever modified delivery is recommended. Compensatory Strategies and Precautions to be Taken for Safe Swallow: Sitting Upright (90 deg) Liquids from Cup Liquids from Straw Small Bites and Sips Alternate Liquids/Solids Rate of Ingestion Change Supervision While Eating and Drinking for Safe Swallow: Total Supervision (1:1) Foods to Avoid: Hard, tough to chew solids Swallowing Recommended Treatments: Compens. Strategy Educat. Recommendation for Speech: D/C Dock Operations Supervisor Clinican/Clinical Fellow: No Supervisory Statement: I have reviewed and agree with the student/clinical fellow's documentation: N/A Speech Language Pathologist: Sahara Doran M.A., CCC-TUBE WASHER
[2023-06-17] MEDS: Heparin Sodium,Porcine 5,000 UNIT/ML VIAL 5000 UNIT SUBCUT (13:00)
--- NOTE | 2023-06-17 15:02 | PM.DS ---
DS: Providers Provider Date of Service: 06/17/23 Date of admission: 06/01/23 19:31 Primary care physician: Adilia Tomas MD Consults: 06/01/23 23:16 Consult to Gastroenterology Stat Consulting Provider: Xavier Teran Reason for consultation: UGIB Has provider been notified: Yes 06/05/23 07:57 Consult to Vascular Surgery Routine Consulting Provider: [facility] Reason for consultation: Pe; gib need for Ivc filter 06/06/23 08:11 Consult to Pulmonology Routine Consulting Provider: [facility] Reason for consultation: Hypoxia, lung mas, pe Has provider been notified: Yes 06/08/23 08:11 Consult to Infectious Diseases Routine Consulting Provider: [facility] Reason for consultation: ?Pneumonia Has provider been notified: No DS: Diagnosis Discharge Diagnosis (1) Interstitial lung disease: Status: Acute (2) Pulmonary edema: Status: Acute (3) Pulmonary emboli: Status: Acute DS: Summary Hospital Course Hospital Course: Admission HPI on 06/01/23 Chief Complaint: UGIB, SEPSIS HPI: ?72-year-old patient with history of type 2 diabetes, GERD, BPH, hypertension, hypothyroidism who [facility] after being discharged from this hospital 2 days ago post a hospitalization for hypoxic respiratory failure in the setting of a lung mass with postobstructive pneumonia which was biopsied during bronchoscopy and bronchial mucosa result showed reactive changes without malignancy however the cytology results still pending. ?His hospitalization included short-term BiPAP following by endotracheal intubation, in addition he had a large left-sided pleural effusion which was drained with a pigtail from which approximately 1400 cc of serosanguineous fluid was obtained.? Subsequently he was extubated and transferred to the floor and on May 27 his course was ?complicated by a underlying diagnosis of pulmonary embolism for which he was put on Eliquis, postobstructive pneumonia for which he was discharged with Augmentin and doxycycline and Eliquis for for PE ? Today he was sent from the nursing facility to the ER due to decreased responsiveness, hypotension (56/35) and hypoglycemia (54) with minimal improvement of his blood pressure after 400 cc of IV fluid given by EMS, he also received dextrose. ?At the time of arrival, the patient had been answering some simple questions. ?Is noted that his H&H baseline was as high as 15 and 45, his current H&H is 8.9 and 27, a stool occult was positive, according to the family they did not get any reports of hematemesis but it was reported that he had black stools at some point. ? His workup revealed a white count of 26.8 (increased from 14.6) H&H as above, PT 15, INR 1.3, ABG pH 7.42, pCO2 37, PO2 130, HC03 25, sodium 140, potassium 4.7, chloride 107, carbon dioxide 22, anion gap 16, BUN 47 (31), creatinine 1.3 (0.7) lactic acid 2.5, calcium 9, SAD 39, ALT 43, albumin 2.4, TSH 5.8, T4 0.78.? Urinalysis reveals glucosuria with small leukocyte esterase, 21-50 white blood cells per high-power field, no bacteria, yeast present.? The patient was given 30 mL/kilos of IV fluids, vancomycin and Zosyn and given the concern of worsening hypotension and developing of his suspected upper GI bleed we were asked to admit the patient to the ICU. Hospital course: Acute blood loss anemia, black stool that was associated with Hypotension and was admitted to the ICU, but was only transfused 1 units of RBC with good effect. He was seen by GI (Dr. Teran ) who was going to do? EGD but patient's respiratory status was tenuous and so he this was cancelled, he was treated with IV PPI and hemoglobin and hematocrit has continued to be stable with further evidence of GI bleeding. As of today 06/17, hemoglobin is 12 and hematocrit 40. He is to continue oral PPI and to follow up with GI on outpatient patient and to be reconsdered for EGD. recent history of PE during last hospitalization and was on eliquis, but anticoagulation stopped given signficant GIb and anemia and unknown source of bleed. He had Repeat CT angiogram of chest on 06/05/23 and showed no PE, however US of the legs on 06/06/23 showed Extensive bilateral acute DVT and given that he was unable to anticoagulated and Vascular surgery inserted an IVC filter on . He has been on DVT prophylaxis dose of Heparin and I would suggest this be continued Acute hypoxic respiratory failure deemed to be multifactorial--There was concern for transfusion related acute lung injury (TRALI) and Pulmonology recommended treatment with steroid, initially IV solu-medrol and later transitioned to oral Presdnione, He was treated with Zosyn from 06/07 to 06/16 for pneumonia. Treated with IV Lasix for heart failure. He required high amoutn of oxgyen but has been weaneddown Leukocytosis--initially 26K and thought to be reactive and possible pneumonia, this has since come jonathan to presently today 06/17/23,, just 12 which may be attrubuted to steroid. h/o abnormal PET scan on 05/10-? lung malignancy , lymphadenopathy. Biopsy result is reported as follow. COMMENT:? Cellular specimen consisting of atypical epithelioid cells singly and in a few small groups; these cells are are medium to large in size, have moderate cytoplasm and oval nuclei with open chromatin and distinct nucleoli.? The background has scattered mesothelial cells with reactive changes, macrophages, blood and acute inflammatory cells.? By immunohistochemistry, occasional cells appear immunoreactive with MOC-31 with membrane staining; other background cells have more cytoplasmic staining and others are non immunoreactive.? Pancytokeratin highlights a majority of these epithelial cells.? They are non immunoreactive with CD68, S100, CK5/6 and CD45.? Taken together, the findings are worrisome for carcinoma. Should follow up with oncology on outpatient basis.. He will follow up with DR. Denise to be consdered for treatemtn DM2: At home was on Sitagliptin, Metformin, mix insulin 70/30, but presently only is requiring Metformin and Sliding scale with blood sugar no more than 150, in parts due to poor nutrition HTN--He was on Aldactone, Norvasc, Losartan all of them have been on hold and Blood pressure has been normal HypOthyroidism-- continue Levohyroxine mild elevated tsh ,free t4 normal DVT prophylaxis: Heparin He is Do Not Intubate Time Spent with Patient Time attestation: Total time managing care of this patient today ____ minutes. Discharge coordination time: Greater than 30 minutes Quality: Safe Use of Opioids Does Pt have an Active Cancer Diagnosis on the Problem List?: No Quality: Stroke Does the patient have a stroke diagnosis?: No Physical Exam Vital Signs: Vital Signs: Last Vital Signs Temp 97.1 F 06/17/23 11:51 Pulse 101 H 06/17/23 11:51 Resp 18 06/17/23 11:51 BP 120/60 06/17/23 11:51 Pulse Ox 96 06/17/23 11:51 O2 Del Method Room Air 06/17/23 11:51 O2 Flow Rate 5 06/17/23 11:51 FiO2 30 06/08/23 20:00 Oxygen Flow Rate 3 06/01/23 17:01 BMI result Body Mass Index 22.2 DS: Data Data Completed and Pending Completed studies during hospitalization [Text1]: Procedures Assistance with Respiratory Ventilation, Less than 24 Consecutive Hours, Continuous Positive Airway Pressure (05/12/23) Drainage of Left Pleural Cavity with Drainage Device, Percutaneous Approach (05/12/23) Drainage of Left Upper Lobe Bronchus, Via Natural or Artificial Opening Endoscopic (05/12/23) Excision of Left Upper Lobe Bronchus, Via Natural or Artificial Opening Endoscopic, Diagnostic (05/12/23) Insertion of Endotracheal Airway into Trachea, Via Natural or Artificial Opening (05/12/23) Insertion of Infusion Device into Superior Vena Cava, Percutaneous Approach (05/12/23) Introduction of Vasopressor into Central Vein, Percutaneous Approach (05/12/23) Respiratory Ventilation, Greater than 96 Consecutive Hours (05/12/23) Ultrasonography of Superior Vena Cava, Guidance (05/12/23) Labs on day of discharge: Laboratory Results - last 24 hr 06/16/23 06/16/23 06/17/23 15:15 20:13 07:16 WBC RBC Hgb Hct MCV MCH MCHC RDW Plt Count MPV Absolute Nucleated RBC Nucleated RBC % (auto) Sodium Potassium Chloride Carbon Dioxide Anion Gap BUN Creatinine Estim Creat Clear Calc Estimated GFR POC Glucose 176 H 133 H 117 H Random Glucose Calcium 06/17/23 06/17/23 06/17/23 09:52 10:01 11:14 WBC 12.4 H RBC 4.00 L Hgb 12.3 L Hct 40.9 L MCV 102.3 H MCH 30.8 MCHC 30.1 L RDW 16.0 Plt Count 253 MPV 11.1 Absolute Nucleated RBC 0.030 H Nucleated RBC % (auto) 0.2 Sodium 142 Potassium 4.4 Chloride 101 Carbon Dioxide 33 H Anion Gap 12 BUN 22 H Creatinine 0.60 Estim Creat Clear Calc 111.9 Estimated GFR > 60 POC Glucose 172 H Random Glucose 156 H Calcium 10.0 Discharge Plan Discharge Anticipated Discharge Date/Time: 06/17/23 15:07 Patient Disposition: Xfer SNF Discharge Diagnosis: GI bleeding, acute blood loss anemia, congestive heart failure, Hypoxia, Pulmonary embolism, DVT Referrals: [facility] [Outside] - 1 Week Adilia Gonzales MD [Primary Care Provider] - 1 Week Discharge Medications: New metformin 1,000 mg tablet 1,000 mg PO BID Qty: 60 0RF Continued levothyroxine [Synthroid] 100 mcg tablet 100 mcg PO DAILY tamsulosin 0.4 mg capsule 0.4 mg PO DAILY omeprazole 20 mg capsule,delayed release(DR/EC) 20 mg PO DAILY mirtazapine 7.5 mg Tablet 7.5 mg PO BEDTIME Qty: 30 0RF Jardiance 10 mg Tablet 10 mg PO DAILY Qty: 30 0RF Discontinued amlodipine 5 mg tablet 5 mg PO DAILY losartan 100 mg tablet 100 mg PO DAILY Protocol: Hold for SBP< HOLD for SBP < : 90 insulin lispro protamin-lispro [Humalog Mix 75-25 KwikPen] 100 unit/mL (75-25) insulin pen 20 unit subcut DAILY@1600 insulin lispro protamin-lispro [Humalog Mix 75-25 KwikPen] 100 unit/mL (75-25) insulin pen 15 unit subcut BID Janumet 50-1,000 mg tablet 1 tab PO BID spironolactone 25 mg Tablet 25 mg PO DAILY Qty: 30 0RF Protocol: Hold for SBP< HOLD for SBP < : 90 losartan 25 mg Tablet 25 mg PO DAILY Qty: 30 0RF Protocol: Hold for SBP< HOLD for SBP < : 90 amoxicillin-pot clavulanate 875-125 mg tablet 1 tab PO BID Qty: 14 0RF doxycycline hyclate 100 mg tablet 100 mg PO BID 7 Days Qty: 14 0RF Eliquis 5 mg tablet 5 mg PO BID Qty: 60 0RF Discharge Orders: Discharge Order (Routine); Ordered 06/17/23 Ordered By: Zachariah Wilkerson Diet: Diabetic diet Activity on Discharge: As tolerated Stand Alone Forms: Patient Portal Discharge page Care Plan Goals: full recovery from gib, anemia, hypoxia Health Concerns: gi bleeding, possible lung cancer, Plan of Treatment: Short term rehab to improve to follow up with PCP in a week to follow up with Dr. Denise in Oncology to Follow up with Dr. Teran in GI Assessment: as above of
--- NOTE | 2023-06-17 15:03 | MHC.CM.PN ---
Patient has been medically cleared for dc to SNF/STR today. Patient will return to STR @ [facility] today at 4:30 PM, via [facility]. CM met with Patient and his S.O./Mackenzie at bedside and addressed IMM with them, providing therm with the original and placing a copy on the chart.
[2023-06-17 16:19] LABS: Glucose, Whole Blood 122 mg/dL (60-115)
--- NOTE | 2023-06-28 12:17 | P.CDIM_ITS ---
PROVIDER RESPONSE TEXT: To clarify, the appropriate diagnosis supported by the clinical indicators: Pressure ulcer coccyx stage 2 QUERY TEXT: PHYSICIAN'S DOCUMENTATION REQUEST Date of Query: 06/16/2023 12:34 PM EDT Patient Name: Selvin Santo Admit Date: 06/01/2023 Dear Zachariah Unger, A review of the medical record indicates additional documentation may be needed. Please review below and update the documentation accordingly. Clinical Indicators: Per Nursing Pressure Injury Assessment 06/15/23: wound stage 2 coccyx Based on the above, could you clarify the appropriate diagnosis, if significant, that supports the ab ove abnormalities and additional evaluation, monitoring, and/or treatment rendered: Pressure ulcer coccyx stage 2 Other type of coccyx wound, please specify type Condition 3 (please specify) Labs indicate a diagnosis of (please specify) Other (explain)Clinically unable to determine (explain)Thank you, Shelly Simms RN Use of terms such as suspected, likely, concern for, or probable (associated with a specific diagnosi s that is being evaluated, monitored, or treated as if it exists) are acceptable and can be coded in the inpatient se tting, when documented at the time of discharge. Please use your independent medical judgment in providing your response. THIS QUERY IS PART OF THE PERMANENT MEDICAL RECORD
== END 2023-06-17 17:08 | disposition skilled nursing facility (03) | DRG 871 ==
LOC: HO.ED 18:12 → HO.EDOVER 19:40 → HO.ICU 19:52 → HO.IMC 06-03 15:45
PROVIDERS: Internal Medicine; Internal Medicine Pulmonary Disease; Student in an Organized Health Care Education/Training Program; Surgery Vascular Surgery; Admitting Provider Physician Assistant Medical; Emergency Provider Emergency Medicine; PCP Student in an Organized Health Care Education/Training Program; Visit Provider Internal Medicine
PROC: 06H03DZ Insertion of Intraluminal Device into Inferior Vena Cava, Percutaneous Approach (ICD-10-PCS; principal; 2023-06-07 07:30)
DX: A41.9 Sepsis, unspecified organism (principal); I26.99 Other pulmonary embolism without acute cor pulmonale; J69.0 Pneumonitis due to inhalation of food and vomit; J96.01 Acute respiratory failure with hypoxia; N39.0 Urinary tract infection, site not specified; N17.9 Acute kidney failure, unspecified; D62 Acute posthemorrhagic anemia; I42.0 Dilated cardiomyopathy; D68.32 Hemorrhagic disorder due to extrinsic circulating anticoagulants; I82.451 Acute embolism and thrombosis of right peroneal vein; I82.441 Acute embolism and thrombosis of right tibial vein; I82.431 Acute embolism and thrombosis of right popliteal vein; I82.413 Acute embolism and thrombosis of femoral vein, bilateral; J95.84 Transfusion-related acute lung injury (TRALI); C34.92 Malignant neoplasm of unspecified part of left bronchus or lung; E86.0 Dehydration; R65.20 Severe sepsis without septic shock; E11.649 Type 2 diabetes mellitus with hypoglycemia without coma; N40.0 Benign prostatic hyperplasia without lower urinary tract symptoms; E03.9 Hypothyroidism, unspecified; T45.515A Adverse effect of anticoagulants, initial encounter; I11.0 Hypertensive heart disease with heart failure; E11.51 Type 2 diabetes mellitus with diabetic peripheral angiopathy without gangrene; I50.9 Heart failure, unspecified; L89.152 Pressure ulcer of sacral region, stage 2; Z79.01 Long term (current) use of anticoagulants; Z79.84 Long term (current) use of oral hypoglycemic drugs; Z79.890 Hormone replacement therapy; Z79.899 Other long term (current) drug therapy
CPT/HCPCS: 36415; 37191; 71045; 71275; 76937; 80048; 80053; 80076; 80202; 81001; 82040; 82164; 82272; 82565; 82803; 82947; 83605; 83735; 83880; 84100; 84132; 84439; 84443; 85014; 85018; 85025; 85027; 85610; 85652; 86038; 86140; 86850; 86900; 86901; 86923; 87040; 87086; 92526; 92610; 93005; 93306; 93970; 97110; 97163; 99285; C1758; C1769; C1880; C1894; J1450; J1643; J1940; J2270; J2543; J2930; J3370; J3371; P9016; P9047; Q9957; Q9967

== ENCOUNTER 2023-06-01 19:31 | Outpatient (BNV) | payer OTHER, SELFPAY | END 2023-06-08 07:00 | PROVIDERS: Admitting Provider Physician Assistant Medical; Emergency Provider Emergency Medicine; PCP Student in an Organized Health Care Education/Training Program; Visit Provider Internal Medicine Cardiovascular Disease | DX: K92.2 Gastrointestinal hemorrhage, unspecified (principal); I42.0 Dilated cardiomyopathy | CPT/HCPCS: 93306 ==

== ENCOUNTER → 2023-06-01 19:31 | Outpatient (BNV) | payer OTHER, SELFPAY | PROVIDERS: Admitting Provider Physician Assistant Medical; Emergency Provider Emergency Medicine; PCP Student in an Organized Health Care Education/Training Program; Visit Provider Internal Medicine | DX: K92.2 Gastrointestinal hemorrhage, unspecified (principal); D62 Acute posthemorrhagic anemia; J84.9 Interstitial pulmonary disease, unspecified | CPT/HCPCS: 99222 ==

== ENCOUNTER → 2023-06-01 19:31 | Outpatient (BNV) | payer OTHER, SELFPAY | PROVIDERS: Admitting Provider Physician Assistant Medical; Emergency Provider Emergency Medicine; PCP Student in an Organized Health Care Education/Training Program; Visit Provider Internal Medicine Pulmonary Disease | DX: J81.0 Acute pulmonary edema (principal); I26.99 Other pulmonary embolism without acute cor pulmonale; J90 Pleural effusion, not elsewhere classified; J84.9 Interstitial pulmonary disease, unspecified | CPT/HCPCS: 99232; 99233; 99291 ==

== ENCOUNTER → 2023-06-01 19:31 | Outpatient (BNV) | payer OTHER, SELFPAY | PROVIDERS: Admitting Provider Physician Assistant Medical; Emergency Provider Emergency Medicine; PCP Student in an Organized Health Care Education/Training Program; Visit Provider Surgery Vascular Surgery | DX: I82.409 Acute embolism and thrombosis of unspecified deep veins of unspecified lower extremity (principal); I26.99 Other pulmonary embolism without acute cor pulmonale | CPT/HCPCS: 37191; 99222; 99232 ==

== ENCOUNTER → 2023-06-01 19:31 | Outpatient (BNV) | payer OTHER, SELFPAY | PROVIDERS: Admitting Provider Physician Assistant Medical; Emergency Provider Emergency Medicine; PCP Student in an Organized Health Care Education/Training Program; Visit Provider Internal Medicine | DX: J84.9 Interstitial pulmonary disease, unspecified (principal); J81.0 Acute pulmonary edema; I26.99 Other pulmonary embolism without acute cor pulmonale | CPT/HCPCS: 99232; 99233; 99239 ==